=== PATIENT | male | born 1950 | race Caucasian/White ===

== ENCOUNTER 2017-08-11 19:23 | Emergency (ER) | payer BC, OTHER ==
--- NOTE | 2017-08-11 19:56 | EDM.PDOC ---
ED HPI GENERAL MEDICAL PROBLEM - General Chief Complaint: Genitourinary Problem Stated Complaint: LOWER BACK PAIN,URINARY ISSUES Time Seen by Provider: 08/11/17 19:49 Source of Information: Reports: Patient History Limitations: Reports: No Limitations - History of Present Illness INITIAL COMMENTS - FREE TEXT/NARRATIVE: HISTORY AND PHYSICAL: History of present illness: Patient is a 66-year-old male who presents to the emergency room with complaints of right sided low back pain. He states that he has also had increased urination over the past week. Patient points to the right gluteus as the area of discomfort. He has full range of motion of the back, without difficulty. Denies any recent injury or trauma. Denies any dysuria, blood noted in the urine, or difficulty starting his stream. Denies any change in bowel pattern. Denies any increase in thirst, no history of diabetes, no episodes of diaphoresis. Denies any chest pain, shortness of breath, abdominal pain, nausea, vomiting or diarrhea. Review of systems: As per history of present illness and below otherwise all systems reviewed and negative. Past medical history: As per history of present illness and as reviewed below otherwise noncontributory. Surgical history: As per history of present illness and as reviewed below otherwise noncontributory. Social history: No reported history of drug or alcohol abuse. Family history: As per history of present illness and as reviewed below otherwise noncontributory. Physical exam: General: Nontoxic-appearing 66-year-old male. Alert and oriented. Appears in no acute distress. HEENT: Atraumatic, normocephalic, pupils reactive, negative for conjunctival pallor or scleral icterus, mucous membranes moist, throat clear, neck supple, nontender, trachea midline. Lungs: Clear to auscultation, breath sounds equal bilaterally, chest nontender. Heart: S1S2, regular, negative for clicks, rubs, or JVD. Abdomen: Soft, nondistended, nontender. Negative for masses or hepatosplenomegaly. Negative for costovertebral tenderness. Pelvis: Stable nontender. Genitourinary: Deferred. Rectal: Deferred. Back: No pinpoint vertebral tenderness upon palpation. Patient is able to walk on his heels and toes without difficulty. Extremities: Atraumatic, moves all extremities per self with full range of motion without difficulty or deficits. Has mild tenderness on the right gluteus with palpation. The pelvis and hips are nontender. As flexion and extension at the waist. Denies any numbness or tingling to the lower extremities. negative for cords or calf pain. Neurovascular unremarkable. Neuro: Awake, alert, oriented. Cranial nerves II through XII unremarkable. Cerebellum unremarkable. Motor and sensory unremarkable throughout. Exam nonfocal. Patient states he has no history of diabetes. Bedside blood sugar was checked. Urinalysis results pending. The pain sounds musculoskeletal as it is over the right buttock and goes down the leg slightly. She declines anything for pain at this time. Negative urinalysis, lumbar x-ray does not show any acute changes. We'll give the patient prescription for Flexeril and Voltaren. Education on both medications were given to him. His son is at the bedside and we did review with him as well. Denies any further questions at this time. Diagnostics: UA, lumbar spine x-ray Therapeutics: [] Impression: Back pain with sciatica Plan: 1. Flexeril can be taken one tab up to 3 times a day. This medication does cause drowsiness so do not take it while driving or needing to be functioning at work. An anti-inflammatory has also been prescribed, this medication should not be taken with additional NSAIDs such as ibuprofen or Aleve. Take this medication once daily with food. He may take Tylenol if needed. 2. Follow up with your primary caregiver in the next 1-2 days. Return to the ED as needed and as discussed. Definitive disposition and diagnosis as appropriate pending reevaluation and review of above. Duration: Day(s): Location: Reports: Back right lower back Pain Score (Numeric/FACES): 7 - Related Data Allergies Allergy/AdvReac Type Severity Reaction Status Date / Time No Known Allergies Allergy Verified 08/11/17 19:33 Home Meds: Home Meds . [No Known Home Meds] 08/11/17 [History] Past Medical History HEENT History: Reports: Impaired Vision Cardiovascular History: Reports: None Respiratory History: Reports: None Gastrointestinal History: Reports: None Genitourinary History: Reports: None Musculoskeletal History: Reports: None Neurological History: Reports: None Psychiatric History: Reports: None Endocrine/Metabolic History: Reports: None Hematologic History: Reports: None Oncologic (Cancer) History: Reports: None Dermatologic History: Reports: None - Infectious Disease History Infectious Disease History: Reports: Chicken Pox, Measles, Mumps Social & Family History - Family History Family Medical History: Noncontributory - Tobacco Use Smoking Status *Q: Never Smoker - Recreational Drug Use Recreational Drug Use: No ED ROS GENERAL - Review of Systems Review Of Systems: ROS reveals no pertinent complaints other than HPI. ED EXAM, GENERAL - Physical Exam Exam: See Below (See dictation) Course - Vital Signs Last Recorded V/S: Last Vital Signs Temp 98.2 F 08/11/17 19:29 Pulse 89 08/11/17 19:29 Resp 18 08/11/17 19:29 BP 171/61 H 08/11/17 19:29 Pulse Ox 96 08/11/17 19:29 - Orders/Labs/Meds Orders: Active Orders 24 hr Category Date Time Status Glucose [Blood Glucose Check, Bedside] [RC] ONETIME Care 08/11/17 19:56 Active Lumbar Spine 2 or 3V [CR] Stat Exams 08/11/17 19:48 Taken Labs: Laboratory Tests 08/11/17 Range/Units 19:31 Urine Color YELLOW Urine Appearance CLEAR Urine pH 5.5 (5.0-8.0) Ur Specific [place] <= 1.005 (1.001-1.035) Urine Protein NEGATIVE (NEGATIVE) mg/dL Urine Glucose (UA) NEGATIVE (NEGATIVE) mg/dL Urine Ketones NEGATIVE (NEGATIVE) mg/dL Urine Occult Blood TRACE-LYSED (NEGATIVE) Urine Nitrite NEGATIVE (NEGATIVE) Urine Bilirubin NEGATIVE (NEGATIVE) Urine Urobilinogen 0.2 (<2.0) EU/dL Ur Leukocyte Esterase NEGATIVE (NEGATIVE) Urine RBC 0-1 (0-2/HPF) Urine WBC 0-2 (0-5/HPF) Ur Epithelial Cells RARE (NONE-FEW) Urine Bacteria RARE (NEGATIVE) Departure - Departure Time of Disposition: 20:44 Disposition: Home, Self-Care 01 Clinical Impression: Sciatica Qualifiers: Laterality: right Qualified Code(s): M54.31 - Sciatica, right side - Discharge Information Referrals: PCP,Unknown [Primary Care Provider] - Forms: ED Department Discharge Additional Instructions: My general discharge The following information is given to patients seen in the emergency department who are being discharged to home. This information is to outline your options for follow-up care. We provide all patients seen in our emergency department with a follow-up referral. The need for follow-up, as well as the timing and circumstances, are variable depending upon the specifics of your emergency department visit. If you don't have a primary care physician on staff, we will provide you with a referral. We always advise you to contact your personal physician following an emergency department visit to inform them of the circumstance of the visit and for follow-up with them and/or the need for any referrals to a consulting specialist. The emergency department will also refer you to a specialist when appropriate. This referral assures that you have the opportunity for follow-up care with a specialist. All of these measure are taken in an effort to provide you with optimal care, which includes your follow-up. Under all circumstances we always encourage you to contact your private physician who remains a resource for coordinating your care. When calling for follow-up care, please make the office aware that this follow-up is from your recent emergency room visit. If for any reason you are refused follow-up, please contact the [facility] Emergency Department at and asked to speak to the emergency department charge nurse. [facility] [address] [place] [id number] 1. Flexeril can be taken one tab up to 3 times a day. This medication does cause drowsiness so do not take it while driving or needing to be functioning at work. An anti-inflammatory has also been prescribed, this medication should not be taken with additional NSAIDs such as ibuprofen or Aleve. Take this medication once daily with food. You may take Tylenol if needed. 2. Follow up with your primary caregiver in the next 1-2 days. Return to the ED as needed and as discussed. - My Orders Last 24 Hours: My Active Orders 08/11/17 19:48 Lumbar Spine 2 or 3V [CR] Stat 08/11/17 19:56 Glucose [Blood Glucose Check, Bedside] [RC] ONETIME - Assessment/Plan Last 24 Hours: My Active Orders 08/11/17 19:48 Lumbar Spine 2 or 3V [CR] Stat 08/11/17 19:56 Glucose [Blood Glucose Check, Bedside] [RC] ONETIME
--- NOTE | 2017-08-12 11:45 | CR ---
EXAM DATE: 08/11/17 PATIENT'S AGE: 66 Patient: CHRISS LONDONNARY Facility: [place], [place] Site . Site : 1950 Study: XRay Spine Lumbar [id number]/26/2017 8:31:53 PM Ordering Physician: Doctor Cantrell Final Report: HISTORY: Right-sided low back pain. Findings: Three views of the lumbar spine or provided. There is a mild lumbar curve convex to the right. Alignment on the lateral view is unremarkable. There is diffuse degenerative disc disease at all levels with disc space narrowing and prominent osteophytes. No findings for fracture, dislocation or subluxation. The sacroiliac joints are unremarkable. Dictated by Trey Maria MD @ Aug 11 2017 9:49PM (Electronic Signature) Report Signed by Proxy. VINCENT
== END 2017-08-11 21:00 | disposition home or self-care (01) ==
LOC: MW.ED 19:23
DX: M54.41 Lumbago with sciatica, right side (principal)
CPT/HCPCS: 72100; 72100-26; 81001; 82962; 99284

== ENCOUNTER 2017-08-19 17:51 | Inpatient (IN) | payer BC ==
[2017-08-19] MEDS ORDERED: Albuterol/Ipratropium 3.0-0.5 MG/3 ML Neb Soln ONE (18:10)
[2017-08-19] MEDS ORDERED: Albuterol/Ipratropium 3.0-0.5 MG/3 ML Neb Soln NEB ONE ×2 (18:14→19:42)
--- NOTE | 2017-08-19 20:40 | EDM.PDOC ---
ED HPI GENERAL MEDICAL PROBLEM - General Chief Complaint: Respiratory Problem Stated Complaint: SHORTNESS OF BREATH Time Seen by Provider: 08/19/17 19:05 Source of Information: Reports: Patient History Limitations: Reports: No Limitations - History of Present Illness INITIAL COMMENTS - FREE TEXT/NARRATIVE: History of present illness: [66-year-old male comes in with shortness of breath. Patient was seen recently for prostate issues as well as new onset incontinence. Patient's son is with him at the bedside and indicates that his father has been slowly decompensating. Patient is a poor historian and is unable to indicate how long he's been struggling with his breathing and seems to think that everything that is currently wrong with him started with his urinary complaint. This 66-year- old male is pleasant and cooperative but looks much older than stated age and is unable initially to make complete sentences without having to stop and take a few extra breaths.] Review of systems: As per history of present illness and below otherwise all systems reviewed and negative. Past medical history: As per history of present illness and as reviewed below otherwise noncontributory. Surgical history: As per history of present illness and as reviewed below otherwise noncontributory. Social history: No reported history of drug or alcohol abuse. Family history: As per history of present illness and as reviewed below otherwise noncontributory. Physical exam: HEENT: Atraumatic, normocephalic, pupils reactive, negative for conjunctival pallor or scleral icterus, mucous membranes moist, throat clear, neck supple, nontender, trachea midline. Lungs: Diminished throughout with end expiratory wheeze, poor diaphragmatic excursion noted despite breath sounds being equal bilaterally, chest nontender. Heart: S1S2, regular, negative for clicks, rubs, or JVD. Abdomen: Soft, nondistended, nontender. Negative for masses or hepatosplenomegaly. Negative for costovertebral tenderness. Pelvis: Stable nontender. Genitourinary: Deferred. Rectal: Deferred. Extremities: Atraumatic, negative for cords or calf pain. Neurovascular unremarkable. Neuro: Awake, alert, oriented. Cranial nerves II through XII unremarkable. Diagnostics: [Chest x-ray CBC, CMP, lactic acid, EKG, influenza AB] Therapeutics: [Duo neb] Impression: [] Plan: [Admission] Definitive disposition and diagnosis as appropriate pending reevaluation and review of above. - Related Data Allergies Allergy/AdvReac Type Severity Reaction Status Date / Time No Known Allergies Allergy Verified 08/19/17 17:59 Home Meds: Home Meds . [No Known Home Meds] 08/11/17 [History] Past Medical History HEENT History: Reports: Impaired Vision Cardiovascular History: Reports: None Respiratory History: Reports: None Gastrointestinal History: Reports: None Genitourinary History: Reports: None Musculoskeletal History: Reports: None Neurological History: Reports: None Psychiatric History: Reports: None Endocrine/Metabolic History: Reports: None Hematologic History: Reports: None Oncologic (Cancer) History: Reports: None Dermatologic History: Reports: None - Infectious Disease History Infectious Disease History: Reports: Chicken Pox, Measles, Mumps Social & Family History - Family History Family Medical History: Noncontributory - Tobacco Use Smoking Status *Q: Never Smoker - Recreational Drug Use Recreational Drug Use: No ED ROS GENERAL - Review of Systems Review Of Systems: See Below (See history of present illness) ED EXAM, GENERAL - Physical Exam Exam: See Below (See history of present illness) Course - Vital Signs Last Recorded V/S: Last Vital Signs Temp 36.5 C 08/20/17 08:00 Pulse 98 08/20/17 08:00 Resp 20 08/20/17 08:00 BP 131/76 08/20/17 08:00 Pulse Ox 99 08/20/17 08:00 - Orders/Labs/Meds Orders: Active Orders 24 hr Category Date Time Status EKG Documentation Completion [RC] STAT Care 08/19/17 18:24 Active RT Aerosol Therapy [RC] ASDIRECTED Care 08/19/17 18:14 Active RT Aerosol Therapy [RC] ASDIRECTED Care 08/19/17 19:42 Active Medication Orders Acetaminophen (Tylenol) 650 mg PO Q4H PRN PRN Reason: Pain (Mild 1-3)/fever Albuterol/Ipratropium (Duoneb 3.0-0.5 Mg/3 Ml) 3 ml NEB Q4HRRT PRN PRN Reason: Shortness Of Breath/wheezing Enoxaparin Sodium (Lovenox) 40 mg SUBCUT DAILY [place] Last Admin: 08/20/17 08:44 Dose: 40 mg Sodium Chloride (Normal Saline) 1,000 mls @ 125 mls/hr IV ASDIRECTED [place] Last Admin: 08/20/17 09:24 Dose: 125 mls/hr Infusion: 08/20/17 07:57 Dose: 125 mls/hr Admin: 08/19/17 23:57 Dose: 125 mls/hr Ceftriaxone Sodium/Dextrose 1 (gm/ Premix) 50 mls @ 100 mls/hr IV Q24H [facility] Last Admin: 08/19/17 23:46 Dose: 100 mls/hr Azithromycin 500 mg/ Sodium (Chloride) 250 mls @ 250 mls/hr IV Q24H [facility] Last Admin: 08/20/17 01:08 Dose: 250 mls/hr Ondansetron HCl (Zofran) 4 mg IVPUSH Q4H PRN PRN Reason: Nausea Labs: Laboratory Tests 08/19/17 08/19/17 08/19/17 Range/Units 18:00 18:00 20:51 WBC 11.20 H (4.0-11.0) K/uL RBC 3.71 L (4.50-5.90) M/uL Hgb 10.3 L (13.0-17.0) g/dL Hct 32.3 L (38.0-50.0) % MCV 87.1 (80.0-98.0) fL MCH 27.8 (27.0-32.0) pg MCHC 31.9 (31.0-37.0) g/dL RDW Std Deviation 46.9 (28.0-62.0) fl RDW Coeff of [place]ita 15 (11.0-15.0) % Plt Count 339 (150-400) K/uL MPV 12.00 (7.40-12.00) fL Neut % (Auto) 80.3 H (48.0-80.0) % Lymph % (Auto) 13.5 L (16.0-40.0) % [place] % (Auto) 5.4 (0.0-15.0) % Eos % (Auto) 0.5 (0.0-7.0) % Baso % (Auto) 0.3 (0.0-1.5) % Neut # (Auto) 9.0 H (1.4-5.7) K/uL Lymph # (Auto) 1.5 (0.6-2.4) K/uL [place] # (Auto) 0.6 (0.0-0.8) K/uL Eos # (Auto) 0.1 (0.0-0.7) K/uL Baso # (Auto) 0.0 (0.0-0.1) K/uL Nucleated RBC % 0.0 /100WBC Nucleated RBCs # 0 K/uL Lactate 1.6 (0.20-2.00) mmol/L Sodium 147 H (136-146) mmol/L Potassium 4.0 (3.5-5.1) mmol/L Chloride 107 (98-110) mmol/L Carbon Dioxide 23 (21-31) mmol/L BUN 30 H (6.0-23.0) mg/dL Creatinine 2.0 H (0.6-1.5) mg/dL Est Cr Clr Drug Dosing 38.53 mL/min Estimated GFR (MDRD) 33.8 ml/min Glucose 115 H (60-110) mg/dL Calcium 7.6 L (8.8-10.8) mg/dL Total Bilirubin 0.6 (0.1-1.5) mg/dL AST 21 (5-40) IU/L ALT 11 (8-54) IU/L Alkaline Phosphatase 74 (40-150) Total Protein 7.3 (6.0-8.0) g/dL Albumin 3.7 (3.4-4.8) g/dL Globulin 3.6 H (2.0-3.5) g/dL Albumin/Globulin Ratio 1.0 L (1.3-2.8) Meds: Medications Generic Name Dose Route Start Last Admin Trade Name Freq PRN Reason Stop Dose Admin Acetaminophen 650 mg 08/19/17 22:42 Tylenol PO Q4H PRN Pain (Mild 1-3)/fever Albuterol/Ipratropium 3 ml 08/19/17 22:42 Duoneb 3.0-0.5 Mg/3 Ml NEB Q4HRRT PRN Shortness Of Breath/wheezing Enoxaparin Sodium 40 mg 08/20/17 09:00 08/20/17 08:44 Lovenox SUBCUT 40 mg DAILY [place] Administration Sodium Chloride 1,000 mls @ 125 mls/hr 08/19/17 22:45 08/20/17 09:24 Normal Saline IV 125 mls/hr ASDIRECTED [place] Administration Ceftriaxone Sodium/Dextrose 1 50 mls @ 100 mls/hr 08/20/17 00:00 08/19/17 23: 46 gm/ Premix IV 100 mls/hr Q24H [place] Administration Azithromycin 500 mg/ Sodium 250 mls @ 250 mls/hr 08/20/17 00:30 08/20/17 01: 08 Chloride IV 250 mls/hr Q24H [place] Administration Ondansetron HCl 4 mg 08/19/17 22:42 Zofran IVPUSH Q4H PRN Nausea Discontinued Medications Generic Name Dose Route Start Last Admin Trade Name Freq PRN Reason Stop Dose Admin Albuterol/Ipratropium Confirm 08/19/17 18:10 08/19/17 18:16 Duoneb 3.0-0.5 Mg/3 Ml Administered 08/19/17 18:11 Not Given Dose 3 ml .ROUTE .STK-MED ONE Albuterol/Ipratropium 3 ml 08/19/17 18:14 08/19/17 18:16 Duoneb 3.0-0.5 Mg/3 Ml NEB 08/19/17 18:15 3 ml ONETIME ONE Administration Albuterol/Ipratropium 3 ml 08/19/17 19:42 08/19/17 20:14 Duoneb 3.0-0.5 Mg/3 Ml NEB 08/19/17 19:43 Not Given ONETIME ONE Ceftriaxone Sodium 1,000 mg 08/19/17 23:00 08/19/17 23:58 Rocephin IVPUSH Not Given Q24H [place] Levofloxacin/Dextrose 750 mg/ 150 mls @ 100 mls/hr 08/19/17 20:53 08/19/17 21 :37 Premix IV 08/19/17 22:22 100 mls/hr ONETIME ONE Administration Azithromycin 500 mg/ Sodium 250 mls @ 250 mls/hr 08/19/17 23:00 08/20/17 01: 52 Chloride IV Not Given Q24H [place] Departure - Departure Time of Disposition: 10:06 Disposition: Admitted As Inpatient 68 Condition: Good Clinical Impression: Hypoxemia - Discharge Information - My Orders Last 24 Hours: My Active Orders 08/19/17 18:24 EKG Documentation Completion [RC] STAT 08/19/17 19:42 RT Aerosol Therapy [RC] ASDIRECTED - Assessment/Plan Last 24 Hours: My Active Orders 08/19/17 18:24 EKG Documentation Completion [RC] STAT 08/19/17 19:42 RT Aerosol Therapy [RC] ASDIRECTED
[2017-08-19] MEDS ORDERED: Levofloxacin/Dextrose 5%-Water 750 MG in Premix Bag 1 BAG IV ONE (20:53)
[2017-08-19] MEDS ORDERED: Albuterol/Ipratropium 3.0-0.5 MG/3 ML Neb Soln NEB PRN (22:42)
--- NOTE | 2017-08-19 22:58 | PCM.HP ---
H&P History of Present Illness - General Admit Problem/Dx: Admission Diagnosis/Problem Admission Diagnosis/Problem Pneumonia - History of Present Illness Initial Comments - Free Text/Narative: 66 yo male who presents with complaint of shortness of breath, productive cough , and generalized weakness. He also has been having urinary incontinence. He was prescribed ciprofloxacin which he stopped taking a week ago. CXR performed in ED reported right middle lobe pneumonia and small bilateral perihilar pneumonias. - Related Data Allergies/Adverse Reactions: Allergies Allergy/AdvReac Type Severity Reaction Status Date / Time No Known Allergies Allergy Verified 08/19/17 17:59 Home Medications: Home Meds . [No Known Home Meds] 08/11/17 [History] Past Medical History HEENT History: Reports: Impaired Vision Cardiovascular History: Reports: None Respiratory History: Reports: None Gastrointestinal History: Reports: None Genitourinary History: Reports: None Musculoskeletal History: Reports: None Neurological History: Reports: None Psychiatric History: Reports: None Endocrine/Metabolic History: Reports: None Hematologic History: Reports: None Oncologic (Cancer) History: Reports: None Dermatologic History: Reports: None - Infectious Disease History Infectious Disease History: Reports: Chicken Pox, Measles, Mumps Social & Family History - Family History Family Medical History: Noncontributory - Tobacco Use Smoking Status *Q: Never Smoker - Recreational Drug Use Recreational Drug Use: No H&P Review of Systems - Review of Systems: Review Of Systems: ROS reveals no pertinent complaints other than HPI. Exam - Exam Exam: See Below - Vital Signs Vital Signs: Last Vital Signs Temp 37.2 C 08/19/17 18:00 Pulse 109 H 08/19/17 18:00 Resp 20 08/19/17 19:19 BP 143/88 H 08/19/17 19:37 Pulse Ox 97 08/19/17 19:37 Weight: 81.193 kg - Exam General: Alert, Oriented HEENT: Mucosa Moist & [place] Lungs: Clear to Auscultation, Normal Respiratory Effort Cardiovascular: Regular Rate, Regular Rhythm GI/Abdominal Exam: Soft, Non-Tender Extremities: Non-Tender, No Pedal Edema Skin: Warm, Dry, Intact Neurological: No: Focal Deficit - Patient Data Result Diagrams: 08/19/17 18:00 08/19/17 18:00 *Q Meaningful Use (ADM) - VTE *Q VTE Criteria *Q: - Stroke *Q Stroke Criteria *Q: - AMI *Q AMI Criteria *Q: Problem List Initiated/Reviewed/Updated: Yes Assessment/Plan Comment:: 66 yo male admitted with community acquired pneumonia. Will treat with Rocephin and azithromycin. Blood and sputum cultures ordered.
[2017-08-19] MEDS ORDERED: Azithromycin 500 MG in Sodium Chloride 0.9% 250 ML IV SCH (23:00)
[2017-08-19] MEDS ORDERED: cefTRIAXone 1,000 MG VIAL IVPUSH SCH (23:00)
[2017-08-19] MEDS: cefTRIAXone 1 GM in Premix Bag 1 BAG IV SCH (23:46)
[2017-08-19] MEDS: Sodium Chloride 0.9% 1,000 ML IV SCH (23:57)
[2017-08-20] MEDS: Azithromycin 500 MG in Sodium Chloride 0.9% 250 ML IV SCH (01:08)
--- NOTE | 2017-08-20 08:40 | PCM.PN ---
- General Info Date of Service: 08/20/17 Admission Dx/Problem (Free Text): Admission Diagnosis/Problem Admission Diagnosis/Problem Pneumonia Subjective Update: No overnight events. Patient still having sob but states its improved. Patient still coughing. Urinated once since last night - Review of Systems General: Reports: No Symptoms HEENT: Reports: No Symptoms Pulmonary: Reports: Shortness of Breath, Cough Cardiovascular: Reports: No Symptoms Gastrointestinal: Reports: No Symptoms Genitourinary: Reports: No Symptoms Musculoskeletal: Reports: No Symptoms Skin: Reports: No Symptoms Neurological: Reports: No Symptoms Psychiatric: Reports: No Symptoms - Patient Data Vitals - Most Recent: Last Vital Signs Temp 37.1 C 08/20/17 04:00 Pulse 88 08/20/17 04:00 Resp 19 08/20/17 04:00 BP 134/74 08/20/17 04:00 Pulse Ox 96 08/20/17 04:00 Weight - Most Recent: 81.193 kg I&O - Last 24 Hours: Intake & Output 08/19/17 08/20/17 08/20/17 22:59 06:59 14:59 Intake Total 950 Output Total 368 Balance 582 Lab Results Last 24 Hours: Laboratory Results - last 24 hr 08/20/17 08/20/17 08/20/17 Range/Units 01:10 04:56 04:56 WBC 9.38 (4.0-11.0) K/uL RBC 3.24 L (4.50-5.90) M/uL Hgb 9.0 L (13.0-17.0) g/dL Hct 27.8 L (38.0-50.0) % MCV 85.8 (80.0-98.0) fL MCH 27.8 (27.0-32.0) pg MCHC 32.4 (31.0-37.0) g/dL RDW Std Deviation 45.8 (28.0-62.0) fl RDW Coeff of Anita 15 (11.0-15.0) % Plt Count 256 (150-400) K/uL MPV 12.20 H (7.40-12.00) fL Neut % (Auto) 80.3 H (48.0-80.0) % Lymph % (Auto) 12.6 L (16.0-40.0) % [place] % (Auto) 6.7 (0.0-15.0) % Eos % (Auto) 0.2 (0.0-7.0) % Baso % (Auto) 0.2 (0.0-1.5) % Neut # (Auto) 7.5 H (1.4-5.7) K/uL Lymph # (Auto) 1.2 (0.6-2.4) K/uL [place] # (Auto) 0.6 (0.0-0.8) K/uL Eos # (Auto) 0.0 (0.0-0.7) K/uL Baso # (Auto) 0.0 (0.0-0.1) K/uL Nucleated RBC % 0.0 /100WBC Nucleated RBCs # 0 K/uL Sodium 147 H (136-146) mmol/L Potassium 3.9 (3.5-5.1) mmol/L Chloride 109 (98-110) mmol/L Carbon Dioxide 24 (21-31) mmol/L BUN 32 H (6.0-23.0) mg/dL Creatinine 2.1 H (0.6-1.5) mg/dL Est Cr Clr Drug Dosing 36.78 mL/min Estimated GFR (MDRD) 32.0 ml/min Glucose 125 H (60-110) mg/dL Calcium 7.2 L (8.8-10.8) mg/dL Urine Color YELLOW Urine Appearance CLEAR Urine pH 5.5 (5.0-8.0) Ur Specific [place] 1.010 (1.001-1.035) Urine Protein NEGATIVE (NEGATIVE) mg/dL Urine Glucose (UA) NEGATIVE (NEGATIVE) mg/dL Urine Ketones NEGATIVE (NEGATIVE) mg/dL Urine Occult Blood NEGATIVE (NEGATIVE) Urine Nitrite NEGATIVE (NEGATIVE) Urine Bilirubin NEGATIVE (NEGATIVE) Urine Urobilinogen 0.2 (<2.0) EU/dL Ur Leukocyte Esterase NEGATIVE (NEGATIVE) Urine RBC 0-1 (0-2/HPF) Urine WBC 0-3 (0-5/HPF) Ur Epithelial Cells RARE (NONE-FEW) Urine Bacteria RARE (NEGATIVE) Benoit Results Last 24 Hours: Microbiology 08/20/17 00:00 Gram Stain - Preliminary Sputum - Expectorated Med Orders - Current: Current Medications Acetaminophen (Tylenol) 650 mg PO Q4H PRN PRN Reason: Pain (Mild 1-3)/fever Albuterol/Ipratropium (Duoneb 3.0-0.5 Mg/3 Ml) 3 ml NEB Q4HRRT PRN PRN Reason: Shortness Of Breath/wheezing Enoxaparin Sodium (Lovenox) 40 mg SUBCUT DAILY [facility] Sodium Chloride (Normal Saline) 1,000 mls @ 125 mls/hr IV ASDIRECTED [facility] Last Admin: 08/19/17 23:57 Dose: 125 mls/hr Ceftriaxone Sodium/Dextrose 1 (gm/ Premix) 50 mls @ 100 mls/hr IV Q24H [facility] Last Admin: 08/19/17 23:46 Dose: 100 mls/hr Azithromycin 500 mg/ Sodium (Chloride) 250 mls @ 250 mls/hr IV Q24H [facility] Last Admin: 08/20/17 01:08 Dose: 250 mls/hr Ondansetron HCl (Zofran) 4 mg IVPUSH Q4H PRN PRN Reason: Nausea Discontinued Medications Albuterol/Ipratropium (Duoneb 3.0-0.5 Mg/3 Ml) Confirm Administered Dose 3 ml .ROUTE .STK-MED ONE Stop: 08/19/17 18:11 Last Admin: 08/19/17 18:16 Dose: Not Given Albuterol/Ipratropium (Duoneb 3.0-0.5 Mg/3 Ml) 3 ml NEB ONETIME ONE Stop: 08/19/17 18:15 Last Admin: 08/19/17 18:16 Dose: 3 ml Albuterol/Ipratropium (Duoneb 3.0-0.5 Mg/3 Ml) 3 ml NEB ONETIME ONE Stop: 08/19/17 19:43 Last Admin: 08/19/17 20:14 Dose: Not Given Ceftriaxone Sodium (Rocephin) 1,000 mg IVPUSH Q24H [facility] Last Admin: 08/19/17 23:58 Dose: Not Given Levofloxacin/Dextrose 750 mg/ (Premix) 150 mls @ 100 mls/hr IV ONETIME ONE Stop: 08/19/17 22:22 Last Admin: 08/19/17 21:37 Dose: 100 mls/hr Azithromycin 500 mg/ Sodium (Chloride) 250 mls @ 250 mls/hr IV Q24H [facility] Last Admin: 08/20/17 01:52 Dose: Not Given - Exam Quality Assessment: Supplemental Oxygen General: Alert, Oriented HEENT: Pupils Equal, Pupils Reactive Neck: Supple, No JVD Lungs: Decreased Breath Sounds, Crackles Cardiovascular: Regular Rate, Regular Rhythm GI/Abdominal Exam: Normal Bowel Sounds, Soft, Non-Tender, No Distention Back Exam: Normal Inspection Extremities: Normal Inspection, Normal Capillary Refill Peripheral Pulses: 2+: Radial (L), Radial (R) Skin: Warm, Dry, Intact Neurological: No New Focal Deficit - Problem List Review Problem List Initiated/Reviewed/Updated: Yes - Plan Plan:: 66 yo male admitted with community acquired pneumonia. Will treat with Rocephin and azithromycin. Blood and sputum cultures ordered. #CAP -Leukocytosis resolved, Hypoxia resolving plan: -resume Azithromycin and Rocephin -wean O2 as tolerated -f/u sputum and blood cultures #Hypoxia, secondary to above -currently on 2L O2 -plan as per above #JOHN -Cr 2.0 at admission, currently 2.1 -UA negative plan -start IV NS -monitor renal function #Hypernatremia, mild -asymptomatic -continue to monitor DVT: Lovenox Diet: regular
[2017-08-20] MEDS: Enoxaparin 40 MG/0.4 ML Syringe SUBCUT SCH (08:44)
--- NOTE | 2017-08-20 08:55 | CR ---
EXAM DATE: 08/19/17 PATIENT'S AGE: 66 Patient: CHRISS LONDONNARY Facility: [place], [place] Site . Site : [id number] Study: XRay Chest [id number] 8:32:34 PM Ordering Physician: Doctor Cantrell Final Report: INDICATION: Cough and shortness of breath TECHNIQUE: Chest 2 views COMPARISON: None FINDINGS: CARDIOVASCULATURE AND MEDIASTINUM: Heart size and vasculature are normal in caliber and appearance. LUNGS AND PLEURAL SPACES: Ill-defined airspace infiltrate is present in the right lower middle lobe. There are bilateral perihilar infiltrates. Trace pleural effusions are suspected. BONES AND SOFT TISSUES: No significant findings. IMPRESSION: Right middle lobe pneumonia and smaller bilateral perihilar pneumonias with trace bilateral pleural effusions. Dictated by Alphonse Hope MD @ 08/19/2017 8:46:42 PM Dictated by: Alphonse Hope MD @ 08/19/2017 20:46:48 (Electronic Signature) Report Signed by Proxy. [facility]
[2017-08-20] MEDS: Sodium Chloride 0.9% 1,000 ML IV SCH ×2 (09:24→17:32)
[2017-08-20] MEDS: Ondansetron 4 MG/2 ML SDV IVPUSH PRN (10:44)
[2017-08-20] MEDS: Acetaminophen 325 MG Tab PO PRN (14:54)
[2017-08-21] MEDS: cefTRIAXone 1 GM in Premix Bag 1 BAG IV SCH (00:23)
[2017-08-21] MEDS: Azithromycin 500 MG in Sodium Chloride 0.9% 250 ML IV SCH (01:10)
[2017-08-21] MEDS: Acetaminophen 325 MG Tab PO PRN ×2 (02:32→22:16)
[2017-08-21] MEDS: Sodium Chloride 0.9% 1,000 ML IV SCH ×3 (04:02→23:25)
[2017-08-21] MEDS ORDERED: Sodium Chloride 0.9% 1,000 ML IV ONE (07:35)
[2017-08-21] MEDS ORDERED: Furosemide 40 MG/4 ML VIAL IVPUSH ONE (08:07)
[2017-08-21] MEDS: Polyethylene Glycol 3350 Powder 17 GM Packet PO SCH (08:09)
[2017-08-21] MEDS: Enoxaparin 40 MG/0.4 ML Syringe SUBCUT SCH (08:10)
--- NOTE | 2017-08-21 09:23 | PCM.PN ---
- General Info Date of Service: 08/21/17 Admission Dx/Problem (Free Text): Admission Diagnosis/Problem Admission Diagnosis/Problem Pneumonia Subjective Update: Patient still having sob but states its improved. Patient still coughing. Urine output increased after mane was placed. Overnight patient developed gross hematuria Functional Status: Reports: Pain Controlled, Tolerating Diet, Ambulating, Urinating - Review of Systems General: Reports: Weakness HEENT: Reports: No Symptoms Pulmonary: Reports: Shortness of Breath, Cough Cardiovascular: Reports: No Symptoms Gastrointestinal: Reports: No Symptoms Genitourinary: Reports: Hematuria Musculoskeletal: Reports: No Symptoms Skin: Reports: No Symptoms Neurological: Reports: No Symptoms Psychiatric: Reports: No Symptoms - Patient Data Vitals - Most Recent: Last Vital Signs Temp 36.8 C 08/21/17 04:00 Pulse 80 08/21/17 04:00 Resp 20 08/21/17 04:00 BP 136/82 08/21/17 04:00 Pulse Ox 95 08/21/17 04:00 Weight - Most Recent: 81.193 kg I&O - Last 24 Hours: Intake & Output 08/20/17 08/21/17 08/21/17 22:59 06:59 14:59 Intake Total 4294 1380 Output Total 2370 2950 Balance 1924 -1570 Lab Results Last 24 Hours: Laboratory Results - last 24 hr 08/21/17 08/21/17 Range/Units 05:04 05:04 WBC 11.62 H (4.0-11.0) K/uL RBC 3.44 L (4.50-5.90) M/uL Hgb 9.5 L (13.0-17.0) g/dL Hct 29.9 L (38.0-50.0) % MCV 86.9 (80.0-98.0) fL MCH 27.6 (27.0-32.0) pg MCHC 31.8 (31.0-37.0) g/dL RDW Std Deviation 46.3 (28.0-62.0) fl RDW Coeff of Anita 15 (11.0-15.0) % Plt Count 307 (150-400) K/uL MPV 12.30 H (7.40-12.00) fL Neut % (Auto) 84.3 H (48.0-80.0) % Lymph % (Auto) 10.2 L (16.0-40.0) % [place] % (Auto) 4.8 (0.0-15.0) % Eos % (Auto) 0.5 (0.0-7.0) % Baso % (Auto) 0.2 (0.0-1.5) % Neut # (Auto) 9.8 H (1.4-5.7) K/uL Lymph # (Auto) 1.2 (0.6-2.4) K/uL [place] # (Auto) 0.6 (0.0-0.8) K/uL Eos # (Auto) 0.1 (0.0-0.7) K/uL Baso # (Auto) 0.0 (0.0-0.1) K/uL Nucleated RBC % 0.0 /100WBC Nucleated RBCs # 0 K/uL Sodium 145 (136-146) mmol/L Potassium 4.0 (3.5-5.1) mmol/L Chloride 109 (98-110) mmol/L Carbon Dioxide 23 (21-31) mmol/L BUN 29 H (6.0-23.0) mg/dL Creatinine 2.0 H (0.6-1.5) mg/dL Est Cr Clr Drug Dosing 38.62 mL/min Estimated GFR (MDRD) 33.8 ml/min Glucose 139 H (60-110) mg/dL Calcium 6.4 L (8.8-10.8) mg/dL [place] Results Last 24 Hours: Microbiology 08/20/17 01:10 Urine Culture - Final Urine, Voided MIXED [place] 1,000-10,000 CFU/ML 08/19/17 23:00 Aerobic Blood Culture - Preliminary Blood - Venous - Lab Draw NO GROWTH AFTER 1 DAY Anaerobic Blood Culture - Preliminary NO GROWTH AFTER 1 DAY Med Orders - Current: Current Medications Acetaminophen (Tylenol) 650 mg PO Q4H PRN PRN Reason: Pain (Mild 1-3)/fever Last Admin: 08/21/17 02:32 Dose: 650 mg Albuterol/Ipratropium (Duoneb 3.0-0.5 Mg/3 Ml) 3 ml NEB Q4HRRT PRN PRN Reason: Shortness Of Breath/wheezing Enoxaparin Sodium (Lovenox) 40 mg SUBCUT DAILY [facility] Last Admin: 08/21/17 08:10 Dose: 40 mg Sodium Chloride (Normal Saline) 1,000 mls @ 125 mls/hr IV ASDIRECTED [facility] Last Admin: 08/21/17 04:02 Dose: 125 mls/hr Ceftriaxone Sodium/Dextrose 1 (gm/ Premix) 50 mls @ 100 mls/hr IV Q24H [facility] Last Admin: 08/21/17 00:23 Dose: 100 mls/hr Azithromycin 500 mg/ Sodium (Chloride) 250 mls @ 250 mls/hr IV Q24H [facility] Last Admin: 08/21/17 01:10 Dose: 250 mls/hr Ondansetron HCl (Zofran) 4 mg IVPUSH Q4H PRN PRN Reason: Nausea Last Admin: 08/20/17 10:44 Dose: 4 mg Polyethylene Glycol (Miralax) 17 gm PO DAILY [facility] Last Admin: 08/21/17 08:09 Dose: 17 gm Discontinued Medications Albuterol/Ipratropium (Duoneb 3.0-0.5 Mg/3 Ml) Confirm Administered Dose 3 ml .ROUTE .STK-MED ONE Stop: 08/19/17 18:11 Last Admin: 08/19/17 18:16 Dose: Not Given Albuterol/Ipratropium (Duoneb 3.0-0.5 Mg/3 Ml) 3 ml NEB ONETIME ONE Stop: 08/19/17 18:15 Last Admin: 08/19/17 18:16 Dose: 3 ml Albuterol/Ipratropium (Duoneb 3.0-0.5 Mg/3 Ml) 3 ml NEB ONETIME ONE Stop: 08/19/17 19:43 Last Admin: 08/19/17 20:14 Dose: Not Given Ceftriaxone Sodium (Rocephin) 1,000 mg IVPUSH Q24H [facility] Last Admin: 08/19/17 23:58 Dose: Not Given Furosemide (Lasix) 40 mg IVPUSH ONETIME ONE Stop: 08/21/17 08:08 Last Admin: 08/21/17 08:22 Dose: 40 mg Levofloxacin/Dextrose 750 mg/ (Premix) 150 mls @ 100 mls/hr IV ONETIME ONE Stop: 08/19/17 22:22 Last Admin: 08/19/17 21:37 Dose: 100 mls/hr Azithromycin 500 mg/ Sodium (Chloride) 250 mls @ 250 mls/hr IV Q24H [place] Last Admin: 08/20/17 01:52 Dose: Not Given Sodium Chloride (Normal Saline) 1,000 mls @ 999 mls/hr IV .Bolus ONE Stop: 08/21/17 08:35 Last Admin: 08/21/17 08:25 Dose: 999 mls/hr - Exam Quality Assessment: Supplemental Oxygen General: Alert, Oriented HEENT: Pupils Equal, Pupils Reactive Neck: Supple Lungs: Decreased Breath Sounds, Crackles Cardiovascular: Regular Rate, Regular Rhythm GI/Abdominal Exam: Normal Bowel Sounds, Soft, Non-Tender, No Distention (Male) Exam: Normal Inspection. No: Scrotum Tenderness (L), Scrotum Tenderness (R), Testicular Tenderness (L), Testicular Tenderness (R) Back Exam: Normal Inspection Extremities: Normal Inspection, Normal Capillary Refill Skin: Warm, Dry, Intact Neurological: No New Focal Deficit - Problem List Review Problem List Initiated/Reviewed/Updated: Yes - My Orders Last 24 Hours: My Active Orders 08/21/17 09:00 Polyethylene Glycol 3350 [MiraLAX] 17 gm PO DAILY 08/21/17 14:00 BASIC METABOLIC PANEL,BMP [CHEM] Routine - Plan Plan:: 66 yo male admitted with community acquired pneumonia & JOHN. Currently on Rocephin and azithromycin. #CAP -Leukocytosis at admission, resolved yesterday, recurred today -Sputum gram stain questionable for MRSA -BC NGTD -hypoxia improving plan: -continue Azithromycin and Rocephin -add Linezolid 600 mg IV [id number] -repeat blood cultures -f/u sputum and blood cultures -wean O2 as tolerated #Hypoxia, secondary to above -currently on 2L O2 -plan as per above #Leukocytosis -recurred after resolving -repeat blood cultures #JOHN -Cr 2.0 at admission, increased to 2.1 yesterday, currently 2.0 -mane in place -initial UA negative for blood -on IV NS @ 125 ml per hour plan -continue IV NS @ 125 ml hour & co-administer NS 1L bolus wide open -repeat renal function this evening #Gross Hematuria -presumed secondary to JOHN -continue to monitor -consult to urology if no improvement #Hypernatremia, mild, resolved DVT: Lovenox Diet: regular
[2017-08-21] MEDS ORDERED: Linezolid 600 MG in Premix Bag 1 BAG IV SCH (09:30)
[2017-08-21] MEDS ORDERED: Calcium Gluconate 10% 1 GM/10 ML SDV IV ONE (17:49)
[2017-08-21] MEDS ORDERED: SODIUM CHLORIDE 0.9% IV SCH (18:00)
[2017-08-21] MEDS ORDERED: CALCIUM GLUCONATE IV SCH (18:00)
[2017-08-21] MEDS ORDERED: Calcium Gluconate 11 GM in Sodium Chloride 0.9% 1,000 ML IV SCH (18:00)
[2017-08-21] MEDS ORDERED: Magnesium Sulfate/Water 4 GM in Premix Bag 1 BAG IV ONE (22:45)
[2017-08-22] MEDS: cefTRIAXone 1 GM in Premix Bag 1 BAG IV SCH (01:33)
[2017-08-22] MEDS: Azithromycin 500 MG in Sodium Chloride 0.9% 250 ML IV SCH (02:23)
[2017-08-22] MEDS: Ondansetron 4 MG/2 ML SDV IVPUSH PRN (03:15)
[2017-08-22] MEDS: Enoxaparin 40 MG/0.4 ML Syringe SUBCUT SCH (08:12)
[2017-08-22] MEDS: Sodium Chloride 0.9% 1,000 ML IV SCH ×2 (08:12→16:43)
[2017-08-22] MEDS: Polyethylene Glycol 3350 Powder 17 GM Packet PO SCH (08:12)
--- NOTE | 2017-08-22 09:34 | PCM.PN ---
- General Info Date of Service: 08/22/17 Admission Dx/Problem (Free Text): Admission Diagnosis/Problem Admission Diagnosis/Problem Pneumonia Subjective Update: No overnight events. Patient improving. Still coughing and feeling weak. Functional Status: Reports: Pain Controlled, Tolerating Diet, Ambulating, Urinating - Review of Systems General: Reports: Weakness HEENT: Reports: No Symptoms Pulmonary: Reports: Cough Cardiovascular: Reports: No Symptoms Gastrointestinal: Reports: No Symptoms Genitourinary: Reports: No Symptoms Musculoskeletal: Reports: No Symptoms Skin: Reports: No Symptoms Neurological: Reports: No Symptoms Psychiatric: Reports: No Symptoms - Patient Data Vitals - Most Recent: Last Vital Signs Temp 37.1 C 08/22/17 04:00 Pulse 79 08/22/17 04:00 Resp 19 08/22/17 04:00 BP 126/77 08/22/17 04:00 Pulse Ox 95 08/22/17 04:00 Weight - Most Recent: 81.193 kg I&O - Last 24 Hours: Intake & Output 08/21/17 08/22/17 08/22/17 22:59 06:59 14:59 Intake Total 680 1430 Output Total 4500 1950 Balance -3820 -520 Lab Results Last 24 Hours: Laboratory Results - last 24 hr 08/21/17 08/21/17 08/21/17 Range/Units 14:03 14:03 18:30 WBC (4.0-11.0) K/uL RBC (4.50-5.90) M/uL Hgb (13.0-17.0) g/dL Hct (38.0-50.0) % MCV (80.0-98.0) fL MCH (27.0-32.0) pg MCHC (31.0-37.0) g/dL RDW Std Deviation (28.0-62.0) fl RDW Coeff of Anita (11.0-15.0) % Plt Count (150-400) K/uL MPV (7.40-12.00) fL Neut % (Auto) (48.0-80.0) % Lymph % (Auto) (16.0-40.0) % [place] % (Auto) (0.0-15.0) % Eos % (Auto) (0.0-7.0) % Baso % (Auto) (0.0-1.5) % Neut # (Auto) (1.4-5.7) K/uL Lymph # (Auto) (0.6-2.4) K/uL [place] # (Auto) (0.0-0.8) K/uL Eos # (Auto) (0.0-0.7) K/uL Baso # (Auto) (0.0-0.1) K/uL Nucleated RBC % /100WBC Nucleated RBCs # K/uL Sodium 144 (136-146) mmol/L Potassium 4.1 (3.5-5.1) mmol/L Chloride 106 (98-110) mmol/L Carbon Dioxide 24 (21-31) mmol/L BUN 28 H (6.0-23.0) mg/dL Creatinine 1.9 H (0.6-1.5) mg/dL Est Cr Clr Drug Dosing 40.66 mL/min Estimated GFR (MDRD) 35.9 ml/min Glucose 137 H (60-110) mg/dL Calcium 6.6 L (8.8-10.8) mg/dL Phosphorus 5.7 H (2.4-4.7) mg/dL Magnesium 1.4 L (1.5-2.3) mEq/L Total Bilirubin 0.3 (0.1-1.5) mg/dL Direct Bilirubin 0.2 (0.0-0.5) mg/dL Indirect Bilirubin 0.1 (0.0-1.0) mg/dL AST 21 (5-40) IU/L ALT 14 (8-54) IU/L Alkaline Phosphatase 77 (40-150) Total Protein 6.6 (6.0-8.0) g/dL Albumin 3.3 L (3.4-4.8) g/dL Globulin 3.3 (2.0-3.5) g/dL Albumin/Globulin Ratio 1.0 L (1.3-2.8) Amylase 30 (10-90) U/L 08/22/17 08/22/17 08/22/17 Range/Units 00:05 06:28 06:28 WBC 12.30 H (4.0-11.0) K/uL RBC 3.55 L (4.50-5.90) M/uL Hgb 9.6 L (13.0-17.0) g/dL Hct 31.0 L (38.0-50.0) % MCV 87.3 (80.0-98.0) fL MCH 27.0 (27.0-32.0) pg MCHC 31.0 (31.0-37.0) g/dL RDW Std Deviation 46.9 (28.0-62.0) fl RDW Coeff of Anita 15 (11.0-15.0) % Plt Count 298 (150-400) K/uL MPV 12.00 (7.40-12.00) fL Neut % (Auto) 81.7 H (48.0-80.0) % Lymph % (Auto) 10.0 L (16.0-40.0) % [place] % (Auto) 7.5 (0.0-15.0) % Eos % (Auto) 0.6 (0.0-7.0) % Baso % (Auto) 0.2 (0.0-1.5) % Neut # (Auto) 10.1 H (1.4-5.7) K/uL Lymph # (Auto) 1.2 (0.6-2.4) K/uL [place] # (Auto) 0.9 H (0.0-0.8) K/uL Eos # (Auto) 0.1 (0.0-0.7) K/uL Baso # (Auto) 0.0 (0.0-0.1) K/uL Nucleated RBC % 0.0 /100WBC Nucleated RBCs # 0 K/uL Sodium 143 142 (136-146) mmol/L Potassium 3.9 4.2 (3.5-5.1) mmol/L Chloride 108 107 (98-110) mmol/L Carbon Dioxide 23 24 (21-31) mmol/L BUN 24 H 22 (6.0-23.0) mg/dL Creatinine 1.6 H 1.5 (0.6-1.5) mg/dL Est Cr Clr Drug Dosing 48.28 51.50 mL/min Estimated GFR (MDRD) 43.7 47.1 ml/min Glucose 125 H 132 H (60-110) mg/dL Calcium 7.1 L 7.9 L (8.8-10.8) mg/dL Phosphorus (2.4-4.7) mg/dL Magnesium 2.1 (1.5-2.3) mEq/L Total Bilirubin 0.4 (0.1-1.5) mg/dL Direct Bilirubin (0.0-0.5) mg/dL Indirect Bilirubin (0.0-1.0) mg/dL AST 29 (5-40) IU/L ALT 22 (8-54) IU/L Alkaline Phosphatase 89 (40-150) Total Protein 6.5 (6.0-8.0) g/dL Albumin 3.2 L (3.4-4.8) g/dL Globulin 3.3 (2.0-3.5) g/dL Albumin/Globulin Ratio 1.0 L (1.3-2.8) Amylase (10-90) U/L [place] Results Last 24 Hours: Microbiology 08/19/17 23:00 Aerobic Blood Culture - Preliminary Blood - Venous - Lab Draw NO GROWTH AFTER 2 DAYS Anaerobic Blood Culture - Preliminary NO GROWTH AFTER 2 DAYS 08/20/17 00:00 Gram Stain - Final Sputum - Expectorated Sputum Culture - Final Normal Respiratory [place] YE[place] 08/20/17 01:10 Urine Culture - Final Urine, Voided MIXED NAWAF 1,000-10,000 CFU/ML Med Orders - Current: Current Medications Acetaminophen (Tylenol) 650 mg PO Q4H PRN PRN Reason: Pain (Mild 1-3)/fever Last Admin: 08/21/17 22:16 Dose: 650 mg Albuterol/Ipratropium (Duoneb 3.0-0.5 Mg/3 Ml) 3 ml NEB Q4HRRT PRN PRN Reason: Shortness Of Breath/wheezing Enoxaparin Sodium (Lovenox) 40 mg SUBCUT DAILY [facility] Last Admin: 08/22/17 08:12 Dose: 40 mg Sodium Chloride (Normal Saline) 1,000 mls @ 125 mls/hr IV ASDIRECTED [facility] Last Admin: 08/22/17 08:12 Dose: 125 mls/hr Ceftriaxone Sodium/Dextrose 1 (gm/ Premix) 50 mls @ 100 mls/hr IV Q24H [facility] Last Admin: 08/22/17 01:33 Dose: 100 mls/hr Azithromycin 500 mg/ Sodium (Chloride) 250 mls @ 250 mls/hr IV Q24H [facility] Last Admin: 08/22/17 02:23 Dose: 250 mls/hr Calcium Gluconate 5.5 gm/ (Sodium Chloride) 555 mls @ 50 mls/hr IV ASDIRECTED [facility] Last Admin: 08/21/17 20:44 Dose: 50 mls/hr Ondansetron HCl (Zofran) 4 mg IVPUSH Q4H PRN PRN Reason: Nausea Last Admin: 08/22/17 03:15 Dose: 4 mg Polyethylene Glycol (Miralax) 17 gm PO DAILY [facility] Last Admin: 08/22/17 08:12 Dose: 17 gm Discontinued Medications Albuterol/Ipratropium (Duoneb 3.0-0.5 Mg/3 Ml) Confirm Administered Dose 3 ml .ROUTE .STK-MED ONE Stop: 08/19/17 18:11 Last Admin: 08/19/17 18:16 Dose: Not Given Albuterol/Ipratropium (Duoneb 3.0-0.5 Mg/3 Ml) 3 ml NEB ONETIME ONE Stop: 08/19/17 18:15 Last Admin: 08/19/17 18:16 Dose: 3 ml Albuterol/Ipratropium (Duoneb 3.0-0.5 Mg/3 Ml) 3 ml NEB ONETIME ONE Stop: 08/19/17 19:43 Last Admin: 08/19/17 20:14 Dose: Not Given Ceftriaxone Sodium (Rocephin) 1,000 mg IVPUSH Q24H [facility] Last Admin: 08/19/17 23:58 Dose: Not Given Furosemide (Lasix) 40 mg IVPUSH ONETIME ONE Stop: 08/21/17 08:08 Last Admin: 08/21/17 08:22 Dose: 40 mg Levofloxacin/Dextrose 750 mg/ (Premix) 150 mls @ 100 mls/hr IV ONETIME ONE Stop: 08/19/17 22:22 Last Admin: 08/19/17 21:37 Dose: 100 mls/hr Azithromycin 500 mg/ Sodium (Chloride) 250 mls @ 250 mls/hr IV Q24H [facility] Last Admin: 08/20/17 01:52 Dose: Not Given Sodium Chloride (Normal Saline) 1,000 mls @ 999 mls/hr IV .Bolus ONE Stop: 08/21/17 08:35 Last Admin: 08/21/17 08:25 Dose: 999 mls/hr Linezolid 600 mg/ Premix 300 mls @ 300 mls/hr IV Q12H [facility] Last Admin: 08/21/17 09:58 Dose: 300 mls/hr Calcium Gluconate 2 gm/ Sodium (Chloride) 70 mls @ 140 mls/hr IV ONETIME ONE Stop: 08/21/17 18:29 Last Admin: 08/21/17 19:49 Dose: 140 mls/hr Calcium Gluconate 11 gm/ (Sodium Chloride) 1,110 mls @ 50 mls/hr IV ASDIRECTED [facility] Stop: 08/22/17 16:11 Magnesium Sulfate 4 gm/ Premix 100 mls @ 50 mls/hr IV ONETIME ONE Stop: 08/22/17 00:44 Last Admin: 08/21/17 23:16 Dose: 50 mls/hr - Exam Quality Assessment: Supplemental Oxygen General: Alert, Oriented HEENT: Pupils Equal, Pupils Reactive, EOMI, Mucous Membr. Moist/[place] Neck: Supple, No JVD Lungs: Decreased Breath Sounds, Crackles GI/Abdominal Exam: Normal Bowel Sounds, Soft, Non-Tender, No Distention Back Exam: Normal Inspection Extremities: Normal Inspection, Normal Capillary Refill Neurological: No New Focal Deficit - Problem List Review Problem List Initiated/Reviewed/Updated: Yes - My Orders Last 24 Hours: My Active Orders 08/21/17 09:00 Polyethylene Glycol 3350 [MiraLAX] 17 gm PO DAILY 08/21/17 18:00 Calcium Gluconate 5.5 gm Sodium Chloride 0.9% [Normal Saline] 500 ml IV ASDIRECTED 08/21/17 18:30 PTH INTACT INCL CALCIUM [REF] Routine VITAMIN D 25-HYROXY (D2, D3) [REF] Routine 08/21/17 19:50 CALCIUM, URINE Routine MISC TEST Routine 08/23/17 05:11 CBC WITH AUTO DIFF [HEME] AM CMP [COMPREHENSIVE METABOLIC PN,CMP] [CHEM] AM 08/24/17 05:11 CBC WITH AUTO DIFF [HEME] AM CMP [COMPREHENSIVE METABOLIC PN,CMP] [CHEM] AM 08/25/17 05:11 CBC WITH AUTO DIFF [HEME] AM CMP [COMPREHENSIVE METABOLIC PN,CMP] [CHEM] AM 08/26/17 05:11 CBC WITH AUTO DIFF [HEME] AM CMP [COMPREHENSIVE METABOLIC PN,CMP] [CHEM] AM - Plan Plan:: 66 yo male admitted with community acquired pneumonia & JOHN. Currently on Rocephin and azithromycin. #CAP -Leukocytosis worsening -Sputum gram stain negative, Sputum culture shows normal respiratory nawaf and yeast -BC NGTD -hypoxia improving plan: -start cefepime, continue azithromycin, DC rocephin -continue Azithromycin -repeat blood cultures -repeat CXR -wean O2 as tolerated #Leukocytosis -recurred after resolving -repeat blood cultures & CXR -change antibiotics as per above #Hypoxia, secondary to above -currently on 2L O2 -plan as per above #Acute Hypocalcemia, improved -likely multifactoral etiology including hypomagnasemia and/or CKD -administered IV Magnesium and IV calcium -Ca level currently 7.6 -patient on telemetry -ordered Vitamin D, PTH, Urine Calcium, Urine Mg plan: -DC IV Calcium -repeat Calcium level in PM -f/u Phos, Vitamin D, PTH, Urine Calcium, Urine Mg #Hypomagnasemia, resolved -plan as per above #Subacute Kidney Injury, improving -Patient likely has underlying CKD however no baseline GFR available prior to this admission -GFR improving, Cr normalized plan -decrease IVF rate #Gross Hematuria, resolved -presumed secondary to above -continue to monitor #Hypernatremia, mild, resolved DVT: Lovenox Diet: regular
[2017-08-22] MEDS ORDERED: Furosemide 40 MG/4 ML VIAL IVPUSH ONE (11:20)
[2017-08-22] MEDS: Cefepime 2 GM in Premix Bag 1 BAG IV SCH ×2 (12:23→20:00)
[2017-08-22] MEDS: Calcium Carbonate/Vitamin D3 1500 MG-400 Units Tab PO SCH (22:01)
[2017-08-23] MEDS: Sodium Chloride 0.9% 1,000 ML IV SCH (01:07)
[2017-08-23] MEDS: Azithromycin 500 MG in Sodium Chloride 0.9% 250 ML IV SCH (01:08)
[2017-08-23] MEDS: Cefepime 2 GM in Premix Bag 1 BAG IV SCH ×3 (04:14→18:30)
--- NOTE | 2017-08-23 08:13 | PCM.PN ---
- General Info Date of Service: 08/23/17 Admission Dx/Problem (Free Text): Admission Diagnosis/Problem Admission Diagnosis/Problem Pneumonia Functional Status: Reports: Pain Controlled, Tolerating Diet - Review of Systems General: Reports: Weakness, Fatigue. Denies: Fever HEENT: Denies: Headaches, Visual Changes Pulmonary: Reports: Shortness of Breath, Cough. Denies: Hemoptysis Cardiovascular: Reports: Edema. Denies: Chest Pain, Palpitations Gastrointestinal: Denies: Abdominal Pain, Constipation Genitourinary: Denies: Dysuria, Hematuria Musculoskeletal: Denies: Neck Pain, Leg Pain Skin: Denies: Cyanosis Neurological: Reports: Confusion. Denies: Dizziness, Headache Psychiatric: Reports: Confusion - Patient Data Vitals - Most Recent: Last Vital Signs Temp 98 F 08/23/17 04:00 Pulse 63 08/23/17 04:00 Resp 18 08/23/17 04:00 BP 126/68 08/23/17 04:00 Pulse Ox 95 08/23/17 04:00 Weight - Most Recent: 83 kg I&O - Last 24 Hours: Intake & Output 08/22/17 08/23/17 08/23/17 22:59 06:59 14:59 Intake Total 3499 1936 Output Total 4650 2150 Balance -1151 -214 Lab Results Last 24 Hours: Laboratory Results - last 24 hr 08/22/17 08/23/17 08/23/17 Range/Units 06:28 04:21 04:21 WBC 10.99 (4.0-11.0) K/uL RBC 3.26 L (4.50-5.90) M/uL Hgb 9.2 L (13.0-17.0) g/dL Hct 28.0 L (38.0-50.0) % MCV 85.9 (80.0-98.0) fL MCH 28.2 (27.0-32.0) pg MCHC 32.9 (31.0-37.0) g/dL RDW Std Deviation 45.3 (28.0-62.0) fl RDW Coeff of Anita 14 (11.0-15.0) % Plt Count 266 (150-400) K/uL MPV 12.40 H (7.40-12.00) fL Neut % (Auto) 77.4 (48.0-80.0) % Lymph % (Auto) 11.9 L (16.0-40.0) % [place] % (Auto) 8.4 (0.0-15.0) % Eos % (Auto) 1.8 (0.0-7.0) % Baso % (Auto) 0.5 (0.0-1.5) % Neut # (Auto) 8.5 H (1.4-5.7) K/uL Lymph # (Auto) 1.3 (0.6-2.4) K/uL [place] # (Auto) 0.9 H (0.0-0.8) K/uL Eos # (Auto) 0.2 (0.0-0.7) K/uL Baso # (Auto) 0.1 (0.0-0.1) K/uL Nucleated RBC % 0.0 /100WBC Nucleated RBCs # 0 K/uL Sodium 142 (136-146) mmol/L Potassium 4.8 (3.5-5.1) mmol/L Chloride 106 (98-110) mmol/L Carbon Dioxide 26 (21-31) mmol/L BUN 21 (6.0-23.0) mg/dL Creatinine 1.4 (0.6-1.5) mg/dL Est Cr Clr Drug Dosing 55.17 mL/min Estimated GFR (MDRD) 51.0 ml/min Glucose 121 H (60-110) mg/dL Calcium 6.9 L (8.8-10.8) mg/dL Magnesium 1.5 (1.5-2.3) mEq/L Total Bilirubin 0.4 (0.1-1.5) mg/dL AST 42 H (5-40) IU/L ALT 31 (8-54) IU/L Alkaline Phosphatase 106 (40-150) B-Natriuretic Peptide > 3306 H (<100) PG/ML Total Protein 5.4 L (6.0-8.0) g/dL Albumin 3.0 L (3.4-4.8) g/dL Globulin 2.4 (2.0-3.5) g/dL Albumin/Globulin Ratio 1.3 (1.3-2.8) Benoit Results Last 24 Hours: Microbiology 08/19/17 23:00 Aerobic Blood Culture - Preliminary Blood - Venous - Lab Draw NO GROWTH AFTER 3 DAYS Anaerobic Blood Culture - Preliminary NO GROWTH AFTER 3 DAYS Med Orders - Current: Current Medications Acetaminophen (Tylenol) 650 mg PO Q4H PRN PRN Reason: Pain (Mild 1-3)/fever Last Admin: 08/21/17 22:16 Dose: 650 mg Albuterol/Ipratropium (Duoneb 3.0-0.5 Mg/3 Ml) 3 ml NEB Q4HRRT PRN PRN Reason: Shortness Of Breath/wheezing Calcium Carbonate (Caltrate 600+D 1500 Mg-400 Units) 1 tab PO DAILY [facility] Last Admin: 08/22/17 22:01 Dose: 1 tab Enoxaparin Sodium (Lovenox) 40 mg SUBCUT DAILY [facility] Last Admin: 08/22/17 08:12 Dose: 40 mg Sodium Chloride (Normal Saline) 1,000 mls @ 125 mls/hr IV ASDIRECTED [facility] Last Admin: 08/23/17 01:07 Dose: 125 mls/hr Azithromycin 500 mg/ Sodium (Chloride) 250 mls @ 250 mls/hr IV Q24H [facility] Last Admin: 08/23/17 01:08 Dose: 250 mls/hr Cefepime HCl 2 gm/ Premix 50 mls @ 100 mls/hr IV Q8H [facility] Last Admin: 08/23/17 04:14 Dose: 100 mls/hr Ondansetron HCl (Zofran) 4 mg IVPUSH Q4H PRN PRN Reason: Nausea Last Admin: 08/22/17 03:15 Dose: 4 mg Polyethylene Glycol (Miralax) 17 gm PO DAILY [facility] Last Admin: 08/22/17 08:12 Dose: 17 gm Discontinued Medications Albuterol/Ipratropium (Duoneb 3.0-0.5 Mg/3 Ml) Confirm Administered Dose 3 ml .ROUTE .STK-MED ONE Stop: 08/19/17 18:11 Last Admin: 08/19/17 18:16 Dose: Not Given Albuterol/Ipratropium (Duoneb 3.0-0.5 Mg/3 Ml) 3 ml NEB ONETIME ONE Stop: 08/19/17 18:15 Last Admin: 08/19/17 18:16 Dose: 3 ml Albuterol/Ipratropium (Duoneb 3.0-0.5 Mg/3 Ml) 3 ml NEB ONETIME ONE Stop: 08/19/17 19:43 Last Admin: 08/19/17 20:14 Dose: Not Given Ceftriaxone Sodium (Rocephin) 1,000 mg IVPUSH Q24H [facility] Last Admin: 08/19/17 23:58 Dose: Not Given Furosemide (Lasix) 40 mg IVPUSH ONETIME ONE Stop: 08/21/17 08:08 Last Admin: 08/21/17 08:22 Dose: 40 mg Furosemide (Lasix) 40 mg IVPUSH NOW ONE Stop: 08/22/17 11:21 Last Admin: 08/22/17 12:04 Dose: 40 mg Levofloxacin/Dextrose 750 mg/ (Premix) 150 mls @ 100 mls/hr IV ONETIME ONE Stop: 08/19/17 22:22 Last Admin: 08/19/17 21:37 Dose: 100 mls/hr Azithromycin 500 mg/ Sodium (Chloride) 250 mls @ 250 mls/hr IV Q24H [facility] Last Admin: 08/20/17 01:52 Dose: Not Given Ceftriaxone Sodium/Dextrose 1 (gm/ Premix) 50 mls @ 100 mls/hr IV Q24H [facility] Last Admin: 08/22/17 01:33 Dose: 100 mls/hr Sodium Chloride (Normal Saline) 1,000 mls @ 999 mls/hr IV .Bolus ONE Stop: 08/21/17 08:35 Last Admin: 08/21/17 08:25 Dose: 999 mls/hr Linezolid 600 mg/ Premix 300 mls @ 300 mls/hr IV Q12H [facility] Last Admin: 08/21/17 09:58 Dose: 300 mls/hr Calcium Gluconate 2 gm/ Sodium (Chloride) 70 mls @ 140 mls/hr IV ONETIME ONE Stop: 08/21/17 18:29 Last Admin: 08/21/17 19:49 Dose: 140 mls/hr Calcium Gluconate 11 gm/ (Sodium Chloride) 1,110 mls @ 50 mls/hr IV ASDIRECTED [facility] Stop: 08/22/17 16:11 Calcium Gluconate 5.5 gm/ (Sodium Chloride) 555 mls @ 50 mls/hr IV ASDIRECTED [facility] Last Admin: 08/21/17 20:44 Dose: 50 mls/hr Magnesium Sulfate 4 gm/ Premix 100 mls @ 50 mls/hr IV ONETIME ONE Stop: 08/22/17 00:44 Last Admin: 08/21/17 23:16 Dose: 50 mls/hr - Exam Quality Assessment: Supplemental Oxygen, DVT Prophylaxis General: Alert, Oriented, Cooperative HEENT: Pupils Equal, Pupils Reactive, EOMI, Mucous Membr. Moist/[place] Neck: Supple, Trachea Midline Lungs: Decreased Breath Sounds, Crackles, Rales Cardiovascular: Regular Rate, Regular Rhythm GI/Abdominal Exam: Normal Bowel Sounds, Soft, Non-Tender, No Organomegaly, No Distention Back Exam: Normal Inspection Extremities: Normal Inspection, Normal Range of Motion, Non-Tender, Normal Capillary Refill, Pedal Edema Peripheral Pulses: 2+: Radial (L), Radial (R), Posterior Tibial (L), Posterior Tibial (R), Dorsalis Pedis (L), Dorsalis Pedis (R) Skin: Warm, Dry, Intact Neurological: No New Focal Deficit Psy/Mental Status: Alert, Normal Affect, Normal Mood - Problem List & Annotations (1) Pneumonia SNOMED Code(s): 738479985 Code(s): J18.9 - PNEUMONIA, UNSPECIFIED ORGANISM Status: Acute Priority: High Current Visit: Yes Qualifiers: Pneumonia type: due to unspecified organism Lung location: unspecified part of lung (2) Hypoxemia SNOMED Code(s): 438625233 Code(s): R09.02 - HYPOXEMIA Status: Acute Priority: High Current Visit : Yes - Problem List Review Problem List Initiated/Reviewed/Updated: Yes - Plan Plan:: 66 yo male admitted 08/19/17 for community acquired pneumonia & JOHN. . #CAP -Leukocytosis improved with addition of Cefepime and d/c or rocephin -Sputum gram stain negative, Sputum culture shows normal respiratory nawaf and yeast -BC NGTD -hypoxia improving plan: -Cont. cefepime day 2, continue azithromycin day 4 -repeat blood cultures pending -repeat CXR yesterday showed no change -wean O2 as tolerated #Leukocytosis -resolved with addition of Cefepime cont. to monitor #Hypoxia, secondary to above -currently on 2L O2 -plan as per above #Acute Hypocalcemia, improved -likely multifactoral etiology including hypomagnasemia and/or CKD -administered IV Magnesium and IV calcium -Ca level currently 6.9 down from 7.6 yesterday -patient on telemetry -ordered Vitamin D, PTH, Urine Calcium, Urine Mg plan: -oral calcium this am monitor closely -f/u Phos, Vitamin D, PTH, Urine Calcium, Urine Mg #Hypomagnasemia, resolved -plan as per above #Subacute Kidney Injury, improving -Patient likely has underlying CKD however no baseline GFR available prior to this admission -GFR improving, Cr normalized plan -hep lock IVF as patient starting to have increased pedal edma may need lasix if worsens #Gross Hematuria, resolved -presumed secondary to above -continue to monitor #Hypernatremia, mild, resolved DVT: Lovenox Diet: regular
[2017-08-23] MEDS ORDERED: Calcium Carbonate 500 MG Tab.Chew PO ONE (08:52)
[2017-08-23] MEDS: Polyethylene Glycol 3350 Powder 17 GM Packet PO SCH (09:11)
[2017-08-23] MEDS: Calcium Carbonate/Vitamin D3 1500 MG-400 Units Tab PO SCH (09:12)
[2017-08-23] MEDS: Enoxaparin 40 MG/0.4 ML Syringe SUBCUT SCH (09:12)
[2017-08-23] MEDS ORDERED: Polyethylene Glycol 3350 Powder 17 GM Packet PO PRN (10:56)
[2017-08-23] MEDS ORDERED: Magnesium Sulfate/Water 2 GM in Premix Bag 1 BAG IV ONE (19:28)
[2017-08-24] MEDS: Azithromycin 500 MG in Sodium Chloride 0.9% 250 ML IV SCH (00:44)
[2017-08-24] MEDS: Cefepime 2 GM in Premix Bag 1 BAG IV SCH ×3 (04:23→18:44)
[2017-08-24 05:48] LABS: CHLORIDE,CL 102 mmol/L (98-110); SODIUM,NA 139 mmol/L (136-146)
[2017-08-24] MEDS: Enoxaparin 40 MG/0.4 ML Syringe SUBCUT SCH (08:09)
[2017-08-24] MEDS: Calcium Carbonate/Vitamin D3 1500 MG-400 Units Tab PO SCH (08:09)
[2017-08-24] MEDS ORDERED: Calcium Carbonate 500 MG Tab.Chew PO ONE (08:44)
--- NOTE | 2017-08-24 10:21 | CR ---
EXAM DATE: 08/19/17 PATIENT'S AGE: 66 Patient: CHRISS LONDONNARY Facility: [place], [place] Site . Site : 1950 Study: XRay Chest [id number]/6/2018 3:27:28 PM Ordering Physician: Ken Vee Final Report: Pneumonia leukocytosis. Two-view chest x-ray. Comparison: Chest x-ray 08/19/2017. Findings : Stable cardiac mediastinal silhouette. Perihilar interstitial opacities. Bilateral small to moderate effusions which are stable. No pneumothorax. Impression: 1. Perihilar interstitial opacities may reflect infection or edema. Small effusions. Dictated by Tricia Alvarado MD @ Aug 22 2017 3:50PM (Electronic Signature) Report Signed by Proxy. [facility]
--- NOTE | 2017-08-24 11:43 | PCM.PN ---
- General Info Date of Service: 08/24/17 Admission Dx/Problem (Free Text): Admission Diagnosis/Problem Admission Diagnosis/Problem Pneumonia Subjective Update: Still some shortness of breath but feels that it is finally improving. No fevers, nausea, vomiting. Pain controlled. They did cancel his urology appointment that they had for today in [place] but willing to see Dr. Wood and keep mane in place on discharge. - Review of Systems General: Reports: Weakness, Fatigue. Denies: Fever HEENT: Denies: Headaches, Visual Changes Pulmonary: Reports: Shortness of Breath, Cough. Denies: Sputum, Hemoptysis Cardiovascular: Reports: Edema. Denies: Chest Pain, Palpitations Gastrointestinal: Denies: Abdominal Pain, Diarrhea, Nausea, Vomiting Genitourinary: Reports: Hematuria. Denies: Dysuria Musculoskeletal: Denies: Neck Pain, Leg Pain Skin: Denies: Cyanosis, Pruritis Neurological: Denies: Confusion, Dizziness, Headache Psychiatric: Denies: Confusion - Patient Data Vitals - Most Recent: Last Vital Signs Temp 96.6 F 08/24/17 08:00 Pulse 100 08/24/17 08:00 Resp 22 H 08/24/17 08:00 BP 109/78 08/24/17 08:00 Pulse Ox 90 L 08/24/17 08:00 Weight - Most Recent: 83 kg I&O - Last 24 Hours: Intake & Output 08/23/17 08/24/17 08/24/17 22:59 06:59 14:59 Intake Total 1850 750 Output Total 2700 2800 Balance -850 -2050 Lab Results Last 24 Hours: Laboratory Results - last 24 hr 08/24/17 08/24/17 Range/Units 04:48 04:48 WBC 10.58 (4.0-11.0) K/uL RBC 3.25 L (4.50-5.90) M/uL Hgb 8.9 L (13.0-17.0) g/dL Hct 28.0 L (38.0-50.0) % MCV 86.2 (80.0-98.0) fL MCH 27.4 (27.0-32.0) pg MCHC 31.8 (31.0-37.0) g/dL RDW Std Deviation 46.3 (28.0-62.0) fl RDW Coeff of Anita 15 (11.0-15.0) % Plt Count 252 (150-400) K/uL MPV 11.80 (7.40-12.00) fL Neut % (Auto) 79.3 (48.0-80.0) % Lymph % (Auto) 11.2 L (16.0-40.0) % [place] % (Auto) 7.4 (0.0-15.0) % Eos % (Auto) 1.7 (0.0-7.0) % Baso % (Auto) 0.4 (0.0-1.5) % Neut # (Auto) 8.4 H (1.4-5.7) K/uL Lymph # (Auto) 1.2 (0.6-2.4) K/uL [place] # (Auto) 0.8 (0.0-0.8) K/uL Eos # (Auto) 0.2 (0.0-0.7) K/uL Baso # (Auto) 0.0 (0.0-0.1) K/uL Nucleated RBC % 0.0 /100WBC Nucleated RBCs # 0 K/uL Sodium 139 (136-146) mmol/L Potassium 4.7 (3.5-5.1) mmol/L Chloride 102 (98-110) mmol/L Carbon Dioxide 28 (21-31) mmol/L BUN 19 (6.0-23.0) mg/dL Creatinine 1.2 (0.6-1.5) mg/dL Est Cr Clr Drug Dosing 64.37 mL/min Estimated GFR (MDRD) > 60.0 ml/min Glucose 128 H (60-110) mg/dL Calcium 6.7 L (8.8-10.8) mg/dL Magnesium 1.7 (1.5-2.3) mEq/L Total Bilirubin 0.5 (0.1-1.5) mg/dL AST 24 (5-40) IU/L ALT 27 (8-54) IU/L Alkaline Phosphatase 103 (40-150) Total Protein 5.3 L (6.0-8.0) g/dL Albumin 2.9 L (3.4-4.8) g/dL Globulin 2.4 (2.0-3.5) g/dL Albumin/Globulin Ratio 1.2 L (1.3-2.8) Benoit Results Last 24 Hours: Microbiology 08/22/17 10:32 Aerobic Blood Culture - Preliminary Blood - Venous - Lab Draw NO GROWTH AFTER 2 DAYS Anaerobic Blood Culture - Preliminary NO GROWTH AFTER 2 DAYS 08/22/17 10:00 Aerobic Blood Culture - Preliminary Blood - Venous NO GROWTH AFTER 2 DAYS Anaerobic Blood Culture - Preliminary NO GROWTH AFTER 2 DAYS 08/19/17 23:00 Aerobic Blood Culture - Preliminary Blood - Venous - Lab Draw NO GROWTH AFTER 4 DAYS Anaerobic Blood Culture - Preliminary NO GROWTH AFTER 4 DAYS Med Orders - Current: Current Medications Acetaminophen (Tylenol) 650 mg PO Q4H PRN PRN Reason: Pain (Mild 1-3)/fever Last Admin: 08/21/17 22:16 Dose: 650 mg Albuterol/Ipratropium (Duoneb 3.0-0.5 Mg/3 Ml) 3 ml NEB Q4HRRT PRN PRN Reason: Shortness Of Breath/wheezing Azithromycin (Zithromax) 500 mg PO DAILY@2200 [place] Calcium Carbonate (Caltrate 600+D 1500 Mg-400 Units) 1 tab PO DAILY [facility]PL[facility] Last Admin: 08/24/17 08:09 Dose: 1 tab Enoxaparin Sodium (Lovenox) 40 mg SUBCUT DAILY [facility] Last Admin: 08/24/17 08:09 Dose: 40 mg Cefepime HCl 2 gm/ Premix 50 mls @ 100 mls/hr IV Q8H [facility]PL[facility]ED [facility] Last Admin: 08/24/17 10:30 Dose: 100 mls/hr Ondansetron HCl (Zofran) 4 mg IVPUSH Q4H PRN PRN Reason: Nausea Last Admin: 08/22/17 03:15 Dose: 4 mg Polyethylene Glycol (Miralax) 17 gm PO DAILY PRN PRN Reason: Constipation Discontinued Medications Albuterol/Ipratropium (Duoneb 3.0-0.5 Mg/3 Ml) Confirm Administered Dose 3 ml .ROUTE .STK-MED ONE Stop: 08/19/17 18:11 Last Admin: 08/19/17 18:16 Dose: Not Given Albuterol/Ipratropium (Duoneb 3.0-0.5 Mg/3 Ml) 3 ml NEB ONETIME ONE Stop: 08/19/17 18:15 Last Admin: 08/19/17 18:16 Dose: 3 ml Albuterol/Ipratropium (Duoneb 3.0-0.5 Mg/3 Ml) 3 ml NEB ONETIME ONE Stop: 08/19/17 19:43 Last Admin: 08/19/17 20:14 Dose: Not Given Calcium Carbonate/Glycine (Tums) 1,000 mg PO ONETIME ONE Stop: 08/23/17 08:53 Last Admin: 08/23/17 09:27 Dose: 1,000 mg Calcium Carbonate/Glycine (Tums) 1,000 mg PO ONETIME ONE Stop: 08/24/17 08:45 Last Admin: 08/24/17 10:18 Dose: 1,000 mg Ceftriaxone Sodium (Rocephin) 1,000 mg IVPUSH Q24H [facility]PL[facility]ED [facility] Last Admin: 08/19/17 23:58 Dose: Not Given Furosemide (Lasix) 40 mg IVPUSH ONETIME ONE Stop: 08/21/17 08:08 Last Admin: 08/21/17 08:22 Dose: 40 mg Furosemide (Lasix) 40 mg IVPUSH NOW ONE Stop: 08/22/17 11:21 Last Admin: 08/22/17 12:04 Dose: 40 mg Levofloxacin/Dextrose 750 mg/ (Premix) 150 mls @ 100 mls/hr IV ONETIME ONE Stop: 08/19/17 22:22 Last Admin: 08/19/17 21:37 Dose: 100 mls/hr Sodium Chloride (Normal Saline) 1,000 mls @ 125 mls/hr IV ASDIRECTED REPLACED BY [facility] Last Admin: 08/23/17 01:07 Dose: 125 mls/hr Azithromycin 500 mg/ Sodium (Chloride) 250 mls @ 250 mls/hr IV Q24H [facility]PL[facility]ED [facility] Last Admin: 08/20/17 01:52 Dose: Not Given Ceftriaxone Sodium/Dextrose 1 (gm/ Premix) 50 mls @ 100 mls/hr IV Q24H [facility]PLACED [facility] Last Admin: 08/22/17 01:33 Dose: 100 mls/hr Azithromycin 500 mg/ Sodium (Chloride) 250 mls @ 250 mls/hr IV Q24H [facility]PL[facility]ED [facility] Last Admin: 08/24/17 00:44 Dose: 250 mls/hr Sodium Chloride (Normal Saline) 1,000 mls @ 999 mls/hr IV .Bolus ONE Stop: 08/21/17 08:35 Last Admin: 08/21/17 08:25 Dose: 999 mls/hr Linezolid 600 mg/ Premix 300 mls @ 300 mls/hr IV Q12H [facility]PLACED [facility] Last Admin: 08/21/17 09:58 Dose: 300 mls/hr Calcium Gluconate 2 gm/ Sodium (Chloride) 70 mls @ 140 mls/hr IV ONETIME ONE Stop: 08/21/17 18:29 Last Admin: 08/21/17 19:49 Dose: 140 mls/hr Calcium Gluconate 11 gm/ (Sodium Chloride) 1,110 mls @ 50 mls/hr IV ASDIRECTED REPLACED BY [facility] Stop: 08/22/17 16:11 Calcium Gluconate 5.5 gm/ (Sodium Chloride) 555 mls @ 50 mls/hr IV ASDIRECTED REPLACED BY [facility] Last Admin: 08/21/17 20:44 Dose: 50 mls/hr Magnesium Sulfate 4 gm/ Premix 100 mls @ 50 mls/hr IV ONETIME ONE Stop: 08/22/17 00:44 Last Admin: 08/21/17 23:16 Dose: 50 mls/hr Magnesium Sulfate 2 gm/ Premix 50 mls @ 50 mls/hr IV ONETIME ONE Stop: 08/23/17 20:27 Last Admin: 08/23/17 21:16 Dose: 50 mls/hr Polyethylene Glycol (Miralax) 17 gm PO DAILY REPLACED [facility] Last Admin: 08/23/17 09:11 Dose: Not Given - Exam Quality Assessment: DVT Prophylaxis General: Alert, Oriented, Cooperative, No Acute Distress HEENT: Pupils Equal, Pupils Reactive, EOMI, Mucous Membr. Moist/[place] Neck: Supple, Trachea Midline Lungs: Normal Respiratory Effort, Crackles, Rales Cardiovascular: Regular Rate, Irregular Rhythm GI/Abdominal Exam: Normal Bowel Sounds, Soft, Non-Tender, No Organomegaly, No Distention Back Exam: Normal Inspection Extremities: Normal Inspection, Non-Tender, Normal Capillary Refill, Pedal Edema (+2 to ankles) Peripheral Pulses: 1+: Radial (L), Radial (R), Posterior Tibial (L), Posterior Tibial (R), Dorsalis Pedis (L), Dorsalis Pedis (R) Skin: Warm, Dry, Intact Neurological: No New Focal Deficit Psy/Mental Status: Alert, Normal Affect, Normal Mood - Problem List & Annotations (1) Pneumonia SNOMED Code(s): 613713671 Code(s): J18.9 - PNEUMONIA, UNSPECIFIED ORGANISM Status: Acute Priority: High Current Visit: Yes Qualifiers: Pneumonia type: due to unspecified organism Lung location: unspecified part of lung (2) Hypoxemia SNOMED Code(s): 678041590 Code(s): R09.02 - HYPOXEMIA Status: Acute Priority: High Current Visit : Yes - Problem List Review Problem List Initiated/Reviewed/Updated: Yes - My Orders Last 24 Hours: My Active Orders 08/23/17 10:56 Polyethylene Glycol 3350 [MiraLAX] 17 gm PO DAILY PRN 08/24/17 22:00 Azithromycin [Zithromax] 500 mg PO DAILY@2200 - Plan Plan:: 66 yo male admitted 08/19/17 for community acquired pneumonia & JOHN. . #CAP -Leukocytosis improved with addition of Cefepime and d/c or rocephin -Sputum gram stain negative, Sputum culture shows normal respiratory nawaf and yeast -BC NGTD -hypoxia improving plan: -Cont. cefepime day 3, continue azithromycin day 5 -repeat blood cultures neg day 1 -wean O2 as tolerated #Leukocytosis -resolved with addition of Cefepime cont. to monitor #Hypoxia, secondary to above -currently on 2L O2 -plan as per above #Acute Hypocalcemia, improved -likely multifactoral etiology including hypomagnasemia and/or CKD -patient on telemetry -ordered Vitamin D, PTH, Urine Calcium, Urine Mg plan: -oral calcium this am monitor closely #Subacute Kidney Injury, improved -Patient likely has underlying CKD but most likely obstructive as has improved since [place]. -Patient did have appointment with urologist in [place] today for this but canceled due to hospitalization. -Patient will be discharged with mane and has appointment with Dr. Wood on . -Will give 40 IV lasix x 1 today as increasing pedal edema IVF at hep lock. Closely watch kidney function DVT: Lovenox, SCD Dispo: 1-2 days
[2017-08-24] MEDS: Azithromycin 250 MG Tab PO SCH (21:25)
[2017-08-25] MEDS: Cefepime 2 GM in Premix Bag 1 BAG IV SCH ×3 (02:50→18:52)
[2017-08-25 05:58] LABS: CHLORIDE,CL 103 mmol/L (98-110); SODIUM,NA 138 mmol/L (136-146)
[2017-08-25] MEDS: Enoxaparin 40 MG/0.4 ML Syringe SUBCUT SCH (08:52)
[2017-08-25] MEDS: Calcium Carbonate/Vitamin D3 1500 MG-400 Units Tab PO SCH (08:52)
[2017-08-25] MEDS ORDERED: Furosemide 40 MG/4 ML VIAL IVPUSH ONE (12:27)
--- NOTE | 2017-08-25 13:05 | PCM.PN ---
- General Info Date of Service: 08/25/17 Admission Dx/Problem (Free Text): Admission Diagnosis/Problem Admission Diagnosis/Problem Pneumonia Subjective Update: Patient improving. no new complaints. Still complains of BL pedal edema. Currently on 2L O2 Functional Status: Reports: Pain Controlled, Tolerating Diet, Ambulating, Urinating - Review of Systems General: Reports: No Symptoms HEENT: Reports: No Symptoms Pulmonary: Reports: Cough Cardiovascular: Reports: Edema Gastrointestinal: Reports: No Symptoms Genitourinary: Reports: No Symptoms Musculoskeletal: Reports: No Symptoms Skin: Reports: No Symptoms Neurological: Reports: No Symptoms Psychiatric: Reports: No Symptoms - Patient Data Vitals - Most Recent: Last Vital Signs Temp 36.8 C 08/25/17 12:00 Pulse 103 H 08/25/17 12:00 Resp 16 08/25/17 12:00 BP 114/72 08/25/17 12:00 Pulse Ox 90 L 08/25/17 12:00 Weight - Most Recent: 83 kg I&O - Last 24 Hours: Intake & Output 08/24/17 08/25/17 08/25/17 22:59 06:59 14:59 Intake Total 850 750 Output Total 1850 1750 Balance -1000 -1000 Lab Results Last 24 Hours: Laboratory Results - last 24 hr 08/21/17 08/25/17 08/25/17 Range/Units 18:30 05:08 05:08 WBC 11.85 H (4.0-11.0) K/uL RBC 3.38 L (4.50-5.90) M/uL Hgb 9.2 L (13.0-17.0) g/dL Hct 28.6 L (38.0-50.0) % MCV 84.6 (80.0-98.0) fL MCH 27.2 (27.0-32.0) pg MCHC 32.2 (31.0-37.0) g/dL RDW Std Deviation 44.7 (28.0-62.0) fl RDW Coeff of Anita 15 (11.0-15.0) % Plt Count 327 (150-400) K/uL MPV 11.90 (7.40-12.00) fL Neut % (Auto) 79.1 (48.0-80.0) % Lymph % (Auto) 11.8 L (16.0-40.0) % Pacific % (Auto) 7.3 (0.0-15.0) % Eos % (Auto) 1.5 (0.0-7.0) % Baso % (Auto) 0.3 (0.0-1.5) % Neut # (Auto) 9.4 H (1.4-5.7) K/uL Lymph # (Auto) 1.4 (0.6-2.4) K/uL Pacific # (Auto) 0.9 H (0.0-0.8) K/uL Eos # (Auto) 0.2 (0.0-0.7) K/uL Baso # (Auto) 0.0 (0.0-0.1) K/uL Nucleated RBC % 0.0 /100WBC Nucleated RBCs # 0 K/uL Sodium 138 (136-146) mmol/L Potassium 4.6 (3.5-5.1) mmol/L Chloride 103 (98-110) mmol/L Carbon Dioxide 24 (21-31) mmol/L BUN 19 (6.0-23.0) mg/dL Creatinine 1.1 (0.6-1.5) mg/dL Est Cr Clr Drug Dosing 70.22 mL/min Estimated GFR (MDRD) > 60.0 ml/min Glucose 123 H (60-110) mg/dL Calcium 7.0 L (8.8-10.8) mg/dL Total Bilirubin 0.5 (0.1-1.5) mg/dL AST 27 (5-40) IU/L ALT 26 (8-54) IU/L Alkaline Phosphatase 108 (40-150) Total Protein 6.2 (6.0-8.0) g/dL Albumin 2.9 L (3.4-4.8) g/dL Globulin 3.3 (2.0-3.5) g/dL Albumin/Globulin Ratio 0.9 L (1.3-2.8) Vitamin D 25-Hydroxy 19 L (30-100) ng/mL Benoit Results Last 24 Hours: Microbiology 08/22/17 10:32 Aerobic Blood Culture - Preliminary Blood - Venous - Lab Draw NO GROWTH AFTER 3 DAYS Anaerobic Blood Culture - Preliminary NO GROWTH AFTER 3 DAYS 08/22/17 10:00 Aerobic Blood Culture - Preliminary Blood - Venous NO GROWTH AFTER 3 DAYS Anaerobic Blood Culture - Preliminary NO GROWTH AFTER 3 DAYS 08/19/17 23:00 Aerobic Blood Culture - Final Blood - Venous - Lab Draw NO GROWTH AFTER 5 DAYS Anaerobic Blood Culture - Final NO GROWTH AFTER 5 DAYS Med Orders - Current: Current Medications Acetaminophen (Tylenol) 650 mg PO Q4H PRN PRN Reason: Pain (Mild 1-3)/fever Last Admin: 08/21/17 22:16 Dose: 650 mg Albuterol/Ipratropium (Duoneb 3.0-0.5 Mg/3 Ml) 3 ml NEB Q4HRRT PRN PRN Reason: Shortness Of Breath/wheezing Azithromycin (Zithromax) 500 mg PO DAILY@2200 [facility] Last Admin: 08/24/17 21:25 Dose: 500 mg Calcium Carbonate (Caltrate 600+D 1500 Mg-400 Units) 1 tab PO DAILY [facility] Last Admin: 08/25/17 08:52 Dose: 1 tab Diltiazem HCl (Diltiazem) 10 mg IVPUSH Q3H PRN PRN Reason: Tachycardia Enoxaparin Sodium (Lovenox) 40 mg SUBCUT DAILY [facility] Last Admin: 08/25/17 08:52 Dose: 40 mg Cefepime HCl 2 gm/ Premix 50 mls @ 100 mls/hr IV Q8H [facility] Last Admin: 08/25/17 10:29 Dose: 100 mls/hr Ondansetron HCl (Zofran) 4 mg IVPUSH Q4H PRN PRN Reason: Nausea Last Admin: 08/22/17 03:15 Dose: 4 mg Polyethylene Glycol (Miralax) 17 gm PO DAILY PRN PRN Reason: Constipation Discontinued Medications Albuterol/Ipratropium (Duoneb 3.0-0.5 Mg/3 Ml) Confirm Administered Dose 3 ml .ROUTE .STK-MED ONE Stop: 08/19/17 18:11 Last Admin: 08/19/17 18:16 Dose: Not Given Albuterol/Ipratropium (Duoneb 3.0-0.5 Mg/3 Ml) 3 ml NEB ONETIME ONE Stop: 08/19/17 18:15 Last Admin: 08/19/17 18:16 Dose: 3 ml Albuterol/Ipratropium (Duoneb 3.0-0.5 Mg/3 Ml) 3 ml NEB ONETIME ONE Stop: 08/19/17 19:43 Last Admin: 08/19/17 20:14 Dose: Not Given Calcium Carbonate/Glycine (Tums) 1,000 mg PO ONETIME ONE Stop: 08/23/17 08:53 Last Admin: 08/23/17 09:27 Dose: 1,000 mg Calcium Carbonate/Glycine (Tums) 1,000 mg PO ONETIME ONE Stop: 08/24/17 08:45 Last Admin: 08/24/17 10:18 Dose: 1,000 mg Ceftriaxone Sodium (Rocephin) 1,000 mg IVPUSH Q24H [facility] Last Admin: 08/19/17 23:58 Dose: Not Given Furosemide (Lasix) 40 mg IVPUSH ONETIME ONE Stop: 08/21/17 08:08 Last Admin: 08/21/17 08:22 Dose: 40 mg Furosemide (Lasix) 40 mg IVPUSH NOW ONE Stop: 08/22/17 11:21 Last Admin: 08/22/17 12:04 Dose: 40 mg Furosemide (Lasix) 40 mg IVPUSH NOW ONE Stop: 08/25/17 12:28 Levofloxacin/Dextrose 750 mg/ (Premix) 150 mls @ 100 mls/hr IV ONETIME ONE Stop: 08/19/17 22:22 Last Admin: 08/19/17 21:37 Dose: 100 mls/hr Sodium Chloride (Normal Saline) 1,000 mls @ 125 mls/hr IV ASDIRECTED [facility] Last Admin: 08/23/17 01:07 Dose: 125 mls/hr Azithromycin 500 mg/ Sodium (Chloride) 250 mls @ 250 mls/hr IV Q24H [facility] Last Admin: 08/20/17 01:52 Dose: Not Given Ceftriaxone Sodium/Dextrose 1 (gm/ Premix) 50 mls @ 100 mls/hr IV Q24H [facility] Last Admin: 08/22/17 01:33 Dose: 100 mls/hr Azithromycin 500 mg/ Sodium (Chloride) 250 mls @ 250 mls/hr IV Q24H [facility] Last Admin: 08/24/17 00:44 Dose: 250 mls/hr Sodium Chloride (Normal Saline) 1,000 mls @ 999 mls/hr IV .Bolus ONE Stop: 08/21/17 08:35 Last Admin: 08/21/17 08:25 Dose: 999 mls/hr Linezolid 600 mg/ Premix 300 mls @ 300 mls/hr IV Q12H [facility] Last Admin: 08/21/17 09:58 Dose: 300 mls/hr Calcium Gluconate 2 gm/ Sodium (Chloride) 70 mls @ 140 mls/hr IV ONETIME ONE Stop: 08/21/17 18:29 Last Admin: 08/21/17 19:49 Dose: 140 mls/hr Calcium Gluconate 11 gm/ (Sodium Chloride) 1,110 mls @ 50 mls/hr IV ASDIRECTED [facility] Stop: 08/22/17 16:11 Calcium Gluconate 5.5 gm/ (Sodium Chloride) 555 mls @ 50 mls/hr IV ASDIRECTED [facility] Last Admin: 08/21/17 20:44 Dose: 50 mls/hr Magnesium Sulfate 4 gm/ Premix 100 mls @ 50 mls/hr IV ONETIME ONE Stop: 08/22/17 00:44 Last Admin: 08/21/17 23:16 Dose: 50 mls/hr Magnesium Sulfate 2 gm/ Premix 50 mls @ 50 mls/hr IV ONETIME ONE Stop: 08/23/17 20:27 Last Admin: 08/23/17 21:16 Dose: 50 mls/hr Polyethylene Glycol (Miralax) 17 gm PO DAILY [facility] Last Admin: 08/23/17 09:11 Dose: Not Given - Exam Quality Assessment: Supplemental Oxygen General: Cooperative, No Acute Distress Neck: Supple Lungs: Normal Respiratory Effort, Crackles Cardiovascular: Regular Rate, Regular Rhythm Extremities: Pedal Edema Skin: Warm, Dry, Intact Neurological: No New Focal Deficit Psy/Mental Status: Normal Mood - Problem List Review Problem List Initiated/Reviewed/Updated: Yes - My Orders Last 24 Hours: My Active Orders 08/25/17 15:00 COMPREHENSIVE METABOLIC PN,CMP [CHEM] Routine 08/25/17 18:09 Echo Comp wo Cont [US] Routine 08/26/17 05:11 CBC WITH AUTO DIFF [HEME] AM CMP [COMPREHENSIVE METABOLIC PN,CMP] [CHEM] AM - Plan Plan:: 66 yo male admitted 08/19/17 for community acquired pneumonia & JOHN. . #CAP -Leukocytosis improved with addition of Cefepime and d/c or rocephin -Sputum gram stain negative, Sputum culture shows normal respiratory nawaf and yeast -BC NGTD -hypoxia improving plan: -Cont. 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 -Patient did have appointment with urologist in [place] today for this but canceled due to hospitalization. -Patient will be discharged with mane and has appointment with Dr. Wood on . -Will give 40 IV lasix x 1 today as increasing pedal edema IVF at hep lock. Closely watch kidney function DVT: Lovenox, SCD Dispo: 1-2 days
[2017-08-25 15:23] LABS: CHLORIDE,CL 99 mmol/L (98-110); SODIUM,NA 138 mmol/L (136-146)
[2017-08-25] MEDS: Diltiazem 25 MG/5 ML SDV IVPUSH PRN ×2 (17:31→22:23)
[2017-08-25] MEDS: Azithromycin 250 MG Tab PO SCH (21:24)
[2017-08-26] MEDS: Cefepime 2 GM in Premix Bag 1 BAG IV SCH ×3 (03:38→19:47)
[2017-08-26 06:11] LABS: CHLORIDE,CL 100 mmol/L (98-110); SODIUM,NA 138 mmol/L (136-146)
[2017-08-26] MEDS ORDERED: Magnesium Sulfate/Water 2 GM in Premix Bag 1 BAG IV ONE (07:46)
[2017-08-26] MEDS: Calcium Carbonate/Vitamin D3 1500 MG-400 Units Tab PO SCH (08:12)
[2017-08-26] MEDS: Enoxaparin 40 MG/0.4 ML Syringe SUBCUT SCH (08:13)
[2017-08-26] MEDS ORDERED: Magnesium Sulfate/Water 4 GM in Premix Bag 1 BAG IV ONE (08:23)
--- NOTE | 2017-08-26 08:27 | PCM.DCSUM1 ---
<Baluch,Arya - Last Filed: 08/27/17 15:13> Discharge Summary - Hospital Course Free Text/Narrative:: 66 yo male admitted 08/19/17 for community acquired pneumonia & JOHN. CAP initially treated with rocephin and azithro however rocephin was swtiched to Cefepime due to lack of improvement. Patient developed hypocalcemia requiring IV calcium Work-up for low calcium including PTH, Vitamin D and [place] and Urine MG were ordered and we are awaiting results. Echo results revealed HFrEF with LVEF 20%. Dr. Carranza was consulted. Patient was discharged home on . #CAP -treated with 2 days of Rocephin, 5 days of cefepime and 7 days of azithromycin in hospital -blood culture & sputum culture negative -follow-up with PCP in 2 weeks #Leukocytosis, resolved -secondary to CAP -as per above #Hypoxia, resolved -likely due to CAP however may be multifactoral -as per above #Elevated BNP #BL LE Edema -BNP above 3000 -echo obtained awaiting final reading -follow-up with pcp in 2 weeks #Recurrent Acute Hypocalcemia, corrected -undetermined etiology -PTH, Vitamin D, Uca, Umg ordered, awaiting results -administered IV Ca prior to discharge -discharged on daily Vitamin D and Ca tab -f/u with pcp in 2 weeks #Subacute Kidney Injury, improved -Patient likely has underlying CKD -suspicion of obstruction -Patient did have appointment with urologist in [place] today for this but canceled due to hospitalization. -discharged with antonietta and has appointment with Dr. Wood next week #Elevated PSA, 29.9 -referral to urology -discharged with mane and has appointment with Dr. Wood next week #HFrEF -Echo revealed LVEF 20% -consulted Dr. Carranza, cardio -patient started on Cozaar 12.5 QD, Coreg 3.125 mg PO BID & Lasix 40 mg QD -patient started on Coumadin 2.5 mg PO daily -f/u with cardiology - Discharge Data Discharge Date: 08/27/17 Discharge Disposition: Home, Self-Care 01 Condition: Good - Patient Instructions Diet: Usual Diet as Tolerated Activity: As Tolerated Showering/Bathing: May Shower Notify Provider of: Fever, Increased Pain, Swelling and Redness, Drainage, Nausea and/or Vomiting - Discharge Plan Prescriptions/Med Rec: Carvedilol [Coreg] 3.125 mg PO BID #60 tablet Furosemide [Lasix] 40 mg PO DAILY #30 tablet Losartan [Cozaar] 12.5 mg PO DAILY #30 tablet Warfarin [Coumadin] 2.5 mg PO DAILY #30 tablet Home Medications: Home Meds Carvedilol [Coreg] 3.125 mg PO BID #60 tablet 08/27/17 [Rx] Furosemide [Lasix] 40 mg PO DAILY #30 tablet 08/27/17 [Rx] Losartan [Cozaar] 12.5 mg PO DAILY #30 tablet 08/27/17 [Rx] Warfarin [Coumadin] 2.5 mg PO DAILY #30 tablet 08/27/17 [Rx] Patient Handouts: Furosemide tablets, Losartan tablets, Carvedilol tablets, Warfarin tablets, Mane Catheter Care, Adult, [id number], Heart Failure, Easy- to-Read, Community-Acquired Pneumonia, Adult, [id number] Referrals: Luz Carranza MD [Physician] - 09/02/17 3:00 pm Neptali Ramirez MD [Physician] - 09/03/17 10:30 am Emely Wood MD [Physician] - 09/02/17 1:45 pm - General Info Functional Status: Reports: Pain Controlled, Tolerating Diet, Ambulating, Urinating - Review of Systems General: Reports: No Symptoms HEENT: Reports: No Symptoms Pulmonary: Reports: No Symptoms Cardiovascular: Reports: No Symptoms Gastrointestinal: Reports: No Symptoms Genitourinary: Reports: No Symptoms Musculoskeletal: Reports: No Symptoms Skin: Reports: No Symptoms Neurological: Reports: No Symptoms Psychiatric: Reports: No Symptoms - Patient Data Vitals - Most Recent: Last Vital Signs Temp 36.9 C 08/26/17 04:00 Pulse 94 08/26/17 04:00 Resp 20 08/26/17 04:00 BP 97/70 08/26/17 04:00 Pulse Ox 95 08/26/17 04:00 Weight - Most Recent: 78.608 kg I&O - Last 24 hours: Intake & Output 08/25/17 08/26/17 08/26/17 22:59 06:59 14:59 Intake Total 1530 300 Output Total 9374 1350 Balance -1795 -2220 Lab Results - Last 24 hrs: Laboratory Results - last 24 hr 08/21/17 08/21/17 08/25/17 Range/Units 19:50 19:50 14:34 WBC (4.0-11.0) K/uL RBC (4.50-5.90) M/uL Hgb (13.0-17.0) g/dL Hct (38.0-50.0) % MCV (80.0-98.0) fL MCH (27.0-32.0) pg MCHC (31.0-37.0) g/dL RDW Std Deviation (28.0-62.0) fl RDW Coeff of Anita (11.0-15.0) % Plt Count (150-400) K/uL MPV (7.40-12.00) fL Neut % (Auto) (48.0-80.0) % Lymph % (Auto) (16.0-40.0) % [place] % (Auto) (0.0-15.0) % Eos % (Auto) (0.0-7.0) % Baso % (Auto) (0.0-1.5) % Neut # (Auto) (1.4-5.7) K/uL Lymph # (Auto) (0.6-2.4) K/uL [place] # (Auto) (0.0-0.8) K/uL Eos # (Auto) (0.0-0.7) K/uL Baso # (Auto) (0.0-0.1) K/uL Nucleated RBC % /100WBC Nucleated RBCs # K/uL Sodium 138 (136-146) mmol/L Potassium 4.5 (3.5-5.1) mmol/L Chloride 99 (98-110) mmol/L Carbon Dioxide 27 (21-31) mmol/L BUN 21 (6.0-23.0) mg/dL Creatinine 1.2 (0.6-1.5) mg/dL Est Cr Clr Drug Dosing 64.37 mL/min Estimated GFR (MDRD) > 60.0 ml/min Glucose 132 H (60-110) mg/dL Calcium 7.5 L (8.8-10.8) mg/dL Magnesium (1.5-2.3) mEq/L Total Bilirubin 0.6 (0.1-1.5) mg/dL AST 26 (5-40) IU/L ALT 26 (8-54) IU/L Alkaline Phosphatase 117 (40-150) Total Protein 6.8 (6.0-8.0) g/dL Albumin 3.1 L (3.4-4.8) g/dL Globulin 3.7 H (2.0-3.5) g/dL Albumin/Globulin Ratio 0.8 L (1.3-2.8) PSA Screen (0.0-3.9) ng/mL Ur Calcium Conc 0.6 mg/dL Ur Magnesium Conc 2.8 mg/dL 08/25/17 08/26/17 08/26/17 Range/Units 14:34 04:36 04:36 WBC 10.39 (4.0-11.0) K/uL RBC 3.44 L (4.50-5.90) M/uL Hgb 9.4 L (13.0-17.0) g/dL Hct 29.1 L (38.0-50.0) % MCV 84.6 (80.0-98.0) fL MCH 27.3 (27.0-32.0) pg MCHC 32.3 (31.0-37.0) g/dL RDW Std Deviation 45.4 (28.0-62.0) fl RDW Coeff of Anita 15 (11.0-15.0) % Plt Count 295 (150-400) K/uL MPV 12.00 (7.40-12.00) fL Neut % (Auto) 76.8 (48.0-80.0) % Lymph % (Auto) 11.7 L (16.0-40.0) % [place] % (Auto) 9.5 (0.0-15.0) % Eos % (Auto) 1.6 (0.0-7.0) % Baso % (Auto) 0.4 (0.0-1.5) % Neut # (Auto) 8.0 H (1.4-5.7) K/uL Lymph # (Auto) 1.2 (0.6-2.4) K/uL [place] # (Auto) 1.0 H (0.0-0.8) K/uL Eos # (Auto) 0.2 (0.0-0.7) K/uL Baso # (Auto) 0.0 (0.0-0.1) K/uL Nucleated RBC % 0.0 /100WBC Nucleated RBCs # 0 K/uL Sodium 138 (136-146) mmol/L Potassium 4.6 (3.5-5.1) mmol/L Chloride 100 (98-110) mmol/L Carbon Dioxide 26 (21-31) mmol/L BUN 22 (6.0-23.0) mg/dL Creatinine 1.1 (0.6-1.5) mg/dL Est Cr Clr Drug Dosing 70.22 mL/min Estimated GFR (MDRD) > 60.0 ml/min Glucose 110 (60-110) mg/dL Calcium 6.7 L (8.8-10.8) mg/dL Magnesium (1.5-2.3) mEq/L Total Bilirubin 0.6 (0.1-1.5) mg/dL AST 26 (5-40) IU/L ALT 26 (8-54) IU/L Alkaline Phosphatase 104 (40-150) Total Protein 5.5 L (6.0-8.0) g/dL Albumin 2.9 L (3.4-4.8) g/dL Globulin 2.6 (2.0-3.5) g/dL Albumin/Globulin Ratio 1.1 L (1.3-2.8) PSA Screen 29.09 H (0.0-3.9) ng/mL Ur Calcium Conc mg/dL Ur Magnesium Conc mg/dL 08/26/17 Range/Units 04:36 WBC (4.0-11.0) K/uL RBC (4.50-5.90) M/uL Hgb (13.0-17.0) g/dL Hct (38.0-50.0) % MCV (80.0-98.0) fL MCH (27.0-32.0) pg MCHC (31.0-37.0) g/dL RDW Std Deviation (28.0-62.0) fl RDW Coeff of Anita (11.0-15.0) % Plt Count (150-400) K/uL MPV (7.40-12.00) fL Neut % (Auto) (48.0-80.0) % Lymph % (Auto) (16.0-40.0) % [place] % (Auto) (0.0-15.0) % Eos % (Auto) (0.0-7.0) % Baso % (Auto) (0.0-1.5) % Neut # (Auto) (1.4-5.7) K/uL Lymph # (Auto) (0.6-2.4) K/uL [place] # (Auto) (0.0-0.8) K/uL Eos # (Auto) (0.0-0.7) K/uL Baso # (Auto) (0.0-0.1) K/uL Nucleated RBC % /100WBC Nucleated RBCs # K/uL Sodium (136-146) mmol/L Potassium (3.5-5.1) mmol/L Chloride (98-110) mmol/L Carbon Dioxide (21-31) mmol/L BUN (6.0-23.0) mg/dL Creatinine (0.6-1.5) mg/dL Est Cr Clr Drug Dosing mL/min Estimated GFR (MDRD) ml/min Glucose (60-110) mg/dL Calcium (8.8-10.8) mg/dL Magnesium 1.4 L (1.5-2.3) mEq/L Total Bilirubin (0.1-1.5) mg/dL AST (5-40) IU/L ALT (8-54) IU/L Alkaline Phosphatase (40-150) Total Protein (6.0-8.0) g/dL Albumin (3.4-4.8) g/dL Globulin (2.0-3.5) g/dL Albumin/Globulin Ratio (1.3-2.8) PSA Screen (0.0-3.9) ng/mL Ur Calcium Conc mg/dL Ur Magnesium Conc mg/dL JAYE Results - Last 24 hrs: Microbiology 08/22/17 10:32 Aerobic Blood Culture - Preliminary Blood - Venous - Lab Draw NO GROWTH AFTER 3 DAYS Anaerobic Blood Culture - Preliminary NO GROWTH AFTER 3 DAYS 08/22/17 10:00 Aerobic Blood Culture - Preliminary Blood - Venous NO GROWTH AFTER 3 DAYS Anaerobic Blood Culture - Preliminary NO GROWTH AFTER 3 DAYS Med Orders - Current: Current Medications Acetaminophen (Tylenol) 650 mg PO Q4H PRN PRN Reason: Pain (Mild 1-3)/fever Last Admin: 08/21/17 22:16 Dose: 650 mg Albuterol/Ipratropium (Duoneb 3.0-0.5 Mg/3 Ml) 3 ml NEB Q4HRRT PRN PRN Reason: Shortness Of Breath/wheezing Azithromycin (Zithromax) 500 mg PO DAILY@2200 [facility] Last Admin: 08/25/17 21:24 Dose: 500 mg Calcium Carbonate (Caltrate 600+D 1500 Mg-400 Units) 1 tab PO DAILY [facility] Last Admin: 08/26/17 08:12 Dose: 1 tab Diltiazem HCl (Diltiazem) 10 mg IVPUSH Q3H PRN PRN Reason: Tachycardia Last Admin: 08/25/17 22:23 Dose: 10 mg Enoxaparin Sodium (Lovenox) 40 mg SUBCUT DAILY [facility] Last Admin: 08/26/17 08:13 Dose: 40 mg Cefepime HCl 2 gm/ Premix 50 mls @ 100 mls/hr IV Q8H [facility] Last Admin: 08/26/17 03:38 Dose: 100 mls/hr Magnesium Sulfate 2 gm/ Premix 50 mls @ 50 mls/hr IV ONETIME ONE Stop: 08/26/17 08:45 Last Admin: 08/26/17 08:12 Dose: 50 mls/hr Calcium Gluconate 2 gm/ Sodium (Chloride) 70 mls @ 70 mls/hr IV ONETIME ONE Stop: 08/26/17 09:29 Ondansetron HCl (Zofran) 4 mg IVPUSH Q4H PRN PRN Reason: Nausea Last Admin: 08/22/17 03:15 Dose: 4 mg Polyethylene Glycol (Miralax) 17 gm PO DAILY PRN PRN Reason: Constipation Discontinued Medications Albuterol/Ipratropium (Duoneb 3.0-0.5 Mg/3 Ml) Confirm Administered Dose 3 ml .ROUTE .STK-MED ONE Stop: 08/19/17 18:11 Last Admin: 08/19/17 18:16 Dose: Not Given Albuterol/Ipratropium (Duoneb 3.0-0.5 Mg/3 Ml) 3 ml NEB ONETIME ONE Stop: 08/19/17 18:15 Last Admin: 08/19/17 18:16 Dose: 3 ml Albuterol/Ipratropium (Duoneb 3.0-0.5 Mg/3 Ml) 3 ml NEB ONETIME ONE Stop: 08/19/17 19:43 Last Admin: 08/19/17 20:14 Dose: Not Given Calcium Carbonate/Glycine (Tums) 1,000 mg PO ONETIME ONE Stop: 08/23/17 08:53 Last Admin: 08/23/17 09:27 Dose: 1,000 mg Calcium Carbonate/Glycine (Tums) 1,000 mg PO ONETIME ONE Stop: 08/24/17 08:45 Last Admin: 08/24/17 10:18 Dose: 1,000 mg Ceftriaxone Sodium (Rocephin) 1,000 mg IVPUSH Q24H [facility] Last Admin: 08/19/17 23:58 Dose: Not Given Furosemide (Lasix) 40 mg IVPUSH ONETIME ONE Stop: 08/21/17 08:08 Last Admin: 08/21/17 08:22 Dose: 40 mg Furosemide (Lasix) 40 mg IVPUSH NOW ONE Stop: 08/22/17 11:21 Last Admin: 08/22/17 12:04 Dose: 40 mg Furosemide (Lasix) 40 mg IVPUSH NOW ONE Stop: 08/25/17 12:28 Last Admin: 08/25/17 13:11 Dose: 40 mg Levofloxacin/Dextrose 750 mg/ (Premix) 150 mls @ 100 mls/hr IV ONETIME ONE Stop: 08/19/17 22:22 Last Admin: 08/19/17 21:37 Dose: 100 mls/hr Sodium Chloride (Normal Saline) 1,000 mls @ 125 mls/hr IV ASDIRECTED [facility] Last Admin: 08/23/17 01:07 Dose: 125 mls/hr Azithromycin 500 mg/ Sodium (Chloride) 250 mls @ 250 mls/hr IV Q24H [facility] Last Admin: 08/20/17 01:52 Dose: Not Given Ceftriaxone Sodium/Dextrose 1 (gm/ Premix) 50 mls @ 100 mls/hr IV Q24H [facility] Last Admin: 08/22/17 01:33 Dose: 100 mls/hr Azithromycin 500 mg/ Sodium (Chloride) 250 mls @ 250 mls/hr IV Q24H [facility] Last Admin: 08/24/17 00:44 Dose: 250 mls/hr Sodium Chloride (Normal Saline) 1,000 mls @ 999 mls/hr IV .Bolus ONE Stop: 08/21/17 08:35 Last Admin: 08/21/17 08:25 Dose: 999 mls/hr Linezolid 600 mg/ Premix 300 mls @ 300 mls/hr IV Q12H [facility] Last Admin: 08/21/17 09:58 Dose: 300 mls/hr Calcium Gluconate 2 gm/ Sodium (Chloride) 70 mls @ 140 mls/hr IV ONETIME ONE Stop: 08/21/17 18:29 Last Admin: 08/21/17 19:49 Dose: 140 mls/hr Calcium Gluconate 11 gm/ (Sodium Chloride) 1,110 mls @ 50 mls/hr IV ASDIRECTED [facility] Stop: 08/22/17 16:11 Calcium Gluconate 5.5 gm/ (Sodium Chloride) 555 mls @ 50 mls/hr IV ASDIRECTED [facility] Last Admin: 08/21/17 20:44 Dose: 50 mls/hr Magnesium Sulfate 4 gm/ Premix 100 mls @ 50 mls/hr IV ONETIME ONE Stop: 08/22/17 00:44 Last Admin: 08/21/17 23:16 Dose: 50 mls/hr Magnesium Sulfate 2 gm/ Premix 50 mls @ 50 mls/hr IV ONETIME ONE Stop: 08/23/17 20:27 Last Admin: 08/23/17 21:16 Dose: 50 mls/hr Polyethylene Glycol (Miralax) 17 gm PO DAILY [facility] Last Admin: 08/23/17 09:11 Dose: Not Given - Exam General: Reports: Alert, Oriented Lungs: Reports: Clear to Auscultation, Normal Respiratory Effort Cardiovascular: Reports: Regular Rate, Regular Rhythm Extremities: Normal Inspection, Normal Capillary Refill Neurological: Reports: No New Focal Deficit *Q Meaningful Use (DIS) - VTE *Q VTE Criteria *Q: - Stroke *Q Stroke Criteria *Q: - AMI *Q AMI Criteria *Q: <Mariusz Rogers - Last Filed: 08/28/17 18:21> Discharge Summary - Patient Summary/Data Consults: Consultations 08/26/17 11:30 Consult to Physician [CONS] Routine - Patient Data Vitals - Most Recent: Last Vital Signs Temp 37.1 C 01/11/18 12:00 Pulse 79 08/27/17 12:00 Resp 18 08/27/17 12:00 BP 90/45 L 08/27/17 12:00 Pulse Ox 90 L 08/27/17 12:00 Med Orders - Current: Current Medications Discontinued Medications Acetaminophen (Tylenol) 650 mg PO Q4H PRN PRN Reason: Pain (Mild 1-3)/fever Last Admin: 08/21/17 22:16 Dose: 650 mg Albuterol/Ipratropium (Duoneb 3.0-0.5 Mg/3 Ml) Confirm Administered Dose 3 ml .ROUTE .STK-MED ONE Stop: 08/19/17 18:11 Last Admin: 08/19/17 18:16 Dose: Not Given Albuterol/Ipratropium (Duoneb 3.0-0.5 Mg/3 Ml) 3 ml NEB ONETIME ONE Stop: 08/19/17 18:15 Last Admin: 08/19/17 18:16 Dose: 3 ml Albuterol/Ipratropium (Duoneb 3.0-0.5 Mg/3 Ml) 3 ml NEB ONETIME ONE Stop: 08/19/17 19:43 Last Admin: 08/19/17 20:14 Dose: Not Given Albuterol/Ipratropium (Duoneb 3.0-0.5 Mg/3 Ml) 3 ml NEB Q4HRRT PRN PRN Reason: Shortness Of Breath/wheezing Azithromycin (Zithromax) 500 mg PO DAILY@2200 [facility] Last Admin: 08/26/17 21:40 Dose: 500 mg Calcium Carbonate (Caltrate 600+D 1500 Mg-400 Units) 1 tab PO DAILY [facility] Last Admin: 08/27/17 09:31 Dose: 1 tab Calcium Carbonate/Glycine (Tums) 1,000 mg PO ONETIME ONE Stop: 08/23/17 08:53 Last Admin: 08/23/17 09:27 Dose: 1,000 mg Calcium Carbonate/Glycine (Tums) 1,000 mg PO ONETIME ONE Stop: 08/24/17 08:45 Last Admin: 08/24/17 10:18 Dose: 1,000 mg Carvedilol (Coreg) 3.125 mg PO BID [facility] Last Admin: 08/27/17 09:31 Dose: 3.125 mg Ceftriaxone Sodium (Rocephin) 1,000 mg IVPUSH Q24H [facility] Last Admin: 08/19/17 23:58 Dose: Not Given Diltiazem HCl (Diltiazem) 10 mg IVPUSH Q3H PRN PRN Reason: Tachycardia Last Admin: 08/25/17 22:23 Dose: 10 mg Enoxaparin Sodium (Lovenox) 40 mg SUBCUT DAILY [facility] Last Admin: 08/27/17 09:33 Dose: 40 mg Furosemide (Lasix) 40 mg IVPUSH ONETIME ONE Stop: 08/21/17 08:08 Last Admin: 08/21/17 08:22 Dose: 40 mg Furosemide (Lasix) 40 mg IVPUSH NOW ONE Stop: 08/22/17 11:21 Last Admin: 08/22/17 12:04 Dose: 40 mg Furosemide (Lasix) 40 mg IVPUSH NOW ONE Stop: 08/25/17 12:28 Last Admin: 08/25/17 13:11 Dose: 40 mg Furosemide (Lasix) 40 mg IVPUSH ONETIME ONE Stop: 08/26/17 09:01 Last Admin: 08/26/17 09:48 Dose: 40 mg Furosemide (Lasix) 40 mg IVPUSH NOW ONE Stop: 08/26/17 15:08 Last Admin: 08/26/17 15:20 Dose: 40 mg Levofloxacin/Dextrose 750 mg/ (Premix) 150 mls @ 100 mls/hr IV ONETIME ONE Stop: 08/19/17 22:22 Last Admin: 08/19/17 21:37 Dose: 100 mls/hr Sodium Chloride (Normal Saline) 1,000 mls @ 125 mls/hr IV ASDIRECTED [facility] Last Admin: 08/23/17 01:07 Dose: 125 mls/hr Azithromycin 500 mg/ Sodium (Chloride) 250 mls @ 250 mls/hr IV Q24H [facility] Last Admin: 08/20/17 01:52 Dose: Not Given Ceftriaxone Sodium/Dextrose 1 (gm/ Premix) 50 mls @ 100 mls/hr IV Q24H [facility] Last Admin: 08/22/17 01:33 Dose: 100 mls/hr Azithromycin 500 mg/ Sodium (Chloride) 250 mls @ 250 mls/hr IV Q24H [facility] Last Admin: 08/24/17 00:44 Dose: 250 mls/hr Sodium Chloride (Normal Saline) 1,000 mls @ 999 mls/hr IV .Bolus ONE Stop: 08/21/17 08:35 Last Admin: 08/21/17 08:25 Dose: 999 mls/hr Linezolid 600 mg/ Premix 300 mls @ 300 mls/hr IV Q12H [facility] Last Admin: 08/21/17 09:58 Dose: 300 mls/hr Calcium Gluconate 2 gm/ Sodium (Chloride) 70 mls @ 140 mls/hr IV ONETIME ONE Stop: 08/21/17 18:29 Last Admin: 08/21/17 19:49 Dose: 140 mls/hr Calcium Gluconate 11 gm/ (Sodium Chloride) 1,110 mls @ 50 mls/hr IV ASDIRECTED [facility] Stop: 08/22/17 16:11 Calcium Gluconate 5.5 gm/ (Sodium Chloride) 555 mls @ [facility] Admin: 08/21/17 20:44 Dose: 50 mls/hr Magnesium Sulfate 4 gm/ Premix 100 mls @ 50 mls/hr IV ONETIME ONE Stop: 08/22/17 00:44 Last Admin: 08/21/17 23:16 Dose: 50 mls/hr Cefepime HCl 2 gm/ Premix 50 mls @ 100 mls/hr IV Q8H [facility] Last Admin: 08/27/17 04:07 Dose: 100 mls/hr Magnesium Sulfate 2 gm/ Premix 50 mls @ 50 mls/hr IV ONETIME ONE Stop: 08/23/17 20:27 Last Admin: 08/23/17 21:16 Dose: 50 mls/hr Magnesium Sulfate 2 gm/ Premix 50 mls @ 50 mls/hr IV ONETIME ONE Stop: 08/26/17 08:45 Last Admin: 08/26/17 08:12 Dose: 50 mls/hr Calcium Gluconate 2 gm/ Sodium (Chloride) 70 mls @ 70 mls/hr IV ONETIME ONE Stop: 08/26/17 09:29 Last Admin: 08/26/17 12:24 Dose: 70 mls/hr Calcium Gluconate 2.75 gm/ (Sodium Chloride) 277.5 mls @ 50 [facility]ls[facility] Last Admin: 08/26/17 13:35 Dose: 50 mls/hr Magnesium Sulfate 2 gm/ Premix 50 mls @ 50 mls/hr IV ONETIME [facility] Stop: 08/26/17 09:59 Last Admin: 08/26/17 09:48 Dose: 50 mls/hr Losartan Potassium (Cozaar) 12.5 mg PO DAILY [facility] Last Admin: 08/27/17 09:32 Dose: 12.5 mg Ondansetron HCl (Zofran) 4 mg IVPUSH Q4H PRN PRN Reason: Nausea Last Admin: 08/22/17 03:15 Dose: 4 mg Polyethylene Glycol (Miralax) 17 gm PO DAILY [facility] Last Admin: 08/23/17 09:11 Dose: Not Given Polyethylene Glycol (Miralax) 17 gm PO DAILY PRN PRN Reason: Constipation *Q Meaningful Use (DIS) - VTE *Q VTE Criteria *Q: - Stroke *Q Stroke Criteria *Q: - AMI *Q AMI Criteria *Q: - Free Text/Narrative Note: I have examined the patient. I have discussed findings and treatment plan with the resident. I agree with the assessment and plan outline in the following resident's note.
[2017-08-26] MEDS ORDERED: Furosemide 40 MG/4 ML VIAL IVPUSH ONE ×2 (09:00→15:07)
[2017-08-26] MEDS: Magnesium Sulfate/Water 2 GM in Premix Bag 1 BAG IV SCH ×2 (09:08→09:48)
[2017-08-26] MEDS ORDERED: SODIUM CHLORIDE 0.9% IV SCH (10:00)
[2017-08-26] MEDS ORDERED: CALCIUM GLUCONATE IV SCH (10:00)
[2017-08-26] MEDS: Losartan 50 MG Tab PO SCH (15:21)
[2017-08-26] MEDS: Carvedilol 3.125 MG Tab PO SCH ×2 (15:21→21:40)
--- NOTE | 2017-08-26 17:30 | PCM.PN ---
- General Info Admission Dx/Problem (Free Text): Admission Diagnosis/Problem Admission Diagnosis/Problem Pneumonia Subjective Update: Patient improving. no new complaints. Still complains of BL pedal edema. Currently on 2L O2 Functional Status: Reports: Pain Controlled, Tolerating Diet, Ambulating, Urinating - Review of Systems General: Reports: No Symptoms HEENT: Reports: No Symptoms Pulmonary: Reports: No Symptoms Cardiovascular: Reports: Edema Gastrointestinal: Reports: No Symptoms Genitourinary: Reports: No Symptoms Musculoskeletal: Reports: No Symptoms Skin: Reports: No Symptoms Neurological: Reports: No Symptoms Psychiatric: Reports: No Symptoms - Patient Data Vitals - Most Recent: Last Vital Signs Temp 36.8 C 08/26/17 12:00 Pulse 99 08/26/17 15:21 Resp 20 08/26/17 12:00 BP 116/69 08/26/17 15:21 Pulse Ox 94 L 08/26/17 12:00 Weight - Most Recent: 78.608 kg I&O - Last 24 Hours: Intake & Output 08/26/17 08/26/17 08/26/17 06:59 14:59 22:59 Intake Total 300 220 Output Total 2520 Balance -2220 220 Lab Results Last 24 Hours: Laboratory Results - last 24 hr 08/25/17 08/26/17 08/26/17 Range/Units 14:34 04:36 04:36 WBC 10.39 (4.0-11.0) K/uL RBC 3.44 L (4.50-5.90) M/uL Hgb 9.4 L (13.0-17.0) g/dL Hct 29.1 L (38.0-50.0) % MCV 84.6 (80.0-98.0) fL MCH 27.3 (27.0-32.0) pg MCHC 32.3 (31.0-37.0) g/dL RDW Std Deviation 45.4 (28.0-62.0) fl RDW Coeff of Anita 15 (11.0-15.0) % Plt Count 295 (150-400) K/uL MPV 12.00 (7.40-12.00) fL Neut % (Auto) 76.8 (48.0-80.0) % Lymph % (Auto) 11.7 L (16.0-40.0) % Emanuel % (Auto) 9.5 (0.0-15.0) % Eos % (Auto) 1.6 (0.0-7.0) % Baso % (Auto) 0.4 (0.0-1.5) % Neut # (Auto) 8.0 H (1.4-5.7) K/uL Lymph # (Auto) 1.2 (0.6-2.4) K/uL Emanuel # (Auto) 1.0 H (0.0-0.8) K/uL Eos # (Auto) 0.2 (0.0-0.7) K/uL Baso # (Auto) 0.0 (0.0-0.1) K/uL Nucleated RBC % 0.0 /100WBC Nucleated RBCs # 0 K/uL Sodium 138 (136-146) mmol/L Potassium 4.6 (3.5-5.1) mmol/L Chloride 100 (98-110) mmol/L Carbon Dioxide 26 (21-31) mmol/L BUN 22 (6.0-23.0) mg/dL Creatinine 1.1 (0.6-1.5) mg/dL Est Cr Clr Drug Dosing 70.22 mL/min Estimated GFR (MDRD) > 60.0 ml/min Glucose 110 (60-110) mg/dL Calcium 6.7 L (8.8-10.8) mg/dL Magnesium (1.5-2.3) mEq/L Total Bilirubin 0.6 (0.1-1.5) mg/dL AST 26 (5-40) IU/L ALT 26 (8-54) IU/L Alkaline Phosphatase 104 (40-150) Total Protein 5.5 L (6.0-8.0) g/dL Albumin 2.9 L (3.4-4.8) g/dL Globulin 2.6 (2.0-3.5) g/dL Albumin/Globulin Ratio 1.1 L (1.3-2.8) PSA Screen 29.09 H (0.0-3.9) ng/mL 08/26/17 Range/Units 04:36 WBC (4.0-11.0) K/uL RBC (4.50-5.90) M/uL Hgb (13.0-17.0) g/dL Hct (38.0-50.0) % MCV (80.0-98.0) fL MCH (27.0-32.0) pg MCHC (31.0-37.0) g/dL RDW Std Deviation (28.0-62.0) fl RDW Coeff of Anita (11.0-15.0) % Plt Count (150-400) K/uL MPV (7.40-12.00) fL Neut % (Auto) (48.0-80.0) % Lymph % (Auto) (16.0-40.0) % Emanuel % (Auto) (0.0-15.0) % Eos % (Auto) (0.0-7.0) % Baso % (Auto) (0.0-1.5) % Neut # (Auto) (1.4-5.7) K/uL Lymph # (Auto) (0.6-2.4) K/uL Emanuel # (Auto) (0.0-0.8) K/uL Eos # (Auto) (0.0-0.7) K/uL Baso # (Auto) (0.0-0.1) K/uL Nucleated RBC % /100WBC Nucleated RBCs # K/uL Sodium (136-146) mmol/L Potassium (3.5-5.1) mmol/L Chloride (98-110) mmol/L Carbon Dioxide (21-31) mmol/L BUN (6.0-23.0) mg/dL Creatinine (0.6-1.5) mg/dL Est Cr Clr Drug Dosing mL/min Estimated GFR (MDRD) ml/min Glucose (60-110) mg/dL Calcium (8.8-10.8) mg/dL Magnesium 1.4 L (1.5-2.3) mEq/L Total Bilirubin (0.1-1.5) mg/dL AST (5-40) IU/L ALT (8-54) IU/L Alkaline Phosphatase (40-150) Total Protein (6.0-8.0) g/dL Albumin (3.4-4.8) g/dL Globulin (2.0-3.5) g/dL Albumin/Globulin Ratio (1.3-2.8) PSA Screen (0.0-3.9) ng/mL [place] Results Last 24 Hours: Microbiology 08/22/17 10:32 Aerobic Blood Culture - Preliminary Blood - Venous - Lab Draw NO GROWTH AFTER 4 DAYS Anaerobic Blood Culture - Preliminary NO GROWTH AFTER 4 DAYS 08/22/17 10:00 Aerobic Blood Culture - Preliminary Blood - Venous NO GROWTH AFTER 4 DAYS Anaerobic Blood Culture - Preliminary NO GROWTH AFTER 4 DAYS Med Orders - Current: Current Medications Acetaminophen (Tylenol) 650 mg PO Q4H PRN PRN Reason: Pain (Mild 1-3)/fever Last Admin: 08/21/17 22:16 Dose: 650 mg Albuterol/Ipratropium (Duoneb 3.0-0.5 Mg/3 Ml) 3 ml NEB Q4HRRT PRN PRN Reason: Shortness Of Breath/wheezing Azithromycin (Zithromax) 500 mg PO DAILY@2200 [facility] Last Admin: 08/25/17 21:24 Dose: 500 mg Calcium Carbonate (Caltrate 600+D 1500 Mg-400 Units) 1 tab PO DAILY [facility] Last Admin: 08/26/17 08:12 Dose: 1 tab Carvedilol (Coreg) 3.125 mg PO BID [facility] Last Admin: 08/26/17 15:21 Dose: 3.125 mg Diltiazem HCl (Diltiazem) 10 mg IVPUSH Q3H PRN PRN Reason: Tachycardia Last Admin: 08/25/17 22:23 Dose: 10 mg Enoxaparin Sodium (Lovenox) 40 mg SUBCUT DAILY [facility] Last Admin: 08/26/17 08:13 Dose: 40 mg Cefepime HCl 2 gm/ Premix 50 mls @ 100 mls/hr IV Q8H [facility] Last Admin: 08/26/17 11:15 Dose: 100 mls/hr Calcium Gluconate 2.75 gm/ (Sodium Chloride) 277.5 mls @ 50 mls/hr IV ASDIRECTED [facility] Last Admin: 08/26/17 13:35 Dose: 50 mls/hr Losartan Potassium (Cozaar) 12.5 mg PO DAILY [facility] Last Admin: 08/26/17 15:21 Dose: 12.5 mg Ondansetron HCl (Zofran) 4 mg IVPUSH Q4H PRN PRN Reason: Nausea Last Admin: 08/22/17 03:15 Dose: 4 mg Polyethylene Glycol (Miralax) 17 gm PO DAILY PRN PRN Reason: Constipation Discontinued Medications Albuterol/Ipratropium (Duoneb 3.0-0.5 Mg/3 Ml) Confirm Administered Dose 3 ml .ROUTE .STK-MED ONE Stop: 08/19/17 18:11 Last Admin: 08/19/17 18:16 Dose: Not Given Albuterol/Ipratropium (Duoneb 3.0-0.5 Mg/3 Ml) 3 ml NEB ONETIME ONE Stop: 08/19/17 18:15 Last Admin: 08/19/17 18:16 Dose: 3 ml Albuterol/Ipratropium (Duoneb 3.0-0.5 Mg/3 Ml) 3 ml NEB ONETIME ONE Stop: 08/19/17 19:43 Last Admin: 08/19/17 20:14 Dose: Not Given Calcium Carbonate/Glycine (Tums) 1,000 mg PO ONETIME ONE Stop: 08/23/17 08:53 Last Admin: 08/23/17 09:27 Dose: 1,000 mg Calcium Carbonate/Glycine (Tums) 1,000 mg PO ONETIME ONE Stop: 08/24/17 08:45 Last Admin: 08/24/17 10:18 Dose: 1,000 mg Ceftriaxone Sodium (Rocephin) 1,000 mg IVPUSH Q24H [place] Last Admin: 08/19/17 23:58 Dose: Not Given Furosemide (Lasix) 40 mg IVPUSH ONETIME ONE Stop: 08/21/17 08:08 Last Admin: 08/21/17 08:22 Dose: 40 mg Furosemide (Lasix) 40 mg IVPUSH NOW ONE Stop: 08/22/17 11:21 Last Admin: 08/22/17 12:04 Dose: 40 mg Furosemide (Lasix) 40 mg IVPUSH NOW ONE Stop: 08/25/17 12:28 Last Admin: 08/25/17 13:11 Dose: 40 mg Furosemide (Lasix) 40 mg IVPUSH ONETIME ONE Stop: 08/26/17 09:01 Last Admin: 08/26/17 09:48 Dose: 40 mg Furosemide (Lasix) 40 mg IVPUSH NOW ONE Stop: 08/26/17 15:08 Last Admin: 08/26/17 15:20 Dose: 40 mg Levofloxacin/Dextrose 750 mg/ (Premix) 150 mls @ 100 mls/hr IV ONETIME ONE Stop: 08/19/17 22:22 Last Admin: 08/19/17 21:37 Dose: 100 mls/hr Sodium Chloride (Normal Saline) 1,000 mls @ 125 mls/hr IV ASDIRECTED [facility] Last Admin: 08/23/17 01:07 Dose: 125 mls/hr Azithromycin 500 mg/ Sodium (Chloride) 250 mls @ 250 mls/hr IV Q24H [facility] Last Admin: 08/20/17 01:52 Dose: Not Given Ceftriaxone Sodium/Dextrose 1 (gm/ Premix) 50 mls @ 100 mls/hr IV Q24H [facility] Last Admin: 08/22/17 01:33 Dose: 100 mls/hr Azithromycin 500 mg/ Sodium (Chloride) 250 mls @ 250 mls/hr IV Q24H [facility] Last Admin: 08/24/17 00:44 Dose: 250 mls/hr Sodium Chloride (Normal Saline) 1,000 mls @ 999 mls/hr IV .Bolus ONE Stop: 08/21/17 08:35 Last Admin: 08/21/17 08:25 Dose: 999 mls/hr Linezolid 600 mg/ Premix 300 mls @ 300 mls/hr IV Q12H [facility] Last Admin: 08/21/17 09:58 Dose: 300 mls/hr Calcium Gluconate 2 gm/ Sodium (Chloride) 70 mls @ 140 mls/hr IV ONETIME ONE Stop: 08/21/17 18:29 Last Admin: 08/21/17 19:49 Dose: 140 mls/hr Calcium Gluconate 11 gm/ (Sodium Chloride) 1,110 mls @ 50 mls/hr IV ASDIRECTED [facility] Stop: 08/22/17 16:11 Calcium Gluconate 5.5 gm/ (Sodium Chloride) 555 mls @ 50 mls/hr IV ASDIRECTED [facility] Last Admin: 08/21/17 20:44 Dose: 50 mls/hr Magnesium Sulfate 4 gm/ Premix 100 mls @ 50 mls/hr IV ONETIME ONE Stop: 08/22/17 00:44 Last Admin: 08/21/17 23:16 Dose: 50 mls/hr Magnesium Sulfate 2 gm/ Premix 50 mls @ 50 mls/hr IV ONETIME ONE Stop: 08/23/17 20:27 Last Admin: 08/23/17 21:16 Dose: 50 mls/hr Magnesium Sulfate 2 gm/ Premix 50 mls @ 50 mls/hr IV ONETIME ONE Stop: 08/26/17 08:45 Last Admin: 08/26/17 08:12 Dose: 50 mls/hr Calcium Gluconate 2 gm/ Sodium (Chloride) 70 mls @ 70 mls/hr IV ONETIME ONE Stop: 08/26/17 09:29 Last Admin: 08/26/17 12:24 Dose: 70 mls/hr Magnesium Sulfate 2 gm/ Premix 50 mls @ 50 mls/hr IV ONETIME [place] Stop: 08/26/17 09:59 Last Admin: 08/26/17 09:48 Dose: 50 mls/hr Polyethylene Glycol (Miralax) 17 gm PO DAILY [facility] Last Admin: 08/23/17 09:11 Dose: Not Given - Exam Cardiovascular: Regular Rate, Regular Rhythm GI/Abdominal Exam: Normal Bowel Sounds, Soft, Non-Tender, No Distention Extremities: Normal Inspection, Normal Capillary Refill, Pedal Edema Skin: Intact Neurological: No New Focal Deficit Psy/Mental Status: Normal Mood - Problem List Review Problem List Initiated/Reviewed/Updated: Yes - My Orders Last 24 Hours: My Active Orders 08/25/17 18:09 Echo Comp wo Cont [US] Routine 08/26/17 10:00 Calcium Gluconate 2.75 gm Sodium Chloride 0.9% [Normal Saline] 250 ml IV ASDIRECTED 08/26/17 11:30 Notify Provider Consults [RC] ASDIRECTED Consult to Physician [CONS] Routine - Plan Plan:: 66 yo male admitted 08/19/17 for community acquired pneumonia & JOHN. Planned for discharge today however echo results returned which revealed HFrEF with 20% EF. Cardiology was consulted. Discuused care with Dr. Carranza who rec's 24 hour observation after starting medications for CHF #CAP -hypoxia improved, Leukocytosis resolved, BC NGTD, sputum culture negative plan: -Continue cefepime day 5, continue azithromycin day 7 - will DC antibiotics after today as course complete -wean O2 as tolerated #Leukocytosis, resolved -secondary to above #HFrEF, EF 20% -echo obtained -patient has not had medical care for years and has no diagnosed past history -administering Lasix IV as tolerated for diuresis -consult cardiology #Hypoxia -likely multifactoral etiology secondary to CAP and possible CHF exacerbation -currently on 2L O2 -plan as per above #Acute Hypocalcemia, improved -likely multifactoral etiology including hypomagnasemia and/or CKD -patient on telemetry -ordered Vitamin D, PTH, Urine Calcium, Urine Mg plan: -start IV calcium #Subacute Kidney Injury, improved -Patient likely has underlying CKD but most likely obstructive as has improved since mane. -Patient did have appointment with urologist in [place] today for this but canceled due to hospitalization. -Patient will be discharged with mane and has appointment with Dr. Wood on . -Will give 40 IV lasix x 1 today as increasing pedal edema IVF at hep lock. Closely watch kidney function dispo: tomorrow pending
[2017-08-26] MEDS: Azithromycin 250 MG Tab PO SCH (21:40)
[2017-08-27] MEDS: Cefepime 2 GM in Premix Bag 1 BAG IV SCH (04:07)
[2017-08-27 06:11] LABS: CHLORIDE,CL 98 mmol/L (98-110); SODIUM,NA 136 mmol/L (136-146)
--- NOTE | 2017-08-27 08:49 | CONS ---
DATE OF CONSULTATION: 08/26/2017 DATE OF : 1950 PRIMARY CARE PHYSICIAN: None PCP REASON FOR CONSULTATION: Heart failure. HISTORY OF PRESENT ILLNESS: This is a 66-year-old, male patient, who has not seen a primary care doctor for a long time, presented to the hospital with worsening shortness of breath over the past three or four days. He also noted that he coughed and also has leg swelling as well. Initially when they did the chest x-ray, they saw infiltration with a bilateral pleural effusion, and he was treated for pneumonia with IV antibiotics. He also had a leukocytosis. However, when his leukocytosis was improved, he remained hypoxic, and that is why they checked a BNP, and echo was also ordered afterwards. BNP was elevated at more than 3,000. An echocardiogram showed ejection fraction of less than 20%. According to the patient, he has not seen a doctor for a while and denied history of diabetes, hypertension, hyperlipidemia. He stated that he can lie flat okay and no fever now. After IV diuretics, his breathing seemed to be improved, but he still gets short of breath when he walks to the bathroom. No chest pain. No heart racing. On the telemetry, he also has a run of atrial fibrillation which is converted to sinus rhythm after IV Cardizem and also has a run of nonsustained VT as well. PAST MEDICAL HISTORY: Unknown. ALLERGIES: No known drug allergies. SOCIAL HISTORY: He denies smoking, drug use, or alcohol use. FAMILY HISTORY: Denies any family history of CAD. MEDICATIONS: Include Lasix 40 mg IV once a day. I's and O's currently have been negative almost every day, and he is making good urine output. PHYSICAL EXAMINATION: VITAL SIGNS: Blood pressure 116/64, heart rate of 99, temperature 36.8, O2 saturation 94% on 1.5 L, respirations 20. HEENT: He is not pale. No jaundice. Mouth dry. JVD positive. LUNGS: Bilateral crackles. HEART: Normal S1, S2. No murmur. Regular rate and rhythm. ABDOMEN: Soft, nontender. Bowel sounds are present. No hepatosplenomegaly. EXTREMITIES: Legs, decreasing edema but still ankle swollen. INVESTIGATION: Echocardiogram on August 25, 2017 showed ejection fraction less than 20% with wall motion abnormalities, mild mitral regurgitation, mild tricuspid regurgitation, and severe biatrial dilatation. EKG on August 22, 2017 showed sinus tachycardia, heart rate of 102, [place] interval 163, QRS duration 87. On the telemetry on August 25, 2017 showed a run of ventricular tachycardia with a rate of 130 to 140, which is about 12 beats. On August 25, 2017 also showed runs of atrial fibrillation as well. LABORATORY DATA: CBC showed WBC 10,000, hematocrit of 29, seemed to be at baseline and seemed to be unchanged, hemoglobin of 9.4, platelet is 295,000. Sodium is 138, potassium 4.6, chloride 100, bicarb 26, BUN 22, creatinine 1.1. Magnesium 1.4. BNP 3,000. ASSESSMENT AND PLAN: This is a 66-year-old male, who presented to the hospital, treated for pneumonia with new onset of decompensated systolic heart failure. Been diuresed with IV diuretics. I explained to him and his mother regarding his condition for cardiomyopathy and the need for medication optimization and also explained to them about the need for ischemic workup. I will recommend angiogram, but this can be set up as an outpatient. He should be placed for a low-sodium diet and heart-healthy diet, and I will give him another dose of Lasix 40 mg IV one dose and start him on Toprol-XL 12.5 once a day tonight, as well as Cozaar 12.5 mg once a day. I will hold off on Aldactone for now because he was admitted to the hospital with acute kidney injury and currently just normalized. If his vital signs become stable overnight after starting him on ARB, as well as a beta- sarthak, he should be able to go home, and he can be discharged with Lasix 40 mg once a day, and also I explained to him and to his mother about regarding the risks of a sudden cardiac , and I recommended to them for LifeVest, as well as explained to them the risks of stroke from atrial fibrillation. He is currently a moderate risk for a stroke, but I still recommended for him to have the Coumadin started. AMANDA / BONNIE /[id number]
[2017-08-27] MEDS: Carvedilol 3.125 MG Tab PO SCH (09:31)
[2017-08-27] MEDS: Calcium Carbonate/Vitamin D3 1500 MG-400 Units Tab PO SCH (09:31)
[2017-08-27] MEDS: Losartan 50 MG Tab PO SCH (09:32)
[2017-08-27] MEDS: Enoxaparin 40 MG/0.4 ML Syringe SUBCUT SCH (09:33)
--- NOTE | 2017-08-27 15:41 | ECHO ---
EXAM DATE: 08/19/17 PATIENT'S AGE: 66 The echocardiogram report can be seen in this patient's EMR (Electronic Medical Record) in the Reports section. The report has also been scanned into PACs. VINCENT
--- NOTE | 2017-08-27 17:28 | PCM.PN ---
- General Info Date of Service: 08/27/17 Admission Dx/Problem (Free Text): 66M new onset cardiomyopathy PNA Subjective Update: some SOB whean walking but not at rest, BP was low after cozaar and coreg Functional Status: Reports: Pain Controlled - Review of Systems General: Reports: Weakness HEENT: Reports: No Symptoms Pulmonary: Reports: Shortness of Breath Cardiovascular: Reports: No Symptoms Gastrointestinal: Reports: No Symptoms Genitourinary: Reports: No Symptoms Musculoskeletal: Reports: No Symptoms Skin: Reports: No Symptoms Neurological: Reports: No Symptoms Psychiatric: Reports: No Symptoms - Patient Data Vitals - Most Recent: Last Vital Signs Temp 37.1 C 08/27/17 12:00 Pulse 79 08/27/17 12:00 Resp 18 08/27/17 12:00 BP 90/45 L 08/27/17 12:00 Pulse Ox 90 L 08/27/17 12:00 Weight - Most Recent: 78.608 kg I&O - Last 24 Hours: Intake & Output 08/27/17 08/27/17 08/27/17 06:59 14:59 22:59 Intake Total 200 500 Output Total 2050 850 Balance -1850 -350 Lab Results Last 24 Hours: Laboratory Results - last 24 hr 08/21/17 08/21/17 08/21/17 Range/Units 18:30 19:50 19:50 WBC (4.0-11.0) K/uL RBC (4.50-5.90) M/uL Hgb (13.0-17.0) g/dL Hct (38.0-50.0) % MCV (80.0-98.0) fL MCH (27.0-32.0) pg MCHC (31.0-37.0) g/dL RDW Std Deviation (28.0-62.0) fl RDW Coeff of Anita (11.0-15.0) % Plt Count (150-400) K/uL MPV (7.40-12.00) fL Neut % (Auto) (48.0-80.0) % Lymph % (Auto) (16.0-40.0) % [place] % (Auto) (0.0-15.0) % Eos % (Auto) (0.0-7.0) % Baso % (Auto) (0.0-1.5) % Neut # (Auto) (1.4-5.7) K/uL Lymph # (Auto) (0.6-2.4) K/uL [place] # (Auto) (0.0-0.8) K/uL Eos # (Auto) (0.0-0.7) K/uL Baso # (Auto) (0.0-0.1) K/uL Nucleated RBC % /100WBC Nucleated RBCs # K/uL Sodium (136-146) mmol/L Potassium (3.5-5.1) mmol/L Chloride (98-110) mmol/L Carbon Dioxide (21-31) mmol/L BUN (6.0-23.0) mg/dL Creatinine (0.6-1.5) mg/dL Est Cr Clr Drug Dosing mL/min Estimated GFR (MDRD) ml/min Glucose (60-110) mg/dL Hemoglobin A1c (0.0-6.0) % Calcium (8.8-10.8) mg/dL Total Bilirubin (0.1-1.5) mg/dL AST (5-40) IU/L ALT (8-54) IU/L Alkaline Phosphatase (40-150) B-Natriuretic Peptide (<100) PG/ML Total Protein (6.0-8.0) g/dL Albumin (3.4-4.8) g/dL Globulin (2.0-3.5) g/dL Albumin/Globulin Ratio (1.3-2.8) Triglycerides (10-190) mg/dL Cholesterol (131-240) mg/dL LDL Cholesterol, Calc (60-180) mg/dL VLDL Cholesterol (5-55) mg/dL HDL Cholesterol (40-80) mg/dL Cholesterol/HDL Ratio (3.3-6.0) PTH Intact 61 (12-88) pg/mL Calcium (PTH Intact) 8.8 (8.5-10.2) mg/dL Urine Total Volume Not Reportable Not Reportable Ur Calcium 24 Hr RANDOM Ur Magnesium 24 Hr RANDOM 08/27/17 08/27/17 08/27/17 Range/Units 04:58 04:58 04:58 WBC 10.43 (4.0-11.0) K/uL RBC 3.55 L (4.50-5.90) M/uL Hgb 9.7 L (13.0-17.0) g/dL Hct 29.8 L (38.0-50.0) % MCV 83.9 (80.0-98.0) fL MCH 27.3 (27.0-32.0) pg MCHC 32.6 (31.0-37.0) g/dL RDW Std Deviation 44.0 (28.0-62.0) fl RDW Coeff of Anita 14 (11.0-15.0) % Plt Count 291 (150-400) K/uL MPV 11.50 (7.40-12.00) fL Neut % (Auto) 77.9 (48.0-80.0) % Lymph % (Auto) 11.8 L (16.0-40.0) % [place] % (Auto) 8.1 (0.0-15.0) % Eos % (Auto) 1.9 (0.0-7.0) % Baso % (Auto) 0.3 (0.0-1.5) % Neut # (Auto) 8.1 H (1.4-5.7) K/uL Lymph # (Auto) 1.2 (0.6-2.4) K/uL [place] # (Auto) 0.8 (0.0-0.8) K/uL Eos # (Auto) 0.2 (0.0-0.7) K/uL Baso # (Auto) 0.0 (0.0-0.1) K/uL Nucleated RBC % 0.0 /100WBC Nucleated RBCs # 0 K/uL Sodium 136 (136-146) mmol/L Potassium 4.5 (3.5-5.1) mmol/L Chloride 98 (98-110) mmol/L Carbon Dioxide 26 (21-31) mmol/L BUN 25 H (6.0-23.0) mg/dL Creatinine 1.2 (0.6-1.5) mg/dL Est Cr Clr Drug Dosing 64.37 mL/min Estimated GFR (MDRD) > 60.0 ml/min Glucose 112 H (60-110) mg/dL Hemoglobin A1c (0.0-6.0) % Calcium 8.2 L (8.8-10.8) mg/dL Total Bilirubin 0.7 (0.1-1.5) mg/dL AST 30 (5-40) IU/L ALT 28 (8-54) IU/L Alkaline Phosphatase 102 (40-150) B-Natriuretic Peptide (<100) PG/ML Total Protein 6.4 (6.0-8.0) g/dL Albumin 3.0 L (3.4-4.8) g/dL Globulin 3.4 (2.0-3.5) g/dL Albumin/Globulin Ratio 0.9 L (1.3-2.8) Triglycerides 140 (10-190) mg/dL Cholesterol 143 (131-240) mg/dL LDL Cholesterol, Calc 92 (60-180) mg/dL VLDL Cholesterol 28 (5-55) mg/dL HDL Cholesterol 23 L (40-80) mg/dL Cholesterol/HDL Ratio 6.2 H (3.3-6.0) PTH Intact (12-88) pg/mL Calcium (PTH Intact) (8.5-10.2) mg/dL Urine Total Volume Ur Calcium 24 Hr Ur Magnesium 24 Hr 08/27/17 08/27/17 Range/Units 04:58 04:58 WBC (4.0-11.0) K/uL RBC (4.50-5.90) M/uL Hgb (13.0-17.0) g/dL Hct (38.0-50.0) % MCV (80.0-98.0) fL MCH (27.0-32.0) pg MCHC (31.0-37.0) g/dL RDW Std Deviation (28.0-62.0) fl RDW Coeff of Anita (11.0-15.0) % Plt Count (150-400) K/uL MPV (7.40-12.00) fL Neut % (Auto) (48.0-80.0) % Lymph % (Auto) (16.0-40.0) % [place] % (Auto) (0.0-15.0) % Eos % (Auto) (0.0-7.0) % Baso % (Auto) (0.0-1.5) % Neut # (Auto) (1.4-5.7) K/uL Lymph # (Auto) (0.6-2.4) K/uL [place] # (Auto) (0.0-0.8) K/uL Eos # (Auto) (0.0-0.7) K/uL Baso # (Auto) (0.0-0.1) K/uL Nucleated RBC % /100WBC Nucleated RBCs # K/uL Sodium (136-146) mmol/L Potassium (3.5-5.1) mmol/L Chloride (98-110) mmol/L Carbon Dioxide (21-31) mmol/L BUN (6.0-23.0) mg/dL Creatinine (0.6-1.5) mg/dL Est Cr Clr Drug Dosing mL/min Estimated GFR (MDRD) ml/min Glucose (60-110) mg/dL Hemoglobin A1c 6.6 H (0.0-6.0) % Calcium (8.8-10.8) mg/dL Total Bilirubin (0.1-1.5) mg/dL AST (5-40) IU/L ALT (8-54) IU/L Alkaline Phosphatase (40-150) B-Natriuretic Peptide 866 H (<100) PG/ML Total Protein (6.0-8.0) g/dL Albumin (3.4-4.8) g/dL Globulin (2.0-3.5) g/dL Albumin/Globulin Ratio (1.3-2.8) Triglycerides (10-190) mg/dL Cholesterol (131-240) mg/dL LDL Cholesterol, Calc (60-180) mg/dL VLDL Cholesterol (5-55) mg/dL HDL Cholesterol (40-80) mg/dL Cholesterol/HDL Ratio (3.3-6.0) PTH Intact (12-88) pg/mL Calcium (PTH Intact) (8.5-10.2) mg/dL Urine Total Volume Ur Calcium 24 Hr Ur Magnesium 24 Hr Benoit Results Last 24 Hours: Microbiology 08/22/17 10:32 Aerobic Blood Culture - Final Blood - Venous - Lab Draw NO GROWTH AFTER 5 DAYS Anaerobic Blood Culture - Final NO GROWTH AFTER 5 DAYS 08/22/17 10:00 Aerobic Blood Culture - Final Blood - Venous NO GROWTH AFTER 5 DAYS Anaerobic Blood Culture - Final NO GROWTH AFTER 5 DAYS Med Orders - Current: Current Medications Discontinued Medications Acetaminophen (Tylenol) 650 mg PO Q4H PRN PRN Reason: Pain (Mild 1-3)/fever Last Admin: 08/21/17 22:16 Dose: 650 mg Albuterol/Ipratropium (Duoneb 3.0-0.5 Mg/3 Ml) Confirm Administered Dose 3 ml .ROUTE .STK-MED ONE Stop: 08/19/17 18:11 Last Admin: 08/19/17 18:16 Dose: Not Given Albuterol/Ipratropium (Duoneb 3.0-0.5 Mg/3 Ml) 3 ml NEB ONETIME ONE Stop: 08/19/17 18:15 Last Admin: 08/19/17 18:16 Dose: 3 ml Albuterol/Ipratropium (Duoneb 3.0-0.5 Mg/3 Ml) 3 ml NEB ONETIME ONE Stop: 08/19/17 19:43 Last Admin: 08/19/17 20:14 Dose: Not Given Albuterol/Ipratropium (Duoneb 3.0-0.5 Mg/3 Ml) 3 ml NEB Q4HRRT PRN PRN Reason: Shortness Of Breath/wheezing Azithromycin (Zithromax) 500 mg PO DAILY@2200 [facility] Last Admin: 08/26/17 21:40 Dose: 500 mg Calcium Carbonate (Caltrate 600+D 1500 Mg-400 Units) 1 tab PO DAILY [facility] Last Admin: 08/27/17 09:31 Dose: 1 tab Calcium Carbonate/Glycine (Tums) 1,000 mg PO ONETIME ONE Stop: 08/23/17 08:53 Last Admin: 08/23/17 09:27 Dose: 1,000 mg Calcium Carbonate/Glycine (Tums) 1,000 mg PO ONETIME ONE Stop: 08/24/17 08:45 Last Admin: 08/24/17 10:18 Dose: 1,000 mg Carvedilol (Coreg) 3.125 mg PO BID [facility] Last Admin: 08/27/17 09:31 Dose: 3.125 mg Ceftriaxone Sodium (Rocephin) 1,000 mg IVPUSH Q24H [facility] Last Admin: 08/19/17 23:58 Dose: Not Given Diltiazem HCl (Diltiazem) 10 mg IVPUSH Q3H PRN PRN Reason: Tachycardia Last Admin: 08/25/17 22:23 Dose: 10 mg Enoxaparin Sodium (Lovenox) 40 mg SUBCUT DAILY [facility] Last Admin: 08/27/17 09:33 Dose: 40 mg Furosemide (Lasix) 40 mg IVPUSH ONETIME ONE Stop: 08/21/17 08:08 Last Admin: 08/21/17 08:22 Dose: 40 mg Furosemide (Lasix) 40 mg IVPUSH NOW ONE Stop: 08/22/17 11:21 Last Admin: 08/22/17 12:04 Dose: 40 mg Furosemide (Lasix) 40 mg IVPUSH NOW ONE Stop: 08/25/17 12:28 Last Admin: 08/25/17 13:11 Dose: 40 mg Furosemide (Lasix) 40 mg IVPUSH ONETIME ONE Stop: 08/26/17 09:01 Last Admin: 08/26/17 09:48 Dose: 40 mg Furosemide (Lasix) 40 mg IVPUSH NOW ONE Stop: 08/26/17 15:08 Last Admin: 08/26/17 15:20 Dose: 40 mg Levofloxacin/Dextrose 750 mg/ (Premix) 150 mls @ 100 mls/hr IV ONETIME ONE Stop: 08/19/17 22:22 Last Admin: 08/19/17 21:37 Dose: 100 mls/hr Sodium Chloride (Normal Saline) 1,000 mls @ 125 mls/hr IV ASDIRECTED [facility] Last Admin: 08/23/17 01:07 Dose: 125 mls/hr Azithromycin 500 mg/ Sodium (Chloride) 250 mls @ 250 mls/hr IV Q24H [facility] Last Admin: 08/20/17 01:52 Dose: Not Given Ceftriaxone Sodium/Dextrose 1 (gm/ Premix) 50 mls @ 100 mls/hr IV Q24H [facility] Last Admin: 08/22/17 01:33 Dose: 100 mls/hr Azithromycin 500 mg/ Sodium (Chloride) 250 mls @ 250 mls/hr IV Q24H [facility] Last Admin: 08/24/17 00:44 Dose: 250 mls/hr Sodium Chloride (Normal Saline) 1,000 mls @ 999 mls/hr IV .Bolus ONE Stop: 08/21/17 08:35 Last Admin: 08/21/17 08:25 Dose: 999 mls/hr Linezolid 600 mg/ Premix 300 mls @ 300 mls/hr IV Q12H [facility] Last Admin: 08/21/17 09:58 Dose: 300 mls/hr Calcium Gluconate 2 gm/ Sodium (Chloride) 70 mls @ 140 mls/hr IV ONETIME ONE Stop: 08/21/17 18:29 Last Admin: 08/21/17 19:49 Dose: 140 mls/hr Calcium Gluconate 11 gm/ (Sodium Chloride) 1,110 mls @ 50 mls/hr IV ASDIRECTED [facility] Stop: 08/22/17 16:11 Calcium Gluconate 5.5 gm/ (Sodium Chloride) 555 mls @ 50 mls/hr IV ASDIRECTED [facility] Last Admin: 08/21/17 20:44 Dose: 50 mls/hr Magnesium Sulfate 4 gm/ Premix 100 mls @ 50 mls/hr IV ONETIME ONE Stop: 08/22/17 00:44 Last Admin: 08/21/17 23:16 Dose: 50 mls/hr Cefepime HCl 2 gm/ Premix 50 mls @ 100 mls/hr IV Q8H [facility] Last Admin: 08/27/17 04:07 Dose: 100 mls/hr Magnesium Sulfate 2 gm/ Premix 50 mls @ 50 mls/hr IV ONETIME ONE Stop: 08/23/17 20:27 Last Admin: 08/23/17 21:16 Dose: 50 mls/hr Magnesium Sulfate 2 gm/ Premix 50 mls @ 50 mls/hr IV ONETIME ONE Stop: 08/26/17 08:45 Last Admin: 08/26/17 08:12 Dose: 50 mls/hr Calcium Gluconate 2 gm/ Sodium (Chloride) 70 mls @ 70 mls/hr IV ONETIME ONE Stop: 08/26/17 09:29 Last Admin: 08/26/17 12:24 Dose: 70 mls/hr Calcium Gluconate 2.75 gm/ (Sodium Chloride) 277.5 mls @ 50 mls/hr IV ASDIRECTED [facility] Last Admin: 08/26/17 13:35 Dose: 50 mls/hr Magnesium Sulfate 2 gm/ Premix 50 mls @ 50 mls/hr IV ONETIME [facility] Stop: 08/26/17 09:59 Last Admin: 08/26/17 09:48 Dose: 50 mls/hr Losartan Potassium (Cozaar) 12.5 mg PO DAILY [facility] Last Admin: 08/27/17 09:32 Dose: 12.5 mg Ondansetron HCl (Zofran) 4 mg IVPUSH Q4H PRN PRN Reason: Nausea Last Admin: 08/22/17 03:15 Dose: 4 mg Polyethylene Glycol (Miralax) 17 gm PO DAILY [place] Last Admin: 08/23/17 09:11 Dose: Not Given Polyethylene Glycol (Miralax) 17 gm PO DAILY PRN PRN Reason: Constipation - Exam Quality Assessment: Supplemental Oxygen General: Alert, Oriented HEENT: Pupils Equal Neck: JVD Lungs: Rales Cardiovascular: Regular Rate, Regular Rhythm GI/Abdominal Exam: Normal Bowel Sounds (Male) Exam: No Hernia, Normal Inspection Back Exam: Normal Inspection Extremities: Pedal Edema EKG INTERPRETATION Rhythm: NSR - Problem List Review Problem List Initiated/Reviewed/Updated: Yes - Plan Plan:: 66M with SOB with JOHN PNA bila pleural effeusion decompensated systolic HF EF < 20% 1. decompensated systolic HF EF < 20% he needs ischemic work up, recommended coronary angiogram we can set up as outpt, recommended [facility], they will talk among family, continue cozaar with coreg, his BP was low normal like in 90. Recommend to discharge with lasix 40 daily. - cozaar 12.5 daily, coreg 3.125 BID, lasix 40 daily 2. NSVT/PAfib : [id number] = 1, recommended coumadin, I think he is high risk for stroke from afib. will connect him with coumadin clinic. 3. PNA Abx per hospitalist 4. JOHN resolved
== END 2017-08-27 17:02 | disposition home or self-care (01) | DRG 139 ==
LOC: MW.ED 17:51 → MW.MS 20:54
PROVIDERS: ADMIT Internal Medicine; ATTEND Internal Medicine
DX: J18.9 Pneumonia, unspecified organism (principal); E87.0 Hyperosmolality and hypernatremia; R09.02 Hypoxemia; N17.9 Acute kidney failure, unspecified; R32 Unspecified urinary incontinence; H54.7 Unspecified visual loss; I50.23 Acute on chronic systolic (congestive) heart failure; E83.51 Hypocalcemia; R31.0 Gross hematuria; R97.20 Elevated prostate specific antigen [PSA]
CPT/HCPCS: 36415; 71046; 71046-26; 80048; 80053; 80061; 80076; 81001; 82150; 82306; 82310; 82340; 83036; 83605; 83735; 83880; 83970; 84100; 85025; 87040; 87070; 87086; 87205; 87804; 93005; 93306; 94640; 96374; 99283; 99285-25; A9270-GY; G0103; J0456; J0610; J0692; J0696; J1650; J1940; J1956; J2020; J2405; J3475; J3490; J7040; J7050

== ENCOUNTER 2017-12-09 19:12 | Inpatient (IN) | payer MEDICARE, BC, OTHER ==
[~2017-12-09 19:12] MED LIST: Lactated Ringers 1,000 ML IV SCH; SODIUM CHLORIDE 0.9% IV ONE; Sodium Chloride 0.9% 2.5 ML Syringe FLUSH PRN; TOBRAMYCIN IV ONE
[2017-12-09] MEDS: Ampicillin 2 GM in Sodium Chloride 0.9% 100 ML IV SCH ×3 (19:49→20:24)
[2017-12-10] MEDS: Ampicillin 2 GM in Sodium Chloride 0.9% 100 ML IV SCH ×5 (02:19→21:51)
--- NOTE | 2017-12-10 08:51 | PCM.PREANE ---
Preanesthetic Assessment - Anesthesia/Transfusion/Family Hx Anesthesia History: No Prior Anesthesia Family History of Anesthesia Reaction: No Transfusion History: Prior Transfusion Without Reaction - Review of Systems General: No Symptoms Pulmonary: No Symptoms Neurological: No Symptoms - Physical Assessment NPO Status Date: 12/09/17 Pulse: 92 O2 Sat by Pulse Oximetry: 97 Respiratory Rate: 20 Blood Pressure: 180/88 Vital Signs: Last Vital Signs Temp 36.4 C 12/10/17 07:21 Pulse 92 12/10/17 07:21 Resp 20 12/10/17 07:21 BP 180/88 H 12/10/17 07:21 Pulse Ox 97 12/10/17 07:21 Height: 1.75 m Weight: 85.36 kg ASA Class: 3 Mental Status: Alert & Oriented x3 Airway Class: Mallampati = 2 ROM/Head Extension: Full Lungs: Clear to Auscultation, Other (tachypnic) Cardiovascular: Irregular Rhythm - Allergies Allergies/Adverse Reactions: Allergies Allergy/AdvReac Type Severity Reaction Status Date / Time No Known Allergies Allergy Verified 12/08/17 11:12 - Blood Blood Available: Yes - Acknowledgements Pt an Appropriate Candidate for the Planned Anesthesia: Yes Alternatives and Risks of Anesthesia Discussed w Pt/Guardian: Yes Pt/Guardian Understands and Agrees with Anesthesia Plan: Yes Additional Comments: PMH: hx of cardiomyopathy non ischemic with EF of 20 % in Aug 2017, now rate controlled afib/NRS with reported near normalization of EF. Have asked for the formal TTE report from [place] (pending fax arrival), Is on Coumadin, stopped several days ago. No INR on chart, have ordered one stat this am. Cr= 1.2 but GFR is > 60. Plan: spinal if INR is normal, rate controll with cardizem as needed. Anticipate relative hypovolemia from chronic lasix, anticipate bp volatility. PreAnesthesia Questionnaire HEENT History: Reports: Hard of Hearing, Other (See Below) Other HEENT History: wears glasses, has upper and lower dentures Cardiovascular History: Reports: Afib, Arrhythmia, Cardiomyopathy Respiratory History: Reports: None Gastrointestinal History: Reports: GERD Genitourinary History: Reports: BPH Other Genitourinary History: overactive bladder Musculoskeletal History: Reports: None Neurological History: Reports: None Psychiatric History: Reports: None Endocrine/Metabolic History: Reports: None Hematologic History: Reports: Anemia, Anticoagulation Therapy, Blood Transfusion (s) Other Hematologic History: he had 2 blood transfusions as a baby (premature) Immunologic History: Reports: None Oncologic (Cancer) History: Reports: None Dermatologic History: Reports: None - Infectious Disease History Infectious Disease History: Reports: Chicken Pox, Measles, Mumps - Past Surgical History Head Surgeries/Procedures: Reports: None HEENT Surgical History: Reports: Tonsillectomy Male Surgical History: Reports: None - SUBSTANCE USE Smoking Status *Q: Never Smoker Recreational Drug Use History: No - HOME MEDS Home Medications: Home Meds Carvedilol [Coreg] 3.125 mg PO BID #60 tablet 08/27/17 [Rx] Furosemide [Lasix] 40 mg PO DAILY #30 tablet 08/27/17 [Rx] Ascorbic Acid [Vitamin C] 250 mg PO DAILY 12/08/17 [History] Calcium Carb & Citrate/Vit D3 [Citracal + D ER] 1 tab PO DAILY 12/08/17 [History ] Calcium Carbonate [Tums] 1 tab PO ASDIRECTED PRN 12/08/17 [History] Ferrous Sulfate [Slow Release Iron] 45 mg PO DAILY 12/08/17 [History] Fish Oil/[place]-3 Fatty Acids [Fish Oil] 500 mg PO DAILY 12/08/17 [History] Losartan [Cozaar] 25 mg PO DAILY 12/08/17 [History] Warfarin Sodium [Coumadin] 4 mg PO DAILY 12/08/17 [History] - CURRENT (IN HOUSE) MEDS Current Meds: Current Medications Lactated Ringer's (Ringers, Lactated) 1,000 mls @ 50 mls/hr IV ASDIRECTED [facility] Last Admin: 12/09/17 19:00 Dose: 50 mls/hr Ampicillin Sodium 2 gm/ Sodium (Chloride) 100 mls @ 200 mls/hr IV Q6H [facility] Last Admin: 12/10/17 02:19 Dose: 200 mls/hr Tobramycin 120 mg/ Sodium (Chloride) 103 mls @ 103 mls/hr IV Q12H [facility] Last Admin: 12/09/17 21:39 Dose: 103 mls/hr Sodium Chloride (Saline Flush) 2.5 ml FLUSH ASDIRECTED PRN PRN Reason: Keep Vein Open Discontinued Medications Ampicillin Sodium 2 gm/ Sodium (Chloride) 100 mls @ 200 mls/hr IV Q6H [id number] Last Admin: 12/09/17 19:50 Dose: Not Given Tobramycin 125 mg/ Sodium (Chloride) 103.125 mls @ 103.125 mls/hr IV ONETIME ONE Stop: 12/09/17 00:02 Last Admin: 12/09/17 19:49 Dose: Not Given
[2017-12-10] MEDS ORDERED: Propofol 200 MG/20 ML SDV ONE (09:41)
[2017-12-10] MEDS ORDERED: Midazolam 1 MG/ML 2 ML SDV ONE (09:41)
[2017-12-10] MEDS ORDERED: Phenylephrine 1% 10 MG/ML SDV ONE (11:07)
[2017-12-10] MEDS ORDERED: Belladonna Alkaloids/Opium 16.2-30 MG Supp RECTAL PRN (12:28)
[2017-12-10] MEDS ORDERED: Ampicillin 500 MG Cap PO SCH (12:30)
[2017-12-10] MEDS ORDERED: D5 1/2 NS w/ 20 mEq/L KCl 1,000 ML IV SCH (12:30)
--- NOTE | 2017-12-10 13:20 | OR ---
SURGEON: Emely Wood M.D. DATE OF PROCEDURE: 12/10/2017 PREOPERATIVE DIAGNOSIS: Benign prostatic hypertrophy with urinary retention and urinary tract infection. POSTOPERATIVE DIAGNOSIS: Benign prostatic hypertrophy with urinary retention and urinary tract infection. OPERATION: TURP. DESCRIPTION OF PROCEDURE: The patient otherwise remained in the hospital on IV antibiotics. He was taken to the operating room. He had spinal anesthesia. The 28 resectoscope was introduced in the bladder without difficulty. The prostate was resected in the usual manner starting with the floor of the prostatic urethra going on laterally and anteriorly. At the end of the resection, all prostatic chips were removed. Both ureteral orifices were intact. The area of the external sphincter was intact. A 22 three-way Miranda catheter with 80 mL in the balloon was left in the bladder connected to the transurethral resection drip. The patient tolerated the procedure well and was moved to recovery room in good condition. AUSTIN / BONNIE /[id number]
--- NOTE | 2017-12-10 13:36 | PCM.POSTAN ---
POST ANESTHESIA ASSESSMENT - MENTAL STATUS Mental Status: Alert, Oriented - RESPIRATORY Respiratory Status: Respiratory Rate WNL, Airway Patent, O2 Saturation Stable - CARDIOVASCULAR CV Status: Pulse Rate WNL, Blood Pressure Stable - GASTROINTESTINAL GI Status: No Symptoms - POST OP HYDRATION Hydration Status: Adequate & Stable
[2017-12-10] MEDS: Bacitracin Oint 28.35 GM Tube TOP SCH ×2 (17:02→21:54)
[2017-12-10] MEDS: Carvedilol 3.125 MG Tab PO SCH (17:12)
[2017-12-10] MEDS ORDERED: Sodium Chloride 0.9% 10 ML Syringe FLUSH PRN (18:34)
[2017-12-10] MEDS ORDERED: Sodium Chloride 0.9% 2.5 ML Syringe FLUSH PRN (18:34)
[2017-12-10] MEDS: Docusate Sodium 100 MG Cap PO SCH (20:27)
--- NOTE | 2017-12-10 22:08 | PCM48HPAN ---
Post Anesthesia Note - EVALUATION WITHIN 48HRS OF ANESTHETIC Vital Signs in Normal Range: Yes Patient Participated in Evaluation: Yes Respiratory Function Stable: Yes Airway Patent: Yes Cardiovascular Function Stable: Yes Hydration Status Stable: Yes Pain Control Satisfactory: Yes Nausea and Vomiting Control Satisfactory: Yes Mental Status Recovered: Yes Pulse Rate: 82 Resp Rate: 18 Blood Pressure: 117/57
[2017-12-11] MEDS: Ampicillin 2 GM in Sodium Chloride 0.9% 100 ML IV SCH ×4 (03:12→20:26)
[2017-12-11] MEDS: Bacitracin Oint 28.35 GM Tube TOP SCH ×3 (06:24→22:42)
[2017-12-11] MEDS: Losartan 50 MG Tab PO SCH (08:58)
[2017-12-11] MEDS: Calcium Carbonate/Vitamin D3 1500 MG-400 Units Tab PO SCH (08:58)
[2017-12-11] MEDS: Carvedilol 3.125 MG Tab PO SCH ×2 (08:59→17:59)
[2017-12-11] MEDS: Furosemide 40 MG Tab PO SCH (08:59)
[2017-12-11] MEDS: Docusate Sodium 100 MG Cap PO SCH ×2 (08:59→21:17)
[2017-12-11] MEDS ORDERED: Ferrous Sulfate 140 MG Tab PO SCH (09:00)
[2017-12-11] MEDS: Ferrous Sulfate 325 MG Tab PO SCH (10:41)
[2017-12-12] MEDS: Ampicillin 2 GM in Sodium Chloride 0.9% 100 ML IV SCH ×3 (02:35→13:42)
[2017-12-12] MEDS: Bacitracin Oint 28.35 GM Tube TOP SCH ×2 (06:21→14:11)
[2017-12-12] MEDS: Ferrous Sulfate 325 MG Tab PO SCH (08:13)
[2017-12-12] MEDS: Furosemide 40 MG Tab PO SCH (08:14)
[2017-12-12] MEDS: Calcium Carbonate/Vitamin D3 1500 MG-400 Units Tab PO SCH (08:14)
[2017-12-12] MEDS: Losartan 50 MG Tab PO SCH (08:15)
[2017-12-12] MEDS: Docusate Sodium 100 MG Cap PO SCH (08:16)
[2017-12-12] MEDS: Carvedilol 3.125 MG Tab PO SCH ×2 (08:16→17:03)
--- NOTE | 2017-12-12 14:25 | DISCH ---
DATE OF DISCHARGE: PRIMARY CARE PHYSICIAN: None PCP John is 67-year-old. He was in urinary retention. His evaluation was done at the office included a prostate ultrasound that showed an adenoma that measured approximately 34 mL. Previous attempts at removing the catheter were unsuccessful. He was admitted to the hospital. The catheter was taken out and he was given IV antibiotics overnight, was taken to the operating room and had a TURP on 12/10. Postoperatively he did well, remained stable. The catheter was taken out on the 2nd postop day. He is able to void, the urine is reasonably clear. His postvoid residual was about 160 mL so far. He is discharged. He is to resume all his home medications. Pathology is still pending. He is to come back and see me as needed. AUSTIN NICOLE /[id number]
== END 2017-12-12 18:00 | disposition home or self-care (01) | DRG 713 ==
LOC: MW.MS 19:12 → OBSVTOIN 19:12 → INTOOBSV 19:12 → UNDOADMOB 19:12
PROVIDERS: ADMIT Urology; ATTEND Urology
PROC: 0TPB70Z Removal of Drainage Device from Bladder, Via Natural or Artificial Opening (ICD-10-PCS; 2017-12-09)
PROC: 0VT08ZZ Resection of Prostate, Via Natural or Artificial Opening Endoscopic (ICD-10-PCS; principal; 2017-12-10)
DX: R33.9 Retention of urine, unspecified (principal); N40.1 Benign prostatic hyperplasia with lower urinary tract symptoms; I50.20 Unspecified systolic (congestive) heart failure; N39.0 Urinary tract infection, site not specified; R33.8 Other retention of urine; D29.1 Benign neoplasm of prostate; I48.91 Unspecified atrial fibrillation; K21.9 Gastro-esophageal reflux disease without esophagitis; Z79.01 Long term (current) use of anticoagulants; Z79.899 Other long term (current) drug therapy
CPT/HCPCS: J3260; J7030; J7120; 36415; 51701; 51798; 80051; 84132; 84295; 85018; 85025; 85027; 85610; A9270-GY; J0290; J2250; J2370; J2704; J3480

== ENCOUNTER 2018-11-08 11:25 | Inpatient (IN) | payer MEDICARE, BC ==
[~2018-11-08 11:25] MED LIST changes: +Acetaminophen 1,000 MG in Premix Bag 1 BAG IV SCH; +Famotidine 20 MG/2 ML SDV IVPUSH SCH; -Lactated Ringers 1,000 ML IV SCH; +Ropivacaine 49.25 ML, Ketorolac 30 MG, EPINEPHrine 0.5 MG, cloNIDine 80 MCG in Sodium C... INJECT SCH; -SODIUM CHLORIDE 0.9% IV ONE; +Scopolamine 1.5 MG Transdermal Patch TRDERM SCH; -Sodium Chloride 0.9% 2.5 ML Syringe FLUSH PRN; -TOBRAMYCIN IV ONE; +Tranexamic Acid 2,000 MG in Sodium Chloride 0.9% 100 ML IV SCH; +ceFAZolin 2 GM in Premix Bag 1 BAG IV SCH; +oxyCODONE 5 MG Tab PO PRN
[2018-11-08] MEDS: Lactated Ringers 1,000 ML IV SCH ×2 (11:48→16:55)
--- NOTE | 2018-11-08 12:01 | PCM.PREANE ---
Preanesthetic Assessment - Anesthesia/Transfusion/Family Hx Anesthesia History: No Prior Anesthesia Family History of Anesthesia Reaction: No Transfusion History: Prior Transfusion Without Reaction Intubation History: Unknown - Review of Systems General: No Symptoms Pulmonary: No Symptoms Cardiovascular: No Symptoms Gastrointestinal: No Symptoms Neurological: No Symptoms Other: Reports: None - Physical Assessment O2 Sat by Pulse Oximetry: 97 Respiratory Rate: 16 Vital Signs: Last Vital Signs Temp 36.1 C 11/08/18 11:41 Pulse 71 11/08/18 11:41 Resp 16 11/08/18 11:41 BP 127/78 11/08/18 11:41 Pulse Ox 97 11/08/18 11:41 Height: 1.83 m Weight: 88.451 kg ASA Class: 3 Mental Status: Alert & Oriented x3 Airway Class: Mallampati = 2 Dentition: Reports: Dentures (upper and lower) Thyro-Mental Finger Breadths: 3 Mouth Opening Finger Breadths: 2 ROM/Head Extension: Limited/Partial Lungs: Clear to Auscultation, Normal Respiratory Effort Cardiovascular: Regular Rate, Regular Rhythm - Allergies Allergies/Adverse Reactions: Allergies Allergy/AdvReac Type Severity Reaction Status Date / Time No Known Allergies Allergy Verified 11/08/18 11:51 - Blood Blood Available: No - Anesthesia Plan Pre-Op Medication Ordered: None - Acknowledgements Anesthesia Type Planned: Spinal (general anesthesia back-up) Pt an Appropriate Candidate for the Planned Anesthesia: Yes Alternatives and Risks of Anesthesia Discussed w Pt/Guardian: Yes Pt/Guardian Understands and Agrees with Anesthesia Plan: Yes PreAnesthesia Questionnaire HEENT History: Reports: Hard of Hearing, Other (See Below) Other HEENT History: wears glasses, has upper and lower dentures Cardiovascular History: Reports: Afib (h/o a.fib. back to normal sinus rythm, they kept himon warfarin (stopped 5 days ago)), Arrhythmia, Cardiomyopathy (h/o CHF - EF returned to normal) Respiratory History: Reports: None Gastrointestinal History: Reports: GERD Genitourinary History: Reports: BPH Other Genitourinary History: overactive bladder Musculoskeletal History: Reports: None Neurological History: Reports: None Psychiatric History: Reports: None Endocrine/Metabolic History: Reports: None Hematologic History: Reports: Anemia, Anticoagulation Therapy, Blood Transfusion (s) Other Hematologic History: he had 2 blood transfusions as a baby (premature) Immunologic History: Reports: None Oncologic (Cancer) History: Reports: None Dermatologic History: Reports: None - Infectious Disease History Infectious Disease History: Reports: Chicken Pox, Measles, Mumps - Past Surgical History Head Surgeries/Procedures: Reports: None HEENT Surgical History: Reports: Cataract Surgery, Tonsillectomy Cardiovascular Surgical History: Reports: None Respiratory Surgical History: Reports: None GI Surgical History: Reports: None Female Surgical History: Reports: Other (See Below) (TURP) Male Surgical History: Reports: None Endocrine Surgical History: Reports: None Neurological Surgical History: Reports: C-Spine Musculoskeletal Surgical History: Reports: None Dermatological Surgical History: Reports: None - SUBSTANCE USE Smoking Status *Q: Never Smoker Recreational Drug Use History: No - HOME MEDS Home Medications: Home Meds Carvedilol [Coreg] 3.125 mg PO BID #60 tablet 08/27/17 [Rx] Furosemide [Lasix] 40 mg PO DAILY #30 tablet 08/27/17 [Rx] Ascorbic Acid [Vitamin C] 250 mg PO DAILY PRN 12/08/17 [History] Losartan [Cozaar] 25 mg PO DAILY 12/08/17 [History] Warfarin Sodium [Coumadin] 4 mg PO DAILY 12/08/17 [History] - CURRENT (IN HOUSE) MEDS Current Meds: Current Medications Famotidine (Pepcid) 40 mg IVPUSH ONARRIVE [facility] Last Admin: 11/08/18 11:49 Dose: 40 mg Acetaminophen 1,000 mg/ Premix 100 mls @ 400 mls/hr IV ONARRIVE [facility] Last Admin: 11/08/18 11:51 Dose: 400 mls/hr Cefazolin Sodium/Dextrose 2 gm (/ Premix) 50 mls @ 100 mls/hr IV ONCALL [facility] Ropivacaine 49.25 ml/Ketorolac Tromethamine 30 mg/Epinephrine HCl 0.5 mg/ Clonidine HCl 80 mcg/ Sodium Chloride 75 mls @ 50 mls/sec INJECT ASDIRECTED [facility] Lactated Ringer's (Ringers, Lactated) 1,000 mls @ 100 mls/hr IV ASDIRECTED [place] Last Admin: 11/08/18 11:48 Dose: 100 mls/hr Tranexamic Acid 2,000 mg/ (Sodium Chloride) 120 mls @ 600 mls/hr IV ASDIRECTED [facility] Scopolamine (Transderm-Scop) 1.5 mg TRHERACLIO ONARRIVE [facility] Last Admin: 11/08/18 11:49 Dose: 1.5 mg Discontinued Medications Tranexamic Acid (Cyklokapron) Confirm Administered Dose 2,000 mg .ROUTE .STK- MED ONE Stop: 11/08/18 07:55
[2018-11-08] MEDS ORDERED: fentaNYL 100 MCG/2 ML SDV ONE (13:10)
[2018-11-08] MEDS ORDERED: Ketorolac 30 MG/ML SDV ONE (13:10)
[2018-11-08] MEDS ORDERED: Dexamethasone 4 MG/ML 5 ML MDV ONE (13:10)
[2018-11-08] MEDS ORDERED: Ondansetron 4 MG/2 ML SDV ONE (13:10)
[2018-11-08] MEDS ORDERED: Lidocaine 2% 5 ML SDV ONE (13:10)
[2018-11-08] MEDS ORDERED: Midazolam 1 MG/ML 2 ML SDV ONE (13:10)
[2018-11-08] MEDS ORDERED: Propofol 200 MG/20 ML SDV ONE ×2 (13:20→13:54)
[2018-11-08] MEDS ORDERED: Meperidine PF 25 MG/ML Syringe IVPUSH PRN (14:03)
[2018-11-08] MEDS ORDERED: Scopolamine 1.5 MG Transdermal Patch TRDERM PRN (14:03)
[2018-11-08] MEDS ORDERED: hydrALAZINE 20 MG/ML SDV IVPUSH PRN ×2 (14:03)
[2018-11-08] MEDS ORDERED: Meperidine PF 25 MG/ML Syringe IV PRN (14:03)
[2018-11-08] MEDS ORDERED: Labetalol 20 MG/4 ML Syringe IVPUSH PRN (14:03)
[2018-11-08] MEDS ORDERED: Promethazine 25 MG/ML SDV IM PRN (14:03)
[2018-11-08] MEDS ORDERED: Atropine 0.1 MG/ML 10 ML Syringe IVPUSH PRN (14:03)
[2018-11-08] MEDS ORDERED: Naloxone 0.4 MG/ML Syringe IVPUSH PRN (14:03)
[2018-11-08] MEDS ORDERED: Ondansetron 4 MG/2 ML SDV IVPUSH PRN ×2 (14:03→14:47)
[2018-11-08] MEDS ORDERED: Morphine 4 MG/ML Syringe IVPUSH PRN (14:03)
[2018-11-08] MEDS ORDERED: fentaNYL 100 MCG/2 ML SDV IVPUSH PRN (14:03)
[2018-11-08] MEDS ORDERED: Albuterol 0.083% 2.5 MG/3 ML Neb Soln NEB PRN (14:03)
[2018-11-08] MEDS ORDERED: Acetaminophen/HYDROcodone 325-5 MG Tab PO PRN (14:03)
[2018-11-08] MEDS ORDERED: Metoclopramide 10 MG/2 ML SDV IVPUSH PRN (14:03)
[2018-11-08] MEDS ORDERED: HYDROmorphone 2 MG/ML SDV IVPUSH PRN (14:03)
[2018-11-08] MEDS ORDERED: Sodium Chloride 0.9% 2.5 ML Syringe FLUSH PRN (14:47)
[2018-11-08] MEDS ORDERED: Morphine PF 30 MG/30 ML PCA Vial IV PRN (14:47)
[2018-11-08] MEDS ORDERED: Aluminum Hydroxide/Magnesium Hydroxide/Simethicone Susp 30 ML Cup PO PRN (14:47)
[2018-11-08] MEDS ORDERED: Docusate Sodium 100 MG Cap PO PRN (14:47)
[2018-11-08] MEDS ORDERED: Bisacodyl 10 MG Supp RECTAL PRN (14:47)
[2018-11-08] MEDS ORDERED: diphenhydrAMINE 25 MG Cap PO PRN (14:47)
[2018-11-08] MEDS ORDERED: Sodium Chloride 0.9% 10 ML Syringe FLUSH PRN (14:47)
--- NOTE | 2018-11-08 15:16 | PCM.OPNOTE ---
- General Post-Op/Procedure Note Date of Surgery/Procedure: 11/08/18 Operative Procedure(s): R TKA Post-Op Diagnosis: DJD R knee Anesthesia Technique: Moderate Sedation, Spinal Primary Surgeon: Luma Tate Stone Sawyer: Pamela Johnson Stone Sawyer: Gardenia Watkins Role of Stone Sawyer: Intraoperative retraction, positioning EBL in mLs: 50 Condition: Good Free Text/Narrative:: #[id number] tt=51 min
[2018-11-08] MEDS ORDERED: Glycopyrrolate 0.2 MG/ML SDV ONE (15:45)
[2018-11-08] MEDS ORDERED: Glycopyrrolate 0.2 MG/ML SDV IVPUSH ONE (15:45)
--- NOTE | 2018-11-08 17:05 | PCM.CONS ---
<Anna,Sintia - Last Filed: 11/08/18 17:08> H&P History of Present Illness - General Date of Service: 11/08/18 Admit Problem/Dx: Admission Diagnosis/Problem Admission Diagnosis/Problem Replacement of total knee joint - History of Present Illness Initial Comments - Free Text/Narative: The patient is a 68 year old male admitted s/p right TKA per ortho primary team. Medical team has been asked to consult on his chronic diseases. The patient has a history of Afib but has recently been in normal sinus rhythm, despite this he has been on warfarin. That was stopped prior to surgery. Per nursing, he had bradycardia in the OR with a heart rate of 30 and received atropine. He also has a history of CHF but recent echo showed EF of 50%. Patient denies any chest pain, shortness of breath, or abdominal pain. Right Knee Pain Score (Numeric/FACES): 0 - Related Data Allergies/Adverse Reactions: Allergies Allergy/AdvReac Type Severity Reaction Status Date / Time No Known Allergies Allergy Verified 11/08/18 11:51 Home Medications: Home Meds Carvedilol [Coreg] 3.125 mg PO BID #60 tablet 08/27/17 [Rx] Furosemide [Lasix] 40 mg PO DAILY #30 tablet 08/27/17 [Rx] Ascorbic Acid [Vitamin C] 250 mg PO DAILY PRN 12/08/17 [History] Losartan [Cozaar] 25 mg PO DAILY 12/08/17 [History] Warfarin Sodium [Coumadin] 4 mg PO DAILY 12/08/17 [History] Past Medical History HEENT History: Reports: Hard of Hearing, Other (See Below) Other HEENT History: wears glasses, has upper and lower dentures Cardiovascular History: Reports: Afib (h/o a.fib. back to normal sinus rythm, they kept himon warfarin (stopped 5 days ago)), Arrhythmia, Cardiomyopathy (h/o CHF - EF returned to normal) Respiratory History: Reports: None Gastrointestinal History: Reports: GERD Genitourinary History: Reports: BPH Other Genitourinary History: overactive bladder Musculoskeletal History: Reports: None Neurological History: Reports: None Psychiatric History: Reports: None Endocrine/Metabolic History: Reports: None Hematologic History: Reports: Anemia, Anticoagulation Therapy, Blood Transfusion (s) Other Hematologic History: he had 2 blood transfusions as a baby (premature) Immunologic History: Reports: None Oncologic (Cancer) History: Reports: None Dermatologic History: Reports: None - Infectious Disease History Infectious Disease History: Reports: Chicken Pox, Measles, Mumps - Past Surgical History Head Surgeries/Procedures: Reports: None HEENT Surgical History: Reports: Cataract Surgery, Tonsillectomy Cardiovascular Surgical History: Reports: None Respiratory Surgical History: Reports: None GI Surgical History: Reports: None Female Surgical History: Reports: Other (See Below) (TURP) Male Surgical History: Reports: None Endocrine Surgical History: Reports: None Neurological Surgical History: Reports: C-Spine Musculoskeletal Surgical History: Reports: None Dermatological Surgical History: Reports: None Social & Family History - Family History Family Medical History: Noncontributory - Tobacco Use Smoking Status *Q: Never Smoker - Caffeine Use Caffeine Use: Reports: Coffee, Soda - Recreational Drug Use Recreational Drug Use: No H&P Review of Systems - Review of Systems: Review Of Systems: See Below General: Reports: No Symptoms HEENT: Reports: No Symptoms Pulmonary: Reports: No Symptoms Cardiovascular: Reports: No Symptoms Gastrointestinal: Reports: No Symptoms Genitourinary: Reports: No Symptoms Musculoskeletal: Reports: No Symptoms Skin: Reports: No Symptoms Psychiatric: Reports: No Symptoms Neurological: Reports: No Symptoms Hematologic/Lymphatic: Reports: No Symptoms Immunologic: Reports: No Symptoms Exam - Exam Exam: See Below - Vital Signs Vital Signs: Last Vital Signs Temp 98.1 F 11/08/18 15:07 Pulse 68 11/08/18 15:55 Resp 11 L 11/08/18 15:55 BP 102/45 L 11/08/18 15:55 Pulse Ox 98 11/08/18 15:55 Weight: 88.451 kg - Exam Quality Assessment: No: Supplemental Oxygen General: Alert, Oriented, Cooperative HEENT: Conjunctiva Clear, EOMI, Mucosa Moist & [place], Posterior Pharynx Clear, Pupils Equal, Pupils Reactive Neck: Supple, Trachea Midline Lungs: Clear to Auscultation, Normal Respiratory Effort Cardiovascular: Regular Rate, Regular Rhythm GI/Abdominal Exam: Normal Bowel Sounds, Soft, Non-Tender, No Distention Skin: Warm, Dry Neurological: Cranial Nerves Intact Neuro Extensive - Mental Status: Alert, Oriented x3 Psychiatric: Alert, Normal Affect, Normal Mood - Patient Data Lab Results Last 24 hrs: Laboratory Results - last 24 hr 11/08/18 Range/Units 11:55 Blood Type A POSITIVE Antibody Screen NEGATIVE Consult PN Assessment/Plan Procedures: Procedures ASSAY OF SERUM POTASSIUM (12/09/17) ASSAY OF SERUM SODIUM (12/09/17) CARDIOVASCULAR STRESS TEST (08/26/18) COMPLETE CBC AUTOMATED (12/09/17) COMPLETE CBC W/AUTO DIFF WBC (12/09/17) DRAIN/INJ JOINT/BURSA W/O US (01/07/18) ELECTROLYTE PANEL (12/09/17) EMERGENCY DEPT VISIT (08/11/17) EXTREMITY STUDY (12/05/14) GLUCOSE BLOOD TEST (08/11/17) HEMOGLOBIN (12/09/17) HT MUSCLE IMAGE SPECT MULT (08/26/18) INSERT BLADDER CATHETER (12/09/17) MRI JNT OF LWR EXTRE W/O DYE (09/28/18) OFFICE/OUTPATIENT VISIT EST (08/26/18) OFFICE/OUTPATIENT VISIT NEW (01/07/18) PROTHROMBIN TIME (12/09/17) ROUTINE VENIPUNCTURE (12/09/17) TTE W/DOPPLER COMPLETE (08/23/18) URINALYSIS AUTO W/SCOPE (08/11/17) US URINE CAPACITY MEASURE (12/09/17) X-RAY EXAM KNEE 4 OR MORE (01/07/18) X-RAY EXAM L-S SPINE 2/3 VWS (08/11/17) (1) History of atrial fibrillation SNOMED Code(s): 558584016 Code(s): Z86.79 - PERSONAL HISTORY OF OTHER DISEASES OF THE CIRCULATORY SYSTEM Current Visit: No (2) S/P total knee arthroplasty SNOMED Code(s): 3828167133742, 620658560, 9876474907425 Code(s): Z96.659 - PRESENCE OF UNSPECIFIED ARTIFICIAL KNEE JOINT Current Visit: Yes (3) History of CHF (congestive heart failure) SNOMED Code(s): 893341517 Code(s): Z86.79 - PERSONAL HISTORY OF OTHER DISEASES OF THE CIRCULATORY SYSTEM Current Visit: Yes (4) Bradycardia SNOMED Code(s): 67692046 Code(s): R00.1 - BRADYCARDIA, UNSPECIFIED Current Visit: Yes Problem List Initiated/Reviewed/Updated: Yes Plan: This is a 68 year old male admitted by ortho primary team for right TKA. Medical team on consult. 1. S/P Right TKA- ortho is primary team 2. Hx of Afib, currently in NSR- We will place the patient on telemetry due to his history of Afib and because he was bradycardic in the OR. His anticoagulation will need to be restarted post op day 1 with bridging of normal warfarin dose (4 mg) and therapeutic Lovenox dose (1mg/kg). 3. Hx CHF- will monitor strict I/Os, continue home lasix <Gil Winters - Last Filed: 11/08/18 17:37> H&P History of Present Illness - General Admit Problem/Dx: Admission Diagnosis/Problem Admission Diagnosis/Problem Replacement of total knee joint - History of Present Illness Initial Comments - Free Text/Narative: I have seen and examined the patient independently of medical doctor, Sintia Castillo MD. I have discussed the case with her. I have reviewed and agree with the assessment and plan of care for the patient as outlined by her. Please see orders. Exam - Vital Signs Vital Signs: Last Vital Signs Temp 36.3 C 11/08/18 16:20 Pulse 62 11/08/18 17:05 Resp 16 11/08/18 17:05 BP 122/63 11/08/18 17:05 Pulse Ox 97 11/08/18 17:05 - Patient Data Lab Results Last 24 hrs: Laboratory Results - last 24 hr 11/08/18 Range/Units 11:55 Blood Type A POSITIVE Antibody Screen NEGATIVE Consult PN Assessment/Plan Procedures: Procedures ASSAY OF SERUM POTASSIUM (12/09/17) ASSAY OF SERUM SODIUM (12/09/17) CARDIOVASCULAR STRESS TEST (08/26/18) COMPLETE CBC AUTOMATED (12/09/17) COMPLETE CBC W/AUTO DIFF WBC (12/09/17) DRAIN/INJ JOINT/BURSA W/O US (01/07/18) ELECTROLYTE PANEL (12/09/17) EMERGENCY DEPT VISIT (08/11/17) EXTREMITY STUDY (12/05/14) GLUCOSE BLOOD TEST (08/11/17) HEMOGLOBIN (12/09/17) HT MUSCLE IMAGE SPECT MULT (08/26/18) INSERT BLADDER CATHETER (12/09/17) MRI JNT OF LWR EXTRE W/O DYE (09/28/18) OFFICE/OUTPATIENT VISIT EST (08/26/18) OFFICE/OUTPATIENT VISIT NEW (01/07/18) PROTHROMBIN TIME (12/09/17) ROUTINE VENIPUNCTURE (12/09/17) TTE W/DOPPLER COMPLETE (08/23/18) URINALYSIS AUTO W/SCOPE (08/11/17) US URINE CAPACITY MEASURE (12/09/17) X-RAY EXAM KNEE 4 OR MORE (01/07/18) X-RAY EXAM L-S SPINE 2/3 VWS (08/11/17)
[2018-11-08] MEDS: Acetaminophen 1,000 MG in Premix Bag 1 BAG IV SCH (18:10)
[2018-11-08] MEDS: Carvedilol 3.125 MG Tab PO SCH (20:48)
[2018-11-08] MEDS: ceFAZolin 2 GM in Premix Bag 1 BAG IV SCH (21:12)
--- NOTE | 2018-11-08 23:13 | OR ---
SURGEON: Luma Tate MD DATE OF PROCEDURE: 11/08/2018 PREOPERATIVE DIAGNOSIS: Degenerative joint disease, right knee, tricompartmental. POSTOPERATIVE DIAGNOSIS: Degenerative joint disease, right knee, tricompartmental. PROCEDURE PERFORMED: Right total knee arthroplasty using patient-specific instrumentation. PRIMARY SURGEON: Luam Tate MD HTML WEB DEVELOPER: Pamela Johnson PA-C, and BOB Saldana. ANESTHESIA: Spinal with sedation. ESTIMATED BLOOD LOSS: 50 mL. TOURNIQUET TIME: 51 minutes. COMPLICATIONS: None. DEEP VENOUS THROMBOSIS PROPHYLAXIS: PAS boot and JE hose to the nonoperative leg. IMPLANTS USED: Amanda NextGen femoral component size F (LPS), tibial component size 6, 10 mm all-polyethylene articular surface, and 35 mm all-polyethylene patella. INTRAOPERATIVE FINDINGS: Showed severe tricompartmental degenerative changes with varus deformity. 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 After completion of the tibial cut, there was an area of sclerotic bone along the medial aspect of the tibia. I did use a 3.5 mm drill to drill this to allow for cement interdigitation. BRIEF HISTORY: John is a 68-year-old male who has had complaint of progressive right knee pain. He had failed conservative treatment. Due to his lack of response to conservative treatment, I did recommend surgical intervention. The risks and goals of the procedure were discussed with the patient and were documented preoperatively. He agreed to proceed. DESCRIPTION OF PROCEDURE: The patient was properly identified and brought to the operating room. The patient was transferred from the operating room cart and placed on the operating room table. Spinal anesthesia was administered by the anesthesia team. After adequate sedation was achieved, a well-padded tourniquet was applied to the lower extremity. A Miranda catheter was then placed. The lower extremity was then prepped in standard fashion using ChloraPrep solution. It was then sterilely draped. A time-out was performed to ensure correct site and procedure. Preoperative antibiotics were given along with one gram of tranexamic acid IV. The surgical site had been marked preoperatively. An Esmarch was used to exsanguinate the lower extremity and the tourniquet was inflated. An incision was made centered over the anterior aspect of the knee. The subcutaneous tissues were dissected down to the level of the fascia. A medial parapatellar approach was made. A partial medial release was also performed. The knee was then brought into extension and a portion of the infrapatellar fat pad was excised. The knee was then brought into flexion. The femoral patient specific cutting block was placed. This fit anatomically. The pins were then placed. The 0 degree distal femoral cutting guide was placed over the distal femur pins. The femur was then resected using an oscillating saw. The pins were then removed and were placed into the previously placed distal drill holes in the femoral condyles. Both Troy's and the epicondylar axis were marked with electric cautery. The cutting block was then placed. This was pinned into position in a slightly lateral and externally rotated position. This was then secured. The resection guide was used to check to make sure that the anterior femoral cortex would not be notched. The anterior condylar cut was then made. No notching of the femur was noted. This was followed by the posterior condylar, posterior chamfer, and anterior chamfer cuts. The narrow reciprocating saw was then used to cut the base of the trochlear recess and score the edges. The finishing guide was then removed and the trochlear recess cuts and remaining bone cuts were finished. The notch cutting block was then placed into position and the notch cut was made without difficulty using the reciprocating saw. This was then removed. The notch block that had been cut along with a portion of the cruciate ligaments were also resected. We then turned our attention to the tibia. The posterior cruciate ligament retractor was used to bring the tibial surface anteriorly. The patient specific tibial block was then placed. This fit anatomically. It was pinned into position. The block was then removed. The 0 degree proximal tibia cutting guide was then placed over the guide pin. This was secured with a Shelly clamp. The resection depth was checked using the resection guide. A proximal tibia cut was then made using an oscillating saw. Care was taken to protect the patellar tendon. The proximal tibia bone was then removed. The remainder of the medial and lateral meniscus were also excised. Care was taken to protect the popliteus tendon. The proximal tibia was then sized. The remainder of the osteophytes along the proximal tibia were also resected. The distal femur was elevated to expose the posterior knee. The posterior capsule was stripped off the distal femur using a curved osteotome. The posterior osteophytes were also excised. The posterior capsule, along with the medial and lateral gutters, were then injected with the standard, preoperatively prepared, mixture consisting of clonidine, epinephrine, ropivacaine, Toradol, and saline, unless any allergies were noted preoperatively. The femoral trial was then placed. This was followed by the tibial component with a size 10 trial polyethylene. The knee was brought into full extension. Stability to varus and valgus stress was checked in extension and in flexion. There appeared to be good range of motion and stability. The knee was then brought into full extension. The patella was everted. The patella was resected to a thickness of 15 millimeters. It was then sized. Once the appropriate size was determined, the patella was prepared by placing the patella button in a slightly superior and medial position. The patella button trial was then placed and the knee was again taken through a range of motion. There was excellent patellar tracking using the no-touch technique. Alignment was checked with a drop shaina. The trial components were then removed. The knee was brought into full flexion and the tibia was prepared in a standard fashion placing the tibial plate in slight external rotation with the center of the prosthesis lined up with the medial aspect of the tibial tubercle. The wound was then copiously irrigated with Pulsavac solution to remove any bony debris. The bone ends were then suctioned dry. Cement was prepared in the usual fashion on the back table. The cement was then placed onto the proximal tibia and the tibial component was placed without difficulty. This was malleted into position. Excess cement was cleared. The femoral component was cemented in a similar manner. A trial polyethylene was then placed and the knee was brought into full extension. An axial load was applied. The patella button was then cemented into place and a patella clamp was placed to hold pressure. The cement was allowed to cure. The wound was again copiously irrigated with saline solution using a Pulsavac patient service rep. Following this 1 g of tranexamic acid was applied to the wound topically. After the cement had adequately hardened, the patella clamp was released. The knee was again taken through a range of motion. It was determined at this time the correct thickness of polyethylene. The trial polyethylene insert was then removed. The knee was brought into flexion and the tibial tray was suctioned dry. Any excess cement was cleared from the tibial and femoral components. The knee was then brought into approximately 45 degrees of flexion. The tourniquet was deflated. No excess bleeding was noted from the posterior aspect of the knee. An additional gram of tranexamic acid was given IV. The previously determined sized polyethylene insert was then placed and locked into position without difficulty. The knee was again taken through a range of motion with no change in stability, either in flexion or extension. The fascia layer was closed with No. 1 Vicryl. The subcutaneous tissue was closed with 2-0 Vicryl and the skin was closed with a jessi. Xeroform gauze was placed over the wound and a bulky dressing was applied. The patient was then awakened from the anesthetic and transferred back to the operating cart. The patient was brought to recovery room in stable condition. All needle and sponge counts were correct. MICHAEL / BONNIE /[id number]
[2018-11-09] MEDS: Acetaminophen 1,000 MG in Premix Bag 1 BAG IV SCH ×2 (00:44→05:05)
[2018-11-09] MEDS: ceFAZolin 2 GM in Premix Bag 1 BAG IV SCH (05:07)
[2018-11-09] MEDS: Lactated Ringers 1,000 ML IV SCH (05:15)
[2018-11-09] MEDS ORDERED: Morphine 2 MG/ML Syringe IVPUSH PRN (06:00)
--- NOTE | 2018-11-09 07:04 | PCM48HPAN ---
Post Anesthesia Note - EVALUATION WITHIN 48HRS OF ANESTHETIC Vital Signs in Normal Range: Yes Patient Participated in Evaluation: Yes Respiratory Function Stable: Yes Airway Patent: Yes Cardiovascular Function Stable: Yes Hydration Status Stable: Yes Pain Control Satisfactory: Yes Nausea and Vomiting Control Satisfactory: Yes Mental Status Recovered: Yes Resp Rate: 16 - COMMENTS/OBSERVATIONS Free Text/Narrative:: Pt is on tele with SR 1st degree AV block, bradycardia resolving.
--- NOTE | 2018-11-09 07:22 | PCM.PN ---
- General Info Date of Service: 11/09/18 Admission Dx/Problem (Free Text): Right total knee arthroplasty, postop day 1, history of atrial fibrillation, CHF Subjective Update: The patient is a 68-year-old gentleman who was seen in consultation with orthopedics with regards to right total knee arthroplasty. The patient does have a history of CHF and became bradycardic during surgery. The patient today says that he feels better. He has been eating. The patient feels "a little dry" at this time. Functional Status: Reports: Pain Controlled - Review of Systems General: Reports: No Symptoms HEENT: Reports: No Symptoms Pulmonary: Reports: No Symptoms Cardiovascular: Reports: No Symptoms Gastrointestinal: Reports: No Symptoms Genitourinary: Reports: No Symptoms Musculoskeletal: Reports: Leg Pain Skin: Reports: No Symptoms Neurological: Reports: No Symptoms Psychiatric: Reports: No Symptoms - Patient Data Vitals - Most Recent: Last Vital Signs Temp 36.8 C 11/09/18 04:00 Pulse 83 11/09/18 04:00 Resp 16 11/09/18 07:04 BP 115/87 11/09/18 04:00 Pulse Ox 94 L 11/09/18 04:00 Weight - Most Recent: 88.451 kg I&O - Last 24 Hours: Intake & Output 11/08/18 11/09/18 11/09/18 22:59 06:59 14:59 Intake Total 1850 300 Output Total 500 Balance 1850 -200 Lab Results Last 24 Hours: Laboratory Results - last 24 hr 11/08/18 11/09/18 11/09/18 Range/Units 11:55 04:40 04:40 Hgb 8.8 L (13.0-17.0) g/dL Hct 27.7 L (38.0-50.0) % Sodium 141 (136-148) mmol/L Potassium 3.8 (3.5-5.1) mmol/L Chloride 106 (98-107) mmol/L Carbon Dioxide 26.8 (21.0-32.0) mmol/L BUN 17 (7.0-18.0) mg/dL Creatinine 1.3 (0.8-1.3) mg/dL Est Cr Clr Drug Dosing 61.35 mL/min Estimated GFR (MDRD) 55.2 ml/min Glucose 115 H (74-106) mg/dL Calcium 6.7 L (8.5-10.1) mg/dL Magnesium 2.0 (1.8-2.4) mg/dL Blood Type A POSITIVE Antibody Screen NEGATIVE Med Orders - Current: Current Medications Al Hydroxide/Mg Hydroxide (Mag-Al Plus) 30 ml PO Q4H PRN PRN Reason: Indigestion Albuterol (Proventil Neb Soln) 2.5 mg NEB Q6HRRT PRN PRN Reason: Wheezing Atropine Sulfate (Atropine 0.1 Mg/Ml) 0.4 mg IVPUSH Q5M PRN PRN Reason: Bradycardia Bisacodyl (Dulcolax) 10 mg RECTAL DAILY PRN PRN Reason: Constipation Carvedilol (Coreg) 3.125 mg PO BID [facility] Last Admin: 11/08/18 20:48 Dose: Not Given Celecoxib (Celebrex) 200 mg PO BID [facility] Diphenhydramine HCl (Benadryl) 25 - 50 mg PO Q6H PRN PRN Reason: Itching Docusate Sodium (Colace) 100 mg PO BID PRN PRN Reason: Constipation Famotidine (Pepcid) 40 mg IVPUSH ONARRIVE [facility] Last Admin: 11/08/18 11:49 Dose: 40 mg Famotidine (Pepcid) 40 mg PO DAILY [facility] Fentanyl (Sublimaze) 50 mcg IVPUSH Q5M PRN PRN Reason: Pain (severe 7-10) Stop: 11/09/18 14:03 Furosemide (Lasix) 40 mg PO DAILY [facility] Hydralazine HCl (Apresoline) 5 mg IVPUSH ONETIME PRN PRN Reason: Hypertension Hydralazine HCl (Apresoline) 10 mg IVPUSH ONETIME PRN PRN Reason: Hypertension Hydromorphone HCl (Dilaudid) 0.25 mg IVPUSH Q10M PRN PRN Reason: Pain (severe 7-10) Stop: 11/09/18 14:03 Acetaminophen 1,000 mg/ Premix 100 mls @ 400 mls/hr IV ONARRIVE [facility] Last Admin: 11/08/18 11:51 Dose: 400 mls/hr Cefazolin Sodium/Dextrose 2 gm (/ Premix) 50 mls @ 100 mls/hr IV ONCALL [facility] Last Admin: 11/08/18 20:50 Dose: 100 mls/hr Ropivacaine 49.25 ml/Ketorolac Tromethamine 30 mg/Epinephrine HCl 0.5 mg/ Clonidine HCl 80 mcg/ Sodium Chloride 75 mls @ 50 mls/sec INJECT ASDIRECTED [facility] Lactated Ringer's (Ringers, Lactated) 1,000 mls @ 100 mls/hr IV ASDIRECTED [facility] Last Admin: 11/09/18 05:15 Dose: 100 mls/hr Tranexamic Acid 2,000 mg/ (Sodium Chloride) 120 mls @ 600 mls/hr IV ASDIRECTED [facility] Labetalol HCl (Normodyne) 10 mg IVPUSH Q6H PRN PRN Reason: Hypertension Stop: 11/09/18 14:03 Losartan Potassium (Cozaar) 25 mg PO DAILY [facility] Meperidine HCl (Demerol) 12.5 mg IVPUSH ONETIME PRN PRN Reason: Shivering Meperidine HCl (Demerol) 25 mg IV ONETIME PRN PRN Reason: Shivering Metoclopramide HCl (Reglan) 10 mg IVPUSH ONETIME PRN PRN Reason: Nausea Morphine Sulfate (Morphine) 4 mg IVPUSH Q10M PRN PRN Reason: Pain (severe 7-10) Stop: 11/09/18 14:03 Morphine Sulfate (Morphine) 1 - 3 mg IVPUSH Q3H PRN PRN Reason: Pain Naloxone HCl (Narcan) 0.1 mg IVPUSH ONETIME PRN PRN Reason: Respiratory Depression Ondansetron HCl (Zofran) 8 mg IVPUSH ONETIME PRN PRN Reason: Nausea Ondansetron HCl (Zofran) 4 mg IVPUSH Q6H PRN PRN Reason: Nausea/Vomiting Oxycodone/Acetaminophen (Percocet 325-5 Mg) 1 - 2 tab PO Q4H PRN PRN Reason: Pain Polyethylene Glycol (Miralax) 17 gm PO DAILY [facility] Promethazine HCl (Phenergan) 12.5 mg IM ONETIME PRN PRN Reason: Nausea Scopolamine (Transderm-Scop) 1.5 mg TRDERM ONARRIVE [facility] Last Admin: 11/08/18 11:49 Dose: 1.5 mg Scopolamine (Transderm-Scop) 1.5 mg TRDERM Q72H PRN PRN Reason: Nausea Sodium Chloride (Saline Flush) 10 ml FLUSH ASDIRECTED PRN PRN Reason: Keep Vein Open Sodium Chloride (Saline Flush) 2.5 ml FLUSH ASDIRECTED PRN PRN Reason: Keep Vein Open Warfarin Sodium (Coumadin) 4 mg PO DAILY [place] Discontinued Medications Hydrocodone Bitart/Acetaminophen ([place] 325-5 Mg) 2 tab PO Q6H PRN PRN Reason: Pain (moderate 4-6) Dexamethasone (Dexamethasone) Confirm Administered Dose 20 mg .ROUTE .STK-MED ONE Stop: 11/08/18 13:11 Fentanyl (Sublimaze) Confirm Administered Dose 100 mcg .ROUTE .STK-MED ONE Stop: 11/08/18 13:11 Glycopyrrolate (Robinul) 0.2 mg IVPUSH ONETIME ONE Stop: 11/08/18 15:46 Last Admin: 11/08/18 15:47 Dose: 0.2 mg Glycopyrrolate (Robinul) Confirm Administered Dose 0.2 mg .ROUTE .STK-MED ONE Stop: 11/08/18 15:46 Last Admin: 11/08/18 18:03 Dose: Not Given Acetaminophen 1,000 mg/ Premix 100 mls @ 400 mls/hr IV Q6H [place] Stop: 11/09/18 06:14 Last Admin: 11/09/18 05:05 Dose: 400 mls/hr Cefazolin Sodium/Dextrose 2 gm (/ Premix) 50 mls @ 100 mls/hr IV Q8H [place] Stop: 11/09/18 05:59 Last Admin: 11/09/18 05:07 Dose: 100 mls/hr Ketorolac Tromethamine (Toradol) Confirm Administered Dose 30 mg .ROUTE .STK- MED ONE Stop: 11/08/18 13:11 Lidocaine (Xylocaine-Mpf 2%) Confirm Administered Dose 5 ml .ROUTE .STK-MED ONE Stop: 11/08/18 13:11 Midazolam HCl (Versed 1 Mg/Ml) Confirm Administered Dose 2 mg .ROUTE .STK-MED ONE Stop: 11/08/18 13:11 Morphine Sulfate (Morphine Oral Health Therapist 30 Mg In 30 Ml) 30 mg IV ASDIRECTED PRN; Protocol PRN Reason: Pain Stop: 11/09/18 06:00 Ondansetron HCl (Zofran) Confirm Administered Dose 8 mg .ROUTE .STK-MED ONE Stop: 11/08/18 13:11 Oxycodone HCl (Oxycodone) 5 - 10 mg PO Q4H PRN PRN Reason: Pain Stop: 11/09/18 06:00 Last Admin: 11/08/18 18:07 Dose: 5 mg Propofol (Diprivan 20 Ml) Confirm Administered Dose 600 mg .ROUTE .STK-MED ONE Stop: 11/08/18 13:21 Propofol (Diprivan 20 Ml) Confirm Administered Dose 200 mg .ROUTE .STK-MED ONE Stop: 11/08/18 13:55 Tranexamic Acid (Cyklokapron) Confirm Administered Dose 2,000 mg .ROUTE .STK- MED ONE Stop: 11/08/18 07:55 - Exam Quality Assessment: Supplemental Oxygen General: Alert, Oriented, Cooperative, No Acute Distress HEENT: Pupils Equal, Pupils Reactive, EOMI. No: Mucous Membr. Moist/[place] (Dry) Neck: Supple, Trachea Midline. No: No JVD Lungs: Clear to Auscultation, Normal Respiratory Effort Cardiovascular: Regular Rate, Regular Rhythm GI/Abdominal Exam: Normal Bowel Sounds, Soft, No Distention (Male) Exam: Deferred Back Exam: Normal Inspection, Full Range of Motion Extremities: No Pedal Edema. No: Normal Inspection (Postoperative day #1), Normal Range of Motion Skin: Warm, Dry, Intact Wound/Incisions: Healing Well, Dressing Dry and Intact Neurological: No New Focal Deficit Psy/Mental Status: Alert, Normal Affect, Normal Mood - Problem List & Annotations (1) S/P total knee arthroplasty SNOMED Code(s): 2842268250269, 148932225, 2369723730365 Code(s): Z96.659 - PRESENCE OF UNSPECIFIED ARTIFICIAL KNEE JOINT Status: Acute Priority: High Current Visit: Yes Qualifiers: Laterality: right Qualified Code(s): Z96.651 - Presence of right artificial knee joint Annotation/Comment:: POD #1 (2) History of CHF (congestive heart failure) SNOMED Code(s): 325250469 Code(s): Z86.79 - PERSONAL HISTORY OF OTHER DISEASES OF THE CIRCULATORY SYSTEM Status: Chronic Priority: High Current Visit: Yes (3) History of atrial fibrillation SNOMED Code(s): 897201380 Code(s): Z86.79 - PERSONAL HISTORY OF OTHER DISEASES OF THE CIRCULATORY SYSTEM Status: Acute Priority: Medium Current Visit: Yes (4) Chronic anticoagulation SNOMED Code(s): 463102267 Code(s): Z79.01 - [employer]ARDWARE [employer]ESS [employer] (CURRENT) USE OF ANTICOAGULANTS Status: Chronic Priority: High Current Visit: Yes - Problem List Review Problem List Initiated/Reviewed/Updated: Yes - Plan Plan:: The patient is a 68-year-old gentleman who is currently postop day #1 right total knee arthroplasty. Internal medicine has been following with regards to the patient's comorbidities in particular CHF and history of atrial fibrillation. 2-D echocardiogram obtained prior to surgery showed patient had an ejection fraction of 53% disease currently well compensated. The patient's input and output should be monitored to avoid any fluid overload. Also the patient has been on chronic warfarin therapy secondary to his history of atrial fibrillation. The patient's Coumadin should be started today. Patient should also be bridged with Lovenox with starting Coumadin and discontinued when the INR is therapeutic. The patient should continue with the telemetry, vital sign monitoring and his medications will be adjusted for his blood pressure as conditions indicated. Internal medicine will follow.
[2018-11-09] MEDS: Polyethylene Glycol 3350 Powder 17 GM Packet PO SCH (09:21)
[2018-11-09] MEDS: Carvedilol 3.125 MG Tab PO SCH ×2 (09:23→20:59)
[2018-11-09] MEDS: Celecoxib 100 MG Cap PO SCH ×2 (09:23→20:58)
[2018-11-09] MEDS: Warfarin 2 MG Tab PO SCH (09:27)
[2018-11-09] MEDS: Furosemide 40 MG Tab PO SCH (09:29)
[2018-11-09] MEDS: Famotidine 20 MG Tab PO SCH (09:30)
[2018-11-09] MEDS: Losartan 50 MG Tab PO SCH (09:31)
--- NOTE | 2018-11-09 09:56 | PCM.SURGPN ---
<Pamela Johnson R - Last Filed: 11/09/18 09:53> - General Info Date of Service: 11/09/18 Date of Surgery/Procedure: 11/08/18 POD#: 1 Functional Status: Reports: Pain Controlled, Tolerating Diet, Ambulating, Urinating - Review of Systems General: Reports: No Symptoms Pulmonary: Reports: No Symptoms Cardiovascular: Reports: No Symptoms Gastrointestinal: Reports: No Symptoms Systems Review Comment:: pt resting comfortably in bed tolerating PO intake pain controlled has been ambulating no specific concerns today - Patient Data Vitals - Most Recent: Last Vital Signs Temp 99.0 F 11/09/18 07:39 Pulse 83 11/09/18 09:23 Resp 17 11/09/18 07:39 BP 128/63 11/09/18 09:31 Pulse Ox 94 L 11/09/18 07:39 Weight - Most Recent: 88.451 kg I&O - Last 24 Hours: Intake & Output 11/08/18 11/09/18 11/09/18 22:59 06:59 14:59 Intake Total 1850 300 Output Total 500 Balance 1850 -200 Lab Results Last 24 Hrs: Laboratory Results - last 24 hr 11/08/18 11/09/18 11/09/18 Range/Units 11:55 04:40 04:40 Hgb 8.8 L (13.0-17.0) g/dL Hct 27.7 L (38.0-50.0) % Sodium 141 (136-148) mmol/L Potassium 3.8 (3.5-5.1) mmol/L Chloride 106 (98-107) mmol/L Carbon Dioxide 26.8 (21.0-32.0) mmol/L BUN 17 (7.0-18.0) mg/dL Creatinine 1.3 (0.8-1.3) mg/dL Est Cr Clr Drug Dosing 61.35 mL/min Estimated GFR (MDRD) 55.2 ml/min Glucose 115 H (74-106) mg/dL Calcium 6.7 L (8.5-10.1) mg/dL Magnesium 2.0 (1.8-2.4) mg/dL Blood Type A POSITIVE Antibody Screen NEGATIVE Med Orders - Current: Current Medications Al Hydroxide/Mg Hydroxide (Mag-Al Plus) 30 ml PO Q4H PRN PRN Reason: Indigestion Albuterol (Proventil Neb Soln) 2.5 mg NEB Q6HRRT PRN PRN Reason: Wheezing Atropine Sulfate (Atropine 0.1 Mg/Ml) 0.4 mg IVPUSH Q5M PRN PRN Reason: Bradycardia Bisacodyl (Dulcolax) 10 mg RECTAL DAILY PRN PRN Reason: Constipation Carvedilol (Coreg) 3.125 mg PO BID [facility] Last Admin: 11/09/18 09:23 Dose: 3.125 mg Celecoxib (Celebrex) 200 mg PO BID [facility] Last Admin: 11/09/18 09:23 Dose: 200 mg Diphenhydramine HCl (Benadryl) 25 - 50 mg PO Q6H PRN PRN Reason: Itching Docusate Sodium (Colace) 100 mg PO BID PRN PRN Reason: Constipation Enoxaparin Sodium (Lovenox) 40 mg SUBCUT Q24H [facility] Famotidine (Pepcid) 40 mg IVPUSH ONARRIVE [facility] Last Admin: 11/08/18 11:49 Dose: 40 mg Famotidine (Pepcid) 40 mg PO DAILY [facility] Last Admin: 11/09/18 09:30 Dose: 40 mg Fentanyl (Sublimaze) 50 mcg IVPUSH Q5M PRN PRN Reason: Pain (severe 7-10) Stop: 11/09/18 14:03 Furosemide (Lasix) 40 mg PO DAILY [facility] Last Admin: 11/09/18 09:29 Dose: 40 mg Hydralazine HCl (Apresoline) 5 mg IVPUSH ONETIME PRN PRN Reason: Hypertension Hydralazine HCl (Apresoline) 10 mg IVPUSH ONETIME PRN PRN Reason: Hypertension Hydromorphone HCl (Dilaudid) 0.25 mg IVPUSH Q10M PRN PRN Reason: Pain (severe 7-10) Stop: 11/09/18 14:03 Acetaminophen 1,000 mg/ Premix 100 mls @ 400 mls/hr IV ONARRIVE [facility] Last Admin: 11/08/18 11:51 Dose: 400 mls/hr Cefazolin Sodium/Dextrose 2 gm (/ Premix) 50 mls @ 100 mls/hr IV ONCALL [facility] Last Admin: 11/08/18 20:50 Dose: 100 mls/hr Ropivacaine 49.25 ml/Ketorolac Tromethamine 30 mg/Epinephrine HCl 0.5 mg/ Clonidine HCl 80 mcg/ Sodium Chloride 75 mls @ 50 mls/sec INJECT ASDIRECTED [facility] Lactated Ringer's (Ringers, Lactated) 1,000 mls @ 100 mls/hr IV ASDIRECTED [facility] Last Admin: 11/09/18 05:15 Dose: 100 mls/hr Tranexamic Acid 2,000 mg/ (Sodium Chloride) 120 mls @ 600 mls/hr IV ASDIRECTED [facility] Labetalol HCl (Normodyne) 10 mg IVPUSH Q6H PRN PRN Reason: Hypertension Stop: 11/09/18 14:03 Losartan Potassium (Cozaar) 25 mg PO DAILY [facility] Last Admin: 11/09/18 09:31 Dose: 25 mg Meperidine HCl (Demerol) 12.5 mg IVPUSH ONETIME PRN PRN Reason: Shivering Meperidine HCl (Demerol) 25 mg IV ONETIME PRN PRN Reason: Shivering Metoclopramide HCl (Reglan) 10 mg IVPUSH ONETIME PRN PRN Reason: Nausea Morphine Sulfate (Morphine) 1 - 3 mg IVPUSH Q3H PRN PRN Reason: Pain Morphine Sulfate (Morphine Sulfate) 4 mg IV Q10M PRN PRN Reason: Pain (severe 7-10) Naloxone HCl (Narcan) 0.1 mg IVPUSH ONETIME PRN PRN Reason: Respiratory Depression Ondansetron HCl (Zofran) 8 mg IVPUSH ONETIME PRN PRN Reason: Nausea Ondansetron HCl (Zofran) 4 mg IVPUSH Q6H PRN PRN Reason: Nausea/Vomiting Oxycodone/Acetaminophen (Percocet 325-5 Mg) 1 - 2 tab PO Q4H PRN PRN Reason: Pain Polyethylene Glycol (Miralax) 17 gm PO DAILY [facility] Last Admin: 11/09/18 09:21 Dose: 17 gm Promethazine HCl (Phenergan) 12.5 mg IM ONETIME PRN PRN Reason: Nausea Scopolamine (Transderm-Scop) 1.5 mg TRDERM ONARRIVE [facility] Last Admin: 11/08/18 11:49 Dose: 1.5 mg Scopolamine (Transderm-Scop) 1.5 mg TRDERM Q72H PRN PRN Reason: Nausea Sodium Chloride (Saline Flush) 10 ml FLUSH ASDIRECTED PRN PRN Reason: Keep Vein Open Sodium Chloride (Saline Flush) 2.5 ml FLUSH ASDIRECTED PRN PRN Reason: Keep Vein Open Warfarin Sodium (Coumadin) 4 mg PO DAILY [facility] Last Admin: 11/09/18 09:27 Dose: 4 mg Discontinued Medications Hydrocodone Bitart/Acetaminophen ([place] 325-5 Mg) 2 tab PO Q6H PRN PRN Reason: Pain (moderate 4-6) Dexamethasone (Dexamethasone) Confirm Administered Dose 20 mg .ROUTE .STK-MED ONE Stop: 11/08/18 13:11 Fentanyl (Sublimaze) Confirm Administered Dose 100 mcg .ROUTE .STK-MED ONE Stop: 11/08/18 13:11 Glycopyrrolate (Robinul) 0.2 mg IVPUSH ONETIME ONE Stop: 11/08/18 15:46 Last Admin: 11/08/18 15:47 Dose: 0.2 mg Glycopyrrolate (Robinul) Confirm Administered Dose 0.2 mg .ROUTE .STK-MED ONE Stop: 11/08/18 15:46 Last Admin: 11/08/18 18:03 Dose: Not Given Acetaminophen 1,000 mg/ Premix 100 mls @ 400 mls/hr IV Q6H [facility] Stop: 11/09/18 06:14 Last Admin: 11/09/18 05:05 Dose: 400 mls/hr Cefazolin Sodium/Dextrose 2 gm (/ Premix) 50 mls @ 100 mls/hr IV Q8H [facility] Stop: 11/09/18 05:59 Last Admin: 11/09/18 05:07 Dose: 100 mls/hr Ketorolac Tromethamine (Toradol) Confirm Administered Dose 30 mg .ROUTE .STK- MED ONE Stop: 11/08/18 13:11 Lidocaine (Xylocaine-Mpf 2%) Confirm Administered Dose 5 ml .ROUTE .STK-MED ONE Stop: 11/08/18 13:11 Midazolam HCl (Versed 1 Mg/Ml) Confirm Administered Dose 2 mg .ROUTE .STK-MED ONE Stop: 11/08/18 13:11 Morphine Sulfate (Morphine) 4 mg IVPUSH Q10M PRN PRN Reason: Pain (severe 7-10) Stop: 11/09/18 14:03 Morphine Sulfate (Morphine Mincing Machine Operator 30 Mg In 30 Ml) 30 mg IV ASDIRECTED PRN; Protocol PRN Reason: Pain Stop: 11/09/18 06:00 Ondansetron HCl (Zofran) Confirm Administered Dose 8 mg .ROUTE .STK-MED ONE Stop: 11/08/18 13:11 Oxycodone HCl (Oxycodone) 5 - 10 mg PO Q4H PRN PRN Reason: Pain Stop: 11/09/18 06:00 Last Admin: 11/08/18 18:07 Dose: 5 mg Propofol (Diprivan 20 Ml) Confirm Administered Dose 600 mg .ROUTE .STK-MED ONE Stop: 11/08/18 13:21 Propofol (Diprivan 20 Ml) Confirm Administered Dose 200 mg .ROUTE .STK-MED ONE Stop: 11/08/18 13:55 Tranexamic Acid (Cyklokapron) Confirm Administered Dose 2,000 mg .ROUTE .STK- MED ONE Stop: 11/08/18 07:55 - Exam Wound/Incisions: Dressing Dry and Intact General: Alert, Oriented Cardiovascular: Regular Rate, Regular Rhythm Extremities: Other (exam RLE - at/ehl/gastroc 5/5, dp 2+, sensation intact distally) Physical Findings Comment:: vss, afeb uo 750mL hgb 8.8 - Problem List Review Problem List Initiated/Reviewed/Updated: Yes - My Orders Last 24 Hours: Active Orders 24 hr Category Date Time Status Cardiac Monitoring [RC] . DIRECTED Care 11/08/18 17:11 Active Communication Order [RC] PRN Care 11/08/18 14:47 Active Communication Order [RC] PRN Care 11/08/18 14:47 Active Intake and Output Strict [RC] Q12H Care 11/08/18 17:11 Active Neurovascular Check [RC] Q2HR Care 11/08/18 14:47 Active Notify Provider Consults [RC] ASDIRECTED Care 11/08/18 14:48 Active Notify Provider Vital Signs [RC] ASDIRECTED Care 11/08/18 14:47 Active Oxygen Therapy [RC] .PRN Care 11/08/18 14:03 Active RT Incentive Spirometry [RC] Q1HWA Care 11/08/18 14:47 Active Telemetry Monitoring [Cardiac Monitoring] [RC] Q8H Care 11/08/18 18:10 Active Urinary Catheter Removal [RC] ASDIRECTED Care 11/09/18 06:00 Active Vital Signs [RC] Q4H Care 11/08/18 14:03 Active Wound Care [RC] DAILY Care 11/08/18 14:47 Active Consult to Physician [CONS] Routine Cons 11/08/18 14:47 Active PT Evaluation and Treatment [CONS] Routine Cons 11/08/18 14:47 Active Knee 1V or 2V Rt [CR] Routine Exams 11/08/18 14:31 Taken HEMOGLOBIN/HEMATOCRIT,HH [HEME] DAILY Lab 11/10/18 06:00 Ordered Acetaminophen/oxyCODONE [Percocet 325-5 MG] Med 11/09/18 06:00 Active 1 - 2 tab PO Q4H PRN Albuterol [Proventil Neb Soln] Med 11/08/18 14:03 Active 2.5 mg NEB Q6HRRT PRN Alum Hydrox/Mag Hydrox/Simeth [Mag-Al Plus] Med 11/08/18 14:47 Active 30 ml PO Q4H PRN Atropine [Atropine 0.1 MG/ML] Med 11/08/18 14:03 Active 0.4 mg IVPUSH Q5M PRN Bisacodyl [Dulcolax] Med 11/08/18 14:47 Active 10 mg RECTAL DAILY PRN Carvedilol [Coreg] Med 11/08/18 21:00 Active 3.125 mg PO BID Celecoxib [CeleBREX] Med 11/09/18 09:00 Active 200 mg PO BID Docusate Sodium [Colace] Med 11/08/18 14:47 Active 100 mg PO BID PRN Enoxaparin [Lovenox] Med 11/09/18 10:00 Ordered 40 mg SUBCUT Q24H Famotidine [Pepcid] Med 11/09/18 09:00 Active 40 mg PO DAILY Furosemide [Lasix] Med 11/09/18 09:00 Active 40 mg PO DAILY HYDROmorphone [Dilaudid] Med 11/08/18 14:03 Active 0.25 mg IVPUSH Q10M PRN Labetalol [Normodyne] Med 11/08/18 14:03 Active 10 mg IVPUSH Q6H PRN Losartan [Cozaar] Med 11/09/18 09:00 Active 25 mg PO DAILY Meperidine [Demerol] Med 11/08/18 14:03 Active 12.5 mg IVPUSH ONETIME PRN Meperidine [Demerol] Med 11/08/18 14:03 Active 25 mg IV ONETIME PRN Metoclopramide [Reglan] Med 11/08/18 14:03 Active 10 mg IVPUSH ONETIME PRN Morphine Med 11/09/18 06:00 Active 1 - 3 mg IVPUSH Q3H PRN Morphine Sulfate Med 11/09/18 07:35 Active 4 mg IV Q10M PRN Naloxone [Narcan] Med 11/08/18 14:03 Active 0.1 mg IVPUSH ONETIME PRN Ondansetron [Zofran] Med 11/08/18 14:47 Active 4 mg IVPUSH Q6H PRN Ondansetron [Zofran] Med 11/08/18 14:03 Active 8 mg IVPUSH ONETIME PRN Polyethylene Glycol 3350 [MiraLAX] Med 11/09/18 09:00 Active 17 gm PO DAILY Promethazine [Phenergan] Med 11/08/18 14:03 Active 12.5 mg IM ONETIME PRN Scopolamine [Transderm-Scop] Med 11/08/18 14:03 Active 1.5 mg TRDERM Q72H PRN Sodium Chloride 0.9% [Saline Flush] Med 11/08/18 14:47 Active 10 ml FLUSH ASDIRECTED PRN Sodium Chloride 0.9% [Saline Flush] Med 11/08/18 14:47 Active 2.5 ml FLUSH ASDIRECTED PRN Warfarin [Coumadin] Med 11/09/18 09:00 Active 4 mg PO DAILY diphenhydrAMINE [Benadryl] Med 11/08/18 14:47 Active 25 - 50 mg PO Q6H PRN fentaNYL [Sublimaze] Med 11/08/18 14:03 Active 50 mcg IVPUSH Q5M PRN hydrALAZINE [Apresoline] Med 11/08/18 14:03 Active 10 mg IVPUSH ONETIME PRN hydrALAZINE [Apresoline] Med 11/08/18 14:03 Active 5 mg IVPUSH ONETIME PRN Convert IV to Saline Lock [OM.PC] PER UNIT ROUTINE Oth 11/09/18 06:00 Ordered Ice Therapy [OM.PC] Routine Oth 11/08/18 14:47 Ordered Medication Orders Al Hydroxide/Mg Hydroxide (Mag-Al Plus) 30 ml PO Q4H PRN PRN Reason: Indigestion Albuterol (Proventil Neb Soln) 2.5 mg NEB Q6HRRT PRN PRN Reason: Wheezing Atropine Sulfate (Atropine 0.1 Mg/Ml) 0.4 mg IVPUSH Q5M PRN PRN Reason: Bradycardia Bisacodyl (Dulcolax) 10 mg RECTAL DAILY PRN PRN Reason: Constipation Carvedilol (Coreg) 3.125 mg PO BID [facility] Last Admin: 11/09/18 09:23 Dose: 3.125 mg Admin: 11/08/18 20:48 Dose: Not Given Celecoxib (Celebrex) 200 mg PO BID [facility] Last Admin: 11/09/18 09:23 Dose: 200 mg Diphenhydramine HCl (Benadryl) 25 - 50 mg PO Q6H PRN PRN Reason: Itching Docusate Sodium (Colace) 100 mg PO BID PRN PRN Reason: Constipation Enoxaparin Sodium (Lovenox) 40 mg SUBCUT Q24H [facility] Famotidine (Pepcid) 40 mg IVPUSH ONARRIVE [facility] Last Admin: 11/08/18 11:49 Dose: 40 mg Famotidine (Pepcid) 40 mg PO DAILY [facility] Last Admin: 11/09/18 09:30 Dose: 40 mg Fentanyl (Sublimaze) 50 mcg IVPUSH Q5M PRN PRN Reason: Pain (severe 7-10) Stop: 11/09/18 14:03 Furosemide (Lasix) 40 mg PO DAILY [facility] Last Admin: 11/09/18 09:29 Dose: 40 mg Hydralazine HCl (Apresoline) 5 mg IVPUSH ONETIME PRN PRN Reason: Hypertension Hydralazine HCl (Apresoline) 10 mg IVPUSH ONETIME PRN PRN Reason: Hypertension Hydromorphone HCl (Dilaudid) 0.25 mg IVPUSH Q10M PRN PRN Reason: Pain (severe 7-10) Stop: 11/09/18 14:03 Acetaminophen 1,000 mg/ Premix 100 mls @ 400 mls/hr IV ONARRIVE [facility] Last Admin: 11/08/18 11:51 Dose: 400 mls/hr Cefazolin Sodium/Dextrose 2 gm (/ Premix) 50 mls @ 100 mls/hr IV ONCALL [facility] Last Admin: 11/08/18 20:50 Dose: 100 mls/hr Ropivacaine 49.25 ml/Ketorolac Tromethamine 30 mg/Epinephrine HCl 0.5 mg/ Clonidine HCl 80 mcg/ Sodium Chloride 75 mls @ 50 mls/sec INJECT ASDIRECTED [facility] Lactated Ringer's (Ringers, Lactated) 1,000 mls @ 100 mls/hr IV ASDIRECTED [facility] Last Admin: 11/09/18 05:15 Dose: 100 mls/hr Infusion: 11/09/18 02:55 Dose: 100 mls/hr Admin: 11/08/18 16:55 Dose: 100 mls/hr Infusion: 11/08/18 16:55 Dose: 100 mls/hr Admin: 11/08/18 11:48 Dose: 100 mls/hr Tranexamic Acid 2,000 mg/ (Sodium Chloride) 120 mls @ 600 mls/hr IV ASDIRECTED [facility] Labetalol HCl (Normodyne) 10 mg IVPUSH Q6H PRN PRN Reason: Hypertension Stop: 11/09/18 14:03 Losartan Potassium (Cozaar) 25 mg PO DAILY [facility] Last Admin: 11/09/18 09:31 Dose: 25 mg Meperidine HCl (Demerol) 12.5 mg IVPUSH ONETIME PRN PRN Reason: Shivering Meperidine HCl (Demerol) 25 mg IV ONETIME PRN PRN Reason: Shivering Metoclopramide HCl (Reglan) 10 mg IVPUSH ONETIME PRN PRN Reason: Nausea Morphine Sulfate (Morphine) 1 - 3 mg IVPUSH Q3H PRN PRN Reason: Pain Morphine Sulfate (Morphine Sulfate) 4 mg IV Q10M PRN PRN Reason: Pain (severe 7-10) Naloxone HCl (Narcan) 0.1 mg IVPUSH ONETIME PRN PRN Reason: Respiratory Depression Ondansetron HCl (Zofran) 8 mg IVPUSH ONETIME PRN PRN Reason: Nausea Ondansetron HCl (Zofran) 4 mg IVPUSH Q6H PRN PRN Reason: Nausea/Vomiting Oxycodone/Acetaminophen (Percocet 325-5 Mg) 1 - 2 tab PO Q4H PRN PRN Reason: Pain Polyethylene Glycol (Miralax) 17 gm PO DAILY [facility] Last Admin: 11/09/18 09:21 Dose: 17 gm Promethazine HCl (Phenergan) 12.5 mg IM ONETIME PRN PRN Reason: Nausea Scopolamine (Transderm-Scop) 1.5 mg TRDERM ONARRIVE [facility] Last Admin: 11/08/18 11:49 Dose: 1.5 mg Scopolamine (Transderm-Scop) 1.5 mg TRDERM Q72H PRN PRN Reason: Nausea Sodium Chloride (Saline Flush) 10 ml FLUSH ASDIRECTED PRN PRN Reason: Keep Vein Open Sodium Chloride (Saline Flush) 2.5 ml FLUSH ASDIRECTED PRN PRN Reason: Keep Vein Open Warfarin Sodium (Coumadin) 4 mg PO DAILY [facility] Last Admin: 11/09/18 09:27 Dose: 4 mg - Assessment Assessment (Free Text/Narrative):: POD#1 R TKA acute posthemorrhagic anemia - Plan Plan (Free Text/Narrative):: DC IV fluids - saline lock IV DC mane DC [employer] - morphine IV prn breakthrough pain DC oxycodone - percocet 5/325 prn available resume home coumadin PLUS lovenox bridge DVT prophylaxis PT today pt has wheeled walker or script has been written anticipate up to 72 hour stay for IV pain medication and continued physical therapy pt will require FWW for safe mobility/stability until increased strength/gait independence s/p TKA - has been safely mobilizing in room with FWW. d/ch medications written dressing will be changed POD#2 or prior to discharge <Luma Tate R - Last Filed: 11/09/18 18:23> - Patient Data Vitals - Most Recent: Last Vital Signs Temp 100.0 F 11/09/18 15:00 Pulse 86 11/09/18 15:00 Resp 16 11/09/18 15:00 BP 158/63 H 11/09/18 15:00 Pulse Ox 92 L 11/09/18 15:00 I&O - Last 24 Hours: Intake & Output 11/09/18 11/09/18 11/09/18 06:59 14:59 22:59 Intake Total 300 1260 Output Total 500 Balance -200 1260 Lab Results Last 24 Hrs: Laboratory Results - last 24 hr 11/09/18 11/09/18 Range/Units 04:40 04:40 Hgb 8.8 L (13.0-17.0) g/dL Hct 27.7 L (38.0-50.0) % Sodium 141 (136-148) mmol/L Potassium 3.8 (3.5-5.1) mmol/L Chloride 106 (98-107) mmol/L Carbon Dioxide 26.8 (21.0-32.0) mmol/L BUN 17 (7.0-18.0) mg/dL Creatinine 1.3 (0.8-1.3) mg/dL Est Cr Clr Drug Dosing 61.35 mL/min Estimated GFR (MDRD) 55.2 ml/min Glucose 115 H (74-106) mg/dL Calcium 6.7 L (8.5-10.1) mg/dL Magnesium 2.0 (1.8-2.4) mg/dL Med Orders - Current: Current Medications Al Hydroxide/Mg Hydroxide (Mag-Al Plus) 30 ml PO Q4H PRN PRN Reason: Indigestion Albuterol (Proventil Neb Soln) 2.5 mg NEB Q6HRRT PRN PRN Reason: Wheezing Atropine Sulfate (Atropine 0.1 Mg/Ml) 0.4 mg IVPUSH Q5M PRN PRN Reason: Bradycardia Bisacodyl (Dulcolax) 10 mg RECTAL DAILY PRN PRN Reason: Constipation Carvedilol (Coreg) 3.125 mg PO BID [facility] Last Admin: 11/09/18 09:23 Dose: 3.125 mg Celecoxib (Celebrex) 200 mg PO BID [facility] Last Admin: 11/09/18 09:23 Dose: 200 mg Diphenhydramine HCl (Benadryl) 25 - 50 mg PO Q6H PRN PRN Reason: Itching Docusate Sodium (Colace) 100 mg PO BID PRN PRN Reason: Constipation Enoxaparin Sodium (Lovenox) 30 mg SUBCUT Q12H [facility] Famotidine (Pepcid) 40 mg IVPUSH ONARRIVE [facility] Last Admin: 11/08/18 11:49 Dose: 40 mg Famotidine (Pepcid) 40 mg PO DAILY [facility] Last Admin: 11/09/18 09:30 Dose: 40 mg Furosemide (Lasix) 40 mg PO DAILY [facility] Last Admin: 11/09/18 09:29 Dose: 40 mg Hydralazine HCl (Apresoline) 5 mg IVPUSH ONETIME PRN PRN Reason: Hypertension Hydralazine HCl (Apresoline) 10 mg IVPUSH ONETIME PRN PRN Reason: Hypertension Acetaminophen 1,000 mg/ Premix 100 mls @ 400 mls/hr IV ONARRIVE [facility] Last Admin: 11/08/18 11:51 Dose: 400 mls/hr Cefazolin Sodium/Dextrose 2 gm (/ Premix) 50 mls @ 100 mls/hr IV ONCALL [facility] Last Admin: 11/08/18 20:50 Dose: 100 mls/hr Ropivacaine 49.25 ml/Ketorolac Tromethamine 30 mg/Epinephrine HCl 0.5 mg/ Clonidine HCl 80 mcg/ Sodium Chloride 75 mls @ 50 mls/sec INJECT ASDIRECTED [facility] Lactated Ringer's (Ringers, Lactated) 1,000 mls @ 100 mls/hr IV ASDIRECTED [facility] Last Admin: 11/09/18 05:15 Dose: 100 mls/hr Tranexamic Acid 2,000 mg/ (Sodium Chloride) 120 mls @ 600 mls/hr IV ASDIRECTED [facility] Losartan Potassium (Cozaar) 25 mg PO DAILY [facility] Last Admin: 11/09/18 09:31 Dose: 25 mg Meperidine HCl (Demerol) 12.5 mg IVPUSH ONETIME PRN PRN Reason: Shivering Meperidine HCl (Demerol) 25 mg IV ONETIME PRN PRN Reason: Shivering Metoclopramide HCl (Reglan) 10 mg IVPUSH ONETIME PRN PRN Reason: Nausea Morphine Sulfate (Morphine) 1 - 3 mg IVPUSH Q3H PRN PRN Reason: Pain Morphine Sulfate (Morphine Sulfate) 4 mg IV Q10M PRN PRN Reason: Pain (severe 7-10) Naloxone HCl (Narcan) 0.1 mg IVPUSH ONETIME PRN PRN Reason: Respiratory Depression Ondansetron HCl (Zofran) 8 mg IVPUSH ONETIME PRN PRN Reason: Nausea Ondansetron HCl (Zofran) 4 mg IVPUSH Q6H PRN PRN Reason: Nausea/Vomiting Last Admin: 11/09/18 10:44 Dose: 4 mg Oxycodone/Acetaminophen (Percocet 325-5 Mg) 1 - 2 tab PO Q4H PRN PRN Reason: Pain Last Admin: 11/09/18 16:03 Dose: 1 tab Polyethylene Glycol (Miralax) 17 gm PO DAILY [facility] Last Admin: 11/09/18 09:21 Dose: 17 gm Promethazine HCl (Phenergan) 12.5 mg IM ONETIME PRN PRN Reason: Nausea Scopolamine (Transderm-Scop) 1.5 mg TRDERM ONARRIVE [facility] Last Admin: 11/08/18 11:49 Dose: 1.5 mg Scopolamine (Transderm-Scop) 1.5 mg TRDERM Q72H PRN PRN Reason: Nausea Sodium Chloride (Saline Flush) 10 ml FLUSH ASDIRECTED PRN PRN Reason: Keep Vein Open Sodium Chloride (Saline Flush) 2.5 ml FLUSH ASDIRECTED PRN PRN Reason: Keep Vein Open Warfarin Sodium (Coumadin) 4 mg PO DAILY [facility] Last Admin: 11/09/18 09:27 Dose: 4 mg Discontinued Medications Hydrocodone Bitart/Acetaminophen ([place] 325-5 Mg) 2 tab PO Q6H PRN PRN Reason: Pain (moderate 4-6) Dexamethasone (Dexamethasone) Confirm Administered Dose 20 mg .ROUTE .STK-MED ONE Stop: 11/08/18 13:11 Enoxaparin Sodium (Lovenox) 40 mg SUBCUT Q24H [facility] Last Admin: 11/09/18 10:46 Dose: 40 mg Fentanyl (Sublimaze) Confirm Administered Dose 100 mcg .ROUTE .STK-MED ONE Stop: 11/08/18 13:11 Fentanyl (Sublimaze) 50 mcg IVPUSH Q5M PRN PRN Reason: Pain (severe 7-10) Stop: 11/09/18 14:03 Glycopyrrolate (Robinul) 0.2 mg IVPUSH ONETIME ONE Stop: 11/08/18 15:46 Last Admin: 11/08/18 15:47 Dose: 0.2 mg Glycopyrrolate (Robinul) Confirm Administered Dose 0.2 mg .ROUTE .STK-MED ONE Stop: 11/08/18 15:46 Last Admin: 11/08/18 18:03 Dose: Not Given Hydromorphone HCl (Dilaudid) 0.25 mg IVPUSH Q10M PRN PRN Reason: Pain (severe 7-10) Stop: 11/09/18 14:03 Acetaminophen 1,000 mg/ Premix 100 mls @ 400 mls/hr IV Q6H [place] Stop: 11/09/18 06:14 Last Admin: 11/09/18 05:05 Dose: 400 mls/hr Cefazolin Sodium/Dextrose 2 gm (/ Premix) 50 mls @ 100 mls/hr IV Q8H [place] Stop: 11/09/18 05:59 Last Admin: 11/09/18 05:07 Dose: 100 mls/hr Ketorolac Tromethamine (Toradol) Confirm Administered Dose 30 mg .ROUTE .STK- MED ONE Stop: 11/08/18 13:11 Labetalol HCl (Normodyne) 10 mg IVPUSH Q6H PRN PRN Reason: Hypertension Stop: 11/09/18 14:03 Lidocaine (Xylocaine-Mpf 2%) Confirm Administered Dose 5 ml .ROUTE .STK-MED ONE Stop: 11/08/18 13:11 Midazolam HCl (Versed 1 Mg/Ml) Confirm Administered Dose 2 mg .ROUTE .STK-MED ONE Stop: 11/08/18 13:11 Morphine Sulfate (Morphine) 4 mg IVPUSH Q10M PRN PRN Reason: Pain (severe 7-10) Stop: 11/09/18 14:03 Morphine Sulfate (Morphine [employer] 30 Mg In 30 Ml) 30 mg IV ASDIRECTED PRN; Protocol PRN Reason: Pain Stop: 11/09/18 06:00 Ondansetron HCl (Zofran) Confirm Administered Dose 8 mg .ROUTE .STK-MED ONE Stop: 11/08/18 13:11 Oxycodone HCl (Oxycodone) 5 - 10 mg PO Q4H PRN PRN Reason: Pain Stop: 11/09/18 06:00 Last Admin: 11/08/18 18:07 Dose: 5 mg Propofol (Diprivan 20 Ml) Confirm Administered Dose 600 mg .ROUTE .STK-MED ONE Stop: 11/08/18 13:21 Propofol (Diprivan 20 Ml) Confirm Administered Dose 200 mg .ROUTE .STK-MED ONE Stop: 11/08/18 13:55 Tranexamic Acid (Cyklokapron) Confirm Administered Dose 2,000 mg .ROUTE .STK- MED ONE Stop: 11/08/18 07:55 - My Orders Last 24 Hours: Active Orders 24 hr Category Date Time Status Telemetry Monitoring [Cardiac Monitoring] [RC] Q8H Care 11/08/18 18:10 Active Urinary Catheter Removal [RC] ASDIRECTED Care 11/09/18 06:00 Active HEMOGLOBIN/HEMATOCRIT,HH [HEME] DAILY Lab 11/10/18 06:00 Ordered Acetaminophen/oxyCODONE [Percocet 325-5 MG] Med 11/09/18 06:00 Active 1 - 2 tab PO Q4H PRN Carvedilol [Coreg] Med 11/08/18 21:00 Active 3.125 mg PO BID Celecoxib [CeleBREX] Med 11/09/18 09:00 Active 200 mg PO BID Enoxaparin [Lovenox] Med 11/10/18 09:00 Active 30 mg SUBCUT Q12H Famotidine [Pepcid] Med 11/09/18 09:00 Active 40 mg PO DAILY Furosemide [Lasix] Med 11/09/18 09:00 Active 40 mg PO DAILY Losartan [Cozaar] Med 11/09/18 09:00 Active 25 mg PO DAILY Morphine Med 11/09/18 06:00 Active 1 - 3 mg IVPUSH Q3H PRN Morphine Sulfate Med 11/09/18 07:35 Active 4 mg IV Q10M PRN Polyethylene Glycol 3350 [MiraLAX] Med 11/09/18 09:00 Active 17 gm PO DAILY Warfarin [Coumadin] Med 11/09/18 09:00 Active 4 mg PO DAILY Convert IV to Saline Lock [OM.PC] PER UNIT ROUTINE Oth 11/09/18 06:00 Ordered Medication Orders Al Hydroxide/Mg Hydroxide (Mag-Al Plus) 30 ml PO Q4H PRN PRN Reason: Indigestion Albuterol (Proventil Neb Soln) 2.5 mg NEB Q6HRRT PRN PRN Reason: Wheezing Atropine Sulfate (Atropine 0.1 Mg/Ml) 0.4 mg IVPUSH Q5M PRN PRN Reason: Bradycardia Bisacodyl (Dulcolax) 10 mg RECTAL DAILY PRN PRN Reason: Constipation Carvedilol (Coreg) 3.125 mg PO BID [facility] Last Admin: 11/09/18 09:23 Dose: 3.125 mg Admin: 11/08/18 20:48 Dose: Not Given Celecoxib (Celebrex) 200 mg PO BID [facility] Last Admin: 11/09/18 09:23 Dose: 200 mg Diphenhydramine HCl (Benadryl) 25 - 50 mg PO Q6H PRN PRN Reason: Itching Docusate Sodium (Colace) 100 mg PO BID PRN PRN Reason: Constipation Enoxaparin Sodium (Lovenox) 30 mg SUBCUT Q12H [facility] Famotidine (Pepcid) 40 mg IVPUSH ONARRIVE [facility] Last Admin: 11/08/18 11:49 Dose: 40 mg Famotidine (Pepcid) 40 mg PO DAILY [facility] Last Admin: 11/09/18 09:30 Dose: 40 mg Furosemide (Lasix) 40 mg PO DAILY [facility] Last Admin: 11/09/18 09:29 Dose: 40 mg Hydralazine HCl (Apresoline) 5 mg IVPUSH ONETIME PRN PRN Reason: Hypertension Hydralazine HCl (Apresoline) 10 mg IVPUSH ONETIME PRN PRN Reason: Hypertension Acetaminophen 1,000 mg/ Premix 100 mls @ 400 mls/hr IV ONARRIVE [facility] Last Admin: 11/08/18 11:51 Dose: 400 mls/hr Cefazolin Sodium/Dextrose 2 gm (/ Premix) 50 mls @ 100 mls/hr IV ONCALL [facility] Last Admin: 11/08/18 20:50 Dose: 100 mls/hr Ropivacaine 49.25 ml/Ketorolac Tromethamine 30 mg/Epinephrine HCl 0.5 mg/ Clonidine HCl 80 mcg/ Sodium Chloride 75 mls @ 50 mls/sec INJECT ASDIRECTED [facility] Lactated Ringer's (Ringers, Lactated) 1,000 mls @ 100 mls/hr IV ASDIRECTED [facility] Last Admin: 11/09/18 05:15 Dose: 100 mls/hr Infusion: 11/09/18 02:55 Dose: 100 mls/hr Admin: 11/08/18 16:55 Dose: 100 mls/hr Infusion: 11/08/18 16:55 Dose: 100 mls/hr Admin: 11/08/18 11:48 Dose: 100 mls/hr Tranexamic Acid 2,000 mg/ (Sodium Chloride) 120 mls @ 600 mls/hr IV ASDIRECTED [place] Losartan Potassium (Cozaar) 25 mg PO DAILY [facility] Last Admin: 11/09/18 09:31 Dose: 25 mg Meperidine HCl (Demerol) 12.5 mg IVPUSH ONETIME PRN PRN Reason: Shivering Meperidine HCl (Demerol) 25 mg IV ONETIME PRN PRN Reason: Shivering Metoclopramide HCl (Reglan) 10 mg IVPUSH ONETIME PRN PRN Reason: Nausea Morphine Sulfate (Morphine) 1 - 3 mg IVPUSH Q3H PRN PRN Reason: Pain Morphine Sulfate (Morphine Sulfate) 4 mg IV Q10M PRN PRN Reason: Pain (severe 7-10) Naloxone HCl (Narcan) 0.1 mg IVPUSH ONETIME PRN PRN Reason: Respiratory Depression Ondansetron HCl (Zofran) 8 mg IVPUSH ONETIME PRN PRN Reason: Nausea Ondansetron HCl (Zofran) 4 mg IVPUSH Q6H PRN PRN Reason: Nausea/Vomiting Last Admin: 11/09/18 10:44 Dose: 4 mg Oxycodone/Acetaminophen (Percocet 325-5 Mg) 1 - 2 tab PO Q4H PRN PRN Reason: Pain Last Admin: 11/09/18 16:03 Dose: 1 tab Admin: 11/09/18 10:44 Dose: 1 tab Polyethylene Glycol (Miralax) 17 gm PO DAILY [facility] Last Admin: 11/09/18 09:21 Dose: 17 gm Promethazine HCl (Phenergan) 12.5 mg IM ONETIME PRN PRN Reason: Nausea Scopolamine (Transderm-Scop) 1.5 mg TRDERM ONARRIVE [facility] Last Admin: 11/08/18 11:49 Dose: 1.5 mg Scopolamine (Transderm-Scop) 1.5 mg TRDERM Q72H PRN PRN Reason: Nausea Sodium Chloride (Saline Flush) 10 ml FLUSH ASDIRECTED PRN PRN Reason: Keep Vein Open Sodium Chloride (Saline Flush) 2.5 ml FLUSH ASDIRECTED PRN PRN Reason: Keep Vein Open Warfarin Sodium (Coumadin) 4 mg PO DAILY [place] Last Admin: 11/09/18 09:27 Dose: 4 mg - Plan Plan (Free Text/Narrative):: 1819 Patient seen and examined. Agree with above note. No other complaints. Progressing with PT. Will continue PT and current pain management. Plan discharge home tomorrow. belén
[2018-11-09] MEDS ORDERED: Enoxaparin 40 MG/0.4 ML Syringe SUBCUT SCH (10:00)
[2018-11-09] MEDS: Acetaminophen/oxyCODONE 325-5 MG Tab PO PRN ×4 (10:44→22:57)
--- NOTE | 2018-11-09 11:01 | CR ---
EXAMINATION: Right knee HISTORY: Arthroplasty COMPARISON: 01/07/2018 TECHNIQUE: 2 views FINDINGS/IMPRESSION: Right total knee hardware is demonstrated in good position and alignment. Postoperative soft tissue changes are noted.
--- NOTE | 2018-11-10 08:33 | PCM.PN ---
- General Info Date of Service: 11/10/18 Admission Dx/Problem (Free Text): Right total knee arthroplasty, postop day 1, history of atrial fibrillation, CHF Subjective Update: The patient is seen in progress with orthopedics by internal medicine. The patient says today that he feels better. He is having some mild abdominal pain. He is been eating. The patient has denied any dizziness or lightheadedness. Postoperative day 2 right knee total arthroplasty Functional Status: Reports: Pain Controlled - Review of Systems General: Reports: No Symptoms HEENT: Reports: No Symptoms Pulmonary: Reports: No Symptoms Cardiovascular: Reports: No Symptoms Gastrointestinal: Reports: Abdominal Pain Genitourinary: Reports: No Symptoms Musculoskeletal: Reports: Leg Pain Skin: Reports: No Symptoms Neurological: Reports: No Symptoms Psychiatric: Reports: No Symptoms - Patient Data Vitals - Most Recent: Last Vital Signs Temp 36.9 C 11/10/18 04:00 Pulse 75 11/10/18 04:00 Resp 18 11/10/18 04:00 BP 112/58 L 11/10/18 04:00 Pulse Ox 94 L 11/10/18 04:00 Weight - Most Recent: 88.451 kg I&O - Last 24 Hours: Intake & Output 11/09/18 11/10/18 11/10/18 22:59 06:59 14:59 Intake Total 1220 Output Total 1 Balance 1219 Lab Results Last 24 Hours: Laboratory Results - last 24 hr 11/10/18 Range/Units 05:35 Hgb 8.3 L (13.0-17.0) g/dL Hct 26.0 L (38.0-50.0) % Med Orders - Current: Current Medications Al Hydroxide/Mg Hydroxide (Mag-Al Plus) 30 ml PO Q4H PRN PRN Reason: Indigestion Albuterol (Proventil Neb Soln) 2.5 mg NEB Q6HRRT PRN PRN Reason: Wheezing Atropine Sulfate (Atropine 0.1 Mg/Ml) 0.4 mg IVPUSH Q5M PRN PRN Reason: Bradycardia Bisacodyl (Dulcolax) 10 mg RECTAL DAILY PRN PRN Reason: Constipation Carvedilol (Coreg) 3.125 mg PO BID [facility] Last Admin: 11/09/18 20:59 Dose: 3.125 mg Celecoxib (Celebrex) 200 mg PO BID [facility] Last Admin: 11/09/18 20:58 Dose: 200 mg Diphenhydramine HCl (Benadryl) 25 - 50 mg PO Q6H PRN PRN Reason: Itching Docusate Sodium (Colace) 100 mg PO BID PRN PRN Reason: Constipation Enoxaparin Sodium (Lovenox) 30 mg SUBCUT Q12H [facility] Famotidine (Pepcid) 40 mg IVPUSH ONARRIVE [facility] Last Admin: 11/08/18 11:49 Dose: 40 mg Famotidine (Pepcid) 40 mg PO DAILY [facility] Last Admin: 11/09/18 09:30 Dose: 40 mg Furosemide (Lasix) 40 mg PO DAILY [facility] Last Admin: 11/09/18 09:29 Dose: 40 mg Hydralazine HCl (Apresoline) 5 mg IVPUSH ONETIME PRN PRN Reason: Hypertension Hydralazine HCl (Apresoline) 10 mg IVPUSH ONETIME PRN PRN Reason: Hypertension Acetaminophen 1,000 mg/ Premix 100 mls @ 400 mls/hr IV ONARRIVE [facility] Last Admin: 11/08/18 11:51 Dose: 400 mls/hr Cefazolin Sodium/Dextrose 2 gm (/ Premix) 50 mls @ 100 mls/hr IV ONCALL [facility] Last Admin: 11/08/18 20:50 Dose: 100 mls/hr Ropivacaine 49.25 ml/Ketorolac Tromethamine 30 mg/Epinephrine HCl 0.5 mg/ Clonidine HCl 80 mcg/ Sodium Chloride 75 mls @ 50 mls/sec INJECT ASDIRECTED [facility] Lactated Ringer's (Ringers, Lactated) 1,000 mls @ 100 mls/hr IV ASDIRECTED [facility] Last Admin: 11/09/18 05:15 Dose: 100 mls/hr Tranexamic Acid 2,000 mg/ (Sodium Chloride) 120 mls @ 600 mls/hr IV ASDIRECTED [facility] Losartan Potassium (Cozaar) 25 mg PO DAILY [facility] Last Admin: 11/09/18 09:31 Dose: 25 mg Meperidine HCl (Demerol) 12.5 mg IVPUSH ONETIME PRN PRN Reason: Shivering Meperidine HCl (Demerol) 25 mg IV ONETIME PRN PRN Reason: Shivering Metoclopramide HCl (Reglan) 10 mg IVPUSH ONETIME PRN PRN Reason: Nausea Morphine Sulfate (Morphine) 1 - 3 mg IVPUSH Q3H PRN PRN Reason: Pain Morphine Sulfate (Morphine Sulfate) 4 mg IV Q10M PRN PRN Reason: Pain (severe 7-10) Naloxone HCl (Narcan) 0.1 mg IVPUSH ONETIME PRN PRN Reason: Respiratory Depression Ondansetron HCl (Zofran) 8 mg IVPUSH ONETIME PRN PRN Reason: Nausea Ondansetron HCl (Zofran) 4 mg IVPUSH Q6H PRN PRN Reason: Nausea/Vomiting Last Admin: 11/09/18 10:44 Dose: 4 mg Oxycodone/Acetaminophen (Percocet 325-5 Mg) 1 - 2 tab PO Q4H PRN PRN Reason: Pain Last Admin: 11/09/18 22:57 Dose: 2 tab Polyethylene Glycol (Miralax) 17 gm PO DAILY [facility] Last Admin: 11/09/18 09:21 Dose: 17 gm Promethazine HCl (Phenergan) 12.5 mg IM ONETIME PRN PRN Reason: Nausea Scopolamine (Transderm-Scop) 1.5 mg TRDERM ONARRIVE [facility] Last Admin: 11/08/18 11:49 Dose: 1.5 mg Scopolamine (Transderm-Scop) 1.5 mg TRDERM Q72H PRN PRN Reason: Nausea Sodium Chloride (Saline Flush) 10 ml FLUSH ASDIRECTED PRN PRN Reason: Keep Vein Open Sodium Chloride (Saline Flush) 2.5 ml FLUSH ASDIRECTED PRN PRN Reason: Keep Vein Open Warfarin Sodium (Coumadin) 4 mg PO DAILY [facility] Last Admin: 11/09/18 09:27 Dose: 4 mg Discontinued Medications Hydrocodone Bitart/Acetaminophen (Two Dot 325-5 Mg) 2 tab PO Q6H PRN PRN Reason: Pain (moderate 4-6) Dexamethasone (Dexamethasone) Confirm Administered Dose 20 mg .ROUTE .STK-MED ONE Stop: 11/08/18 13:11 Enoxaparin Sodium (Lovenox) 40 mg SUBCUT Q24H [facility] Last Admin: 11/09/18 10:46 Dose: 40 mg Fentanyl (Sublimaze) Confirm Administered Dose 100 mcg .ROUTE .STK-MED ONE Stop: 11/08/18 13:11 Fentanyl (Sublimaze) 50 mcg IVPUSH Q5M PRN PRN Reason: Pain (severe 7-10) Stop: 11/09/18 14:03 Glycopyrrolate (Robinul) 0.2 mg IVPUSH ONETIME ONE Stop: 11/08/18 15:46 Last Admin: 11/08/18 15:47 Dose: 0.2 mg Glycopyrrolate (Robinul) Confirm Administered Dose 0.2 mg .ROUTE .STK-MED ONE Stop: 11/08/18 15:46 Last Admin: 11/08/18 18:03 Dose: Not Given Hydromorphone HCl (Dilaudid) 0.25 mg IVPUSH Q10M PRN PRN Reason: Pain (severe 7-10) Stop: 11/09/18 14:03 Acetaminophen 1,000 mg/ Premix 100 mls @ 400 mls/hr IV Q6H [place] Stop: 11/09/18 06:14 Last Admin: 11/09/18 05:05 Dose: 400 mls/hr Cefazolin Sodium/Dextrose 2 gm (/ Premix) 50 mls @ 100 mls/hr IV Q8H [place] Stop: 11/09/18 05:59 Last Admin: 11/09/18 05:07 Dose: 100 mls/hr Ketorolac Tromethamine (Toradol) Confirm Administered Dose 30 mg .ROUTE .STK- MED ONE Stop: 11/08/18 13:11 Labetalol HCl (Normodyne) 10 mg IVPUSH Q6H PRN PRN Reason: Hypertension Stop: 11/09/18 14:03 Lidocaine (Xylocaine-Mpf 2%) Confirm Administered Dose 5 ml .ROUTE .STK-MED ONE Stop: 11/08/18 13:11 Midazolam HCl (Versed 1 Mg/Ml) Confirm Administered Dose 2 mg .ROUTE .STK-MED ONE Stop: 11/08/18 13:11 Morphine Sulfate (Morphine) 4 mg IVPUSH Q10M PRN PRN Reason: Pain (severe 7-10) Stop: 11/09/18 14:03 Morphine Sulfate (Morphine Nurse Transition 30 Mg In 30 Ml) 30 mg IV ASDIRECTED PRN; Protocol PRN Reason: Pain Stop: 11/09/18 06:00 Ondansetron HCl (Zofran) Confirm Administered Dose 8 mg .ROUTE .STK-MED ONE Stop: 11/08/18 13:11 Oxycodone HCl (Oxycodone) 5 - 10 mg PO Q4H PRN PRN Reason: Pain Stop: 11/09/18 06:00 Last Admin: 11/08/18 18:07 Dose: 5 mg Propofol (Diprivan 20 Ml) Confirm Administered Dose 600 mg .ROUTE .STK-MED ONE Stop: 11/08/18 13:21 Propofol (Diprivan 20 Ml) Confirm Administered Dose 200 mg .ROUTE .STK-MED ONE Stop: 11/08/18 13:55 Tranexamic Acid (Cyklokapron) Confirm Administered Dose 2,000 mg .ROUTE .STK- MED ONE Stop: 11/08/18 07:55 - Exam General: Alert, Oriented, Cooperative, No Acute Distress HEENT: Pupils Equal, Pupils Reactive, EOMI, Mucous Membr. Moist/[place] Neck: Supple, Trachea Midline Lungs: Clear to Auscultation, Normal Respiratory Effort Cardiovascular: Regular Rate, Irregular Rhythm GI/Abdominal Exam: Normal Bowel Sounds, Soft, Non-Tender, No Distention (Male) Exam: Deferred Back Exam: Normal Inspection, Full Range of Motion Extremities: No: Normal Inspection Skin: Warm, Dry, Intact Wound/Incisions: Healing Well Neurological: No New Focal Deficit Psy/Mental Status: Alert, Normal Affect, Normal Mood - Problem List & Annotations (1) S/P total knee arthroplasty SNOMED Code(s): 4545802366151, 563494469, 1556625255275 Code(s): Z96.659 - PRESENCE OF UNSPECIFIED ARTIFICIAL KNEE JOINT Status: Acute Priority: High Current Visit: Yes Qualifiers: Laterality: right Qualified Code(s): Z96.651 - Presence of right artificial knee joint Annotation/Comment:: POD #1 (2) History of CHF (congestive heart failure) SNOMED Code(s): 637814256 Code(s): Z86.79 - PERSONAL HISTORY OF OTHER DISEASES OF THE CIRCULATORY SYSTEM Status: Chronic Priority: High Current Visit: Yes (3) History of atrial fibrillation SNOMED Code(s): 993084926 Code(s): Z86.79 - PERSONAL HISTORY OF OTHER DISEASES OF THE CIRCULATORY SYSTEM Status: Acute Priority: Medium Current Visit: Yes (4) Chronic anticoagulation SNOMED Code(s): 190109116 Code(s): Z79.01 - FDC (CURRENT) USE OF ANTICOAGULANTS Status: Chronic Priority: High Current Visit: Yes (5) Anemia SNOMED Code(s): 809529970 Code(s): D64.9 - ANEMIA, UNSPECIFIED Status: Chronic Priority: High Current Visit: Yes Qualifiers: Anemia type: unspecified type Qualified Code(s): D64.9 - Anemia, unspecified - Problem List Review Problem List Initiated/Reviewed/Updated: Yes - Plan Plan:: The patient is a 68-year-old gentleman who is currently postop day #2 total right knee arthroplasty. The patient says that he is doing well today. He also says that the orthopedic surgeon, Dr. Tate, is planning on discharge today. It should also be noted that the patient is currently anemic with a hemoglobin of 8.3 g/dL. This is likely chronic for the patient. Regardless, he should follow- up with his primary care physician for this. I do not recommend blood transfusion until the patient has dropped below 7.0 g/dL orders otherwise symptomatic. The patient should also be on calcium supplements as his current calcium is low at 6.7 mg/dL. This should also be follow-up with his primary care physician. If the patient is going to be discharged today internal medicine will sign off otherwise we'll continue to follow with remaining in the hospital.
[2018-11-10] MEDS: Celecoxib 100 MG Cap PO SCH (08:45)
[2018-11-10] MEDS: Warfarin 2 MG Tab PO SCH (08:45)
[2018-11-10] MEDS: Famotidine 20 MG Tab PO SCH (08:45)
[2018-11-10] MEDS: Furosemide 40 MG Tab PO SCH (08:46)
[2018-11-10] MEDS: Carvedilol 3.125 MG Tab PO SCH (08:46)
[2018-11-10] MEDS: Losartan 50 MG Tab PO SCH (08:47)
[2018-11-10] MEDS ORDERED: Enoxaparin 30 MG/0.3 ML Syringe SUBCUT SCH (09:00)
[2018-11-10] MEDS: Polyethylene Glycol 3350 Powder 17 GM Packet PO SCH (09:02)
[2018-11-10] MEDS ORDERED: Carvedilol 3.125 MG Tab ONE (09:17)
--- NOTE | 2018-11-10 10:21 | PCM.SURGPN ---
<Pamela Johnson R - Last Filed: 11/10/18 10:18> - General Info Date of Service: 11/10/18 Date of Surgery/Procedure: 11/08/18 POD#: 2 Functional Status: Reports: Pain Controlled, Tolerating Diet, Ambulating, Urinating - Review of Systems Cardiovascular: Reports: No Symptoms Gastrointestinal: Reports: Abdominal Pain, Constipation Genitourinary: Reports: No Symptoms Systems Review Comment:: pt resting comfortably in bed c/o abdominal pain and no BM since surgery, no nausea/vomiting pain otherwise well controlled - Patient Data Vitals - Most Recent: Last Vital Signs Temp 98.4 F 11/10/18 04:00 Pulse 84 11/10/18 08:46 Resp 18 11/10/18 04:00 BP 115/58 L 11/10/18 08:47 Pulse Ox 94 L 11/10/18 04:00 Weight - Most Recent: 88.451 kg I&O - Last 24 Hours: Intake & Output 11/09/18 11/10/18 11/10/18 22:59 06:59 14:59 Intake Total 1220 Output Total 1 Balance 1219 Lab Results Last 24 Hrs: Laboratory Results - last 24 hr 11/10/18 Range/Units 05:35 Hgb 8.3 L (13.0-17.0) g/dL Hct 26.0 L (38.0-50.0) % Med Orders - Current: Current Medications Al Hydroxide/Mg Hydroxide (Mag-Al Plus) 30 ml PO Q4H PRN PRN Reason: Indigestion Albuterol (Proventil Neb Soln) 2.5 mg NEB Q6HRRT PRN PRN Reason: Wheezing Atropine Sulfate (Atropine 0.1 Mg/Ml) 0.4 mg IVPUSH Q5M PRN PRN Reason: Bradycardia Bisacodyl (Dulcolax) 10 mg RECTAL DAILY PRN PRN Reason: Constipation Last Admin: 11/10/18 10:13 Dose: 10 mg Carvedilol (Coreg) 3.125 mg PO BID [facility] Last Admin: 11/10/18 08:46 Dose: 3.125 mg Celecoxib (Celebrex) 200 mg PO BID [facility] Last Admin: 11/10/18 08:45 Dose: 200 mg Diphenhydramine HCl (Benadryl) 25 - 50 mg PO Q6H PRN PRN Reason: Itching Docusate Sodium (Colace) 100 mg PO BID PRN PRN Reason: Constipation Enoxaparin Sodium (Lovenox) 30 mg SUBCUT Q12H [facility] Last Admin: 11/10/18 09:02 Dose: 30 mg Famotidine (Pepcid) 40 mg IVPUSH ONARRIVE [facility] Last Admin: 11/08/18 11:49 Dose: 40 mg Famotidine (Pepcid) 40 mg PO DAILY [facility] Last Admin: 11/10/18 08:45 Dose: 40 mg Furosemide (Lasix) 40 mg PO DAILY [facility] Last Admin: 11/10/18 08:46 Dose: 40 mg Hydralazine HCl (Apresoline) 5 mg IVPUSH ONETIME PRN PRN Reason: Hypertension Hydralazine HCl (Apresoline) 10 mg IVPUSH ONETIME PRN PRN Reason: Hypertension Acetaminophen 1,000 mg/ Premix 100 mls @ 400 mls/hr IV ONARRIVE [facility] Last Admin: 11/08/18 11:51 Dose: 400 mls/hr Cefazolin Sodium/Dextrose 2 gm (/ Premix) 50 mls @ 100 mls/hr IV ONCALL [facility] Last Admin: 11/08/18 20:50 Dose: 100 mls/hr Ropivacaine 49.25 ml/Ketorolac Tromethamine 30 mg/Epinephrine HCl 0.5 mg/ Clonidine HCl 80 mcg/ Sodium Chloride 75 mls @ 50 mls/sec INJECT ASDIRECTED [facility] Lactated Ringer's (Ringers, Lactated) 1,000 mls @ 100 mls/hr IV ASDIRECTED [facility] Last Admin: 11/09/18 05:15 Dose: 100 mls/hr Tranexamic Acid 2,000 mg/ (Sodium Chloride) 120 mls @ 600 mls/hr IV ASDIRECTED [facility] Losartan Potassium (Cozaar) 25 mg PO DAILY [facility] Last Admin: 11/10/18 08:47 Dose: 25 mg Meperidine HCl (Demerol) 12.5 mg IVPUSH ONETIME PRN PRN Reason: Shivering Meperidine HCl (Demerol) 25 mg IV ONETIME PRN PRN Reason: Shivering Metoclopramide HCl (Reglan) 10 mg IVPUSH ONETIME PRN PRN Reason: Nausea Morphine Sulfate (Morphine) 1 - 3 mg IVPUSH Q3H PRN PRN Reason: Pain Morphine Sulfate (Morphine Sulfate) 4 mg IV Q10M PRN PRN Reason: Pain (severe 7-10) Naloxone HCl (Narcan) 0.1 mg IVPUSH ONETIME PRN PRN Reason: Respiratory Depression Ondansetron HCl (Zofran) 8 mg IVPUSH ONETIME PRN PRN Reason: Nausea Ondansetron HCl (Zofran) 4 mg IVPUSH Q6H PRN PRN Reason: Nausea/Vomiting Last Admin: 11/09/18 10:44 Dose: 4 mg Oxycodone/Acetaminophen (Percocet 325-5 Mg) 1 - 2 tab PO Q4H PRN PRN Reason: Pain Last Admin: 11/09/18 22:57 Dose: 2 tab Polyethylene Glycol (Miralax) 17 gm PO DAILY [facility] Last Admin: 11/10/18 09:02 Dose: 17 gm Promethazine HCl (Phenergan) 12.5 mg IM ONETIME PRN PRN Reason: Nausea Scopolamine (Transderm-Scop) 1.5 mg TRDERM ONARRIVE [facility] Last Admin: 11/08/18 11:49 Dose: 1.5 mg Scopolamine (Transderm-Scop) 1.5 mg TRDERM Q72H PRN PRN Reason: Nausea Sodium Chloride (Saline Flush) 10 ml FLUSH ASDIRECTED PRN PRN Reason: Keep Vein Open Sodium Chloride (Saline Flush) 2.5 ml FLUSH ASDIRECTED PRN PRN Reason: Keep Vein Open Warfarin Sodium (Coumadin) 4 mg PO DAILY [facility] Last Admin: 11/10/18 08:45 Dose: 4 mg Discontinued Medications Hydrocodone Bitart/Acetaminophen ([place] 325-5 Mg) 2 tab PO Q6H PRN PRN Reason: Pain (moderate 4-6) Carvedilol (Coreg) Confirm Administered Dose 3.125 mg .ROUTE .STK-MED ONE Stop: 11/10/18 09:18 Last Admin: 11/10/18 09:44 Dose: Not Given Dexamethasone (Dexamethasone) Confirm Administered Dose 20 mg .ROUTE .STK-MED ONE Stop: 11/08/18 13:11 Enoxaparin Sodium (Lovenox) 40 mg SUBCUT Q24H [facility] Last Admin: 11/09/18 10:46 Dose: 40 mg Fentanyl (Sublimaze) Confirm Administered Dose 100 mcg .ROUTE .STK-MED ONE Stop: 11/08/18 13:11 Fentanyl (Sublimaze) 50 mcg IVPUSH Q5M PRN PRN Reason: Pain (severe 7-10) Stop: 11/09/18 14:03 Glycopyrrolate (Robinul) 0.2 mg IVPUSH ONETIME ONE Stop: 11/08/18 15:46 Last Admin: 11/08/18 15:47 Dose: 0.2 mg Glycopyrrolate (Robinul) Confirm Administered Dose 0.2 mg .ROUTE .STK-MED ONE Stop: 11/08/18 15:46 Last Admin: 11/08/18 18:03 Dose: Not Given Hydromorphone HCl (Dilaudid) 0.25 mg IVPUSH Q10M PRN PRN Reason: Pain (severe 7-10) Stop: 11/09/18 14:03 Acetaminophen 1,000 mg/ Premix 100 mls @ 400 mls/hr IV Q6H [place] Stop: 11/09/18 06:14 Last Admin: 11/09/18 05:05 Dose: 400 mls/hr Cefazolin Sodium/Dextrose 2 gm (/ Premix) 50 mls @ 100 mls/hr IV Q8H [place] Stop: 11/09/18 05:59 Last Admin: 11/09/18 05:07 Dose: 100 mls/hr Ketorolac Tromethamine (Toradol) Confirm Administered Dose 30 mg .ROUTE .STK- MED ONE Stop: 11/08/18 13:11 Labetalol HCl (Normodyne) 10 mg IVPUSH Q6H PRN PRN Reason: Hypertension Stop: 11/09/18 14:03 Lidocaine (Xylocaine-Mpf 2%) Confirm Administered Dose 5 ml .ROUTE .STK-MED ONE Stop: 11/08/18 13:11 Midazolam HCl (Versed 1 Mg/Ml) Confirm Administered Dose 2 mg .ROUTE .STK-MED ONE Stop: 11/08/18 13:11 Morphine Sulfate (Morphine) 4 mg IVPUSH Q10M PRN PRN Reason: Pain (severe 7-10) Stop: 11/09/18 14:03 Morphine Sulfate (Morphine Principal Research Economist 30 Mg In 30 Ml) 30 mg IV ASDIRECTED PRN; Protocol PRN Reason: Pain Stop: 11/09/18 06:00 Ondansetron HCl (Zofran) Confirm Administered Dose 8 mg .ROUTE .STK-MED ONE Stop: 11/08/18 13:11 Oxycodone HCl (Oxycodone) 5 - 10 mg PO Q4H PRN PRN Reason: Pain Stop: 11/09/18 06:00 Last Admin: 11/08/18 18:07 Dose: 5 mg Propofol (Diprivan 20 Ml) Confirm Administered Dose 600 mg .ROUTE .STK-MED ONE Stop: 11/08/18 13:21 Propofol (Diprivan 20 Ml) Confirm Administered Dose 200 mg .ROUTE .STK-MED ONE Stop: 11/08/18 13:55 Tranexamic Acid (Cyklokapron) Confirm Administered Dose 2,000 mg .ROUTE .STK- MED ONE Stop: 11/08/18 07:55 - Exam Wound/Incisions: No: Drainage, Erythema General: Alert, Oriented Cardiovascular: Regular Rate, Regular Rhythm Extremities: Other (exam RLE - incision clean/dry/jessi intact. at/ehl/ gastroc 5/5, dp2+, sensation intact distally) Physical Findings Comment:: vss, afeb hgb 8.3 - Problem List Review Problem List Initiated/Reviewed/Updated: Yes - My Orders Last 24 Hours: Active Orders 24 hr Category Date Time Status Enoxaparin [Lovenox] Med 11/10/18 09:00 Active 30 mg SUBCUT Q12H Medication Orders Al Hydroxide/Mg Hydroxide (Mag-Al Plus) 30 ml PO Q4H PRN PRN Reason: Indigestion Albuterol (Proventil Neb Soln) 2.5 mg NEB Q6HRRT PRN PRN Reason: Wheezing Atropine Sulfate (Atropine 0.1 Mg/Ml) 0.4 mg IVPUSH Q5M PRN PRN Reason: Bradycardia Bisacodyl (Dulcolax) 10 mg RECTAL DAILY PRN PRN Reason: Constipation Last Admin: 11/10/18 10:13 Dose: 10 mg Carvedilol (Coreg) 3.125 mg PO BID [place] Last Admin: 11/10/18 08:46 Dose: 3.125 mg Admin: 11/09/18 20:59 Dose: 3.125 mg Admin: 11/09/18 09:23 Dose: 3.125 mg Admin: 11/08/18 20:48 Dose: Not Given Celecoxib (Celebrex) 200 mg PO BID [facility] Last Admin: 11/10/18 08:45 Dose: 200 mg Admin: 11/09/18 20:58 Dose: 200 mg Admin: 11/09/18 09:23 Dose: 200 mg Diphenhydramine HCl (Benadryl) 25 - 50 mg PO Q6H PRN PRN Reason: Itching Docusate Sodium (Colace) 100 mg PO BID PRN PRN Reason: Constipation Enoxaparin Sodium (Lovenox) 30 mg SUBCUT Q12H [facility] Last Admin: 11/10/18 09:02 Dose: 30 mg Famotidine (Pepcid) 40 mg IVPUSH ONARRIVE [facility] Last Admin: 11/08/18 11:49 Dose: 40 mg Famotidine (Pepcid) 40 mg PO DAILY [facility] Last Admin: 11/10/18 08:45 Dose: 40 mg Admin: 11/09/18 09:30 Dose: 40 mg Furosemide (Lasix) 40 mg PO DAILY [facility] Last Admin: 11/10/18 08:46 Dose: 40 mg Admin: 11/09/18 09:29 Dose: 40 mg Hydralazine HCl (Apresoline) 5 mg IVPUSH ONETIME PRN PRN Reason: Hypertension Hydralazine HCl (Apresoline) 10 mg IVPUSH ONETIME PRN PRN Reason: Hypertension Acetaminophen 1,000 mg/ Premix 100 mls @ 400 mls/hr IV ONARRIVE [facility] Last Admin: 11/08/18 11:51 Dose: 400 mls/hr Cefazolin Sodium/Dextrose 2 gm (/ Premix) 50 mls @ 100 mls/hr IV ONCALL [facility] Last Admin: 11/08/18 20:50 Dose: 100 mls/hr Ropivacaine 49.25 ml/Ketorolac Tromethamine 30 mg/Epinephrine HCl 0.5 mg/ Clonidine HCl 80 mcg/ Sodium Chloride 75 mls @ 50 mls/sec INJECT ASDIRECTED [facility] Lactated Ringer's (Ringers, Lactated) 1,000 mls @ 100 mls/hr IV ASDIRECTED [facility] Last Admin: 11/09/18 05:15 Dose: 100 mls/hr Infusion: 11/09/18 02:55 Dose: 100 mls/hr Admin: 11/08/18 16:55 Dose: 100 mls/hr Infusion: 11/08/18 16:55 Dose: 100 mls/hr Admin: 11/08/18 11:48 Dose: 100 mls/hr Tranexamic Acid 2,000 mg/ (Sodium Chloride) 120 mls @ 600 mls/hr IV ASDIRECTED [facility] Losartan Potassium (Cozaar) 25 mg PO DAILY [facility] Last Admin: 11/10/18 08:47 Dose: 25 mg Admin: 11/09/18 09:31 Dose: 25 mg Meperidine HCl (Demerol) 12.5 mg IVPUSH ONETIME PRN PRN Reason: Shivering Meperidine HCl (Demerol) 25 mg IV ONETIME PRN PRN Reason: Shivering Metoclopramide HCl (Reglan) 10 mg IVPUSH ONETIME PRN PRN Reason: Nausea Morphine Sulfate (Morphine) 1 - 3 mg IVPUSH Q3H PRN PRN Reason: Pain Morphine Sulfate (Morphine Sulfate) 4 mg IV Q10M PRN PRN Reason: Pain (severe 7-10) Naloxone HCl (Narcan) 0.1 mg IVPUSH ONETIME PRN PRN Reason: Respiratory Depression Ondansetron HCl (Zofran) 8 mg IVPUSH ONETIME PRN PRN Reason: Nausea Ondansetron HCl (Zofran) 4 mg IVPUSH Q6H PRN PRN Reason: Nausea/Vomiting Last Admin: 11/09/18 10:44 Dose: 4 mg Oxycodone/Acetaminophen (Percocet 325-5 Mg) 1 - 2 tab PO Q4H PRN PRN Reason: Pain Last Admin: 11/09/18 22:57 Dose: 2 tab Admin: 11/09/18 19:05 Dose: 2 tab Admin: 11/09/18 16:03 Dose: 1 tab Admin: 11/09/18 10:44 Dose: 1 tab Polyethylene Glycol (Miralax) 17 gm PO DAILY [facility] Last Admin: 11/10/18 09:02 Dose: 17 gm Admin: 11/09/18 09:21 Dose: 17 gm Promethazine HCl (Phenergan) 12.5 mg IM ONETIME PRN PRN Reason: Nausea Scopolamine (Transderm-Scop) 1.5 mg TRDERM ONARRIVE [facility] Last Admin: 11/08/18 11:49 Dose: 1.5 mg Scopolamine (Transderm-Scop) 1.5 mg TRDERM Q72H PRN PRN Reason: Nausea Sodium Chloride (Saline Flush) 10 ml FLUSH ASDIRECTED PRN PRN Reason: Keep Vein Open Sodium Chloride (Saline Flush) 2.5 ml FLUSH ASDIRECTED PRN PRN Reason: Keep Vein Open Warfarin Sodium (Coumadin) 4 mg PO DAILY [facility] Last Admin: 11/10/18 08:45 Dose: 4 mg Admin: 11/09/18 09:27 Dose: 4 mg - Assessment Assessment (Free Text/Narrative):: POD#1 R TKA acute posthemorrhagic anemia - Plan Plan (Free Text/Narrative):: suppository and zofran now for abd pain continue pain management and PT encourage ambulation for GI motility if able to pass gas/BM today and abd pain improves, will d/ch to home this afternoon pt verbalizes understanding and agrees with plan <Luma Tate R - Last Filed: 11/10/18 13:21> - Patient Data Vitals - Most Recent: Last Vital Signs Temp 98.2 F 11/10/18 11:25 Pulse 94 11/10/18 11:25 Resp 16 11/10/18 11:25 BP 102/54 L 11/10/18 11:25 Pulse Ox 95 11/10/18 11:25 I&O - Last 24 Hours: Intake & Output 11/09/18 11/10/18 11/10/18 22:59 06:59 14:59 Intake Total 1220 Output Total 1 Balance 1219 Lab Results Last 24 Hrs: Laboratory Results - last 24 hr 11/10/18 Range/Units 05:35 Hgb 8.3 L (13.0-17.0) g/dL Hct 26.0 L (38.0-50.0) % Med Orders - Current: Current Medications Al Hydroxide/Mg Hydroxide (Mag-Al Plus) 30 ml PO Q4H PRN PRN Reason: Indigestion Albuterol (Proventil Neb Soln) 2.5 mg NEB Q6HRRT PRN PRN Reason: Wheezing Atropine Sulfate (Atropine 0.1 Mg/Ml) 0.4 mg IVPUSH Q5M PRN PRN Reason: Bradycardia Bisacodyl (Dulcolax) 10 mg RECTAL DAILY PRN PRN Reason: Constipation Last Admin: 11/10/18 10:13 Dose: 10 mg Carvedilol (Coreg) 3.125 mg PO BID [facility] Last Admin: 11/10/18 08:46 Dose: 3.125 mg Celecoxib (Celebrex) 200 mg PO BID [facility] Last Admin: 11/10/18 08:45 Dose: 200 mg Diphenhydramine HCl (Benadryl) 25 - 50 mg PO Q6H PRN PRN Reason: Itching Docusate Sodium (Colace) 100 mg PO BID PRN PRN Reason: Constipation Enoxaparin Sodium (Lovenox) 30 mg SUBCUT Q12H [facility] Last Admin: 11/10/18 09:02 Dose: 30 mg Famotidine (Pepcid) 40 mg IVPUSH ONARRIVE [facility] Last Admin: 11/08/18 11:49 Dose: 40 mg Famotidine (Pepcid) 40 mg PO DAILY [facility] Last Admin: 11/10/18 08:45 Dose: 40 mg Furosemide (Lasix) 40 mg PO DAILY [facility] Last Admin: 11/10/18 08:46 Dose: 40 mg Hydralazine HCl (Apresoline) 5 mg IVPUSH ONETIME PRN PRN Reason: Hypertension Hydralazine HCl (Apresoline) 10 mg IVPUSH ONETIME PRN PRN Reason: Hypertension Acetaminophen 1,000 mg/ Premix 100 mls @ 400 mls/hr IV ONARRIVE [facility] Last Admin: 11/08/18 11:51 Dose: 400 mls/hr Cefazolin Sodium/Dextrose 2 gm (/ Premix) 50 mls @ 100 mls/hr IV ONCALL [facility] Last Admin: 11/08/18 20:50 Dose: 100 mls/hr Ropivacaine 49.25 ml/Ketorolac Tromethamine 30 mg/Epinephrine HCl 0.5 mg/ Clonidine HCl 80 mcg/ Sodium Chloride 75 mls @ 50 mls/sec INJECT ASDIRECTED [facility] Lactated Ringer's (Ringers, Lactated) 1,000 mls @ 100 mls/hr IV ASDIRECTED [facility] Last Admin: 11/09/18 05:15 Dose: 100 mls/hr Tranexamic Acid 2,000 mg/ (Sodium Chloride) 120 mls @ 600 mls/hr IV ASDIRECTED [facility] Losartan Potassium (Cozaar) 25 mg PO DAILY [facility] Last Admin: 11/10/18 08:47 Dose: 25 mg Meperidine HCl (Demerol) 12.5 mg IVPUSH ONETIME PRN PRN Reason: Shivering Meperidine HCl (Demerol) 25 mg IV ONETIME PRN PRN Reason: Shivering Metoclopramide HCl (Reglan) 10 mg IVPUSH ONETIME PRN PRN Reason: Nausea Morphine Sulfate (Morphine) 1 - 3 mg IVPUSH Q3H PRN PRN Reason: Pain Morphine Sulfate (Morphine Sulfate) 4 mg IV Q10M PRN PRN Reason: Pain (severe 7-10) Naloxone HCl (Narcan) 0.1 mg IVPUSH ONETIME PRN PRN Reason: Respiratory Depression Ondansetron HCl (Zofran) 8 mg IVPUSH ONETIME PRN PRN Reason: Nausea Ondansetron HCl (Zofran) 4 mg IVPUSH Q6H PRN PRN Reason: Nausea/Vomiting Last Admin: 11/09/18 10:44 Dose: 4 mg Oxycodone/Acetaminophen (Percocet 325-5 Mg) 1 - 2 tab PO Q4H PRN PRN Reason: Pain Last Admin: 11/09/18 22:57 Dose: 2 tab Polyethylene Glycol (Miralax) 17 gm PO DAILY [facility] Last Admin: 11/10/18 09:02 Dose: 17 gm Promethazine HCl (Phenergan) 12.5 mg IM ONETIME PRN PRN Reason: Nausea Scopolamine (Transderm-Scop) 1.5 mg TRDERM ONARRIVE [facility] Last Admin: 11/08/18 11:49 Dose: 1.5 mg Scopolamine (Transderm-Scop) 1.5 mg TRDERM Q72H PRN PRN Reason: Nausea Sodium Chloride (Saline Flush) 10 ml FLUSH ASDIRECTED PRN PRN Reason: Keep Vein Open Sodium Chloride (Saline Flush) 2.5 ml FLUSH ASDIRECTED PRN PRN Reason: Keep Vein Open Warfarin Sodium (Coumadin) 4 mg PO DAILY [facility] Last Admin: 11/10/18 08:45 Dose: 4 mg Discontinued Medications Hydrocodone Bitart/Acetaminophen ([place] 325-5 Mg) 2 tab PO Q6H PRN PRN Reason: Pain (moderate 4-6) Carvedilol (Coreg) Confirm Administered Dose 3.125 mg .ROUTE .STK-MED ONE Stop: 11/10/18 09:18 Last Admin: 11/10/18 09:44 Dose: Not Given Dexamethasone (Dexamethasone) Confirm Administered Dose 20 mg .ROUTE .STK-MED ONE Stop: 11/08/18 13:11 Enoxaparin Sodium (Lovenox) 40 mg SUBCUT Q24H [facility] Last Admin: 11/09/18 10:46 Dose: 40 mg Fentanyl (Sublimaze) Confirm Administered Dose 100 mcg .ROUTE .STK-MED ONE Stop: 11/08/18 13:11 Fentanyl (Sublimaze) 50 mcg IVPUSH Q5M PRN PRN Reason: Pain (severe 7-10) Stop: 11/09/18 14:03 Glycopyrrolate (Robinul) 0.2 mg IVPUSH ONETIME ONE Stop: 11/08/18 15:46 Last Admin: 11/08/18 15:47 Dose: 0.2 mg Glycopyrrolate (Robinul) Confirm Administered Dose 0.2 mg .ROUTE .STK-MED ONE Stop: 11/08/18 15:46 Last Admin: 11/08/18 18:03 Dose: Not Given Hydromorphone HCl (Dilaudid) 0.25 mg IVPUSH Q10M PRN PRN Reason: Pain (severe 7-10) Stop: 11/09/18 14:03 Acetaminophen 1,000 mg/ Premix 100 mls @ 400 mls/hr IV Q6H [facility] Stop: 11/09/18 06:14 Last Admin: 11/09/18 05:05 Dose: 400 mls/hr Cefazolin Sodium/Dextrose 2 gm (/ Premix) 50 mls @ 100 mls/hr IV Q8H [facility] Stop: 11/09/18 05:59 Last Admin: 11/09/18 05:07 Dose: 100 mls/hr Ketorolac Tromethamine (Toradol) Confirm Administered Dose 30 mg .ROUTE .STK- MED ONE Stop: 11/08/18 13:11 Labetalol HCl (Normodyne) 10 mg IVPUSH Q6H PRN PRN Reason: Hypertension Stop: 11/09/18 14:03 Lidocaine (Xylocaine-Mpf 2%) Confirm Administered Dose 5 ml .ROUTE .STK-MED ONE Stop: 11/08/18 13:11 Midazolam HCl (Versed 1 Mg/Ml) Confirm Administered Dose 2 mg .ROUTE .STK-MED ONE Stop: 11/08/18 13:11 Morphine Sulfate (Morphine) 4 mg IVPUSH Q10M PRN PRN Reason: Pain (severe 7-10) Stop: 11/09/18 14:03 Morphine Sulfate (Morphine Principal Research Economist 30 Mg In 30 Ml) 30 mg IV ASDIRECTED PRN; Protocol PRN Reason: Pain Stop: 11/09/18 06:00 Ondansetron HCl (Zofran) Confirm Administered Dose 8 mg .ROUTE .STK-MED ONE Stop: 11/08/18 13:11 Oxycodone HCl (Oxycodone) 5 - 10 mg PO Q4H PRN PRN Reason: Pain Stop: 11/09/18 06:00 Last Admin: 11/08/18 18:07 Dose: 5 mg Propofol (Diprivan 20 Ml) Confirm Administered Dose 600 mg .ROUTE .STK-MED ONE Stop: 11/08/18 13:21 Propofol (Diprivan 20 Ml) Confirm Administered Dose 200 mg .ROUTE .STK-MED ONE Stop: 11/08/18 13:55 Tranexamic Acid (Cyklokapron) Confirm Administered Dose 2,000 mg .ROUTE .STK- MED ONE Stop: 11/08/18 07:55 - My Orders Last 24 Hours: Active Orders 24 hr Category Date Time Status Enoxaparin [Lovenox] Med 11/10/18 09:00 Active 30 mg SUBCUT Q12H Medication Orders Al Hydroxide/Mg Hydroxide (Mag-Al Plus) 30 ml PO Q4H PRN PRN Reason: Indigestion Albuterol (Proventil Neb Soln) 2.5 mg NEB Q6HRRT PRN PRN Reason: Wheezing Atropine Sulfate (Atropine 0.1 Mg/Ml) 0.4 mg IVPUSH Q5M PRN PRN Reason: Bradycardia Bisacodyl (Dulcolax) 10 mg RECTAL DAILY PRN PRN Reason: Constipation Last Admin: 11/10/18 10:13 Dose: 10 mg Carvedilol (Coreg) 3.125 mg PO BID [place] Last Admin: 11/10/18 08:46 Dose: 3.125 mg Admin: 11/09/18 20:59 Dose: 3.125 mg Admin: 11/09/18 09:23 Dose: 3.125 mg Admin: 11/08/18 20:48 Dose: Not Given Celecoxib (Celebrex) 200 mg PO BID [facility] Last Admin: 11/10/18 08:45 Dose: 200 mg Admin: 11/09/18 20:58 Dose: 200 mg Admin: 11/09/18 09:23 Dose: 200 mg Diphenhydramine HCl (Benadryl) 25 - 50 mg PO Q6H PRN PRN Reason: Itching Docusate Sodium (Colace) 100 mg PO BID PRN PRN Reason: Constipation Enoxaparin Sodium (Lovenox) 30 mg SUBCUT Q12H [facility] Last Admin: 11/10/18 09:02 Dose: 30 mg Famotidine (Pepcid) 40 mg IVPUSH ONARRIVE [facility] Last Admin: 11/08/18 11:49 Dose: 40 mg Famotidine (Pepcid) 40 mg PO DAILY [facility] Last Admin: 11/10/18 08:45 Dose: 40 mg Admin: 11/09/18 09:30 Dose: 40 mg Furosemide (Lasix) 40 mg PO DAILY [facility] Last Admin: 11/10/18 08:46 Dose: 40 mg Admin: 11/09/18 09:29 Dose: 40 mg Hydralazine HCl (Apresoline) 5 mg IVPUSH ONETIME PRN PRN Reason: Hypertension Hydralazine HCl (Apresoline) 10 mg IVPUSH ONETIME PRN PRN Reason: Hypertension Acetaminophen 1,000 mg/ Premix 100 mls @ 400 mls/hr IV ONARRIVE [facility] Last Admin: 11/08/18 11:51 Dose: 400 mls/hr Cefazolin Sodium/Dextrose 2 gm (/ Premix) 50 mls @ 100 mls/hr IV ONCALL [facility] Last Admin: 11/08/18 20:50 Dose: 100 mls/hr Ropivacaine 49.25 ml/Ketorolac Tromethamine 30 mg/Epinephrine HCl 0.5 mg/ Clonidine HCl 80 mcg/ Sodium Chloride 75 mls @ 50 mls/sec INJECT ASDIRECTED [facility] Lactated Ringer's (Ringers, Lactated) 1,000 mls @ 100 mls/hr IV ASDIRECTED [facility] Last Admin: 11/09/18 05:15 Dose: 100 mls/hr Infusion: 11/09/18 02:55 Dose: 100 mls/hr Admin: 11/08/18 16:55 Dose: 100 mls/hr Infusion: 11/08/18 16:55 Dose: 100 mls/hr Admin: 11/08/18 11:48 Dose: 100 mls/hr Tranexamic Acid 2,000 mg/ (Sodium Chloride) 120 mls @ 600 mls/hr IV ASDIRECTED [facility] Losartan Potassium (Cozaar) 25 mg PO DAILY [facility] Last Admin: 11/10/18 08:47 Dose: 25 mg Admin: 11/09/18 09:31 Dose: 25 mg Meperidine HCl (Demerol) 12.5 mg IVPUSH ONETIME PRN PRN Reason: Shivering Meperidine HCl (Demerol) 25 mg IV ONETIME PRN PRN Reason: Shivering Metoclopramide HCl (Reglan) 10 mg IVPUSH ONETIME PRN PRN Reason: Nausea Morphine Sulfate (Morphine) 1 - 3 mg IVPUSH Q3H PRN PRN Reason: Pain Morphine Sulfate (Morphine Sulfate) 4 mg IV Q10M PRN PRN Reason: Pain (severe 7-10) Naloxone HCl (Narcan) 0.1 mg IVPUSH ONETIME PRN PRN Reason: Respiratory Depression Ondansetron HCl (Zofran) 8 mg IVPUSH ONETIME PRN PRN Reason: Nausea Ondansetron HCl (Zofran) 4 mg IVPUSH Q6H PRN PRN Reason: Nausea/Vomiting Last Admin: 11/09/18 10:44 Dose: 4 mg Oxycodone/Acetaminophen (Percocet 325-5 Mg) 1 - 2 tab PO Q4H PRN PRN Reason: Pain Last Admin: 11/09/18 22:57 Dose: 2 tab Admin: 11/09/18 19:05 Dose: 2 tab Admin: 11/09/18 16:03 Dose: 1 tab Admin: 11/09/18 10:44 Dose: 1 tab Polyethylene Glycol (Miralax) 17 gm PO DAILY [facility] Last Admin: 11/10/18 09:02 Dose: 17 gm Admin: 11/09/18 09:21 Dose: 17 gm Promethazine HCl (Phenergan) 12.5 mg IM ONETIME PRN PRN Reason: Nausea Scopolamine (Transderm-Scop) 1.5 mg TRDERM ONARRIVE [facility] Last Admin: 11/08/18 11:49 Dose: 1.5 mg Scopolamine (Transderm-Scop) 1.5 mg TRDERM Q72H PRN PRN Reason: Nausea Sodium Chloride (Saline Flush) 10 ml FLUSH ASDIRECTED PRN PRN Reason: Keep Vein Open Sodium Chloride (Saline Flush) 2.5 ml FLUSH ASDIRECTED PRN PRN Reason: Keep Vein Open Warfarin Sodium (Coumadin) 4 mg PO DAILY [facility] Last Admin: 11/10/18 08:45 Dose: 4 mg Admin: 11/09/18 09:27 Dose: 4 mg - Plan Plan (Free Text/Narrative):: 1030 Patient seen and examined. Agree with the above note. He states that his abdominal pain has improved. He is passing gas, however has not had a bowel movement. He has been given a suppository. He continues to progress with physical therapy. His pain has been well-controlled. His hemoglobin is low, however he remains asymptomatic. Dressing on the right knee was removed. Incision site is clean and well-healed. He has a moderate joint effusion. He has no calf tenderness. AT/EHL/gastroc 5/ 5. Sensation grossly intact. DP/PT pulses 2+. At this time the patient continues to improve. Will continue to observe his abdomen. If he is doing well later today, we will plan on discharging home. He is to continue with outpatient physical therapy. He is advised to return to clinic or call if he has questions or concerns. [email or web address]
== END 2018-11-10 16:40 | disposition home or self-care (01) | DRG 470 ==
LOC: MW.SDS 11:25 → MW.MS 14:44
PROVIDERS: ADMIT Orthopaedic Surgery; ATTEND Orthopaedic Surgery
PROC: 0SRC0J9 Replacement of Right Knee Joint with Synthetic Substitute, Cemented, Open Approach (ICD-10-PCS; principal; 2018-11-08)
DX: M17.11 Unilateral primary osteoarthritis, right knee (principal); D62 Acute posthemorrhagic anemia; I42.9 Cardiomyopathy, unspecified; M21.161 Varus deformity, not elsewhere classified, right knee; M94.261 Chondromalacia, right knee; I10 Essential (primary) hypertension; M25.761 Osteophyte, right knee; I48.91 Unspecified atrial fibrillation; K21.9 Gastro-esophageal reflux disease without esophagitis; N32.81 Overactive bladder; R00.1 Bradycardia, unspecified; H91.90 Unspecified hearing loss, unspecified ear; I44.0 Atrioventricular block, first degree; K59.00 Constipation, unspecified; Z79.01 Long term (current) use of anticoagulants; Z79.899 Other long term (current) drug therapy
CPT/HCPCS: 27447; 36415; 86850; 86900; 86901; A9270; C1713; C1776 ×5; J0131; J0171; J0735; J1100; J1885 ×2; J2001; J2250; J2405; J2704 ×2; J2795; J3010; J3490; J7050; J7120; 73560-26-RT; 73560-RT; 80048; 83735; 85014; 85018; 97110-GP; 97161-GP; 97530-GP; J0690; J1650

== ENCOUNTER 2020-06-15 19:40 | Emergency (ER) | payer MEDICARE, BC, OTHER ==
--- NOTE | 2020-06-15 19:56 | EDM.PDOC ---
<Robert Johnson - Last Filed: 06/15/20 20:15> ED HPI GENERAL MEDICAL PROBLEM - General Stated Complaint: SICK Time Seen by Provider: 06/15/20 19:45 - Related Data Allergies Allergy/AdvReac Type Severity Reaction Status Date / Time No Known Allergies Allergy Verified 06/15/20 19:48 Home Meds: Home Meds Carvedilol [Coreg] 3.125 mg PO BID #60 tablet 08/27/17 [Rx] Furosemide [Lasix] 40 mg PO DAILY #30 tablet 08/27/17 [Rx] Ascorbic Acid [Vitamin C] 250 mg PO DAILY PRN 12/08/17 [History] Losartan [Cozaar] 25 mg PO DAILY 12/08/17 [History] Warfarin Sodium [Coumadin] 4 mg PO DAILY 12/08/17 [History] Acetaminophen/oxyCODONE [Percocet 325-5 MG] 1 - 2 tab PO Q4H PRN #60 tablet 11/10/18 [Rx] Celecoxib [CeleBREX] 200 mg PO DAILY #30 cap 11/10/18 [Rx] Calcium Carbonate [Calcium] 1 tab PO DAILY 06/15/20 [History] Ferrous Sulfate [Iron] 1 tab PO DAILY 06/15/20 [History] #1 Interpretation EKG Interpretation Comments: EKG: Normal sinus rhythm heart rate of [address]-T wave abnormalities Normal axis No evidence of ST elevation MN As interpreted by ER physician: Elizabeth Departure - Departure Disposition: Home, Self-Care 01 Clinical Impression: Dehydration, COVID-19, Hypocalcemia - Discharge Information Instructions: COVID-19 Referrals: Neptali Ramirez MD [Primary Care Provider] - Additional Instructions: The following information is given to patients seen in the emergency department who are being discharged to home. This information is to outline your options for follow-up care. We provide all patients seen in our emergency department with a follow-up referral. The need for follow-up, as well as the timing and circumstances, are variable depending upon the specifics of your emergency department visit. If you don't have a primary care physician on staff, we will provide you with a referral. We always advise you to contact your personal physician following an emergency department visit to inform them of the circumstance of the visit and for follow-up with them and/or the need for any referrals to a consulting specialist. The emergency department will also refer you to a specialist when appropriate. This referral assures that you have the opportunity for follow-up care with a specialist. All of these measure are taken in an effort to provide you with optimal care, which includes your follow-up. Under all circumstances we always encourage you to contact your private physician who remains a resource for coordinating your care. When calling for follow-up care, please make the office aware that this follow-up is from your recent emergency room visit. If for any reason you are refused follow-up, please contact the [facility] Emergency Department at and asked to speak to the emergency department charge nurse. [facility] Primary [facility] [address] [place] [id number] [facility] [address] [place] [id number] Thank you for choosing the [facility] emergency department in [place] for your medical needs today. It was a pleasure caring for you. Today you were seen in the emergency department for abdominal pain, dehydration, nausea. 1. Your COVID-19 screening is positive. That means you do have the coronavirus and you are considered contagious. Your vital signs and oxygen saturation are well enough that you were able to monitor your symptoms at home. Continue to monitor for trouble breathing, new confusion or inability to arouse, bluish lips or face or any of the other symptoms we discussed -if this occurs please return to the emergency room. 2. Please self quarantine over the next 10 days. Inform any persons that you have been in contact with since you started becoming symptomatic that you have tested positive; they should be made aware and take the appropriate steps as needed. 3. MAKE SURE YOU ARE TAKING YOUR CALCIUM (It was low today). May alternate Tylenol and ibuprofen as needed for pain and fever management. 4. [facility] and following up with you. The [place] COVID 19 Hotline phone number , They are open Thursday - Thursday 7am - 7pm. Follow up with your primary care provider for re-evaluation and re-testing after the 10 day quarantine and discuss when you should be seen. <Marium Rangel E - Last Filed: 06/15/20 21:17> ED HPI GENERAL MEDICAL PROBLEM - General Source of Information: Reports: Patient History Limitations: Reports: No Limitations - History of Present Illness INITIAL COMMENTS - FREE TEXT/NARRATIVE: HISTORY AND PHYSICAL: History of present illness: Patient is a 69-year-old male who presents to the emergency room with complaints of decreased appetite, generalized abdominal pain, nausea and fatigue x5 days. He is concerned that he may be dehydrated as he has low desire to eat or drink. He does have a infrequent cough, generalized abdominal pain and persistent nausea. He also voices concern that he feels he is sleeping too much, stating he feels tired and fatigued. Patient denies any fever, chills, headache, change in vision, syncope or near syncope. Denies any chest pain, back pain, shortness of breath, vomiting, diarrhea, constipation or dysuria. Has not noted any blood in urine or stool. No known exposures to COVID-19. Past medical history of A.Fib, CHG, chronic anemia. Currently on Coumadin daily. See's Dr Neptali Ramirez at [facility]. Review of systems: As per history of present illness and below otherwise all systems reviewed and negative. Past medical history: As per history of present illness and as reviewed below otherwise noncontributory. Surgical history: As per history of present illness and as reviewed below otherwise noncontributory. Social history: See social history for further information Family history: As per history of present illness and as reviewed below otherwise noncontributory. Physical exam: General: Well developed and well nourished. Alert and orientated x 3. Nontoxic in appearance and in no acute distress. Vital signs are stable and have been reviewed by me. Nursing notes were reviewed. HEENT: Atraumatic, normocephalic, pupils equal and reactive bilaterally, negative for conjunctival pallor or scleral icterus, mucous membranes dry/tacky, TMs normal bilaterally, throat clear, neck supple, nontender, trachea midline. No drooling or trismus noted. No meningeal signs. No hot potato voice noted. No tetany. Lungs: Clear to auscultation, breath sounds equal bilaterally, chest nontender. Normal work of breathing, no accessory muscles used. Heart: S1S2, regular rate and rhythm without overt murmur Abdomen: Soft, nondistended, nontender. Negative for masses or hepatosplenomegal y. Negative for costovertebral tenderness. Skin: Intact, warm, dry. No lesions or rashes noted. Hematologic: No petechiae or purpra. Mucosa appropriate color and normal nail bed color and refill. Extremities: Atraumatic, moves all extremities per self without difficulty or deficits, negative for cords or calf pain. No lower extremity edema. Neurovascular unremarkable. Neuro: Awake, alert, oriented. Cranial nerves II through XII unremarkable. Cerebellum unremarkable. Motor and sensory unremarkable throughout. Exam nonfocal. Psychiatric: Mood and affect are appropriate. Normal thought process. Answering questions appropriately. Notes: Patient appears dehydrated, his lips are cracked and oral mucosa is dry. Will do basic lab work and give IV fluids. I do not feel he needs any imaging of the abdomen as he has no specific abdominal pain or tenderness. He has not have any change in bowel pattern, nor blood in his stools. Patient had an echocardiogram done 04/03/[address] Lopez (cardiology) which was reviewed. EKG today shows no acute or concerning findings. Today John's H&H is low; but it is noted that he is chronically low. Calcium is low. He reports he does have a history of low calcium and typically takes calcium tablet daily, has not taken it this week due to his low appetite. Chest x-ray is unremarkable. Patient states he feels improved and is hungry and would like to try eating while here. I have spoken with the patient about today's findings, in addition to providing specific details for plan of care. Patient's vital signs remained stable. He states he feels improved. He is aware of his lab values and in need for follow- up with his primary care. Reassessment at the time of disposition demonstrates that the patient is in no acute distress. The patient is stable for discharge, counseling was provided and we discussed in great detail signs and symptoms that would prompt them to return to the Emergency Department. Medication, follow up and supportive care measures were reviewed and discussed. Voices understanding and is agreeable to plan of care. Denies any further questions or concerns at this time. Diagnostics: CBC, CMP, Troponin, EKG, CXR, COVID Therapeutics: NS Prescription: None Impression: COVID-19 Hypocalcemia Dehydration Plan: 1. Your COVID-19 screening is positive. That means you do have the coronavirus and you are considered contagious. Your vital signs and oxygen saturation are well enough that you were able to monitor your symptoms at home. Continue to monitor for trouble breathing, new confusion or inability to arouse, bluish lips or face or any of the other symptoms we discussed -if this occurs please return to the emergency room. 2. Please self quarantine over the next 10 days. Inform any persons that you have been in contact with since you started becoming symptomatic that you have tested positive; they should be made aware and take the appropriate steps as needed. 3. MAKE SURE YOU ARE TAKING YOUR CALCIUM (It was low today). May alternate Tylenol and ibuprofen as needed for pain and fever management. 4. The [facility] department will be calling you and following up with you. The [place] COVID 19 Hotline phone number , They are open Thursday - Thursday 7am - 7pm. Follow up with your primary care provider for re-evaluation and re-testing after the 10 day quarantine and discuss when you should be seen. Definitive disposition and diagnosis as appropriate pending reevaluation and review of above. epigastric pain Pain Score (Numeric/FACES): 5 Past Medical History HEENT History: Reports: Hard of Hearing, Other (See Below) Other HEENT History: wears glasses, has upper and lower dentures Cardiovascular History: Reports: Afib, Arrhythmia, Cardiomyopathy Respiratory History: Reports: None Gastrointestinal History: Reports: GERD Genitourinary History: Reports: BPH Other Genitourinary History: overactive bladder Musculoskeletal History: Reports: None Neurological History: Reports: None Psychiatric History: Reports: None Endocrine/Metabolic History: Reports: None Hematologic History: Reports: Anemia, Anticoagulation Therapy, Blood Transfusion(s) Other Hematologic History: he had 2 blood transfusions as a baby (premature) Immunologic History: Reports: None Oncologic (Cancer) History: Reports: None Dermatologic History: Reports: None - Infectious Disease History Infectious Disease History: Reports: Chicken Pox, Measles, Mumps - Past Surgical History Musculoskeletal Surgical History: Reports: Knee Replacement Social & Family History - Family History Family Medical History: Noncontributory - Caffeine Use Caffeine Use: Reports: Coffee, Soda ED ROS GENERAL - Review of Systems Review Of Systems: Comprehensive ROS is negative, except as noted in HPI. ED EXAM, GENERAL - Physical Exam Exam: See Below (See dictation) Course - Vital Signs Last Recorded V/S: Last Vital Signs Temp 98.7 F 06/15/20 19:53 Pulse 74 06/15/20 21:07 Resp 14 06/15/20 21:07 BP 115/56 L 06/15/20 21:07 Pulse Ox 95 06/15/20 21:07 - Orders/Labs/Meds Orders: Active Orders 24 hr Category Date Time Status EKG Documentation Completion [RC] STAT Care 06/15/20 20:02 Active CORONAVIRUS COVID-19 PCR PHL Stat Lab 06/15/20 20:20 Received Labs: Laboratory Tests 06/15/20 06/15/20 06/15/20 Range/Units 20:20 20:20 20:26 WBC 4.24 (4.0-11.0) K/uL RBC 4.05 L (4.50-5.90) M/uL Hgb 10.5 L (13.0-17.0) g/dL Hct 34.0 L (38.0-50.0) % MCV 84.0 (80.0-98.0) fL MCH 25.9 L (27.0-32.0) pg MCHC 30.9 L (31.0-37.0) g/dL RDW Std Deviation 51.4 (28.0-62.0) fl RDW Coeff of Anita 17 H (11.0-15.0) % Plt Count 135 L (150-400) K/uL MPV 11.70 (7.40-12.00) fL Neut % (Auto) 74.8 (48.0-80.0) % Lymph % (Auto) 16.7 (16.0-40.0) % [place] % (Auto) 8.3 (0.0-15.0) % Eos % (Auto) 0.0 (0.0-7.0) % Baso % (Auto) 0.2 (0.0-1.5) % Neut # (Auto) 3.2 (1.4-5.7) K/uL Lymph # (Auto) 0.7 (0.6-2.4) K/uL [place] # (Auto) 0.4 (0.0-0.8) K/uL Eos # (Auto) 0.0 (0.0-0.7) K/uL Baso # (Auto) 0.0 (0.0-0.1) K/uL Nucleated RBC % 0.0 /100WBC Nucleated RBCs # 0 K/uL INR 1.69 Sodium (136-148) mmol/L Potassium (3.5-5.1) mmol/L Chloride (98-107) mmol/L Carbon Dioxide (21.0-32.0) mmol/L BUN (7.0-18.0) mg/dL Creatinine (0.8-1.3) mg/dL Est Cr Clr Drug Dosing mL/min Estimated GFR (MDRD) ml/min Glucose (74-106) mg/dL Calcium (8.5-10.1) mg/dL Total Bilirubin (0.2-1.0) mg/dL AST (15-37) IU/L ALT (14-63) IU/L Alkaline Phosphatase (46-116) U/L Troponin I (0.000-0.056) ng/mL Total Protein (6.4-8.2) g/dL Albumin (3.4-5.0) g/dL Globulin (2.6-4.0) g/dL Albumin/Globulin Ratio (0.9-1.6) Lipase (73-393) U/L SARS CoV-2 RNA Rapid VALERIY POSITIVE H (NEGATIVE) 06/15/20 Range/Units 20:26 WBC (4.0-11.0) K/uL RBC (4.50-5.90) M/uL Hgb (13.0-17.0) g/dL Hct (38.0-50.0) % MCV (80.0-98.0) fL MCH (27.0-32.0) pg MCHC (31.0-37.0) g/dL RDW Std Deviation (28.0-62.0) fl RDW Coeff of Anita (11.0-15.0) % Plt Count (150-400) K/uL MPV (7.40-12.00) fL Neut % (Auto) (48.0-80.0) % Lymph % (Auto) (16.0-40.0) % [place] % (Auto) (0.0-15.0) % Eos % (Auto) (0.0-7.0) % Baso % (Auto) (0.0-1.5) % Neut # (Auto) (1.4-5.7) K/uL Lymph # (Auto) (0.6-2.4) K/uL [place] # (Auto) (0.0-0.8) K/uL Eos # (Auto) (0.0-0.7) K/uL Baso # (Auto) (0.0-0.1) K/uL Nucleated RBC % /100WBC Nucleated RBCs # K/uL INR Sodium 139 (136-148) mmol/L Potassium 3.8 (3.5-5.1) mmol/L Chloride 101 (98-107) mmol/L Carbon Dioxide 25.9 (21.0-32.0) mmol/L BUN 25 H (7.0-18.0) mg/dL Creatinine 1.4 H (0.8-1.3) mg/dL Est Cr Clr Drug Dosing 52.87 mL/min Estimated GFR (MDRD) 50.5 ml/min Glucose 129 H (74-106) mg/dL Calcium 7.1 L (8.5-10.1) mg/dL Total Bilirubin 0.4 (0.2-1.0) mg/dL AST 22 (15-37) IU/L ALT 22 (14-63) IU/L Alkaline Phosphatase 65 (46-116) U/L Troponin I < 0.050 (0.000-0.056) ng/mL Total Protein 7.3 (6.4-8.2) g/dL Albumin 3.4 (3.4-5.0) g/dL Globulin 3.9 (2.6-4.0) g/dL Albumin/Globulin Ratio 0.9 (0.9-1.6) Lipase 109 (73-393) U/L SARS CoV-2 RNA Rapid VALERIY (NEGATIVE) Meds: Medications Discontinued Medications Generic Name Dose Route Start Last Admin Trade Name Freq PRN Reason Stop Dose Admin Calcium Gluconate 1 gm 06/15/20 21:00 06/15/20 21:06 Calcium Gluconate IV 06/15/20 21:01 Not Given ONETIME ONE Sodium Chloride 1,000 mls @ 999 mls/hr 06/15/20 20:00 06/15/20 20:10 Normal Saline IV 06/15/20 21:00 999 mls/hr STAT ONE Administration Departure - Departure Time of Disposition: 21:14 Sepsis Event Note (ED) - Evaluation Sepsis Screening Result: No Definite Risk - Focused Exam Vital Signs: Vital Signs Temp Pulse Resp BP Pulse Ox 06/15/20 21:07 74 14 115/56 L 95 06/15/20 19:53 98.7 F 78 18 132/71 95 - My Orders Last 24 Hours: My Active Orders 06/15/20 20:02 EKG Documentation Completion [RC] STAT 06/15/20 20:20 CORONAVIRUS COVID-19 PCR PHL Stat - Assessment/Plan Last 24 Hours: My Active Orders 06/15/20 20:02 EKG Documentation Completion [RC] STAT 06/15/20 20:20 CORONAVIRUS COVID-19 PCR PHL Stat
[2020-06-15] MEDS ORDERED: Sodium Chloride 0.9% 1,000 ML IV ONE (20:00)
--- NOTE | 2020-06-15 20:25 | CR ---
INDICATION: cough TECHNIQUE: Chest 1 view. COMPARISON: None. FINDINGS: Cardiovascular and mediastinum: Heart size and vasculature are normal in caliber and appearance. Mediastinum is within normal limits. Lungs and pleural space: Lungs are clear. No sign of infiltrate or mass. No sign of pleural effusion. No pneumothorax. Bones and soft tissues: No significant findings. IMPRESSION: Unremarkable chest. Dictated by: Hua Wild MD @ 06/15/2020 20:25:10 (Electronically Signed)
[2020-06-15 20:54] LABS: BLOOD UREA NITROGEN,BUN 25 mg/dL (7.0-18.0); CARBON DIOXIDE,CO2 25.9 mmol/L (21.0-32.0); CHLORIDE,CL 101 mmol/L (98-107); GLUCOSE RANDOM 129 mg/dL (74-106); LIPASE 109 U/L (73-393); POTASSIUM,K 3.8 mmol/L (3.5-5.1); SODIUM,NA 139 mmol/L (136-148)
[2020-06-15] MEDS ORDERED: Calcium Gluconate 10% 1 GM/10 ML SDV IV ONE (21:00)
== END 2020-06-15 23:00 | disposition home or self-care (01) ==
LOC: MW.ED 19:40
DX: U07.1 COVID-19 (principal); E83.51 Hypocalcemia; E86.0 Dehydration; R63.0 Anorexia; I48.91 Unspecified atrial fibrillation; Z79.01 Long term (current) use of anticoagulants; Z79.899 Other long term (current) drug therapy
CPT/HCPCS: 36415; 71045; 80053; 83690; 84484; 85025; 85610; 93005; 99284; J7030; U0002; 93010; 99283

== ENCOUNTER 2020-06-20 16:07 | Inpatient (IN) | payer MEDICARE, BC, OTHER ==
[2020-06-20] MEDS ORDERED: Sodium Chloride 0.9% 1,000 ML IV ONE (16:22)
--- NOTE | 2020-06-20 16:24 | EDM.PDOC ---
ED HPI GENERAL MEDICAL PROBLEM - General Chief Complaint: Gastrointestinal Problem Stated Complaint: EMS ARRIVAL Time Seen by Provider: 06/20/20 16:16 Source of Information: Reports: Patient History Limitations: Reports: No Limitations - History of Present Illness INITIAL COMMENTS - FREE TEXT/NARRATIVE: HISTORY AND PHYSICAL: History of present illness: Patient is a 69-year-old male who presents to the emergency room with complaints of decreased appetite, nausea, fatigue and dehydration over the past 1 week. He was seen in our emergency room on 06/15/2020 and had a positive COVID-19 screening. During his ER visit he states he felt improved and preferred to be discharged to home rather than admission. He states when he returned home he tried to eat and drink although he "cannot make myself". He has Patient denies any fever, chills, headache, change in vision, syncope or near syncope. Denies any chest pain, back pain, shortness of breath or cough. Denies any abdominal pain, nausea, vomiting, diarrhea, constipation or dysuria. Has not noted any blood in urine or stool. Patient has been eating and drinking appropriately. Past medical history of atrial fibrillation, BPH, cardiomyopathy, GERD, chronic anemia. Currently on Coumadin daily. Review of systems: As per history of present illness and below otherwise all systems reviewed and negative. Past medical history: As per history of present illness and as reviewed below otherwise noncontributory. Surgical history: As per history of present illness and as reviewed below otherwise noncontributory. Social history: See social history for further information Family history: As per history of present illness and as reviewed below otherwise noncontributory. Physical exam: General: Well developed and well nourished. Alert and orientated x 3. Nontoxic in appearance and in no acute distress. Vital signs are stable and have been reviewed by me. Nursing notes were reviewed. HEENT: Atraumatic, normocephalic, pupils equal and reactive bilaterally, negative for conjunctival pallor or scleral icterus, mucous membranes dry/tacky, TMs normal bilaterally, throat clear, neck supple, nontender, trachea midline. No drooling or trismus noted. No meningeal signs. No hot potato voice noted. Lungs: Diminished to auscultation, breath sounds equal bilaterally, chest nontender. Normal work of breathing, no accessory muscles used. Heart: S1S2, regular rate and rhythm without overt murmur Abdomen: Soft, nondistended, nontender. Negative for masses or hepatosplenomegaly. Negative for costovertebral tenderness. Skin: Intact, warm, dry. No lesions or rashes noted. Hematologic: No petechiae or purpra. Mucosa appropriate color and normal nail bed color and refill. Extremities: Atraumatic, moves all extremities per self without difficulty or deficits, negative for cords or calf pain. Neurovascular unremarkable. Neuro: Awake, alert, oriented. Cranial nerves II through XII unremarkable. Cerebellum unremarkable. Motor and sensory unremarkable throughout. Exam nonfocal. Psychiatric: Mood and affect are appropriate. Normal thought process. Answering questions appropriately. Notes: Upon patient arrival by EMS his oxygen saturation is 86% Today's H&H is improved at 11.5 and 37.4 (was 10.5 and 34 on 06/15/2020). Calcium today 6.9 (was 7.1 on 06/15/2020). Chest x-ray shows left lung base that is an opacity suggesting atelectasis or infiltrate. Patient is requiring oxygen, do suggest admission. Patient states he hoped he would be admitted as he feels he is not getting enough fluids and nutrition at home. Dr. Rogers was consulted on this case and he is agreeable to keeping this patient for further care and management Diagnostics: CBC, CMP, Troponin, EKG, CXR, D.Dimer, [employer]: IV fluids, Decadron, Zofran Impression: COVID-19 Hypocalcemia Dehydration Hypoxia Plan: Inpatient admission with telemetry Definitive disposition and diagnosis as appropriate pending reevaluation and review of above. - Related Data Allergies Allergy/AdvReac Type Severity Reaction Status Date / Time No Known Allergies Allergy Verified 06/20/20 16:14 Home Meds: Home Meds Carvedilol [Coreg] 3.125 mg PO BID #60 tablet 08/27/17 [Rx] Furosemide [Lasix] 40 mg PO DAILY #30 tablet 08/27/17 [Rx] Ascorbic Acid [Vitamin C] 250 mg PO DAILY PRN 12/08/17 [History] Losartan [Cozaar] 25 mg PO DAILY 12/08/17 [History] Warfarin Sodium [Coumadin] 4 mg PO DAILY 12/08/17 [History] Acetaminophen/oxyCODONE [Percocet 325-5 MG] 1 - 2 tab PO Q4H PRN #60 tablet 11/10/18 [Rx] Celecoxib [CeleBREX] 200 mg PO DAILY #30 cap 11/10/18 [Rx] Calcium Carbonate [Calcium] 1 tab PO DAILY 06/15/20 [History] Ferrous Sulfate [Iron] 1 tab PO DAILY 06/15/20 [History] Past Medical History HEENT History: Reports: Hard of Hearing, Other (See Below) Other HEENT History: wears glasses, has upper and lower dentures Cardiovascular History: Reports: Afib, Arrhythmia, Cardiomyopathy Respiratory History: Reports: None Gastrointestinal History: Reports: GERD Genitourinary History: Reports: BPH Other Genitourinary History: overactive bladder Musculoskeletal History: Reports: None Neurological History: Reports: None Psychiatric History: Reports: None Endocrine/Metabolic History: Reports: None Hematologic History: Reports: Anemia, Anticoagulation Therapy, Blood Transfusion(s) Other Hematologic History: he had 2 blood transfusions as a baby (premature) Immunologic History: Reports: None Oncologic (Cancer) History: Reports: None Dermatologic History: Reports: None - Infectious Disease History Infectious Disease History: Reports: Chicken Pox - Past Surgical History Head Surgeries/Procedures: Reports: None Musculoskeletal Surgical History: Reports: Knee Replacement Social & Family History - Family History Family Medical History: Noncontributory - Caffeine Use Caffeine Use: Reports: None - Recreational Drug Use Recreational Drug Use: No ED ROS GENERAL - Review of Systems Review Of Systems: Comprehensive ROS is negative, except as noted in HPI. ED EXAM, GI/ABD - Physical Exam Exam: See Below (See dictation) Course - Vital Signs Last Recorded V/S: Last Vital Signs Temp 100.1 F 06/20/20 16:15 Pulse 97 06/20/20 16:15 Resp 18 06/20/20 16:15 BP 146/76 H 06/20/20 16:15 Pulse Ox 96 06/20/20 16:20 - Orders/Labs/Meds Orders: Active Orders 24 hr Category Date Time Status EKG Documentation Completion [RC] STAT Care 06/20/20 16:19 Active Medication Orders Acetaminophen (Tylenol) 650 mg PO Q4H PRN PRN Reason: Pain (Mild 1-3)/fever Albuterol/Ipratropium (Combivent Respimat) 0 gm INH Q6H [place] Carvedilol (Coreg) 3.125 mg PO BID [place] Dexamethasone (Dexamethasone) 6 mg PO DAILY [facility] Ferrous Sulfate (Ferrous Sulfate) 325 mg PO DAILY [facility] Furosemide (Lasix) 40 mg PO DAILY [facility] Heparin Sodium (Porcine) (Heparin Sodium) 5,000 units SUBCUT Q8H [place] Pantoprazole Sodium 40 mg/ (Sodium Chloride) 10 mls @ 300 mls/hr IV DAILY [facility] Remdesivir 100 mg/ Sodium (Chloride) 100 mls @ 100 mls/hr IV Q24H [place] Stop: 06/24/20 18:59 Losartan Potassium (Cozaar) 25 mg PO DAILY [place] Ondansetron HCl (Zofran) 4 mg IVPUSH Q4H PRN PRN Reason: Nausea Labs: Laboratory Tests 06/20/20 06/20/20 06/20/20 Range/Units 16:15 16:15 16:15 WBC 6.92 (4.0-11.0) K/uL RBC 4.50 (4.50-5.90) M/uL Hgb 11.5 L (13.0-17.0) g/dL Hct 37.4 L (38.0-50.0) % MCV 83.1 (80.0-98.0) fL MCH 25.6 L (27.0-32.0) pg MCHC 30.7 L (31.0-37.0) g/dL RDW Std Deviation 51.5 (28.0-62.0) fl RDW Coeff of Anita 17 H (11.0-15.0) % Plt Count 158 (150-400) K/uL MPV 11.20 (7.40-12.00) fL Neut % (Auto) 86.3 H (48.0-80.0) % Lymph % (Auto) 8.5 L (16.0-40.0) % Fisher % (Auto) 5.1 (0.0-15.0) % Eos % (Auto) 0.0 (0.0-7.0) % Baso % (Auto) 0.1 (0.0-1.5) % Neut # (Auto) 6.0 H (1.4-5.7) K/uL Lymph # (Auto) 0.6 (0.6-2.4) K/uL Fisher # (Auto) 0.4 (0.0-0.8) K/uL Eos # (Auto) 0.0 (0.0-0.7) K/uL Baso # (Auto) 0.0 (0.0-0.1) K/uL Nucleated RBC % 0.0 /100WBC Nucleated RBCs # 0 K/uL INR D-Dimer, Quantitative 0.49 (0.0-0.50) mg/L FEU Sodium 142 (136-148) mmol/L Potassium 4.0 (3.5-5.1) mmol/L Chloride 102 (98-107) mmol/L Carbon Dioxide 23.9 (21.0-32.0) mmol/L BUN 26 H (7.0-18.0) mg/dL Creatinine 1.3 (0.8-1.3) mg/dL Est Cr Clr Drug Dosing 58.73 mL/min Estimated GFR (MDRD) 55.1 ml/min Glucose 126 H (74-106) mg/dL Calcium 6.9 L (8.5-10.1) mg/dL Total Bilirubin 0.8 (0.2-1.0) mg/dL AST 60 H (15-37) IU/L ALT 43 (14-63) IU/L Alkaline Phosphatase 80 (46-116) U/L Troponin I < 0.050 (0.000-0.056) ng/mL Total Protein 7.9 (6.4-8.2) g/dL Albumin 3.0 L (3.4-5.0) g/dL Globulin 4.9 H (2.6-4.0) g/dL Albumin/Globulin Ratio 0.6 L (0.9-1.6) 06/20/20 Range/Units 16:15 WBC (4.0-11.0) K/uL RBC (4.50-5.90) M/uL Hgb (13.0-17.0) g/dL Hct (38.0-50.0) % MCV (80.0-98.0) fL MCH (27.0-32.0) pg MCHC (31.0-37.0) g/dL RDW Std Deviation (28.0-62.0) fl RDW Coeff of Anita (11.0-15.0) % Plt Count (150-400) K/uL MPV (7.40-12.00) fL Neut % (Auto) (48.0-80.0) % Lymph % (Auto) (16.0-40.0) % Fisher % (Auto) (0.0-15.0) % Eos % (Auto) (0.0-7.0) % Baso % (Auto) (0.0-1.5) % Neut # (Auto) (1.4-5.7) K/uL Lymph # (Auto) (0.6-2.4) K/uL Fisher # (Auto) (0.0-0.8) K/uL Eos # (Auto) (0.0-0.7) K/uL Baso # (Auto) (0.0-0.1) K/uL Nucleated RBC % /100WBC Nucleated RBCs # K/uL INR 1.28 D-Dimer, Quantitative (0.0-0.50) mg/L FEU Sodium (136-148) mmol/L Potassium (3.5-5.1) mmol/L Chloride (98-107) mmol/L Carbon Dioxide (21.0-32.0) mmol/L BUN (7.0-18.0) mg/dL Creatinine (0.8-1.3) mg/dL Est Cr Clr Drug Dosing mL/min Estimated GFR (MDRD) ml/min Glucose (74-106) mg/dL Calcium (8.5-10.1) mg/dL Total Bilirubin (0.2-1.0) mg/dL AST (15-37) IU/L ALT (14-63) IU/L Alkaline Phosphatase (46-116) U/L Troponin I (0.000-0.056) ng/mL Total Protein (6.4-8.2) g/dL Albumin (3.4-5.0) g/dL Globulin (2.6-4.0) g/dL Albumin/Globulin Ratio (0.9-1.6) Meds: Medications Generic Name Dose Route Start Last Admin Trade Name Freq PRN Reason Stop Dose Admin Acetaminophen 650 mg 06/20/20 17:41 Tylenol PO Q4H PRN Pain (Mild 1-3)/fever Albuterol/Ipratropium 0 gm 06/20/20 18:00 Combivent Respimat INH Q6H [place] Carvedilol 3.125 mg 06/20/20 21:00 Coreg PO BID [facility] Dexamethasone 6 mg 06/21/20 09:00 Dexamethasone PO DAILY [facility] Ferrous Sulfate 325 mg 06/21/20 09:00 Ferrous Sulfate PO DAILY [facility] Furosemide 40 mg 06/21/20 09:00 Lasix PO DAILY [facility] Heparin Sodium (Porcine) 5,000 units 06/20/20 18:30 Heparin Sodium SUBCUT Q8H [facility] Pantoprazole Sodium 40 mg/ 10 mls @ 300 mls/hr 06/20/20 17:45 Sodium Chloride IV DAILY [facility] Remdesivir 100 mg/ Sodium 100 mls @ 100 mls/hr 06/21/20 18:00 Chloride IV 06/24/20 18:59 Q24H [facility] Losartan Potassium 25 mg 06/21/20 09:00 Cozaar PO DAILY [facility] Ondansetron HCl 4 mg 06/20/20 17:41 Zofran IVPUSH Q4H PRN Nausea Discontinued Medications Generic Name Dose Route Start Last Admin Trade Name Freq PRN Reason Stop Dose Admin Dexamethasone 6 mg 06/20/20 16:29 06/20/20 16:42 Dexamethasone PO 06/20/20 16:30 6 mg ONETIME ONE Administration Sodium Chloride 1,000 mls @ 999 mls/hr 06/20/20 16:22 06/20/20 16:42 Normal Saline IV 06/20/20 17:22 999 mls/hr STAT ONE Administration Remdesivir 200 mg/ Sodium 250 mls @ 250 mls/hr 06/20/20 18:08 Chloride IV 06/20/20 18:09 ONETIME ONE Ondansetron HCl 4 mg 06/20/20 16:29 06/20/20 16:43 Zofran IVPUSH 06/20/20 16:30 4 mg ONETIME ONE Administration Warfarin Sodium 1 each 06/20/20 17:50 Coumadin Ask PO 06/20/20 17:51 ONETIME ONE Departure - Departure Time of Disposition: 18:23 Disposition: Admitted As Inpatient 68 Clinical Impression: COVID-19, Dehydration, Hypocalcemia, Hypoxia - Discharge Information Sepsis Event Note (ED) - Evaluation Sepsis Screening Result: No Definite Risk - Focused Exam Vital Signs: Vital Signs Temp Pulse Resp BP Pulse Ox 06/20/20 16:20 96 06/20/20 16:15 100.1 F 97 18 146/76 H 82 L - My Orders Last 24 Hours: My Active Orders 06/20/20 16:19 EKG Documentation Completion [RC] STAT - Assessment/Plan Last 24 Hours: My Active Orders 06/20/20 16:19 EKG Documentation Completion [RC] STAT
[2020-06-20] MEDS ORDERED: Ondansetron 4 MG/2 ML SDV IVPUSH ONE (16:29)
[2020-06-20] MEDS ORDERED: Dexamethasone 4 MG Tab PO ONE (16:29)
[2020-06-20 17:12] LABS: BLOOD UREA NITROGEN,BUN 26 mg/dL (7.0-18.0); CARBON DIOXIDE,CO2 23.9 mmol/L (21.0-32.0); CHLORIDE,CL 102 mmol/L (98-107); GLUCOSE RANDOM 126 mg/dL (74-106); SODIUM,NA 142 mmol/L (136-148)
--- NOTE | 2020-06-20 17:36 | PCM.HP.2 ---
H&P History of Present Illness - General Date of Service: 06/20/20 Admit Problem/Dx: Admission Diagnosis/Problem Admission Diagnosis/Problem Respiratory infection Source of Information: Patient History Limitations: Reports: No Limitations - History of Present Illness Initial Comments - Free Text/Narative: 69-year-old male presents complaining of SOB, fatigue, nausea and feeling dehydrated. He has a PMH of atrial fibrillation on warfarin, CHF, BPH, cardiomyopathy and GERD. Patient tested positive for COVID-19 on 06/15/20. He reports his symptoms gradually worsened since then. He reports not being able to eat very much because of his nausea and decreased appetite. He reports a mild cough but non-productive. He denies having any fevers, chills, sore throat, chest pain, abdominal pain, blood in stool, blood in urine, numbness or tingling in extremities. He reports not taking some of his medications because of his nausea for the past few days. Denies any alcohol, tobacco or illicit drug use. In the ER, CBC and CMP unremarkable. Troponin was negative. D-dimer was normal. COVID-19 test positive. Patient given 1 L IV NS bolus, dexamethasone 6 mg and zofran. Patient admitted for further evaluation and treatment. - Related Data Allergies/Adverse Reactions: Allergies Allergy/AdvReac Type Severity Reaction Status Date / Time No Known Allergies Allergy Verified 06/20/20 16:14 Home Medications: Home Meds Carvedilol [Coreg] 3.125 mg PO BID #60 tablet 08/27/17 [Rx] Furosemide [Lasix] 40 mg PO DAILY #30 tablet 08/27/17 [Rx] Ascorbic Acid [Vitamin C] 250 mg PO DAILY PRN 12/08/17 [History] Losartan [Cozaar] 25 mg PO DAILY 12/08/17 [History] Warfarin Sodium [Coumadin] 4 mg PO DAILY 12/08/17 [History] Acetaminophen/oxyCODONE [Percocet 325-5 MG] 1 - 2 tab PO Q4H PRN #60 tablet 11/10/18 [Rx] Celecoxib [CeleBREX] 200 mg PO DAILY #30 cap 11/10/18 [Rx] Calcium Carbonate [Calcium] 1 tab PO DAILY 06/15/20 [History] Ferrous Sulfate [Iron] 1 tab PO DAILY 06/15/20 [History] Past Medical History HEENT History: Reports: Hard of Hearing, Other (See Below) Other HEENT History: wears glasses, has upper and lower dentures Cardiovascular History: Reports: Afib, Arrhythmia, Cardiomyopathy Respiratory History: Reports: None Gastrointestinal History: Reports: GERD Genitourinary History: Reports: BPH Other Genitourinary History: overactive bladder Musculoskeletal History: Reports: None Neurological History: Reports: None Psychiatric History: Reports: None Endocrine/Metabolic History: Reports: None Hematologic History: Reports: Anemia, Anticoagulation Therapy, Blood Transfus ion(s) Other Hematologic History: he had 2 blood transfusions as a baby (premature) Immunologic History: Reports: None Oncologic (Cancer) History: Reports: None Dermatologic History: Reports: None - Infectious Disease History Infectious Disease History: Reports: Chicken Pox - Past Surgical History Head Surgeries/Procedures: Reports: None Musculoskeletal Surgical History: Reports: Knee Replacement Social & Family History - Family History Family Medical History: Noncontributory - Caffeine Use Caffeine Use: Reports: None - Recreational Drug Use Recreational Drug Use: No H&P Review of Systems - Review of Systems: Review Of Systems: Comprehensive ROS is negative, except as noted in HPI. Exam - Exam Exam: See Below - Vital Signs Vital Signs: Last Vital Signs Temp 37.8 C 06/20/20 16:15 Pulse 97 06/20/20 16:15 Resp 18 06/20/20 16:15 BP 146/76 H 06/20/20 16:15 Pulse Ox 96 06/20/20 16:20 Weight: 90.718 kg - Exam General: Alert, Oriented, Cooperative, Mild Distress, Other (tired appearing) HEENT: Conjunctiva Clear, EOMI, Hearing Intact, Pupils Equal, Pupils Reactive Neck: Supple, Trachea Midline Lungs: Clear to Auscultation, Normal Respiratory Effort Cardiovascular: Regular Rate, Irregular Rhythm GI/Abdominal Exam: Normal Bowel Sounds, Soft, Non-Tender, No Distention Extremities: Normal Inspection, No Pedal Edema Peripheral Pulses: 2+: Radial (L), Radial (R) Skin: Warm, Dry, Intact Neurological: Cranial Nerves Intact, Strength Equal Bilateral, Normal Speech, Normal Tone Neuro Extensive - Mental Status: Alert, Oriented x3, Normal Mood/Affect Psychiatric: Alert, Normal Affect, Normal Mood - Patient Data Lab Results Last 24 hrs: Laboratory Results - last 24 hr 06/20/20 06/20/20 06/20/20 Range/Units 16:15 16:15 16:15 WBC 6.92 (4.0-11.0) K/uL RBC 4.50 (4.50-5.90) M/uL Hgb 11.5 L (13.0-17.0) g/dL Hct 37.4 L (38.0-50.0) % MCV 83.1 (80.0-98.0) fL MCH 25.6 L (27.0-32.0) pg MCHC 30.7 L (31.0-37.0) g/dL RDW Std Deviation 51.5 (28.0-62.0) fl RDW Coeff of Anita 17 H (11.0-15.0) % Plt Count 158 (150-400) K/uL MPV 11.20 (7.40-12.00) fL Neut % (Auto) 86.3 H (48.0-80.0) % Lymph % (Auto) 8.5 L (16.0-40.0) % [place] % (Auto) 5.1 (0.0-15.0) % Eos % (Auto) 0.0 (0.0-7.0) % Baso % (Auto) 0.1 (0.0-1.5) % Neut # (Auto) 6.0 H (1.4-5.7) K/uL Lymph # (Auto) 0.6 (0.6-2.4) K/uL [place] # (Auto) 0.4 (0.0-0.8) K/uL Eos # (Auto) 0.0 (0.0-0.7) K/uL Baso # (Auto) 0.0 (0.0-0.1) K/uL Nucleated RBC % 0.0 /100WBC Nucleated RBCs # 0 K/uL INR D-Dimer, Quantitative 0.49 (0.0-0.50) mg/L FEU Sodium 142 (136-148) mmol/L Potassium 4.0 (3.5-5.1) mmol/L Chloride 102 (98-107) mmol/L Carbon Dioxide 23.9 (21.0-32.0) mmol/L BUN 26 H (7.0-18.0) mg/dL Creatinine 1.3 (0.8-1.3) mg/dL Est Cr Clr Drug Dosing 58.73 mL/min Estimated GFR (MDRD) 55.1 ml/min Glucose 126 H (74-106) mg/dL Calcium 6.9 L (8.5-10.1) mg/dL Total Bilirubin 0.8 (0.2-1.0) mg/dL AST 60 H (15-37) IU/L ALT 43 (14-63) IU/L Alkaline Phosphatase 80 (46-116) U/L Troponin I < 0.050 (0.000-0.056) ng/mL Total Protein 7.9 (6.4-8.2) g/dL Albumin 3.0 L (3.4-5.0) g/dL Globulin 4.9 H (2.6-4.0) g/dL Albumin/Globulin Ratio 0.6 L (0.9-1.6) 06/20/20 Range/Units 16:15 WBC (4.0-11.0) K/uL RBC (4.50-5.90) M/uL Hgb (13.0-17.0) g/dL Hct (38.0-50.0) % MCV (80.0-98.0) fL MCH (27.0-32.0) pg MCHC (31.0-37.0) g/dL RDW Std Deviation (28.0-62.0) fl RDW Coeff of Anita (11.0-15.0) % Plt Count (150-400) K/uL MPV (7.40-12.00) fL Neut % (Auto) (48.0-80.0) % Lymph % (Auto) (16.0-40.0) % [place] % (Auto) (0.0-15.0) % Eos % (Auto) (0.0-7.0) % Baso % (Auto) (0.0-1.5) % Neut # (Auto) (1.4-5.7) K/uL Lymph # (Auto) (0.6-2.4) K/uL [place] # (Auto) (0.0-0.8) K/uL Eos # (Auto) (0.0-0.7) K/uL Baso # (Auto) (0.0-0.1) K/uL Nucleated RBC % /100WBC Nucleated RBCs # K/uL INR 1.28 D-Dimer, Quantitative (0.0-0.50) mg/L FEU Sodium (136-148) mmol/L Potassium (3.5-5.1) mmol/L Chloride (98-107) mmol/L Carbon Dioxide (21.0-32.0) mmol/L BUN (7.0-18.0) mg/dL Creatinine (0.8-1.3) mg/dL Est Cr Clr Drug Dosing mL/min Estimated GFR (MDRD) ml/min Glucose (74-106) mg/dL Calcium (8.5-10.1) mg/dL Total Bilirubin (0.2-1.0) mg/dL AST (15-37) IU/L ALT (14-63) IU/L Alkaline Phosphatase (46-116) U/L Troponin I (0.000-0.056) ng/mL Total Protein (6.4-8.2) g/dL Albumin (3.4-5.0) g/dL Globulin (2.6-4.0) g/dL Albumin/Globulin Ratio (0.9-1.6) Result Diagrams: 06/20/20 16:15 06/20/20 16:15 Sepsis Event Note - Evaluation Sepsis Screening Result: No Definite Risk - Focused Exam Vital Signs: Vital Signs Temp Pulse Resp BP Pulse Ox 06/20/20 16:20 96 06/20/20 16:15 37.8 C 97 18 146/76 H 82 L - Problem List (1) COVID-19 SNOMED Code(s): 552727214 ICD Code: U07.1 - COVID-19 Status: Acute Current Visit: No (2) Hypoxemia SNOMED Code(s): 612811148 ICD Code: R09.02 - HYPOXEMIA Status: Acute Priority: High Current Visit: No (3) History of atrial fibrillation SNOMED Code(s): 602468587 ICD Code: Z86.79 - PERSONAL HISTORY OF OTHER DISEASES OF THE CIRCULATORY SYSTEM Status: Acute Priority: Medium Current Visit: No (4) Chronic anticoagulation SNOMED Code(s): 336486314 ICD Code: Z79.01 - FIRER LOW PRESSURE (CURRENT) USE OF ANTICOAGULANTS Status: Chr onic Priority: High Current Visit: No (5) History of CHF (congestive heart failure) SNOMED Code(s): 248837561 ICD Code: Z86.79 - PERSONAL HISTORY OF OTHER DISEASES OF THE CIRCULATORY SYSTEM Status: Chronic Priority: High Current Visit: No Problem List Initiated/Reviewed/Updated: Yes Orders Last 24hrs: Active Orders 24 hr Category Date Time Status Admission Status [Patient Status] [ADT] Stat ADT 06/20/20 17:10 Active EKG Documentation Completion [RC] STAT Care 06/20/20 16:19 Active Chest 1V Frontal [CR] Stat Exams 06/20/20 16:19 Taken UA RFX JAYE AND CULT IF INDIC [URIN] Stat Lab 06/20/20 16:19 Ordered Assessment/Plan Comment:: Assessment and Plan: 1. Acute hypoxic respiratory failure secondary to COVID-19: - Admit to med/surg. Patient on telemetry. Continue supplemental oxygen to maintain O2 sat > 92%, Combivent q6 [place], dexamethasone 6 mg qd and Remdesivir. - Patient given fact sheet for Remdesivir, risks were explained and patient consented for use. - Patient given fact sheet for convalescent plasma EAU, risks were explained and patient consented for use if need be. 2. Atrial fibrillation with subtherapeutic INR: - Patient on chronic warfarin therapy. Will consult pharmacy for warfarin dosing. Patient on telemetry. 3. Nausea and vomiting: - Zofran prn nausea. Clear liquid diet for now. 4. DVT prophylaxis: - Heparin 5000 units subcut q8h for now until INR closer to therapeutic range. 5. Past medical history of CHF, BPH, cardiomyopathy and GERD: - Continue home medications.
[2020-06-20] MEDS ORDERED: Ondansetron 4 MG/2 ML SDV IVPUSH PRN (17:41)
[2020-06-20] MEDS ORDERED: REMDESIVIR 200 MG in Sodium Chloride 0.9% 250 ML IV ONE (18:08)
--- NOTE | 2020-06-20 18:15 | CR ---
INDICATION: Shortness of breath TECHNIQUE: Portable upright AP view of the chest COMPARISON: AP chest radiograph 06/15/2020 FINDINGS: There is left basilar airspace opacity suggesting atelectasis or infiltrate. The right lung is clear. There is no sizable pleural effusion or pneumothorax. The cardiomediastinal silhouette is stable. The visualized osseous structures are unremarkable. IMPRESSION: Left lung base there is opacity suggesting atelectasis or infiltrate. Correlate clinically. Dictated by Jesse Dorantes MD @ Jun 20 2020 6:15PM Signed by Dr. Jesse Dorantes @ Jun 20 2020 6:15PM
[2020-06-20] MEDS: Pantoprazole 40 MG in Sodium Chloride 0.9% 10 ML IV SCH (19:49)
[2020-06-20] MEDS: Heparin Sodium 5,000 Units/ML Vial SUBCUT SCH (19:50)
[2020-06-20] MEDS: Carvedilol 3.125 MG Tab PO SCH ×2 (19:50→21:29)
[2020-06-20] MEDS: cefTRIAXone 1 GM in Premix Bag 1 BAG IV SCH (21:16)
[2020-06-20] MEDS: Doxycycline 100 MG in Sodium Chloride 0.9% 100 ML IV SCH (22:00)
[2020-06-21] MEDS: Albuterol/Ipratropium 4 GM Inhalation Spray INH SCH ×5 (00:20→17:11)
[2020-06-21] MEDS: Heparin Sodium 5,000 Units/ML Vial SUBCUT SCH (02:04)
--- NOTE | 2020-06-21 04:32 | CR ---
Indication: Shortness of breath, COVID positive Technique: Chest 1 view Comparison: Chest x-ray 06/20/2020 Findings/Impression: Cardiovascular and mediastinum: Normal heart size with atherosclerotic calcification. Lungs and pleural space: Trace left pleural effusion with patchy opacities in the left mid to lower lung, similar to the prior exam. Bones and soft tissues: No acute findings. Dictated by Eliceo Mendoza MD @ Jun 21 2020 4:28AM Signed by Dr. Eliceo Mendoza @ Jun 21 2020 4:31AM
[2020-06-21 05:47] LABS: BLOOD UREA NITROGEN,BUN 26 mg/dL (7.0-18.0); CARBON DIOXIDE,CO2 25.1 mmol/L (21.0-32.0); CHLORIDE,CL 104 mmol/L (98-107); GLUCOSE RANDOM 159 mg/dL (74-106); POTASSIUM,K 4.2 mmol/L (3.5-5.1); SODIUM,NA 139 mmol/L (136-148)
[2020-06-21] MEDS ORDERED: Calcium Carbonate 500 MG Tab.Chew PO ONE (07:18)
--- NOTE | 2020-06-21 08:23 | PCM.PN ---
- General Info Date of Service: 06/21/20 Subjective Update: Patient on 10L high-flow [place] overnight. Reports having SOB and cough this AM. Tolerating oral diet and having bowel movements. - Patient Data Vitals - Most Recent: Last Vital Signs Temp 36.7 C 06/21/20 03:26 Pulse 66 06/21/20 03:26 Resp 18 06/21/20 06:45 BP 110/45 L 06/21/20 03:26 Pulse Ox 93 L 06/21/20 06:45 Weight - Most Recent: 87.226 kg I&O - Last 24 Hours: Intake & Output 06/20/20 06/21/20 06/21/20 22:59 06:59 14:59 Intake Total 1108 Output Total 350 Balance 758 Lab Results Last 24 Hours: Laboratory Results - last 24 hr 06/20/20 06/20/20 06/20/20 Range/Units 16:15 16:15 16:15 WBC 6.92 (4.0-11.0) K/uL RBC 4.50 (4.50-5.90) M/uL Hgb 11.5 L (13.0-17.0) g/dL Hct 37.4 L (38.0-50.0) % MCV 83.1 (80.0-98.0) fL MCH 25.6 L (27.0-32.0) pg MCHC 30.7 L (31.0-37.0) g/dL RDW Std Deviation 51.5 (28.0-62.0) fl RDW Coeff of Anita 17 H (11.0-15.0) % Plt Count 158 (150-400) K/uL MPV 11.20 (7.40-12.00) fL Neut % (Auto) 86.3 H (48.0-80.0) % Lymph % (Auto) 8.5 L (16.0-40.0) % Bonner % (Auto) 5.1 (0.0-15.0) % Eos % (Auto) 0.0 (0.0-7.0) % Baso % (Auto) 0.1 (0.0-1.5) % Neut # (Auto) 6.0 H (1.4-5.7) K/uL Lymph # (Auto) 0.6 (0.6-2.4) K/uL Bonner # (Auto) 0.4 (0.0-0.8) K/uL Eos # (Auto) 0.0 (0.0-0.7) K/uL Baso # (Auto) 0.0 (0.0-0.1) K/uL Nucleated RBC % 0.0 /100WBC Nucleated RBCs # 0 K/uL INR D-Dimer, Quantitative 0.49 (0.0-0.50) mg/L FEU ABG pH (7.35-7.45) ABG pCO2 (35-45) mmHG ABG pO2 (75-100) mmHG ABG HCO3 (22-26) mEq/L ABG Total CO2 ABG Base Excess (-2.0-2.0) Sodium 142 (136-148) mmol/L Potassium 4.0 (3.5-5.1) mmol/L Chloride 102 (98-107) mmol/L Carbon Dioxide 23.9 (21.0-32.0) mmol/L BUN 26 H (7.0-18.0) mg/dL Creatinine 1.3 (0.8-1.3) mg/dL Est Cr Clr Drug Dosing 58.73 mL/min Estimated GFR (MDRD) 55.1 ml/min Glucose 126 H (74-106) mg/dL Calcium 6.9 L (8.5-10.1) mg/dL Phosphorus (2.6-4.7) mg/dL Magnesium (1.8-2.4) mg/dL Total Bilirubin 0.8 (0.2-1.0) mg/dL AST 60 H (15-37) IU/L ALT 43 (14-63) IU/L Alkaline Phosphatase 80 (46-116) U/L Troponin I < 0.050 (0.000-0.056) ng/mL Total Protein 7.9 (6.4-8.2) g/dL Albumin 3.0 L (3.4-5.0) g/dL Globulin 4.9 H (2.6-4.0) g/dL Albumin/Globulin Ratio 0.6 L (0.9-1.6) Urine Color Urine Appearance Urine pH (5.0-8.0) Ur Specific [place] (1.001-1.035) Urine Protein (NEGATIVE) mg/dL Urine Glucose (UA) (NEGATIVE) mg/dL Urine Ketones (NEGATIVE) mg/dL Urine Occult Blood (NEGATIVE) Urine Nitrite (NEGATIVE) Urine Bilirubin (NEGATIVE) Urine Urobilinogen (<2.0) EU/dL Ur Leukocyte Esterase (NEGATIVE) Urine RBC (0-2/HPF) Urine WBC (0-5/HPF) Ur Epithelial Cells (NONE-FEW) Urine Bacteria (NEGATIVE) Blood Type Antibody Screen 06/20/20 06/20/20 06/20/20 Range/Units 16:15 17:55 18:35 WBC (4.0-11.0) K/uL RBC (4.50-5.90) M/uL Hgb (13.0-17.0) g/dL Hct (38.0-50.0) % MCV (80.0-98.0) fL MCH (27.0-32.0) pg MCHC (31.0-37.0) g/dL RDW Std Deviation (28.0-62.0) fl RDW Coeff of Anita (11.0-15.0) % Plt Count (150-400) K/uL MPV (7.40-12.00) fL Neut % (Auto) (48.0-80.0) % Lymph % (Auto) (16.0-40.0) % Bonner % (Auto) (0.0-15.0) % Eos % (Auto) (0.0-7.0) % Baso % (Auto) (0.0-1.5) % Neut # (Auto) (1.4-5.7) K/uL Lymph # (Auto) (0.6-2.4) K/uL Bonner # (Auto) (0.0-0.8) K/uL Eos # (Auto) (0.0-0.7) K/uL Baso # (Auto) (0.0-0.1) K/uL Nucleated RBC % /100WBC Nucleated RBCs # K/uL INR 1.28 D-Dimer, Quantitative (0.0-0.50) mg/L FEU ABG pH (7.35-7.45) ABG pCO2 (35-45) mmHG ABG pO2 (75-100) mmHG ABG HCO3 (22-26) mEq/L ABG Total CO2 ABG Base Excess (-2.0-2.0) Sodium (136-148) mmol/L Potassium (3.5-5.1) mmol/L Chloride (98-107) mmol/L Carbon Dioxide (21.0-32.0) mmol/L BUN (7.0-18.0) mg/dL Creatinine (0.8-1.3) mg/dL Est Cr Clr Drug Dosing mL/min Estimated GFR (MDRD) ml/min Glucose (74-106) mg/dL Calcium (8.5-10.1) mg/dL Phosphorus (2.6-4.7) mg/dL Magnesium (1.8-2.4) mg/dL Total Bilirubin (0.2-1.0) mg/dL AST (15-37) IU/L ALT (14-63) IU/L Alkaline Phosphatase (46-116) U/L Troponin I (0.000-0.056) ng/mL Total Protein (6.4-8.2) g/dL Albumin (3.4-5.0) g/dL Globulin (2.6-4.0) g/dL Albumin/Globulin Ratio (0.9-1.6) Urine Color YELLOW Urine Appearance CLEAR Urine pH 6.0 (5.0-8.0) Ur Specific [place] 1.025 (1.001-1.035) Urine Protein 100 H (NEGATIVE) mg/dL Urine Glucose (UA) NEGATIVE (NEGATIVE) mg/dL Urine Ketones TRACE H (NEGATIVE) mg/dL Urine Occult Blood SMALL H (NEGATIVE) Urine Nitrite NEGATIVE (NEGATIVE) Urine Bilirubin NEGATIVE (NEGATIVE) Urine Urobilinogen 0.2 (<2.0) EU/dL Ur Leukocyte Esterase NEGATIVE (NEGATIVE) Urine RBC 2-3 (0-2/HPF) Urine WBC 0-1 (0-5/HPF) Ur Epithelial Cells RARE (NONE-FEW) Urine Bacteria RARE (NEGATIVE) Blood Type A POSITIVE Antibody Screen NEGATIVE 06/21/20 06/21/20 06/21/20 Range/Units 04:35 05:08 05:08 WBC 5.61 (4.0-11.0) K/uL RBC 3.71 L (4.50-5.90) M/uL Hgb 9.3 L (13.0-17.0) g/dL Hct 30.9 L (38.0-50.0) % MCV 83.3 (80.0-98.0) fL MCH 25.1 L (27.0-32.0) pg MCHC 30.1 L (31.0-37.0) g/dL RDW Std Deviation 50.9 (28.0-62.0) fl RDW Coeff of Anita 17 H (11.0-15.0) % Plt Count 146 L (150-400) K/uL MPV 11.00 (7.40-12.00) fL Neut % (Auto) 87.7 H (48.0-80.0) % Lymph % (Auto) 8.9 L (16.0-40.0) % Bonner % (Auto) 3.4 (0.0-15.0) % Eos % (Auto) 0.0 (0.0-7.0) % Baso % (Auto) 0.0 (0.0-1.5) % Neut # (Auto) 4.9 (1.4-5.7) K/uL Lymph # (Auto) 0.5 L (0.6-2.4) K/uL Bonner # (Auto) 0.2 (0.0-0.8) K/uL Eos # (Auto) 0.0 (0.0-0.7) K/uL Baso # (Auto) 0.0 (0.0-0.1) K/uL Nucleated RBC % 0.0 /100WBC Nucleated RBCs # 0 K/uL INR D-Dimer, Quantitative (0.0-0.50) mg/L FEU ABG pH 7.442 (7.35-7.45) ABG pCO2 32 L (35-45) mmHG ABG pO2 70 L (75-100) mmHG ABG HCO3 22 (22-26) mEq/L ABG Total CO2 20.4 ABG Base Excess -1.8 (-2.0-2.0) Sodium 139 (136-148) mmol/L Potassium 4.2 (3.5-5.1) mmol/L Chloride 104 (98-107) mmol/L Carbon Dioxide 25.1 (21.0-32.0) mmol/L BUN 26 H (7.0-18.0) mg/dL Creatinine 1.2 (0.8-1.3) mg/dL Est Cr Clr Drug Dosing 63.62 mL/min Estimated GFR (MDRD) > 60.0 ml/min Glucose 159 H (74-106) mg/dL Calcium 6.2 L (8.5-10.1) mg/dL Phosphorus 3.9 (2.6-4.7) mg/dL Magnesium 2.4 (1.8-2.4) mg/dL Total Bilirubin 0.5 (0.2-1.0) mg/dL AST 43 H (15-37) IU/L ALT 34 (14-63) IU/L Alkaline Phosphatase 65 (46-116) U/L Troponin I (0.000-0.056) ng/mL Total Protein 6.5 (6.4-8.2) g/dL Albumin 2.5 L (3.4-5.0) g/dL Globulin 4.0 (2.6-4.0) g/dL Albumin/Globulin Ratio 0.6 L (0.9-1.6) Urine Color Urine Appearance Urine pH (5.0-8.0) Ur Specific [place] (1.001-1.035) Urine Protein (NEGATIVE) mg/dL Urine Glucose (UA) (NEGATIVE) mg/dL Urine Ketones (NEGATIVE) mg/dL Urine Occult Blood (NEGATIVE) Urine Nitrite (NEGATIVE) Urine Bilirubin (NEGATIVE) Urine Urobilinogen (<2.0) EU/dL Ur Leukocyte Esterase (NEGATIVE) Urine RBC (0-2/HPF) Urine WBC (0-5/HPF) Ur Epithelial Cells (NONE-FEW) Urine Bacteria (NEGATIVE) Blood Type Antibody Screen 06/21/20 Range/Units 05:08 WBC (4.0-11.0) K/uL RBC (4.50-5.90) M/uL Hgb (13.0-17.0) g/dL Hct (38.0-50.0) % MCV (80.0-98.0) fL MCH (27.0-32.0) pg MCHC (31.0-37.0) g/dL RDW Std Deviation (28.0-62.0) fl RDW Coeff of Anita (11.0-15.0) % Plt Count (150-400) K/uL MPV (7.40-12.00) fL Neut % (Auto) (48.0-80.0) % Lymph % (Auto) (16.0-40.0) % Bonner % (Auto) (0.0-15.0) % Eos % (Auto) (0.0-7.0) % Baso % (Auto) (0.0-1.5) % Neut # (Auto) (1.4-5.7) K/uL Lymph # (Auto) (0.6-2.4) K/uL Bonner # (Auto) (0.0-0.8) K/uL Eos # (Auto) (0.0-0.7) K/uL Baso # (Auto) (0.0-0.1) K/uL Nucleated RBC % /100WBC Nucleated RBCs # K/uL INR 1.28 D-Dimer, Quantitative (0.0-0.50) mg/L FEU ABG pH (7.35-7.45) ABG pCO2 (35-45) mmHG ABG pO2 (75-100) mmHG ABG HCO3 (22-26) mEq/L ABG Total CO2 ABG Base Excess (-2.0-2.0) Sodium (136-148) mmol/L Potassium (3.5-5.1) mmol/L Chloride (98-107) mmol/L Carbon Dioxide (21.0-32.0) mmol/L BUN (7.0-18.0) mg/dL Creatinine (0.8-1.3) mg/dL Est Cr Clr Drug Dosing mL/min Estimated GFR (MDRD) ml/min Glucose (74-106) mg/dL Calcium (8.5-10.1) mg/dL Phosphorus (2.6-4.7) mg/dL Magnesium (1.8-2.4) mg/dL Total Bilirubin (0.2-1.0) mg/dL AST (15-37) IU/L ALT (14-63) IU/L Alkaline Phosphatase (46-116) U/L Troponin I (0.000-0.056) ng/mL Total Protein (6.4-8.2) g/dL Albumin (3.4-5.0) g/dL Globulin (2.6-4.0) g/dL Albumin/Globulin Ratio (0.9-1.6) Urine Color Urine Appearance Urine pH (5.0-8.0) Ur Specific [place] (1.001-1.035) Urine Protein (NEGATIVE) mg/dL Urine Glucose (UA) (NEGATIVE) mg/dL Urine Ketones (NEGATIVE) mg/dL Urine Occult Blood (NEGATIVE) Urine Nitrite (NEGATIVE) Urine Bilirubin (NEGATIVE) Urine Urobilinogen (<2.0) EU/dL Ur Leukocyte Esterase (NEGATIVE) Urine RBC (0-2/HPF) Urine WBC (0-5/HPF) Ur Epithelial Cells (NONE-FEW) Urine Bacteria (NEGATIVE) Blood Type Antibody Screen Med Orders - Current: Current Medications Acetaminophen (Tylenol) 650 mg PO Q4H PRN PRN Reason: Pain (Mild 1-3)/fever Albuterol/Ipratropium (Combivent Respimat) 0 gm INH Q6H [facility] Last Admin: 06/21/20 06:10 Dose: 1 puff Documented by: Benzonatate (Tessalon Perles) 100 mg PO TID PRN PRN Reason: Cough Carvedilol (Coreg) 3.125 mg PO BID [facility] Last Admin: 06/20/20 21:29 Dose: Not Given Documented by: Dexamethasone (Dexamethasone) 6 mg PO DAILY [facility] Enoxaparin Sodium (Lovenox) 40 mg SUBCUT Q24H [facility] Ferrous Sulfate (Ferrous Sulfate) 325 mg PO DAILY [facility] Furosemide (Lasix) 40 mg PO DAILY [facility] Pantoprazole Sodium 40 mg/ (Sodium Chloride) 10 mls @ 300 mls/hr IV DAILY [facility] Last Admin: 06/20/20 19:49 Dose: 300 mls/hr Documented by: Remdesivir 100 mg/ Sodium (Chloride) 100 mls @ 100 mls/hr IV Q24H [facility] Stop: 06/24/20 18:59 Ceftriaxone Sodium/Dextrose 1 (gm/ Premix) 50 mls @ 100 mls/hr IV Q24H [facility] Last Admin: 06/20/20 21:16 Dose: 100 mls/hr Documented by: Doxycycline Hyclate 100 mg/ (Sodium Chloride) 100 mls @ 100 mls/hr IV Q12H [facility] Last Admin: 06/20/20 22:00 Dose: 100 mls/hr Documented by: Losartan Potassium (Cozaar) 25 mg PO DAILY [facility] Ondansetron HCl (Zofran) 4 mg IVPUSH Q4H PRN PRN Reason: Nausea Warfarin Sodium (Coumadin Ask) 1 each PO DAILY@1400 [place] Warfarin Sodium (Coumadin) 6 mg PO 06/21/20@1400 [place] Stop: 06/21/20 14:01 Discontinued Medications Calcium Carbonate/Glycine (Tums) 1,000 mg PO ONETIME ONE Stop: 06/21/20 07:19 Dexamethasone (Dexamethasone) 6 mg PO ONETIME ONE Stop: 06/20/20 16:30 Last Admin: 06/20/20 16:42 Dose: 6 mg Documented by: Heparin Sodium (Porcine) (Heparin Sodium) 5,000 units SUBCUT Q8H [place] Last Admin: 06/21/20 02:04 Dose: 5,000 units Documented by: Sodium Chloride (Normal Saline) 1,000 mls @ 999 mls/hr IV STAT ONE Stop: 06/20/20 17:22 Last Admin: 06/20/20 16:42 Dose: 999 mls/hr Documented by: Remdesivir 200 mg/ Sodium (Chloride) 250 mls @ 250 mls/hr IV ONETIME ONE Stop: 06/20/20 18:09 Last Admin: 06/20/20 19:51 Dose: 250 mls/hr Documented by: Ondansetron HCl (Zofran) 4 mg IVPUSH ONETIME ONE Stop: 06/20/20 16:30 Last Admin: 06/20/20 16:43 Dose: 4 mg Documented by: Warfarin Sodium (Coumadin Ask) 1 each PO ONETIME ONE Stop: 06/20/20 17:51 Last Admin: 06/21/20 02:29 Dose: Not Given Documented by: - Exam General: Alert, Oriented, Cooperative, Mild Distress Lungs: Normal Respiratory Effort, Other (rales in bases b/l) Cardiovascular: Regular Rate, Irregular Rhythm GI/Abdominal Exam: Normal Bowel Sounds, Soft, Non-Tender, No Distention Extremities: Normal Inspection, No Pedal Edema Sepsis Event Note - Evaluation Sepsis Screening Result: No Definite Risk - Focused Exam Vital Signs: Vital Signs Temp Temp Pulse Resp BP Pulse Ox 06/21/20 06:45 18 93 L 06/21/20 05:19 20 91 L 06/21/20 04:15 20 94 L 06/21/20 04:00 20 95 06/21/20 03:45 22 H 89 L 06/21/20 03:26 36.7 C 66 22 H 110/45 L 80 L 06/21/20 03:01 36.8 C 66 22 H 110/45 L 80 L 06/21/20 02:01 37.0 C 66 18 101/83 90 L 06/21/20 00:41 36.8 C 60 18 115/60 94 L 06/21/20 00:26 36.4 C 64 19 117/63 93 L - Problem List & Annotations (1) COVID-19 SNOMED Code(s): 888071356 Code(s): U07.1 - COVID-19 Status: Acute Current Visit: Yes (2) Hypoxemia SNOMED Code(s): 417951475 Code(s): R09.02 - HYPOXEMIA Status: Acute Priority: High Current Visit: No (3) History of atrial fibrillation SNOMED Code(s): 225887336 Code(s): Z86.79 - PERSONAL HISTORY OF OTHER DISEASES OF THE CIRCULATORY SYSTEM Status: Acute Priority: Medium Current Visit: No (4) Chronic anticoagulation SNOMED Code(s): 671273580 Code(s): Z79.01 - CAREER SERVICES OFFICER (CURRENT) USE OF ANTICOAGULANTS Status: Chronic Priority: High Current Visit: No (5) History of CHF (congestive heart failure) SNOMED Code(s): 547243038 Code(s): Z86.79 - PERSONAL HISTORY OF OTHER DISEASES OF THE CIRCULATORY SYSTEM Status: Chronic Priority: High Current Visit: No - Problem List Review Problem List Initiated/Reviewed/Updated: Yes - My Orders Last 24 Hours: My Active Orders 06/20/20 Dinner Low Salt [Sodium Restricted Diet] [DIET] Soft Diet [DIET] 06/20/20 17:41 Oxygen Therapy [RC] PRN Up ad Мария [RC] ASDIRECTED VTE/DVT Education [RC] PER UNIT ROUTINE Vital Signs [RC] Q4H Acetaminophen [TylenoL] 650 mg PO Q4H PRN Ondansetron [Zofran] 4 mg IVPUSH Q4H PRN Resuscitation Status Routine 06/20/20 17:42 Antiembolic Devices [RC] PER UNIT ROUTINE Sequential Compression Device [OM.PC] Per Unit Routine 06/20/20 17:43 RT Post Treatment Assessment [RC] Click to Edit RT Pre-Treatment Assessment [RC] Click to Edit 06/20/20 17:44 RT Incentive Spirometry [RC] ASDIRECTED 06/20/20 17:45 Pantoprazole [ProTONIX IV] 40 mg Sodium Chloride 0.9% [Normal Saline] 10 ml IV DAILY 06/20/20 18:00 Albuterol/Ipratropium [Combivent Respimat] See Dose Instructions INH Q6H 06/20/20 18:35 FRESH FROZEN PLASMA [BBK] Routine TYPE AND SCREEN [BBK] Routine 06/20/20 19:10 Transfuse Fresh Frozen Plasma [COMM] Routine 06/20/20 20:00 cefTRIAXone [Rocephin in Dextrose,Iso-Osm 1 GM/50 ML] 1 gm Premix Bag 1 bag IV Q24H 06/20/20 21:00 Doxycycline [Vibramycin] 100 mg Sodium Chloride 0.9% [Normal Saline] 100 ml IV Q12H carvediloL [Coreg] 3.125 mg PO BID 06/21/20 07:19 Intake and Output Strict [RC] ASDIRECTED 06/21/20 08:07 Benzonatate [Tessalon Perles] 100 mg PO TID PRN 06/21/20 09:00 Enoxaparin [Lovenox] 40 mg SUBCUT Q24H Ferrous Sulfate 325 mg PO DAILY Furosemide [Lasix] 40 mg PO DAILY Losartan [Cozaar] 25 mg PO DAILY dexAMETHasone 6 mg PO DAILY 06/21/20 18:00 Remdesivir (Eua) [Remdesivir (EUA)] 100 mg Sodium Chloride 0.9% [Normal Saline] 100 ml IV Q24H 06/22/20 05:11 INR,PT,PROTHROMBIN TIME [COAG] DAILY 06/23/20 05:11 INR,PT,PROTHROMBIN TIME [COAG] DAILY 06/24/20 05:11 INR,PT,PROTHROMBIN TIME [COAG] DAILY 06/25/20 05:11 INR,PT,PROTHROMBIN TIME [COAG] DAILY - Plan Plan:: Assessment and Plan: 1. Acute hypoxic respiratory failure secondary to COVID-19: - Continue supplemental oxygen to maintain O2 sat > 92%, Combivent q6 [place], dexamethasone 6 mg qd and Remdesivir. Patient on Rocephin and doxycycline. Transfused 1 unit of convalescent plasma yesterday and will transfuse additional 1 unit today. - CXR showed LLL infiltrate. - Patient given fact sheet for Remdesivir, risks were explained and patient consented for treatment. - Patient given fact sheet for convalescent plasma EAU, risks were explained and patient consented for treatment. 2. Atrial fibrillation with subtherapeutic INR: - Patient on telemetry. He is on chronic warfarin therapy. Pharmacy consulted. - Will order ECHO and monitor magnesium and potassium levels. 3. Nausea and vomiting: - Zofran prn nausea. Soft diet for now. 4. DVT prophylaxis: - Heparin 5000 units subcut q8h for now until INR closer to therapeutic range. 5. Past medical history of CHF, BPH, cardiomyopathy and GERD: - Continue home medications.
[2020-06-21] MEDS: Dexamethasone 4 MG Tab PO SCH (09:06)
[2020-06-21] MEDS: Ferrous Sulfate 325 MG Tab PO SCH (09:07)
[2020-06-21] MEDS: Losartan 50 MG Tab PO SCH (09:07)
[2020-06-21] MEDS: Carvedilol 3.125 MG Tab PO SCH ×2 (09:08→21:15)
[2020-06-21] MEDS: Furosemide 40 MG Tab PO SCH (09:08)
[2020-06-21] MEDS: Pantoprazole 40 MG in Sodium Chloride 0.9% 10 ML IV SCH (09:09)
[2020-06-21] MEDS: Enoxaparin 40 MG/0.4 ML Syringe SUBCUT SCH (09:09)
[2020-06-21] MEDS: Benzonatate 100 MG Cap PO PRN ×2 (09:09→21:15)
[2020-06-21] MEDS: Doxycycline 100 MG in Sodium Chloride 0.9% 100 ML IV SCH ×2 (10:40→22:27)
[2020-06-21] MEDS ORDERED: Warfarin 2 MG Tab PO SCH ×2 (14:00→14:45)
[2020-06-21] MEDS: REMDESIVIR 100 MG in Sodium Chloride 0.9% 100 ML IV SCH (18:18)
[2020-06-21] MEDS: cefTRIAXone 1 GM in Premix Bag 1 BAG IV SCH (21:14)
[2020-06-21] MEDS: Acetaminophen 325 MG Tab PO PRN (23:13)
[2020-06-22] MEDS: Albuterol/Ipratropium 4 GM Inhalation Spray INH SCH ×5 (05:13→23:51)
[2020-06-22 07:05] LABS: BLOOD UREA NITROGEN,BUN 32 mg/dL (7.0-18.0); CARBON DIOXIDE,CO2 25.7 mmol/L (21.0-32.0); CHLORIDE,CL 103 mmol/L (98-107); GLUCOSE RANDOM 160 mg/dL (74-106); SODIUM,NA 139 mmol/L (136-148)
[2020-06-22] MEDS ORDERED: Calcium Carbonate 500 MG Tab.Chew PO ONE (07:15)
--- NOTE | 2020-06-22 08:07 | PCM.PN ---
- General Info Date of Service: 06/22/20 Subjective Update: Reports shortness of breath and cough improved. No fevers or chills overnight. Tolerating oral diet. - Patient Data Vitals - Most Recent: Last Vital Signs Temp 36.1 C 06/22/20 03:52 Pulse 63 06/22/20 03:52 Resp 20 06/22/20 03:52 BP 138/76 06/22/20 03:52 Pulse Ox 90 L 06/22/20 03:52 Weight - Most Recent: 87.226 kg I&O - Last 24 Hours: Intake & Output 06/21/20 06/22/20 06/22/20 22:59 06:59 14:59 Intake Total 1342 700 Output Total 550 500 Balance 792 200 Lab Results Last 24 Hours: Laboratory Results - last 24 hr 06/20/20 06/22/20 06/22/20 Range/Units 18:35 06:23 06:23 WBC 7.22 (4.0-11.0) K/uL RBC 3.99 L (4.50-5.90) M/uL Hgb 10.1 L (13.0-17.0) g/dL Hct 33.3 L (38.0-50.0) % MCV 83.5 (80.0-98.0) fL MCH 25.3 L (27.0-32.0) pg MCHC 30.3 L (31.0-37.0) g/dL RDW Std Deviation 50.8 (28.0-62.0) fl RDW Coeff of Aniat 17 H (11.0-15.0) % Plt Count 195 (150-400) K/uL MPV 11.90 (7.40-12.00) fL Neut % (Auto) 82.1 H (48.0-80.0) % Lymph % (Auto) 10.2 L (16.0-40.0) % [place] % (Auto) 7.6 (0.0-15.0) % Eos % (Auto) 0.0 (0.0-7.0) % Baso % (Auto) 0.1 (0.0-1.5) % Neut # (Auto) 5.9 H (1.4-5.7) K/uL Lymph # (Auto) 0.7 (0.6-2.4) K/uL [place] # (Auto) 0.6 (0.0-0.8) K/uL Eos # (Auto) 0.0 (0.0-0.7) K/uL Baso # (Auto) 0.0 (0.0-0.1) K/uL Nucleated RBC % 0.0 /100WBC Nucleated RBCs # 0 K/uL INR 1.39 Sodium (136-148) mmol/L Potassium (3.5-5.1) mmol/L Chloride (98-107) mmol/L Carbon Dioxide (21.0-32.0) mmol/L BUN (7.0-18.0) mg/dL Creatinine (0.8-1.3) mg/dL Est Cr Clr Drug Dosing mL/min Estimated GFR (MDRD) ml/min Glucose (74-106) mg/dL POC Glucose (60-110) mg/dL Calcium (8.5-10.1) mg/dL Phosphorus (2.6-4.7) mg/dL Magnesium (1.8-2.4) mg/dL Total Bilirubin (0.2-1.0) mg/dL AST (15-37) IU/L ALT (14-63) IU/L Alkaline Phosphatase (46-116) U/L Total Protein (6.4-8.2) g/dL Albumin (3.4-5.0) g/dL Globulin (2.6-4.0) g/dL Albumin/Globulin Ratio (0.9-1.6) Blood Type A POSITIVE Antibody Screen NEGATIVE 06/22/20 06/22/20 Range/Units 06:23 06:39 WBC (4.0-11.0) K/uL RBC (4.50-5.90) M/uL Hgb (13.0-17.0) g/dL Hct (38.0-50.0) % MCV (80.0-98.0) fL MCH (27.0-32.0) pg MCHC (31.0-37.0) g/dL RDW Std Deviation (28.0-62.0) fl RDW Coeff of Anita (11.0-15.0) % Plt Count (150-400) K/uL MPV (7.40-12.00) fL Neut % (Auto) (48.0-80.0) % Lymph % (Auto) (16.0-40.0) % [place] % (Auto) (0.0-15.0) % Eos % (Auto) (0.0-7.0) % Baso % (Auto) (0.0-1.5) % Neut # (Auto) (1.4-5.7) K/uL Lymph # (Auto) (0.6-2.4) K/uL [place] # (Auto) (0.0-0.8) K/uL Eos # (Auto) (0.0-0.7) K/uL Baso # (Auto) (0.0-0.1) K/uL Nucleated RBC % /100WBC Nucleated RBCs # K/uL INR Sodium 139 (136-148) mmol/L Potassium 4.0 (3.5-5.1) mmol/L Chloride 103 (98-107) mmol/L Carbon Dioxide 25.7 (21.0-32.0) mmol/L BUN 32 H (7.0-18.0) mg/dL Creatinine 1.2 (0.8-1.3) mg/dL Est Cr Clr Drug Dosing 63.62 mL/min Estimated GFR (MDRD) > 60.0 ml/min Glucose 160 H (74-106) mg/dL POC Glucose 181 H (60-110) mg/dL Calcium 6.3 L (8.5-10.1) mg/dL Phosphorus 3.9 (2.6-4.7) mg/dL Magnesium 2.4 (1.8-2.4) mg/dL Total Bilirubin 0.5 (0.2-1.0) mg/dL AST 37 (15-37) IU/L ALT 34 (14-63) IU/L Alkaline Phosphatase 62 (46-116) U/L Total Protein 6.7 (6.4-8.2) g/dL Albumin 2.5 L (3.4-5.0) g/dL Globulin 4.2 H (2.6-4.0) g/dL Albumin/Globulin Ratio 0.6 L (0.9-1.6) Blood Type Antibody Screen Med Orders - Current: Current Medications Acetaminophen (Tylenol) 650 mg PO Q4H PRN PRN Reason: Pain (Mild 1-3)/fever Last Admin: 06/21/20 23:13 Dose: 650 mg Documented by: Albuterol/Ipratropium (Combivent Respimat) 0 gm INH Q6H [facility] Last Admin: 06/22/20 05:13 Dose: 1 puff Documented by: Benzonatate (Tessalon Perles) 100 mg PO TID PRN PRN Reason: Cough Last Admin: 06/21/20 21:15 Dose: 100 mg Documented by: Carvedilol (Coreg) 3.125 mg PO BID [facility] Last Admin: 06/21/20 21:15 Dose: 3.125 mg Documented by: Dexamethasone (Dexamethasone) 6 mg PO DAILY [facility] Last Admin: 06/21/20 09:06 Dose: 6 mg Documented by: Enoxaparin Sodium (Lovenox) 40 mg SUBCUT Q24H [facility] Last Admin: 06/21/20 09:09 Dose: 40 mg Documented by: Ferrous Sulfate (Ferrous Sulfate) 325 mg PO DAILY [facility] Last Admin: 06/21/20 09:07 Dose: 325 mg Documented by: Furosemide (Lasix) 40 mg PO DAILY [facility] Last Admin: 06/21/20 09:08 Dose: 40 mg Documented by: Pantoprazole Sodium 40 mg/ (Sodium Chloride) 10 mls @ 300 mls/hr IV DAILY [facility] Last Admin: 06/21/20 09:09 Dose: 300 mls/hr Documented by: Remdesivir 100 mg/ Sodium (Chloride) 100 mls @ 100 mls/hr IV Q24H [facility] Stop: 06/24/20 18:59 Last Admin: 06/21/20 18:18 Dose: 100 mls/hr Documented by: Ceftriaxone Sodium/Dextrose 1 (gm/ Premix) 50 mls @ 100 mls/hr IV Q24H [facility] Last Admin: 06/21/20 21:14 Dose: 100 mls/hr Documented by: Doxycycline Hyclate 100 mg/ (Sodium Chloride) 100 mls @ 100 mls/hr IV Q12H [facility] Last Admin: 06/21/20 22:27 Dose: 100 mls/hr Documented by: Losartan Potassium (Cozaar) 25 mg PO DAILY [facility] Last Admin: 06/21/20 09:07 Dose: 25 mg Documented by: Ondansetron HCl (Zofran) 4 mg IVPUSH Q4H PRN PRN Reason: Nausea Warfarin Sodium (Coumadin Ask) 1 each PO DAILY@1400 [place] Last Admin: 06/21/20 15:19 Dose: Not Given Documented by: Discontinued Medications Calcium Carbonate/Glycine (Tums) 1,000 mg PO ONETIME ONE Stop: 06/21/20 07:19 Last Admin: 06/21/20 09:06 Dose: 1,000 mg Documented by: Calcium Carbonate/Glycine (Tums) 1,000 mg PO ONETIME ONE Stop: 06/22/20 07:16 Dexamethasone (Dexamethasone) 6 mg PO ONETIME ONE Stop: 06/20/20 16:30 Last Admin: 06/20/20 16:42 Dose: 6 mg Documented by: Heparin Sodium (Porcine) (Heparin Sodium) 5,000 units SUBCUT Q8H [place] Last Admin: 06/21/20 02:04 Dose: 5,000 units Documented by: Sodium Chloride (Normal Saline) 1,000 mls @ 999 mls/hr IV STAT ONE Stop: 06/20/20 17:22 Last Admin: 06/20/20 16:42 Dose: 999 mls/hr Documented by: Remdesivir 200 mg/ Sodium (Chloride) 250 mls @ 250 mls/hr IV ONETIME ONE Stop: 06/20/20 18:09 Last Admin: 06/20/20 19:51 Dose: 250 mls/hr Documented by: Ondansetron HCl (Zofran) 4 mg IVPUSH ONETIME ONE Stop: 06/20/20 16:30 Last Admin: 06/20/20 16:43 Dose: 4 mg Documented by: Warfarin Sodium (Coumadin Ask) 1 each PO ONETIME ONE Stop: 06/20/20 17:51 Last Admin: 06/21/20 02:29 Dose: Not Given Documented by: Warfarin Sodium (Coumadin) 6 mg PO 06/21/20@1445 [place] Stop: 06/21/20 14:46 Last Admin: 06/21/20 15:07 Dose: 6 mg Documented by: - Exam Quality Assessment: Supplemental Oxygen General: Alert, Oriented, Cooperative, No Acute Distress Lungs: Normal Respiratory Effort, Other (mild crackles in bases b/l) Cardiovascular: Regular Rate, Irregular Rhythm GI/Abdominal Exam: Normal Bowel Sounds, Soft, Non-Tender, No Distention Extremities: Normal Inspection, No Pedal Edema Sepsis Event Note - Evaluation Sepsis Screening Result: No Definite Risk - Focused Exam Vital Signs: Vital Signs Temp Pulse Pulse Resp BP BP Pulse Ox 06/22/20 03:52 36.1 C 63 20 138/76 90 L 06/21/20 23:16 36.0 C L 63 20 128/79 92 L 06/21/20 21:15 61 135/64 - Problem List & Annotations (1) COVID-19 SNOMED Code(s): 225690636 Code(s): U07.1 - COVID-19 Status: Acute Current Visit: Yes (2) Hypoxemia SNOMED Code(s): 642871532 Code(s): R09.02 - HYPOXEMIA Status: Acute Priority: High Current Visit: No (3) History of atrial fibrillation SNOMED Code(s): 034747173 Code(s): Z86.79 - PERSONAL HISTORY OF OTHER DISEASES OF THE CIRCULATORY SYSTEM Status: Acute Priority: Medium Current Visit: No (4) Chronic anticoagulation SNOMED Code(s): 932539946 Code(s): Z79.01 - [facility] (CURRENT) USE OF ANTICOAGULANTS Status: Chronic Priority: High Current Visit: No (5) History of CHF (congestive heart failure) SNOMED Code(s): 455849868 Code(s): Z86.79 - PERSONAL HISTORY OF OTHER DISEASES OF THE CIRCULATORY SYSTEM Status: Chronic Priority: High Current Visit: No - Problem List Review Problem List Initiated/Reviewed/Updated: Yes - My Orders Last 24 Hours: My Active Orders 06/21/20 07:19 Intake and Output Strict [RC] ASDIRECTED 06/21/20 08:07 Benzonatate [Tessalon Perles] 100 mg PO TID PRN 06/21/20 09:00 Enoxaparin [Lovenox] 40 mg SUBCUT Q24H Ferrous Sulfate 325 mg PO DAILY Furosemide [Lasix] 40 mg PO DAILY Losartan [Cozaar] 25 mg PO DAILY dexAMETHasone 6 mg PO DAILY 06/21/20 11:43 Transfuse Fresh Frozen Plasma [COMM] Routine 06/21/20 11:52 Echo Comp wo Cont [US] Urgent 06/21/20 18:00 Remdesivir (Eua) [Remdesivir (EUA)] 100 mg Sodium Chloride 0.9% [Normal Saline] 100 ml IV Q24H 06/22/20 Breakfast Fluid Restriction [DIET] 06/23/20 05:11 CBC WITH AUTO DIFF [HEME] AM COMPREHENSIVE METABOLIC PN,CMP [CHEM] AM INR,PT,PROTHROMBIN TIME [COAG] DAILY MAGNESIUM [CHEM] AM 06/24/20 05:11 INR,PT,PROTHROMBIN TIME [COAG] DAILY 06/25/20 05:11 INR,PT,PROTHROMBIN TIME [COAG] DAILY - Plan Plan:: Assessment and Plan: 1. Acute hypoxic respiratory failure secondary to COVID-19: - Patient currently on 7 L NC. Continue Combivent q6 [place], dexamethasone 6 mg qd, Remdesivir, Rocephin and doxycycline. Patient received 2 units of convalescent plasma. - CXR showed LLL infiltrate. - Patient given fact sheet for Remdesivir, risks were explained and patient consented for treatment. - Patient given fact sheet for convalescent plasma EAU, risks were explained and patient consented for treatment. 2. Atrial fibrillation with subtherapeutic INR: - Patient on telemetry. He is on chronic warfarin therapy. Pharmacy consulted. - ECHO pending. 3. Nausea and vomiting: - Zofran prn nausea. 4. DVT prophylaxis: - Heparin 5000 units subcut q8h for now until INR closer to therapeutic range. 5. Past medical history of CHF, BPH, cardiomyopathy and GERD: - Continue home medications.
[2020-06-22] MEDS: Ferrous Sulfate 325 MG Tab PO SCH (08:45)
[2020-06-22] MEDS: Pantoprazole 40 MG in Sodium Chloride 0.9% 10 ML IV SCH (08:45)
[2020-06-22] MEDS: Dexamethasone 4 MG Tab PO SCH (08:45)
[2020-06-22] MEDS: Enoxaparin 40 MG/0.4 ML Syringe SUBCUT SCH (08:46)
[2020-06-22] MEDS: Doxycycline 100 MG in Sodium Chloride 0.9% 100 ML IV SCH ×2 (10:29→22:22)
[2020-06-22] MEDS: Benzonatate 100 MG Cap PO PRN ×2 (10:30→20:35)
[2020-06-22] MEDS: Carvedilol 3.125 MG Tab PO SCH ×2 (12:18→20:34)
[2020-06-22] MEDS: Losartan 50 MG Tab PO SCH (12:20)
[2020-06-22] MEDS: Furosemide 40 MG Tab PO SCH (12:21)
[2020-06-22] MEDS ORDERED: Polyethylene Glycol 3350 Powder 17 GM Packet PO PRN (13:29)
[2020-06-22] MEDS ORDERED: Digoxin 500 MCG/2 ML Amp IVPUSH ONE (13:51)
[2020-06-22] MEDS ORDERED: Warfarin 2 MG Tab PO ONE (14:00)
[2020-06-22] MEDS: Pantoprazole 40 MG Tab.CR PO SCH (18:45)
[2020-06-22] MEDS: REMDESIVIR 100 MG in Sodium Chloride 0.9% 100 ML IV SCH (18:45)
[2020-06-22] MEDS: cefTRIAXone 1 GM in Premix Bag 1 BAG IV SCH (20:37)
[2020-06-22] MEDS: Acetaminophen 325 MG Tab PO PRN (23:45)
[2020-06-23] MEDS: Albuterol/Ipratropium 4 GM Inhalation Spray INH SCH ×3 (06:33→17:31)
[2020-06-23 06:49] LABS: BLOOD UREA NITROGEN,BUN 37 mg/dL (7.0-18.0); CARBON DIOXIDE,CO2 24.1 mmol/L (21.0-32.0); CHLORIDE,CL 105 mmol/L (98-107); GLUCOSE RANDOM 145 mg/dL (74-106); POTASSIUM,K 4.2 mmol/L (3.5-5.1); SODIUM,NA 141 mmol/L (136-148)
[2020-06-23] MEDS ORDERED: Calcium Carbonate 500 MG Tab.Chew PO ONE (07:28)
[2020-06-23] MEDS: Dexamethasone 4 MG Tab PO SCH (09:11)
[2020-06-23] MEDS: Carvedilol 3.125 MG Tab PO SCH ×2 (09:12→21:12)
[2020-06-23] MEDS: Ferrous Sulfate 325 MG Tab PO SCH (09:14)
[2020-06-23] MEDS: Furosemide 40 MG Tab PO SCH (09:14)
[2020-06-23] MEDS: Losartan 50 MG Tab PO SCH (09:14)
[2020-06-23] MEDS: Enoxaparin 40 MG/0.4 ML Syringe SUBCUT SCH (09:14)
[2020-06-23] MEDS: Doxycycline 100 MG in Sodium Chloride 0.9% 100 ML IV SCH ×2 (09:15→21:12)
--- NOTE | 2020-06-23 09:25 | PCM.PN ---
- General Info Date of Service: 06/23/20 Subjective Update: Reports sleeping well overnight and breathing better. Cough is about the same as yesterday. Denies any fevers or chills. Tolerating oral diet. - Patient Data Vitals - Most Recent: Last Vital Signs Temp 36.3 C 06/23/20 04:00 Pulse 69 06/23/20 09:12 Resp 20 06/23/20 04:00 BP 116/66 06/23/20 09:14 Pulse Ox 92 L 06/23/20 04:00 Weight - Most Recent: 87.226 kg I&O - Last 24 Hours: Intake & Output 06/22/20 06/23/20 06/23/20 22:59 06:59 14:59 Intake Total 790 800 Output Total 350 400 Balance 440 400 Lab Results Last 24 Hours: Laboratory Results - last 24 hr 06/23/20 06/23/20 06/23/20 Range/Units 05:40 05:40 05:40 WBC 6.29 (4.0-11.0) K/uL RBC 3.83 L (4.50-5.90) M/uL Hgb 9.7 L (13.0-17.0) g/dL Hct 32.0 L (38.0-50.0) % MCV 83.6 (80.0-98.0) fL MCH 25.3 L (27.0-32.0) pg MCHC 30.3 L (31.0-37.0) g/dL RDW Std Deviation 50.5 (28.0-62.0) fl RDW Coeff of Anita 17 H (11.0-15.0) % Plt Count 175 (150-400) K/uL MPV 11.30 (7.40-12.00) fL Neut % (Auto) 78.5 (48.0-80.0) % Lymph % (Auto) 11.3 L (16.0-40.0) % [place] % (Auto) 10.0 (0.0-15.0) % Eos % (Auto) 0.0 (0.0-7.0) % Baso % (Auto) 0.2 (0.0-1.5) % Neut # (Auto) 4.9 (1.4-5.7) K/uL Lymph # (Auto) 0.7 (0.6-2.4) K/uL [place] # (Auto) 0.6 (0.0-0.8) K/uL Eos # (Auto) 0.0 (0.0-0.7) K/uL Baso # (Auto) 0.0 (0.0-0.1) K/uL Nucleated RBC % 0.3 /100WBC Nucleated RBCs # 0 K/uL INR 1.98 Sodium 141 (136-148) mmol/L Potassium 4.2 (3.5-5.1) mmol/L Chloride 105 (98-107) mmol/L Carbon Dioxide 24.1 (21.0-32.0) mmol/L BUN 37 H (7.0-18.0) mg/dL Creatinine 1.2 (0.8-1.3) mg/dL Est Cr Clr Drug Dosing 63.62 mL/min Estimated GFR (MDRD) > 60.0 ml/min Glucose 145 H (74-106) mg/dL Calcium 6.0 L (8.5-10.1) mg/dL Magnesium 2.4 (1.8-2.4) mg/dL Total Bilirubin 0.4 (0.2-1.0) mg/dL AST 31 (15-37) IU/L ALT 29 (14-63) IU/L Alkaline Phosphatase 57 (46-116) U/L Total Protein 6.1 L (6.4-8.2) g/dL Albumin 2.4 L (3.4-5.0) g/dL Globulin 3.7 (2.6-4.0) g/dL Albumin/Globulin Ratio 0.7 L (0.9-1.6) Med Orders - Current: Current Medications Acetaminophen (Tylenol) 650 mg PO Q4H PRN PRN Reason: Pain (Mild 1-3)/fever Last Admin: 06/22/20 23:45 Dose: 650 mg Documented by: Albuterol/Ipratropium (Combivent Respimat) 0 gm INH Q6H [place] Last Admin: 06/23/20 06:33 Dose: Not Given Documented by: Benzonatate (Tessalon Perles) 100 mg PO TID PRN PRN Reason: Cough Last Admin: 06/22/20 20:35 Dose: 100 mg Documented by: Carvedilol (Coreg) 3.125 mg PO BID [facility] Last Admin: 06/23/20 09:12 Dose: 3.125 mg Documented by: Dexamethasone (Dexamethasone) 6 mg PO DAILY [facility] Last Admin: 06/23/20 09:11 Dose: 6 mg Documented by: Enoxaparin Sodium (Lovenox) 40 mg SUBCUT Q24H [facility] Last Admin: 06/23/20 09:14 Dose: 40 mg Documented by: Ferrous Sulfate (Ferrous Sulfate) 325 mg PO DAILY [facility] Last Admin: 06/23/20 09:14 Dose: 325 mg Documented by: Furosemide (Lasix) 40 mg PO DAILY [facility] Last Admin: 06/23/20 09:14 Dose: 40 mg Documented by: Remdesivir 100 mg/ Sodium (Chloride) 100 mls @ 100 mls/hr IV Q24H [facility] Stop: 06/24/20 18:59 Last Admin: 06/22/20 18:45 Dose: 100 mls/hr Documented by: Ceftriaxone Sodium/Dextrose 1 (gm/ Premix) 50 mls @ 100 mls/hr IV Q24H [facility] Last Admin: 06/22/20 20:37 Dose: 100 mls/hr Documented by: Doxycycline Hyclate 100 mg/ (Sodium Chloride) 100 mls @ 100 mls/hr IV Q12H [facility] Last Admin: 06/23/20 09:15 Dose: 100 mls/hr Documented by: Losartan Potassium (Cozaar) 25 mg PO DAILY [facility] Last Admin: 06/23/20 09:14 Dose: 25 mg Documented by: Ondansetron HCl (Zofran) 4 mg IVPUSH Q4H PRN PRN Reason: Nausea Pantoprazole Sodium (Protonix) 40 mg PO DAILY@1700 [facility] Last Admin: 06/22/20 18:45 Dose: 40 mg Documented by: Polyethylene Glycol (Miralax) 17 gm PO DAILY PRN PRN Reason: Constipation Warfarin Sodium (Coumadin Ask) 1 each PO DAILY@1400 [facility] Last Admin: 06/22/20 14:38 Dose: Not Given Documented by: Discontinued Medications Calcium Carbonate/Glycine (Tums) 1,000 mg PO ONETIME ONE Stop: 06/21/20 07:19 Last Admin: 06/21/20 09:06 Dose: 1,000 mg Documented by: Calcium Carbonate/Glycine (Tums) 1,000 mg PO ONETIME ONE Stop: 06/22/20 07:16 Last Admin: 06/22/20 08:44 Dose: 1,000 mg Documented by: Calcium Carbonate/Glycine (Tums) 1,000 mg PO ONETIME ONE Stop: 06/23/20 07:29 Last Admin: 06/23/20 09:12 Dose: 1,000 mg Documented by: Dexamethasone (Dexamethasone) 6 mg PO ONETIME ONE Stop: 06/20/20 16:30 Last Admin: 06/20/20 16:42 Dose: 6 mg Documented by: Digoxin (Lanoxin) 250 mcg IVPUSH ONETIME ONE Stop: 06/22/20 13:52 Last Admin: 06/22/20 17:23 Dose: Not Given Documented by: Heparin Sodium (Porcine) (Heparin Sodium) 5,000 units SUBCUT Q8H [facility] Last Admin: 06/21/20 02:04 Dose: 5,000 units Documented by: Sodium Chloride (Normal Saline) 1,000 mls @ 999 mls/hr IV STAT ONE Stop: 06/20/20 17:22 Last Admin: 06/20/20 16:42 Dose: 999 mls/hr Documented by: Pantoprazole Sodium 40 mg/ (Sodium Chloride) 10 mls @ 300 mls/hr IV DAILY [facility] Last Admin: 06/22/20 08:45 Dose: 300 mls/hr Documented by: Remdesivir 200 mg/ Sodium (Chloride) 250 mls @ 250 mls/hr IV ONETIME ONE Stop: 06/20/20 18:09 Last Admin: 06/20/20 19:51 Dose: 250 mls/hr Documented by: Doxycycline Hyclate 100 mg/ (Sodium Chloride) 100 mls @ 100 mls/hr IV Q12H [facility] Last Admin: 06/22/20 10:29 Dose: 100 mls/hr Documented by: Ondansetron HCl (Zofran) 4 mg IVPUSH ONETIME ONE Stop: 06/20/20 16:30 Last Admin: 06/20/20 16:43 Dose: 4 mg Documented by: Warfarin Sodium (Coumadin Ask) 1 each PO ONETIME ONE Stop: 06/20/20 17:51 Last Admin: 06/21/20 02:29 Dose: Not Given Documented by: Warfarin Sodium (Coumadin) 6 mg PO 06/21/20@1445 [facility] Stop: 06/21/20 14:46 Last Admin: 06/21/20 15:07 Dose: 6 mg Documented by: Warfarin Sodium (Coumadin) 6 mg PO DAILY@1400 ONE Stop: 06/22/20 14:01 Last Admin: 06/22/20 14:37 Dose: 6 mg Documented by: - Exam General: Alert, Oriented, Cooperative, No Acute Distress Lungs: Clear to Auscultation, Normal Respiratory Effort Cardiovascular: Regular Rate, Regular Rhythm GI/Abdominal Exam: Normal Bowel Sounds, Soft, Non-Tender, No Distention Extremities: Normal Inspection, No Pedal Edema Sepsis Event Note - Evaluation Sepsis Screening Result: No Definite Risk - Focused Exam Vital Signs: Vital Signs Temp Pulse Pulse Resp BP BP Pulse Ox 06/23/20 09:14 116/66 06/23/20 09:12 69 115/66 06/23/20 04:00 36.3 C 58 L 20 136/71 92 L 06/22/20 23:46 36.0 C L 72 20 127/61 91 L - Problem List & Annotations (1) COVID-19 SNOMED Code(s): 504968690 Code(s): U07.1 - COVID-19 Status: Acute Current Visit: Yes (2) Hypoxemia SNOMED Code(s): 073342633 Code(s): R09.02 - HYPOXEMIA Status: Acute Priority: High Current Visit: No (3) History of atrial fibrillation SNOMED Code(s): 541623163 Code(s): Z86.79 - PERSONAL HISTORY OF OTHER DISEASES OF THE CIRCULATORY SYS TEM Status: Acute Priority: Medium Current Visit: No (4) Chronic anticoagulation SNOMED Code(s): 698903079 Code(s): Z79.01 - [facility] (CURRENT) USE OF ANTICOAGULANTS Status: Chronic Priority: High Current Visit: No (5) History of CHF (congestive heart failure) SNOMED Code(s): 078938081 Code(s): Z86.79 - PERSONAL HISTORY OF OTHER DISEASES OF THE CIRCULATORY SYSTEM Status: Chronic Priority: High Current Visit: No - Problem List Review Problem List Initiated/Reviewed/Updated: Yes - My Orders Last 24 Hours: My Active Orders 06/22/20 Lunch Heart Healthy Diet [DIET] 06/22/20 13:29 polyethylene glycoL 3350 [MiraLAX] 17 gm PO DAILY PRN 06/22/20 21:00 Doxycycline [Vibramycin] 100 mg Sodium Chloride 0.9% [Normal Saline] 100 ml IV Q12H 06/24/20 05:11 INR,PT,PROTHROMBIN TIME [COAG] DAILY 06/25/20 05:11 INR,PT,PROTHROMBIN TIME [COAG] DAILY - Plan Plan:: Assessment and Plan: 1. Acute hypoxic respiratory failure secondary to COVID-19: - Currently on 6 L NC. Will continue Combivent q6 [place], dexamethasone 6 mg qd, Remdesivir, Rocephin and doxycycline. Patient received 2 units of convalescent plasma. - CXR showed LLL infiltrate. - Patient given fact sheet for Remdesivir, risks were explained and patient consented for treatment. - Patient given fact sheet for convalescent plasma EAU, risks were explained and patient consented for treatment. 2. Atrial fibrillation with subtherapeutic INR: - Patient on telemetry. He is on chronic warfarin therapy. Pharmacy consulted. 3. DVT prophylaxis: - Patient on warfarin. 4. Past medical history of CHF, BPH, cardiomyopathy and GERD: - Continue home medications.
[2020-06-23] MEDS ORDERED: Warfarin 2 MG Tab PO ONE (14:30)
[2020-06-23] MEDS: Pantoprazole 40 MG Tab.CR PO SCH (18:36)
[2020-06-23] MEDS: REMDESIVIR 100 MG in Sodium Chloride 0.9% 100 ML IV SCH (18:53)
[2020-06-23] MEDS: cefTRIAXone 1 GM in Premix Bag 1 BAG IV SCH (19:50)
[2020-06-23] MEDS: Acetaminophen 325 MG Tab PO PRN (19:53)
[2020-06-23] MEDS: Benzonatate 100 MG Cap PO PRN (19:53)
[2020-06-24] MEDS: Albuterol/Ipratropium 4 GM Inhalation Spray INH SCH ×4 (00:08→18:42)
[2020-06-24 06:56] LABS: BLOOD UREA NITROGEN,BUN 37 mg/dL (7.0-18.0); CARBON DIOXIDE,CO2 25.1 mmol/L (21.0-32.0); CHLORIDE,CL 105 mmol/L (98-107); GLUCOSE RANDOM 122 mg/dL (74-106); POTASSIUM,K 3.9 mmol/L (3.5-5.1); SODIUM,NA 141 mmol/L (136-148)
[2020-06-24] MEDS: Furosemide 40 MG Tab PO SCH ×2 (09:03→10:50)
[2020-06-24] MEDS: Dexamethasone 4 MG Tab PO SCH (09:03)
[2020-06-24] MEDS: Ferrous Sulfate 325 MG Tab PO SCH (09:04)
[2020-06-24] MEDS: Doxycycline 100 MG in Sodium Chloride 0.9% 100 ML IV SCH ×2 (09:12→20:40)
[2020-06-24] MEDS: Losartan 50 MG Tab PO SCH (10:50)
[2020-06-24] MEDS: Carvedilol 3.125 MG Tab PO SCH ×2 (10:50→20:39)
[2020-06-24] MEDS ORDERED: Warfarin 2 MG Tab PO ONE (14:00)
--- NOTE | 2020-06-24 14:43 | PCM.PN ---
- General Info Date of Service: 06/24/20 Admission Dx/Problem (Free Text): Admission Diagnosis/Problem Admission Diagnosis/Problem Respiratory infection Subjective Update: Reports sleeping well overnight and breathing better. Cough is about the same as yesterday. Denies any fevers or chills. Tolerating oral diet. - Review of Systems General: Reports: Weakness. Denies: Fever, Fatigue, Malaise Pulmonary: Reports: Shortness of Breath. Denies: Pleuritic Chest Pain Cardiovascular: Reports: Dyspnea on Exertion. Denies: Chest Pain, Palpitations Gastrointestinal: Denies: Abdominal Pain, Constipation, Decreased Appetite Genitourinary: Denies: Dysuria, Frequency, Burning Musculoskeletal: Denies: Neck Pain, Shoulder Pain, Arm Pain - Patient Data Vitals - Most Recent: Last Vital Signs Temp 36.2 C 06/24/20 10:59 Pulse 65 06/24/20 10:59 Resp 20 06/24/20 10:59 BP 135/71 06/24/20 10:59 Pulse Ox 93 L 06/24/20 10:59 Weight - Most Recent: 87.226 kg I&O - Last 24 Hours: Intake & Output 06/23/20 06/24/20 06/24/20 22:59 06:59 14:59 Intake Total 980 850 Output Total 860 150 Balance 120 700 Lab Results Last 24 Hours: Laboratory Results - last 24 hr 06/24/20 06/24/20 06/24/20 Range/Units 06:15 06:15 06:15 WBC 6.18 (4.0-11.0) K/uL RBC 3.79 L (4.50-5.90) M/uL Hgb 9.7 L (13.0-17.0) g/dL Hct 31.4 L (38.0-50.0) % MCV 82.8 (80.0-98.0) fL MCH 25.6 L (27.0-32.0) pg MCHC 30.9 L (31.0-37.0) g/dL RDW Std Deviation 49.4 (28.0-62.0) fl RDW Coeff of Anita 16 H (11.0-15.0) % Plt Count 174 (150-400) K/uL MPV 10.80 (7.40-12.00) fL Neut % (Auto) 72.6 (48.0-80.0) % Lymph % (Auto) 16.5 (16.0-40.0) % [place] % (Auto) 10.7 (0.0-15.0) % Eos % (Auto) 0.0 (0.0-7.0) % Baso % (Auto) 0.2 (0.0-1.5) % Neut # (Auto) 4.5 (1.4-5.7) K/uL Lymph # (Auto) 1.0 (0.6-2.4) K/uL [place] # (Auto) 0.7 (0.0-0.8) K/uL Eos # (Auto) 0.0 (0.0-0.7) K/uL Baso # (Auto) 0.0 (0.0-0.1) K/uL Nucleated RBC % 0.4 /100WBC Nucleated RBCs # 0 K/uL INR 2.76 Sodium 141 (136-148) mmol/L Potassium 3.9 (3.5-5.1) mmol/L Chloride 105 (98-107) mmol/L Carbon Dioxide 25.1 (21.0-32.0) mmol/L BUN 37 H (7.0-18.0) mg/dL Creatinine 1.2 (0.8-1.3) mg/dL Est Cr Clr Drug Dosing 63.62 mL/min Estimated GFR (MDRD) > 60.0 ml/min Glucose 122 H (74-106) mg/dL Calcium 5.8 L (8.5-10.1) mg/dL Magnesium 2.0 (1.8-2.4) mg/dL Total Bilirubin 0.4 (0.2-1.0) mg/dL AST 87 H (15-37) IU/L ALT 86 H (14-63) IU/L Alkaline Phosphatase 61 (46-116) U/L Total Protein 6.1 L (6.4-8.2) g/dL Albumin 2.4 L (3.4-5.0) g/dL Globulin 3.7 (2.6-4.0) g/dL Albumin/Globulin Ratio 0.7 L (0.9-1.6) Med Orders - Current: Current Medications Acetaminophen (Tylenol) 650 mg PO Q4H PRN PRN Reason: Pain (Mild 1-3)/fever Last Admin: 06/23/20 19:53 Dose: 650 mg Documented by: Albuterol/Ipratropium (Combivent Respimat) 0 gm INH Q6H [facility] Last Admin: 06/24/20 11:06 Dose: 1 puff Documented by: Benzonatate (Tessalon Perles) 100 mg PO TID PRN PRN Reason: Cough Last Admin: 06/23/20 19:53 Dose: 100 mg Documented by: Carvedilol (Coreg) 3.125 mg PO BID [facility] Last Admin: 06/24/20 10:50 Dose: 3.125 mg Documented by: Dexamethasone (Dexamethasone) 6 mg PO DAILY [facility] Last Admin: 06/24/20 09:03 Dose: 6 mg Documented by: Ferrous Sulfate (Ferrous Sulfate) 325 mg PO DAILY [facility] Last Admin: 06/24/20 09:04 Dose: 325 mg Documented by: Furosemide (Lasix) 40 mg PO DAILY [facility] Last Admin: 06/24/20 10:50 Dose: Not Given Documented by: Remdesivir 100 mg/ Sodium (Chloride) 100 mls @ 100 mls/hr IV Q24H [facility] Stop: 06/24/20 18:59 Last Admin: 06/23/20 18:53 Dose: 100 mls/hr Documented by: Ceftriaxone Sodium/Dextrose 1 (gm/ Premix) 50 mls @ 100 mls/hr IV Q24H [facility] Last Admin: 06/23/20 19:50 Dose: 100 mls/hr Documented by: Doxycycline Hyclate 100 mg/ (Sodium Chloride) 100 mls @ 100 mls/hr IV Q12H [facility] Last Admin: 06/24/20 09:12 Dose: 100 mls/hr Documented by: Losartan Potassium (Cozaar) 25 mg PO DAILY [facility] Last Admin: 06/24/20 10:50 Dose: Not Given Documented by: Ondansetron HCl (Zofran) 4 mg IVPUSH Q4H PRN PRN Reason: Nausea Pantoprazole Sodium (Protonix) 40 mg PO DAILY@1700 [facility] Last Admin: 06/23/20 18:36 Dose: 40 mg Documented by: Polyethylene Glycol (Miralax) 17 gm PO DAILY PRN PRN Reason: Constipation Warfarin Sodium (Coumadin Ask) 1 each PO DAILY@1400 [facility] Last Admin: 06/23/20 15:00 Dose: Not Given Documented by: Discontinued Medications Calcium Carbonate/Glycine (Tums) 1,000 mg PO ONETIME ONE Stop: 06/21/20 07:19 Last Admin: 06/21/20 09:06 Dose: 1,000 mg Documented by: Calcium Carbonate/Glycine (Tums) 1,000 mg PO ONETIME ONE Stop: 06/22/20 07:16 Last Admin: 06/22/20 08:44 Dose: 1,000 mg Documented by: Calcium Carbonate/Glycine (Tums) 1,000 mg PO ONETIME ONE Stop: 06/23/20 07:29 Last Admin: 06/23/20 09:12 Dose: 1,000 mg Documented by: Dexamethasone (Dexamethasone) 6 mg PO ONETIME ONE Stop: 06/20/20 16:30 Last Admin: 06/20/20 16:42 Dose: 6 mg Documented by: Digoxin (Lanoxin) 250 mcg IVPUSH ONETIME ONE Stop: 06/22/20 13:52 Last Admin: 06/22/20 17:23 Dose: Not Given Documented by: Enoxaparin Sodium (Lovenox) 40 mg SUBCUT Q24H [facility] Last Admin: 06/23/20 09:14 Dose: 40 mg Documented by: Heparin Sodium (Porcine) (Heparin Sodium) 5,000 units SUBCUT Q8H [facility] Last Admin: 06/21/20 02:04 Dose: 5,000 units Documented by: Sodium Chloride (Normal Saline) 1,000 mls @ 999 mls/hr IV STAT ONE Stop: 06/20/20 17:22 Last Admin: 06/20/20 16:42 Dose: 999 mls/hr Documented by: Pantoprazole Sodium 40 mg/ (Sodium Chloride) 10 mls @ 300 mls/hr IV DAILY [facility] Last Admin: 06/22/20 08:45 Dose: 300 mls/hr Documented by: Remdesivir 200 mg/ Sodium (Chloride) 250 mls @ 250 mls/hr IV ONETIME ONE Stop: 06/20/20 18:09 Last Admin: 06/20/20 19:51 Dose: 250 mls/hr Documented by: Doxycycline Hyclate 100 mg/ (Sodium Chloride) 100 mls @ 100 mls/hr IV Q12H [facility] Last Admin: 06/22/20 10:29 Dose: 100 mls/hr Documented by: Ondansetron HCl (Zofran) 4 mg IVPUSH ONETIME ONE Stop: 06/20/20 16:30 Last Admin: 06/20/20 16:43 Dose: 4 mg Documented by: Warfarin Sodium (Coumadin Ask) 1 each PO ONETIME ONE Stop: 06/20/20 17:51 Last Admin: 06/21/20 02:29 Dose: Not Given Documented by: Warfarin Sodium (Coumadin) 6 mg PO 06/21/20@1445 [place] Stop: 06/21/20 14:46 Last Admin: 06/21/20 15:07 Dose: 6 mg Documented by: Warfarin Sodium (Coumadin) 6 mg PO DAILY@1400 [facility] Stop: 06/22/20 14:01 Last Admin: 06/22/20 14:37 Dose: 6 mg Documented by: Warfarin Sodium (Coumadin) 4 mg PO DAILY@1430 [facility] Stop: 06/23/20 14:31 Last Admin: 06/23/20 15:00 Dose: 4 mg Documented by: Warfarin Sodium (Coumadin) 2 mg PO DAILY@1400 [facility] Stop: 06/24/20 14:01 - Exam Quality Assessment: Supplemental Oxygen General: Alert, Oriented Neck: Supple Lungs: Clear to Auscultation, Normal Respiratory Effort Cardiovascular: Regular Rate, Regular Rhythm, No Murmurs Sepsis Event Note - Evaluation Sepsis Screening Result: No Definite Risk - Focused Exam Vital Signs: Vital Signs Temp Pulse Pulse Resp BP BP Pulse Ox 06/24/20 10:59 36.2 C 65 20 135/71 93 L 06/24/20 10:50 62 90/58 L 06/24/20 08:00 35.8 C L 85 20 90/58 L 87 L 06/24/20 04:00 36.4 C 59 L 20 142/69 H 90 L - Problem List & Annotations (1) COVID-19 SNOMED Code(s): 512282944 Code(s): U07.1 - COVID-19 Status: Acute Current Visit: Yes (2) Dehydration SNOMED Code(s): 81342646 Code(s): E86.0 - DEHYDRATION Status: Acute Current Visit: Yes (3) Hypoxia SNOMED Code(s): 387557133 Code(s): R09.02 - HYPOXEMIA Status: Acute Current Visit: Yes (4) History of atrial fibrillation SNOMED Code(s): 592548697 Code(s): Z86.79 - PERSONAL HISTORY OF OTHER DISEASES OF THE CIRCULATORY SYSTEM Status: Acute Priority: Medium Current Visit: No (5) Pneumonia SNOMED Code(s): 951645075 Code(s): J18.9 - PNEUMONIA, UNSPECIFIED ORGANISM Status: Acute Priority: High Current Visit: No Qualifiers: Pneumonia type: due to unspecified organism Lung location: unspecified part of lung (6) S/P total knee arthroplasty SNOMED Code(s): 6654720231041, 182582984, 5323944687749 Code(s): Z96.659 - PRESENCE OF UNSPECIFIED ARTIFICIAL KNEE JOINT Status: Acute Priority: High Current Visit: No Qualifiers: Laterality: right Qualified Code(s): Z96.651 - Presence of right artificial knee joint Annotation/Comment:: POD #1 (7) Chronic anticoagulation SNOMED Code(s): 931484401 Code(s): Z79.01 - [employer] (CURRENT) USE OF ANTICOAGULANTS Status: Chronic Priority: High Current Visit: No (8) History of CHF (congestive heart failure) SNOMED Code(s): 942829100 Code(s): Z86.79 - PERSONAL HISTORY OF OTHER DISEASES OF THE CIRCULATORY SYSTEM Status: Chronic Priority: High Current Visit: No - Problem List Review Problem List Initiated/Reviewed/Updated: Yes - Plan Plan:: Assessment and Plan: 1. Acute hypoxic respiratory failure secondary to COVID-19: - Currently on 6 L NC. Will continue Combivent q6 [place], dexamethasone 6 mg qd, Remdesivir, Rocephin and doxycycline. Patient received 2 units of convalescent plasma. - CXR showed LLL infiltrate. - Patient given fact sheet for Remdesivir, risks were explained and patient co nsented for treatment. - Patient given fact sheet for convalescent plasma EAU, risks were explained and patient consented for treatment. 2. Atrial fibrillation with subtherapeutic INR: - Patient on telemetry. He is on chronic warfarin therapy. Pharmacy consulted. 3. DVT prophylaxis: - Patient on warfarin. 4. Past medical history of CHF, BPH, cardiomyopathy and GERD: - Continue home medications.
[2020-06-24] MEDS: Pantoprazole 40 MG Tab.CR PO SCH (17:55)
[2020-06-24] MEDS: REMDESIVIR 100 MG in Sodium Chloride 0.9% 100 ML IV SCH (18:11)
[2020-06-24] MEDS: cefTRIAXone 1 GM in Premix Bag 1 BAG IV SCH (19:49)
[2020-06-25] MEDS: Albuterol/Ipratropium 4 GM Inhalation Spray INH SCH ×4 (00:10→17:35)
[2020-06-25 06:18] LABS: BLOOD UREA NITROGEN,BUN 33 mg/dL (7.0-18.0); CHLORIDE,CL 107 mmol/L (98-107); GLUCOSE RANDOM 112 mg/dL (74-106); SODIUM,NA 141 mmol/L (136-148)
[2020-06-25] MEDS ORDERED: Calcium Gluconate 10% 1 GM/10 ML SDV IVPUSH ONE (07:43)
[2020-06-25] MEDS: Dexamethasone 4 MG Tab PO SCH (08:27)
[2020-06-25] MEDS: Carvedilol 3.125 MG Tab PO SCH ×2 (08:27→20:07)
[2020-06-25] MEDS: Ferrous Sulfate 325 MG Tab PO SCH (08:28)
[2020-06-25] MEDS: Furosemide 40 MG Tab PO SCH (08:28)
[2020-06-25] MEDS: Losartan 50 MG Tab PO SCH (08:29)
[2020-06-25] MEDS ORDERED: Calcium Gluconate 2 GM in Sodium Chloride 0.9% 100 ML IV SCH ×2 (08:30→11:30)
[2020-06-25] MEDS: Doxycycline 100 MG in Sodium Chloride 0.9% 100 ML IV SCH ×2 (08:31→20:54)
--- NOTE | 2020-06-25 08:43 | PCM.PN ---
<Clay Lazaro M - Last Filed: 06/25/20 11:45> - General Info Date of Service: 06/25/20 Subjective Update: Patient currently on 12 L HFNC. Denies SOB or cough at bedside this AM. Tolerating oral diet and having bowel movements. - Patient Data Vitals - Most Recent: Last Vital Signs Temp 36.9 C 06/25/20 08:35 Pulse 68 06/25/20 08:35 Resp 22 H 06/25/20 08:35 BP 111/75 06/25/20 08:35 Pulse Ox 95 06/25/20 08:35 Weight - Most Recent: 87.226 kg I&O - Last 24 Hours: Intake & Output 06/24/20 06/25/20 06/25/20 22:59 06:59 14:59 Intake Total 910 850 Output Total 300 450 Balance 610 400 Lab Results Last 24 Hours: Laboratory Results - last 24 hr 06/25/20 06/25/20 06/25/20 Range/Units 05:35 05:35 05:35 WBC 7.34 (4.0-11.0) K/uL RBC 3.82 L (4.50-5.90) M/uL Hgb 9.8 L (13.0-17.0) g/dL Hct 31.6 L (38.0-50.0) % MCV 82.7 (80.0-98.0) fL MCH 25.7 L (27.0-32.0) pg MCHC 31.0 (31.0-37.0) g/dL RDW Std Deviation 50.0 (28.0-62.0) fl RDW Coeff of Anita 17 H (11.0-15.0) % Plt Count 156 (150-400) K/uL MPV 10.80 (7.40-12.00) fL Add Manual Diff YES Neutrophils % (Manual) 80 (48.0-80.0) % Band Neutrophils % 1 % Lymphocytes % (Manual) 14 L (16.0-40.0) % Monocytes % (Manual) 4 (0.0-15.0) % Eosinophils % (Manual) 1 (0.0-7.0) % Nucleated RBC % 0.5 /100WBC Absolute Seg Neuts 5.9 H (1.4-5.7) Band Neutrophils # 0.1 Lymphocytes # (Manual) 1.0 (0.6-2.4) Monocytes # (Manual) 0.3 (0.0-0.8) Eosinophils # (Manual) 0.1 (0.0-0.7) Nucleated RBCs # 0 K/uL INR 3.35 Sodium 141 (136-148) mmol/L Potassium 4.0 (3.5-5.1) mmol/L Chloride 107 (98-107) mmol/L Carbon Dioxide 26.0 (21.0-32.0) mmol/L BUN 33 H (7.0-18.0) mg/dL Creatinine 1.2 (0.8-1.3) mg/dL Est Cr Clr Drug Dosing 63.62 mL/min Estimated GFR (MDRD) > 60.0 ml/min Glucose 112 H (74-106) mg/dL Calcium 5.5 L (8.5-10.1) mg/dL Phosphorus 4.7 (2.6-4.7) mg/dL Magnesium 1.9 (1.8-2.4) mg/dL Total Bilirubin 0.4 (0.2-1.0) mg/dL AST 57 H (15-37) IU/L ALT 78 H (14-63) IU/L Alkaline Phosphatase 62 (46-116) U/L Total Protein 5.9 L (6.4-8.2) g/dL Albumin 2.3 L (3.4-5.0) g/dL Globulin 3.6 (2.6-4.0) g/dL Albumin/Globulin Ratio 0.6 L (0.9-1.6) Med Orders - Current: Current Medications Acetaminophen (Tylenol) 650 mg PO Q4H PRN PRN Reason: Pain (Mild 1-3)/fever Last Admin: 06/23/20 19:53 Dose: 650 mg Documented by: Albuterol/Ipratropium (Combivent Respimat) 0 gm INH Q6H [facility] Last Admin: 06/25/20 06:28 Dose: Not Given Documented by: Benzonatate (Tessalon Perles) 100 mg PO TID PRN PRN Reason: Cough Last Admin: 06/23/20 19:53 Dose: 100 mg Documented by: Carvedilol (Coreg) 3.125 mg PO BID [facility] Last Admin: 06/25/20 08:27 Dose: 3.125 mg Documented by: Dexamethasone (Dexamethasone) 6 mg PO DAILY [facility] Last Admin: 06/25/20 08:27 Dose: 6 mg Documented by: Ferrous Sulfate (Ferrous Sulfate) 325 mg PO DAILY [facility] Last Admin: 06/25/20 08:28 Dose: 325 mg Documented by: Furosemide (Lasix) 40 mg PO DAILY [facility] Last Admin: 06/25/20 08:28 Dose: 40 mg Documented by: Ceftriaxone Sodium/Dextrose 1 (gm/ Premix) 50 mls @ 100 mls/hr IV Q24H [facility] Last Admin: 06/24/20 19:49 Dose: 100 mls/hr Documented by: Doxycycline Hyclate 100 mg/ (Sodium Chloride) 100 mls @ 100 mls/hr IV Q12H [facility] Last Admin: 06/25/20 08:31 Dose: 100 mls/hr Documented by: Calcium Gluconate 2 gm/ Sodium (Chloride) 120 mls @ 120 mls/hr IV ONETIME [facility] Stop: 06/25/20 09:29 Losartan Potassium (Cozaar) 25 mg PO DAILY [facility] Last Admin: 06/25/20 08:29 Dose: 25 mg Documented by: Ondansetron HCl (Zofran) 4 mg IVPUSH Q4H PRN PRN Reason: Nausea Pantoprazole Sodium (Protonix) 40 mg PO DAILY@1700 [facility] Last Admin: 06/24/20 17:55 Dose: 40 mg Documented by: Polyethylene Glycol (Miralax) 17 gm PO DAILY PRN PRN Reason: Constipation Warfarin Sodium (Coumadin Ask) 1 each PO DAILY@1400 [facility] Last Admin: 06/24/20 15:30 Dose: Not Given Documented by: Discontinued Medications Calcium Carbonate/Glycine (Tums) 1,000 mg PO ONETIME ONE Stop: 06/21/20 07:19 Last Admin: 06/21/20 09:06 Dose: 1,000 mg Documented by: Calcium Carbonate/Glycine (Tums) 1,000 mg PO ONETIME ONE Stop: 06/22/20 07:16 Last Admin: 06/22/20 08:44 Dose: 1,000 mg Documented by: Calcium Carbonate/Glycine (Tums) 1,000 mg PO ONETIME ONE Stop: 06/23/20 07:29 Last Admin: 06/23/20 09:12 Dose: 1,000 mg Documented by: Dexamethasone (Dexamethasone) 6 mg PO ONETIME ONE Stop: 06/20/20 16:30 Last Admin: 06/20/20 16:42 Dose: 6 mg Documented by: Digoxin (Lanoxin) 250 mcg IVPUSH ONETIME ONE Stop: 06/22/20 13:52 Last Admin: 06/22/20 17:23 Dose: Not Given Documented by: Enoxaparin Sodium (Lovenox) 40 mg SUBCUT Q24H [facility] Last Admin: 06/23/20 09:14 Dose: 40 mg Documented by: Heparin Sodium (Porcine) (Heparin Sodium) 5,000 units SUBCUT Q8H [facility] Last Admin: 06/21/20 02:04 Dose: 5,000 units Documented by: Sodium Chloride (Normal Saline) 1,000 mls @ 999 mls/hr IV STAT ONE Stop: 06/20/20 17:22 Last Admin: 06/20/20 16:42 Dose: 999 mls/hr Documented by: Pantoprazole Sodium 40 mg/ (Sodium Chloride) 10 mls @ 300 mls/hr IV DAILY [facility] Last Admin: 06/22/20 08:45 Dose: 300 mls/hr Documented by: Remdesivir 200 mg/ Sodium (Chloride) 250 mls @ 250 mls/hr IV ONETIME ONE Stop: 06/20/20 18:09 Last Admin: 06/20/20 19:51 Dose: 250 mls/hr Documented by: Remdesivir 100 mg/ Sodium (Chloride) 100 mls @ 100 mls/hr IV Q24H [place] Stop: 06/24/20 18:59 Last Admin: 06/24/20 18:11 Dose: 100 mls/hr Documented by: Doxycycline Hyclate 100 mg/ (Sodium Chloride) 100 mls @ 100 mls/hr IV Q12H [facility] Last Admin: 06/22/20 10:29 Dose: 100 mls/hr Documented by: Ondansetron HCl (Zofran) 4 mg IVPUSH ONETIME ONE Stop: 06/20/20 16:30 Last Admin: 06/20/20 16:43 Dose: 4 mg Documented by: Warfarin Sodium (Coumadin Ask) 1 each PO ONETIME ONE Stop: 06/20/20 17:51 Last Admin: 06/21/20 02:29 Dose: Not Given Documented by: Warfarin Sodium (Coumadin) 6 mg PO 06/21/20@1445 [place] Stop: 06/21/20 14:46 Last Admin: 06/21/20 15:07 Dose: 6 mg Documented by: Warfarin Sodium (Coumadin) 6 mg PO DAILY@1400 ONE Stop: 06/22/20 14:01 Last Admin: 06/22/20 14:37 Dose: 6 mg Documented by: Warfarin Sodium (Coumadin) 4 mg PO DAILY@1430 [facility] Stop: 06/23/20 14:31 Last Admin: 06/23/20 15:00 Dose: 4 mg Documented by: Warfarin Sodium (Coumadin) 2 mg PO DAILY@1400 ONE Stop: 06/24/20 14:01 Last Admin: 06/24/20 15:30 Dose: 2 mg Documented by: - Exam General: Alert, Oriented, Cooperative Lungs: Normal Respiratory Effort, Other (rales in bases b/l) Cardiovascular: Regular Rate, Regular Rhythm GI/Abdominal Exam: Normal Bowel Sounds, Soft, Non-Tender, No Distention Extremities: Normal Inspection, No Pedal Edema Sepsis Event Note - Evaluation Sepsis Screening Result: No Definite Risk - Focused Exam Vital Signs: Vital Signs Temp Pulse Pulse Resp BP BP Pulse Ox 06/25/20 08:35 36.9 C 68 22 H 111/75 95 06/25/20 08:29 111/75 06/25/20 08:27 86 111/75 06/25/20 06:00 20 92 L 06/25/20 04:55 18 92 L 06/25/20 03:00 36.4 C 76 18 109/69 93 L 06/25/20 01:33 24 H 94 L 06/25/20 00:00 24 H 92 L 06/24/20 23:12 36.2 C 72 20 138/73 90 L - Problem List & Annotations (1) COVID-19 SNOMED Code(s): 974915613 Code(s): U07.1 - COVID-19 Status: Acute (2) Hypoxemia SNOMED Code(s): 320581970 Code(s): R09.02 - HYPOXEMIA Status: Acute Priority: High (3) History of atrial fibrillation SNOMED Code(s): 348291026 Code(s): Z86.79 - PERSONAL HISTORY OF OTHER DISEASES OF THE CIRCULATORY SYSTEM Status: Acute Priority: Medium (4) Chronic anticoagulation SNOMED Code(s): 091004736 Code(s): Z79.01 - USP (CURRENT) USE OF ANTICOAGULANTS Status: Chronic Priority: High (5) History of CHF (congestive heart failure) SNOMED Code(s): 940654217 Code(s): Z86.79 - PERSONAL HISTORY OF OTHER DISEASES OF THE CIRCULATORY SYSTEM Status: Chronic Priority: High - Problem List Review Problem List Initiated/Reviewed/Updated: Yes - Plan Plan:: Assessment and Plan: 1. Acute hypoxic respiratory failure secondary to COVID-19: - Patient now requiring 12 L HFNC. Will transfer patient to ICU for closer monitoring and start on BiPAP. Continue Combivent q6 [place], dexamethasone 6 mg qd, Rocephin and doxycycline. Patient completed 5-day course of Remdesivir. Patient received 2 units of convalescent plasma. - CXR showed LLL infiltrate. - Patient given fact sheet for Remdesivir, risks were explained and patient consented for treatment. - Patient given fact sheet for convalescent plasma EAU, risks were explained and patient consented for treatment. 2. Atrial fibrillation: - Patient on telemetry. Patient on chronic warfarin therapy and pharmacy consulted for dosing. 3. Hypocalcemia: - Will give IV calcium gluconate 2 g. 4. DVT prophylaxis: - Patient on warfarin. 5. Past medical history of CHF, BPH, cardiomyopathy and GERD: - Continue home medications. <Chad Lynne - Last Filed: 07/02/20 13:14> - Patient Data Vitals - Most Recent: Last Vital Signs Temp 36.4 C 07/01/20 11:50 Pulse 83 07/01/20 11:50 Resp 18 07/01/20 11:50 BP 115/70 07/01/20 11:50 Pulse Ox 93 L 07/01/20 11:50 I&O - Last 24 Hours: Intake & Output 07/01/20 07/02/20 07/02/20 22:59 06:59 14:59 Intake Total 1000 Balance 1000 Med Orders - Current: Current Medications Discontinued Medications Acetaminophen (Tylenol) 650 mg PO Q4H PRN PRN Reason: Pain (Mild 1-3)/fever Last Admin: 06/30/20 20:03 Dose: 650 mg Documented by: Albuterol/Ipratropium (Combivent Respimat) 0 gm INH Q6H [facility] Last Admin: 07/01/20 11:33 Dose: 1 puff Documented by: Benzonatate (Tessalon Perles) 100 mg PO TID PRN PRN Reason: Cough Last Admin: 06/30/20 20:03 Dose: 100 mg Documented by: Calcium Carbonate/Glycine (Tums) 1,000 mg PO ONETIME ONE Stop: 06/21/20 07:19 Last Admin: 06/21/20 09:06 Dose: 1,000 mg Documented by: Calcium Carbonate/Glycine (Tums) 1,000 mg PO ONETIME ONE Stop: 06/22/20 07:16 Last Admin: 06/22/20 08:44 Dose: 1,000 mg Documented by: Calcium Carbonate/Glycine (Tums) 1,000 mg PO ONETIME ONE Stop: 06/23/20 07:29 Last Admin: 06/23/20 09:12 Dose: 1,000 mg Documented by: Calcium Carbonate/Glycine (Tums) 1,000 mg PO ONETIME ONE Stop: 06/30/20 09:01 Last Admin: 06/30/20 09:28 Dose: 1,000 mg Documented by: Calcium Gluconate (Calcium Gluconate) 2 gm IV ONETIME ONE Stop: 06/27/20 09:31 Last Admin: 06/27/20 10:09 Dose: Not Given Documented by: Carvedilol (Coreg) 3.125 mg PO BID [facility] Last Admin: 07/01/20 08:26 Dose: 3.125 mg Documented by: Dexamethasone (Dexamethasone) 6 mg PO ONETIME ONE Stop: 06/20/20 16:30 Last Admin: 06/20/20 16:42 Dose: 6 mg Documented by: Dexamethasone (Dexamethasone) 6 mg PO DAILY [facility] Last Admin: 06/30/20 09:27 Dose: 6 mg Documented by: Digoxin (Lanoxin) 250 mcg IVPUSH ONETIME ONE Stop: 06/22/20 13:52 Last Admin: 06/22/20 17:23 Dose: Not Given Documented by: Enoxaparin Sodium (Lovenox) 40 mg SUBCUT Q24H [facility] Last Admin: 06/23/20 09:14 Dose: 40 mg Documented by: Ferrous Sulfate (Ferrous Sulfate) 325 mg PO DAILY [facility] Last Admin: 07/01/20 08:26 Dose: 325 mg Documented by: Furosemide (Lasix) 40 mg PO DAILY [facility] Last Admin: 06/27/20 09:52 Dose: Not Given Documented by: Furosemide (Lasix) 20 mg IVPUSH NOW ONE Stop: 06/25/20 10:23 Last Admin: 06/25/20 11:01 Dose: 20 mg Documented by: Heparin Sodium (Porcine) (Heparin Sodium) 5,000 units SUBCUT Q8H [facility] Last Admin: 06/21/20 02:04 Dose: 5,000 units Documented by: Sodium Chloride (Normal Saline) 1,000 mls @ 999 mls/hr IV STAT ONE Stop: 06/20/20 17:22 Last Admin: 06/20/20 16:42 Dose: 999 mls/hr Documented by: Pantoprazole Sodium 40 mg/ (Sodium Chloride) 10 mls @ 300 mls/hr IV DAILY [facility] Last Admin: 06/22/20 08:45 Dose: 300 mls/hr Documented by: Remdesivir 200 mg/ Sodium (Chloride) 250 mls @ 250 mls/hr IV ONETIME ONE Stop: 06/20/20 18:09 Last Admin: 06/20/20 19:51 Dose: 250 mls/hr Documented by: Remdesivir 100 mg/ Sodium (Chloride) 100 mls @ 100 mls/hr IV Q24H [facility] Stop: 06/24/20 18:59 Last Admin: 06/24/20 18:11 Dose: 100 mls/hr Documented by: Ceftriaxone Sodium/Dextrose 1 (gm/ Premix) 50 mls @ 100 mls/hr IV Q24H [facility] Last Admin: 06/29/20 20:40 Dose: 100 mls/hr Documented by: Doxycycline Hyclate 100 mg/ (Sodium Chloride) 100 mls @ 100 mls/hr IV Q12H [facility] Last Admin: 06/22/20 10:29 Dose: 100 mls/hr Documented by: Doxycycline Hyclate 100 mg/ (Sodium Chloride) 100 mls @ 100 mls/hr IV Q12H [facility] Last Admin: 06/29/20 21:34 Dose: 100 mls/hr Documented by: Calcium Gluconate 2 gm/ Sodium (Chloride) 120 mls @ 120 mls/hr IV ONETIME [facility] Stop: 06/25/20 12:29 Last Admin: 06/25/20 09:30 Dose: 120 mls/hr Documented by: Calcium Gluconate 2 gm/ Sodium (Chloride) 120 mls @ 60 mls/hr IV ONETIME ONE Stop: 06/26/20 09:44 Last Admin: 06/26/20 08:45 Dose: 60 mls/hr Documented by: Calcium Gluconate 2 gm/ Sodium (Chloride) 120 mls @ 60 mls/hr IV ONETIME ONE Stop: 06/27/20 11:59 Last Admin: 06/27/20 10:37 Dose: 60 mls/hr Documented by: Calcium Gluconate 2 gm/ Sodium (Chloride) 120 mls @ 60 mls/hr IV ONETIME ONE Stop: 06/28/20 13:44 Last Admin: 06/28/20 11:57 Dose: 60 mls/hr Documented by: Calcium Gluconate 2 gm/ Sodium (Chloride) 120 mls @ 60 mls/hr IV ONETIME ONE Stop: 06/29/20 12:59 Last Admin: 06/29/20 11:24 Dose: 60 mls/hr Documented by: Losartan Potassium (Cozaar) 25 mg PO DAILY [facility] Last Admin: 06/26/20 08:50 Dose: 25 mg Documented by: Magnesium Oxide (Magnesium Oxide) 400 mg PO ONETIME ONE Stop: 06/26/20 09:47 Last Admin: 06/26/20 10:30 Dose: 400 mg Documented by: Ondansetron HCl (Zofran) 4 mg IVPUSH ONETIME ONE Stop: 06/20/20 16:30 Last Admin: 06/20/20 16:43 Dose: 4 mg Documented by: Ondansetron HCl (Zofran) 4 mg IVPUSH Q4H PRN PRN Reason: Nausea Pantoprazole Sodium (Protonix) 40 mg PO DAILY@1700 [facility] Last Admin: 06/30/20 17:15 Dose: 40 mg Documented by: Polyethylene Glycol (Miralax) 17 gm PO DAILY PRN PRN Reason: Constipation Potassium Chloride (Klor-Con M20) 40 meq PO ONETIME ONE Stop: 06/26/20 07:25 Last Admin: 06/26/20 08:44 Dose: 40 meq Documented by: Warfarin Sodium (Coumadin Ask) 1 each PO ONETIME ONE Stop: 06/20/20 17:51 Last Admin: 06/21/20 02:29 Dose: Not Given Documented by: Warfarin Sodium (Coumadin Ask) 1 each PO DAILY@1400 [place] Last Admin: 07/01/20 15:36 Dose: Not Given Documented by: Warfarin Sodium (Coumadin) 6 mg PO 06/21/20@1445 [place] Stop: 06/21/20 14:46 Last Admin: 06/21/20 15:07 Dose: 6 mg Documented by: Warfarin Sodium (Coumadin) 6 mg PO DAILY@1400 ONE Stop: 06/22/20 14:01 Last Admin: 06/22/20 14:37 Dose: 6 mg Documented by: Warfarin Sodium (Coumadin) 4 mg PO DAILY@1430 ONE Stop: 06/23/20 14:31 Last Admin: 06/23/20 15:00 Dose: 4 mg Documented by: Warfarin Sodium (Coumadin) 2 mg PO DAILY@1400 ONE Stop: 06/24/20 14:01 Last Admin: 06/24/20 15:30 Dose: 2 mg Documented by: Warfarin Sodium (Coumadin) 2 mg PO DAILY@1400 ONE Stop: 06/26/20 14:01 Last Admin: 06/26/20 17:53 Dose: Not Given Documented by: Warfarin Sodium (Coumadin) 2 mg PO NOW ONE Stop: 06/26/20 15:31 Last Admin: 06/26/20 15:31 Dose: 2 mg Documented by: Warfarin Sodium (Coumadin) 4 mg PO ONETIME ONE Stop: 06/30/20 14:01 Last Admin: 06/30/20 14:23 Dose: 4 mg Documented by: Warfarin Sodium (Coumadin) 4 mg PO ONETIME ONE Stop: 07/01/20 15:01 Last Admin: 07/01/20 15:36 Dose: 4 mg Documented by: - Problem List & Annotations (1) COVID-19 SNOMED Code(s): 452363044 Code(s): U07.1 - COVID-19 Status: Acute (2) Dehydration SNOMED Code(s): 75866367 Code(s): E86.0 - DEHYDRATION Status: Acute (3) Hypoxia SNOMED Code(s): 143676290 Code(s): R09.02 - HYPOXEMIA Status: Acute (4) History of atrial fibrillation SNOMED Code(s): 492554546 Code(s): Z86.79 - PERSONAL HISTORY OF OTHER DISEASES OF THE CIRCULATORY SYSTEM Status: Acute Priority: Medium (5) Pneumonia SNOMED Code(s): 056824496 Code(s): J18.9 - PNEUMONIA, UNSPECIFIED ORGANISM Status: Acute Priority: High Qualifiers: Pneumonia type: due to unspecified organism Lung location: unspecified part of lung (6) S/P total knee arthroplasty SNOMED Code(s): 8706385461313, 045041108, 9103672901423 Code(s): Z96.659 - PRESENCE OF UNSPECIFIED ARTIFICIAL KNEE JOINT Status: Acute Priority: High Qualifiers: Laterality: right Qualified Code(s): Z96.651 - Presence of right artificial knee joint Annotation/Comment:: POD #1 (7) Chronic anticoagulation SNOMED Code(s): 017131361 Code(s): Z79.01 - USP (CURRENT) USE OF ANTICOAGULANTS Status: Chronic Priority: High (8) History of CHF (congestive heart failure) SNOMED Code(s): 794687562 Code(s): Z86.79 - PERSONAL HISTORY OF OTHER DISEASES OF THE CIRCULATORY SYSTEM Status: Chronic Priority: High - Plan Plan:: I have seen and evaluated the patient and agree with the residents note unless specified in my note
[2020-06-25] MEDS ORDERED: Furosemide 20 MG/2 ML VIAL IVPUSH ONE (10:22)
--- NOTE | 2020-06-25 13:03 | ECHO ---
EXAM DATE: 06/20/20 PATIENT'S AGE: 69 The ECHO report has been scanned into [employer] and can be seen in this patient's EMR (Electronic Medical Record) under the REPORTS section. The report has also been scanned into PACS. VINCENT
[2020-06-25] MEDS: Pantoprazole 40 MG Tab.CR PO SCH (18:23)
--- NOTE | 2020-06-25 18:34 | PN ---
THC Physician - Brief Progress IrfmUNHJDOBBD80/09/2020 18:32[facility] Sharath rodrigues, [place] - MWN (AMARISN) - [facility] VIRGENRubenDate of Service 06/25/2020 18:32HPI/Events o f Note eICU Admission [id number] female being treated for COVID-19 with increasing oxygen requir ements. Was on heated high flow nasal cannula with progressive hypoxemia requiring BiPAP.On camera, the patient is awake, laying in bed and appears to be comfortable on BiPAPReviewedVitalsEMR notesLabs ImagingAvailable microMedicationseICU impressionsAcute hypoxemic respiratory failureCOVID-19Atrial fi brillationHistory of CHFeICU recommendationsBiPAP support as needed for work of breathing and/or to m aintain a saturation of greater than 92%Proning as tolerated is highly recommendedCompletion of cours e of Decadron and remdesivirBMP and LFTs while on remdesivirCovid inflammatory marker trendCompletion of CAP courseVTE prophylaxis noted with therapeutic INR on Coumadin for atrial fibrillationGlycemic control per protocol, blood sugar target between 140 and 180Thank you for allowing us to particpate i n the care of your patient.Interventions Major-Hypoxemia - evaluation and management, Infection - jf luation and management, Respiratory failure - evaluation and management
--- NOTE | 2020-06-25 18:36 | PN ---
THC Physician - Brief Progress [id number]/09/2020 18:35[facility] Sharath rodrigues, [place] - MWN (AMARISN) - [facility] VIRGENRubenDate of Service 06/25/2020 18:35HPI/Events o f Note eICU Admission [id number] female being treated for COVID-19 with increasing oxygen requir ements. Was on heated high flow nasal cannula with progressive hypoxemia requiring BiPAP.On camera, the patient is awake, laying in bed and appears to be comfortable on BiPAPReviewedVitalsEMR notesLabs ImagingAvailable microMedicationseICU impressionsAcute hypoxemic respiratory failureCOVID-19Atrial fi brillationHistory of CHFeICU recommendationsBiPAP support as needed for work of breathing and/or to m aintain a saturation of greater than 92%Proning as tolerated is highly recommendedCompletion of cours e of Decadron and remdesivirBMP and LFTs while on remdesivirCovid inflammatory marker trendCompletion of CAP courseVTE prophylaxis noted with therapeutic INR on Coumadin for atrial fibrillationGlycemic control per protocol, blood sugar target between 140 and 180Thank you for allowing us to particpate i n the care of your patient.Interventions Major-Hypoxemia - evaluation and management, Infection - jf luation and management, Respiratory failure - evaluation and management
[2020-06-25] MEDS: cefTRIAXone 1 GM in Premix Bag 1 BAG IV SCH (20:06)
[2020-06-26] MEDS: Albuterol/Ipratropium 4 GM Inhalation Spray INH SCH ×4 (00:10→18:07)
[2020-06-26 07:00] LABS: BLOOD UREA NITROGEN,BUN 30 mg/dL (7.0-18.0); CARBON DIOXIDE,CO2 26.1 mmol/L (21.0-32.0); CHLORIDE,CL 102 mmol/L (98-107); GLUCOSE RANDOM 137 mg/dL (74-106); POTASSIUM,K 3.6 mmol/L (3.5-5.1); SODIUM,NA 139 mmol/L (136-148)
[2020-06-26] MEDS ORDERED: Potassium Chloride 20 MEQ Tab.ER PO ONE (07:24)
[2020-06-26] MEDS ORDERED: Calcium Gluconate 10% 1 GM/10 ML SDV IVPUSH ONE (07:24)
[2020-06-26] MEDS ORDERED: Calcium Gluconate 2 GM in Sodium Chloride 0.9% 100 ML IV ONE (07:45)
--- NOTE | 2020-06-26 08:23 | PCM.PN ---
<Clay Lazaro - Last Filed: 06/26/20 10:47> - General Info Date of Service: 06/26/20 Subjective Update: Reports shortness of breath feels a bit better than yesterday. Tolerating oral diet. Denies fevers, chills, nausea, vomiting or diarrhea. - Patient Data Vitals - Most Recent: Last Vital Signs Temp 36.8 C 06/26/20 08:19 Pulse 66 06/26/20 06:00 Resp 16 06/26/20 08:19 BP 104/53 L 06/26/20 08:19 Pulse Ox 93 L 06/26/20 08:19 Weight - Most Recent: 87.226 kg I&O - Last 24 Hours: Intake & Output 06/25/20 06/26/20 06/26/20 22:59 06:59 14:59 Intake Total 630 650 Output Total 1500 450 Balance -870 200 Lab Results Last 24 Hours: Laboratory Results - last 24 hr 06/26/20 06/26/20 06/26/20 Range/Units 05:53 05:53 05:53 WBC 7.98 (4.0-11.0) K/uL RBC 3.99 L (4.50-5.90) M/uL Hgb 10.0 L (13.0-17.0) g/dL Hct 32.6 L (38.0-50.0) % MCV 81.7 (80.0-98.0) fL MCH 25.1 L (27.0-32.0) pg MCHC 30.7 L (31.0-37.0) g/dL RDW Std Deviation 50.1 (28.0-62.0) fl RDW Coeff of Anita 16 H (11.0-15.0) % Plt Count 175 (150-400) K/uL MPV 11.90 (7.40-12.00) fL Add Manual Diff YES Neutrophils % (Manual) 71 (48.0-80.0) % Band Neutrophils % 2 % Lymphocytes % (Manual) 20 (16.0-40.0) % Monocytes % (Manual) 7 (0.0-15.0) % Nucleated RBC % 0.0 /100WBC Absolute Seg Neuts 5.7 (1.4-5.7) Band Neutrophils # 0.2 Lymphocytes # (Manual) 1.6 (0.6-2.4) Monocytes # (Manual) 0.6 (0.0-0.8) Nucleated RBCs # 0 K/uL INR 3.39 Sodium 139 (136-148) mmol/L Potassium 3.6 (3.5-5.1) mmol/L Chloride 102 (98-107) mmol/L Carbon Dioxide 26.1 (21.0-32.0) mmol/L BUN 30 H (7.0-18.0) mg/dL Creatinine 1.2 (0.8-1.3) mg/dL Est Cr Clr Drug Dosing 63.62 mL/min Estimated GFR (MDRD) > 60.0 ml/min Glucose 137 H (74-106) mg/dL Calcium 5.7 L (8.5-10.1) mg/dL Phosphorus 5.3 H (2.6-4.7) mg/dL Magnesium 1.9 (1.8-2.4) mg/dL Total Bilirubin 0.5 (0.2-1.0) mg/dL AST 34 (15-37) IU/L ALT 60 (14-63) IU/L Alkaline Phosphatase 61 (46-116) U/L Total Protein 6.0 L (6.4-8.2) g/dL Albumin 2.3 L (3.4-5.0) g/dL Globulin 3.7 (2.6-4.0) g/dL Albumin/Globulin Ratio 0.6 L (0.9-1.6) Med Orders - Current: Current Medications Acetaminophen (Tylenol) 650 mg PO Q4H PRN PRN Reason: Pain (Mild 1-3)/fever Last Admin: 06/23/20 19:53 Dose: 650 mg Documented by: Albuterol/Ipratropium (Combivent Respimat) 0 gm INH Q6H [facility] Last Admin: 06/26/20 06:03 Dose: 1 puff Documented by: Benzonatate (Tessalon Perles) 100 mg PO TID PRN PRN Reason: Cough Last Admin: 06/23/20 19:53 Dose: 100 mg Documented by: Carvedilol (Coreg) 3.125 mg PO BID [facility] Last Admin: 06/25/20 20:07 Dose: 3.125 mg Documented by: Dexamethasone (Dexamethasone) 6 mg PO DAILY [facility] Last Admin: 06/25/20 08:27 Dose: 6 mg Documented by: Ferrous Sulfate (Ferrous Sulfate) 325 mg PO DAILY [facility] Last Admin: 06/25/20 08:28 Dose: 325 mg Documented by: Furosemide (Lasix) 40 mg PO DAILY [facility] Last Admin: 06/25/20 08:28 Dose: 40 mg Documented by: Ceftriaxone Sodium/Dextrose 1 (gm/ Premix) 50 mls @ 100 mls/hr IV Q24H [facility] Last Admin: 06/25/20 20:06 Dose: 100 mls/hr Documented by: Doxycycline Hyclate 100 mg/ (Sodium Chloride) 100 mls @ 100 mls/hr IV Q12H [facility] Last Admin: 06/25/20 20:54 Dose: 100 mls/hr Documented by: Calcium Gluconate 2 gm/ Sodium (Chloride) 120 mls @ 60 mls/hr IV ONETIME ONE Stop: 06/26/20 09:44 Losartan Potassium (Cozaar) 25 mg PO DAILY [facility] Last Admin: 06/25/20 08:29 Dose: 25 mg Documented by: Ondansetron HCl (Zofran) 4 mg IVPUSH Q4H PRN PRN Reason: Nausea Pantoprazole Sodium (Protonix) 40 mg PO DAILY@1700 [facility] Last Admin: 06/25/20 18:23 Dose: 40 mg Documented by: Polyethylene Glycol (Miralax) 17 gm PO DAILY PRN PRN Reason: Constipation Warfarin Sodium (Coumadin Ask) 1 each PO DAILY@1400 [facility] Last Admin: 06/25/20 21:32 Dose: Not Given Documented by: Discontinued Medications Calcium Carbonate/Glycine (Tums) 1,000 mg PO ONETIME ONE Stop: 06/21/20 07:19 Last Admin: 06/21/20 09:06 Dose: 1,000 mg Documented by: Calcium Carbonate/Glycine (Tums) 1,000 mg PO ONETIME ONE Stop: 06/22/20 07:16 Last Admin: 06/22/20 08:44 Dose: 1,000 mg Documented by: Calcium Carbonate/Glycine (Tums) 1,000 mg PO ONETIME ONE Stop: 06/23/20 07:29 Last Admin: 06/23/20 09:12 Dose: 1,000 mg Documented by: Dexamethasone (Dexamethasone) 6 mg PO ONETIME ONE Stop: 06/20/20 16:30 Last Admin: 06/20/20 16:42 Dose: 6 mg Documented by: Digoxin (Lanoxin) 250 mcg IVPUSH ONETIME ONE Stop: 06/22/20 13:52 Last Admin: 06/22/20 17:23 Dose: Not Given Documented by: Enoxaparin Sodium (Lovenox) 40 mg SUBCUT Q24H [place] Last Admin: 06/23/20 09:14 Dose: 40 mg Documented by: Furosemide (Lasix) 20 mg IVPUSH NOW ONE Stop: 06/25/20 10:23 Last Admin: 06/25/20 11:01 Dose: 20 mg Documented by: Heparin Sodium (Porcine) (Heparin Sodium) 5,000 units SUBCUT Q8H [facility] Last Admin: 06/21/20 02:04 Dose: 5,000 units Documented by: Sodium Chloride (Normal Saline) 1,000 mls @ 999 mls/hr IV STAT ONE Stop: 06/20/20 17:22 Last Admin: 06/20/20 16:42 Dose: 999 mls/hr Documented by: Pantoprazole Sodium 40 mg/ (Sodium Chloride) 10 mls @ 300 mls/hr IV DAILY [facility] Last Admin: 06/22/20 08:45 Dose: 300 mls/hr Documented by: Remdesivir 200 mg/ Sodium (Chloride) 250 mls @ 250 mls/hr IV ONETIME ONE Stop: 06/20/20 18:09 Last Admin: 06/20/20 19:51 Dose: 250 mls/hr Documented by: Remdesivir 100 mg/ Sodium (Chloride) 100 mls @ 100 mls/hr IV Q24H [place] Stop: 06/24/20 18:59 Last Admin: 06/24/20 18:11 Dose: 100 mls/hr Documented by: Doxycycline Hyclate 100 mg/ (Sodium Chloride) 100 mls @ 100 mls/hr IV Q12H [facility] Last Admin: 06/22/20 10:29 Dose: 100 mls/hr Documented by: Calcium Gluconate 2 gm/ Sodium (Chloride) 120 mls @ 120 mls/hr IV ONETIME [place] Stop: 06/25/20 12:29 Last Admin: 06/25/20 09:30 Dose: 120 mls/hr Documented by: Ondansetron HCl (Zofran) 4 mg IVPUSH ONETIME ONE Stop: 06/20/20 16:30 Last Admin: 06/20/20 16:43 Dose: 4 mg Documented by: Potassium Chloride (Klor-Con M20) 40 meq PO ONETIME ONE Stop: 06/26/20 07:25 Warfarin Sodium (Coumadin Ask) 1 each PO ONETIME ONE Stop: 06/20/20 17:51 Last Admin: 06/21/20 02:29 Dose: Not Given Documented by: Warfarin Sodium (Coumadin) 6 mg PO 06/21/20@1445 [place] Stop: 06/21/20 14:46 Last Admin: 06/21/20 15:07 Dose: 6 mg Documented by: Warfarin Sodium (Coumadin) 6 mg PO DAILY@1400 ONE Stop: 06/22/20 14:01 Last Admin: 06/22/20 14:37 Dose: 6 mg Documented by: Warfarin Sodium (Coumadin) 4 mg PO DAILY@1430 ONE Stop: 06/23/20 14:31 Last Admin: 06/23/20 15:00 Dose: 4 mg Documented by: Warfarin Sodium (Coumadin) 2 mg PO DAILY@1400 ONE Stop: 06/24/20 14:01 Last Admin: 06/24/20 15:30 Dose: 2 mg Documented by: - Exam General: Alert, Oriented, Cooperative, No Acute Distress Lungs: Clear to Auscultation, Normal Respiratory Effort Cardiovascular: Regular Rate, Regular Rhythm GI/Abdominal Exam: Normal Bowel Sounds, Soft, Non-Tender, No Distention Extremities: Normal Inspection, No Pedal Edema Sepsis Event Note - Evaluation Sepsis Screening Result: No Definite Risk - Focused Exam Vital Signs: Vital Signs Temp Pulse Resp BP Pulse Ox 06/26/20 08:19 36.8 C 16 104/53 L 93 L 06/26/20 06:00 66 19 92/47 L 93 L 06/26/20 03:00 62 17 88/50 L 95 06/26/20 02:00 63 16 97/56 L 89 L 06/26/20 01:00 63 17 108/68 97 06/26/20 00:00 60 16 118/61 96 06/25/20 23:00 56 L 14 99/55 L 96 06/25/20 22:00 72 22 H 130/61 95 06/25/20 21:00 68 17 110/64 97 - Problem List & Annotations (1) COVID-19 SNOMED Code(s): 112951625 Code(s): U07.1 - COVID-19 Status: Acute (2) Hypoxemia SNOMED Code(s): 477105435 Code(s): R09.02 - HYPOXEMIA Status: Acute Priority: High (3) History of atrial fibrillation SNOMED Code(s): 506827405 Code(s): Z86.79 - PERSONAL HISTORY OF OTHER DISEASES OF THE CIRCULATORY SYSTEM Status: Acute Priority: Medium (4) Chronic anticoagulation SNOMED Code(s): 523181891 Code(s): Z79.01 - [employer] (CURRENT) USE OF ANTICOAGULANTS Status: Chronic Priority: High (5) History of CHF (congestive heart failure) SNOMED Code(s): 075802937 Code(s): Z86.79 - PERSONAL HISTORY OF OTHER DISEASES OF THE CIRCULATORY SYSTEM Status: Chronic Priority: High - Problem List Review Problem List Initiated/Reviewed/Updated: Yes - My Orders Last 24 Hours: My Active Orders 06/26/20 07:45 Calcium Gluconate 2 gm Sodium Chloride 0.9% [Normal Saline] 100 ml IV ONETIME - Plan Plan:: Assessment and Plan: 1. Acute hypoxic respiratory failure secondary to COVID-19: - Patient was on BiPAP for majority of day yesterday. He was on 10 L HFNC overnight. Will continue BiPAP intermittently for a few hours today. Continue Combivent q6 [place], dexamethasone 6 mg qd, Rocephin and doxycycline. Patient completed 5-day course of Remdesivir. Patient received 2 units of convalescent plasma. - CXR showed LLL infiltrate. - Patient given fact sheet for Remdesivir, risks were explained and patient consented for treatment. - Patient given fact sheet for convalescent plasma EAU, risks were explained and patient consented for treatment. 2. Atrial fibrillation: - Patient on telemetry. Patient on chronic warfarin therapy and pharmacy consulted for dosing. 3. Hypocalcemia: - Will give additional IV calcium gluconate 2 g today. 4. DVT prophylaxis: - Patient on warfarin. 5. Past medical history of CHF, BPH, cardiomyopathy and GERD: - Continue home medications. <Chad Lynne - Last Filed: 07/03/20 17:50> - Patient Data Vitals - Most Recent: Last Vital Signs Temp 36.4 C 07/01/20 11:50 Pulse 83 07/01/20 11:50 Resp 18 07/01/20 11:50 BP 115/70 07/01/20 11:50 Pulse Ox 93 L 07/01/20 11:50 I&O - Last 24 Hours: Intake & Output 07/01/20 07/02/20 07/02/20 22:59 06:59 14:59 Intake Total 1000 Balance 1000 Med Orders - Current: Current Medications Discontinued Medications Acetaminophen (Tylenol) 650 mg PO Q4H PRN PRN Reason: Pain (Mild 1-3)/fever Last Admin: 06/30/20 20:03 Dose: 650 mg Documented by: Albuterol/Ipratropium (Combivent Respimat) 0 gm INH Q6H [facility] Last Admin: 07/01/20 11:33 Dose: 1 puff Documented by: Benzonatate (Tessalon Perles) 100 mg PO TID PRN PRN Reason: Cough Last Admin: 06/30/20 20:03 Dose: 100 mg Documented by: Calcium Carbonate/Glycine (Tums) 1,000 mg PO ONETIME ONE Stop: 06/21/20 07:19 Last Admin: 06/21/20 09:06 Dose: 1,000 mg Documented by: Calcium Carbonate/Glycine (Tums) 1,000 mg PO ONETIME ONE Stop: 06/22/20 07:16 Last Admin: 06/22/20 08:44 Dose: 1,000 mg Documented by: Calcium Carbonate/Glycine (Tums) 1,000 mg PO ONETIME ONE Stop: 06/23/20 07:29 Last Admin: 06/23/20 09:12 Dose: 1,000 mg Documented by: Calcium Carbonate/Glycine (Tums) 1,000 mg PO ONETIME ONE Stop: 06/30/20 09:01 Last Admin: 06/30/20 09:28 Dose: 1,000 mg Documented by: Calcium Gluconate (Calcium Gluconate) 2 gm IV ONETIME ONE Stop: 06/27/20 09:31 Last Admin: 06/27/20 10:09 Dose: Not Given Documented by: Carvedilol (Coreg) 3.125 mg PO BID [facility] Last Admin: 07/01/20 08:26 Dose: 3.125 mg Documented by: Dexamethasone (Dexamethasone) 6 mg PO ONETIME ONE Stop: 06/20/20 16:30 Last Admin: 06/20/20 16:42 Dose: 6 mg Documented by: Dexamethasone (Dexamethasone) 6 mg PO DAILY [facility] Last Admin: 06/30/20 09:27 Dose: 6 mg Documented by: Digoxin (Lanoxin) 250 mcg IVPUSH ONETIME ONE Stop: 06/22/20 13:52 Last Admin: 06/22/20 17:23 Dose: Not Given Documented by: Enoxaparin Sodium (Lovenox) 40 mg SUBCUT Q24H [facility] Last Admin: 06/23/20 09:14 Dose: 40 mg Documented by: Ferrous Sulfate (Ferrous Sulfate) 325 mg PO DAILY [facility] Last Admin: 07/01/20 08:26 Dose: 325 mg Documented by: Furosemide (Lasix) 40 mg PO DAILY [facility] Last Admin: 06/27/20 09:52 Dose: Not Given Documented by: Furosemide (Lasix) 20 mg IVPUSH NOW ONE Stop: 06/25/20 10:23 Last Admin: 06/25/20 11:01 Dose: 20 mg Documented by: Heparin Sodium (Porcine) (Heparin Sodium) 5,000 units SUBCUT Q8H [facility] Last Admin: 06/21/20 02:04 Dose: 5,000 units Documented by: Sodium Chloride (Normal Saline) 1,000 mls @ 999 mls/hr IV STAT ONE Stop: 06/20/20 17:22 Last Admin: 06/20/20 16:42 Dose: 999 mls/hr Documented by: Pantoprazole Sodium 40 mg/ (Sodium Chloride) 10 mls @ 300 mls/hr IV DAILY [facility] Last Admin: 06/22/20 08:45 Dose: 300 mls/hr Documented by: Remdesivir 200 mg/ Sodium (Chloride) 250 mls @ 250 mls/hr IV ONETIME ONE Stop: 06/20/20 18:09 Last Admin: 06/20/20 19:51 Dose: 250 mls/hr Documented by: Remdesivir 100 mg/ Sodium (Chloride) 100 mls @ 100 mls/hr IV Q24H [facility] Stop: 06/24/20 18:59 Last Admin: 06/24/20 18:11 Dose: 100 mls/hr Documented by: Ceftriaxone Sodium/Dextrose 1 (gm/ Premix) 50 mls @ 100 mls/hr IV Q24H [facility] Last Admin: 06/29/20 20:40 Dose: 100 mls/hr Documented by: Doxycycline Hyclate 100 mg/ (Sodium Chloride) 100 mls @ 100 mls/hr IV Q12H [facility] Last Admin: 06/22/20 10:29 Dose: 100 mls/hr Documented by: Doxycycline Hyclate 100 mg/ (Sodium Chloride) 100 mls @ 100 mls/hr IV Q12H [facility] Last Admin: 06/29/20 21:34 Dose: 100 mls/hr Documented by: Calcium Gluconate 2 gm/ Sodium (Chloride) 120 mls @ 120 mls/hr IV ONETIME [place] Stop: 06/25/20 12:29 Last Admin: 06/25/20 09:30 Dose: 120 mls/hr Documented by: Calcium Gluconate 2 gm/ Sodium (Chloride) 120 mls @ 60 mls/hr IV ONETIME ONE Stop: 06/26/20 09:44 Last Admin: 06/26/20 08:45 Dose: 60 mls/hr Documented by: Calcium Gluconate 2 gm/ Sodium (Chloride) 120 mls @ 60 mls/hr IV ONETIME ONE Stop: 06/27/20 11:59 Last Admin: 06/27/20 10:37 Dose: 60 mls/hr Documented by: Calcium Gluconate 2 gm/ Sodium (Chloride) 120 mls @ 60 mls/hr IV ONETIME ONE Stop: 06/28/20 13:44 Last Admin: 06/28/20 11:57 Dose: 60 mls/hr Documented by: Calcium Gluconate 2 gm/ Sodium (Chloride) 120 mls @ 60 mls/hr IV ONETIME ONE Stop: 06/29/20 12:59 Last Admin: 06/29/20 11:24 Dose: 60 mls/hr Documented by: Losartan Potassium (Cozaar) 25 mg PO DAILY [facility] Last Admin: 06/26/20 08:50 Dose: 25 mg Documented by: Magnesium Oxide (Magnesium Oxide) 400 mg PO ONETIME ONE Stop: 06/26/20 09:47 Last Admin: 06/26/20 10:30 Dose: 400 mg Documented by: Ondansetron HCl (Zofran) 4 mg IVPUSH ONETIME ONE Stop: 06/20/20 16:30 Last Admin: 06/20/20 16:43 Dose: 4 mg Documented by: Ondansetron HCl (Zofran) 4 mg IVPUSH Q4H PRN PRN Reason: Nausea Pantoprazole Sodium (Protonix) 40 mg PO DAILY@1700 [facility] Last Admin: 06/30/20 17:15 Dose: 40 mg Documented by: Polyethylene Glycol (Miralax) 17 gm PO DAILY PRN PRN Reason: Constipation Potassium Chloride (Klor-Con M20) 40 meq PO ONETIME ONE Stop: 06/26/20 07:25 Last Admin: 06/26/20 08:44 Dose: 40 meq Documented by: Warfarin Sodium (Coumadin Ask) 1 each PO ONETIME ONE Stop: 06/20/20 17:51 Last Admin: 06/21/20 02:29 Dose: Not Given Documented by: Warfarin Sodium (Coumadin Ask) 1 each PO DAILY@1400 [facility] Last Admin: 07/01/20 15:36 Dose: Not Given Documented by: Warfarin Sodium (Coumadin) 6 mg PO 06/21/20@1445 [facility] Stop: 06/21/20 14:46 Last Admin: 06/21/20 15:07 Dose: 6 mg Documented by: Warfarin Sodium (Coumadin) 6 mg PO DAILY@1400 ONE Stop: 06/22/20 14:01 Last Admin: 06/22/20 14:37 Dose: 6 mg Documented by: Warfarin Sodium (Coumadin) 4 mg PO DAILY@1430 ONE Stop: 06/23/20 14:31 Last Admin: 06/23/20 15:00 Dose: 4 mg Documented by: Warfarin Sodium (Coumadin) 2 mg PO DAILY@1400 ONE Stop: 06/24/20 14:01 Last Admin: 06/24/20 15:30 Dose: 2 mg Documented by: Warfarin Sodium (Coumadin) 2 mg PO DAILY@1400 ONE Stop: 06/26/20 14:01 Last Admin: 06/26/20 17:53 Dose: Not Given Documented by: Warfarin Sodium (Coumadin) 2 mg PO NOW ONE Stop: 06/26/20 15:31 Last Admin: 06/26/20 15:31 Dose: 2 mg Documented by: Warfarin Sodium (Coumadin) 4 mg PO ONETIME ONE Stop: 06/30/20 14:01 Last Admin: 06/30/20 14:23 Dose: 4 mg Documented by: Warfarin Sodium (Coumadin) 4 mg PO ONETIME ONE Stop: 11/15/20 15:01 Last Admin: 07/01/20 15:36 Dose: 4 mg Documented by: - Problem List & Annotations (1) COVID-19 SNOMED Code(s): 453125350 Code(s): U07.1 - COVID-19 Status: Acute (2) Dehydration SNOMED Code(s): 94157315 Code(s): E86.0 - DEHYDRATION Status: Acute (3) Hypoxia SNOMED Code(s): 786387769 Code(s): R09.02 - HYPOXEMIA Status: Acute (4) History of atrial fibrillation SNOMED Code(s): 056660478 Code(s): Z86.79 - PERSONAL HISTORY OF OTHER DISEASES OF THE CIRCULATORY SYSTEM Status: Acute Priority: Medium (5) Pneumonia SNOMED Code(s): 892856711 Code(s): J18.9 - PNEUMONIA, UNSPECIFIED ORGANISM Status: Acute Priority: High Qualifiers: Pneumonia type: due to unspecified organism Lung location: unspecified part of lung (6) S/P total knee arthroplasty SNOMED Code(s): 8614652804990, 383387890, 7113424718870 Code(s): Z96.659 - PRESENCE OF UNSPECIFIED ARTIFICIAL KNEE JOINT Status: Acute Priority: High Qualifiers: Laterality: right Qualified Code(s): Z96.651 - Presence of right artificial knee joint Annotation/Comment:: POD #1 (7) Chronic anticoagulation SNOMED Code(s): 350995851 Code(s): Z79.01 - [facility] (CURRENT) USE OF ANTICOAGULANTS Status: Chronic Priority: High (8) History of CHF (congestive heart failure) SNOMED Code(s): 237304039 Code(s): Z86.79 - PERSONAL HISTORY OF OTHER DISEASES OF THE CIRCULATORY SYSTEM Status: Chronic Priority: High - Plan Plan:: I have seen and evaluated the patient and agree with the residents note unless specified in my note I have seen and evaluated the patient and agree with the residents note unless specified in my note
[2020-06-26] MEDS: Losartan 50 MG Tab PO SCH (08:50)
[2020-06-26] MEDS: Carvedilol 3.125 MG Tab PO SCH ×2 (08:50→20:14)
[2020-06-26] MEDS: Dexamethasone 4 MG Tab PO SCH (08:52)
[2020-06-26] MEDS: Furosemide 40 MG Tab PO SCH (08:53)
[2020-06-26] MEDS: Ferrous Sulfate 325 MG Tab PO SCH (08:53)
[2020-06-26] MEDS ORDERED: Magnesium Oxide 400 MG Tab PO ONE (09:46)
[2020-06-26] MEDS: Doxycycline 100 MG in Sodium Chloride 0.9% 100 ML IV SCH ×2 (10:00→20:17)
[2020-06-26] MEDS ORDERED: Warfarin 2 MG Tab PO ONE ×2 (14:00→15:30)
[2020-06-26] MEDS: Pantoprazole 40 MG Tab.CR PO SCH (17:52)
[2020-06-26] MEDS: cefTRIAXone 1 GM in Premix Bag 1 BAG IV SCH (19:26)
[2020-06-27] MEDS: Albuterol/Ipratropium 4 GM Inhalation Spray INH SCH ×5 (00:13→23:17)
[2020-06-27 06:13] LABS: BLOOD UREA NITROGEN,BUN 28 mg/dL (7.0-18.0); CARBON DIOXIDE,CO2 27.6 mmol/L (21.0-32.0); CHLORIDE,CL 104 mmol/L (98-107); GLUCOSE RANDOM 140 mg/dL (74-106); POTASSIUM,K 4.1 mmol/L (3.5-5.1); SODIUM,NA 138 mmol/L (136-148)
--- NOTE | 2020-06-27 08:03 | PCM.PN ---
<Clay Lazaro M - Last Filed: 06/27/20 11:13> - General Info Date of Service: 06/27/20 Subjective Update: Patient on 8L HFNC this AM. Was on BiPAP for a few hours intermittently yesterday. Tolerating oral diet and having bowel movements. Reports coughing less yesterday. - Patient Data Vitals - Most Recent: Last Vital Signs Temp 37.0 C 06/27/20 00:15 Pulse 56 L 06/27/20 07:15 Resp 16 06/27/20 07:15 BP 91/50 L 06/27/20 07:15 Pulse Ox 94 L 06/27/20 07:15 Weight - Most Recent: 87.226 kg I&O - Last 24 Hours: Intake & Output 06/26/20 06/27/20 06/27/20 22:59 06:59 14:59 Intake Total 800 700 Output Total 1150 600 Balance -350 100 Lab Results Last 24 Hours: Laboratory Results - last 24 hr 06/27/20 06/27/20 06/27/20 Range/Units 05:25 05:25 05:25 WBC 7.57 (4.0-11.0) K/uL RBC 4.00 L (4.50-5.90) M/uL Hgb 10.1 L (13.0-17.0) g/dL Hct 32.9 L (38.0-50.0) % MCV 82.3 (80.0-98.0) fL MCH 25.3 L (27.0-32.0) pg MCHC 30.7 L (31.0-37.0) g/dL RDW Std Deviation 49.9 (28.0-62.0) fl RDW Coeff of Anita 16 H (11.0-15.0) % Plt Count 148 L (150-400) K/uL MPV 12.10 H (7.40-12.00) fL Neut % (Auto) 74.7 (48.0-80.0) % Lymph % (Auto) 13.7 L (16.0-40.0) % Tillman % (Auto) 11.0 (0.0-15.0) % Eos % (Auto) 0.5 (0.0-7.0) % Baso % (Auto) 0.1 (0.0-1.5) % Neut # (Auto) 5.7 (1.4-5.7) K/uL Lymph # (Auto) 1.0 (0.6-2.4) K/uL Tillman # (Auto) 0.8 (0.0-0.8) K/uL Eos # (Auto) 0.0 (0.0-0.7) K/uL Baso # (Auto) 0.0 (0.0-0.1) K/uL Nucleated RBC % 0.0 /100WBC Nucleated RBCs # 0 K/uL INR 3.74 Sodium 138 (136-148) mmol/L Potassium 4.1 (3.5-5.1) mmol/L Chloride 104 (98-107) mmol/L Carbon Dioxide 27.6 (21.0-32.0) mmol/L BUN 28 H (7.0-18.0) mg/dL Creatinine 1.1 (0.8-1.3) mg/dL Est Cr Clr Drug Dosing 69.41 mL/min Estimated GFR (MDRD) > 60.0 ml/min Glucose 140 H (74-106) mg/dL Calcium 6.0 L (8.5-10.1) mg/dL Phosphorus 4.3 (2.6-4.7) mg/dL Magnesium 2.0 (1.8-2.4) mg/dL Total Bilirubin 0.4 (0.2-1.0) mg/dL AST 26 (15-37) IU/L ALT 50 (14-63) IU/L Alkaline Phosphatase 58 (46-116) U/L Total Protein 5.8 L (6.4-8.2) g/dL Albumin 2.1 L (3.4-5.0) g/dL Globulin 3.7 (2.6-4.0) g/dL Albumin/Globulin Ratio 0.6 L (0.9-1.6) Med Orders - Current: Current Medications Acetaminophen (Tylenol) 650 mg PO Q4H PRN PRN Reason: Pain (Mild 1-3)/fever Last Admin: 06/23/20 19:53 Dose: 650 mg Documented by: Albuterol/Ipratropium (Combivent Respimat) 0 gm INH Q6H [place] Last Admin: 06/27/20 06:05 Dose: 1 puff Documented by: Benzonatate (Tessalon Perles) 100 mg PO TID PRN PRN Reason: Cough Last Admin: 06/23/20 19:53 Dose: 100 mg Documented by: Carvedilol (Coreg) 3.125 mg PO BID [facility] Last Admin: 06/26/20 20:14 Dose: 3.125 mg Documented by: Dexamethasone (Dexamethasone) 6 mg PO DAILY [facility] Last Admin: 06/26/20 08:52 Dose: 6 mg Documented by: Ferrous Sulfate (Ferrous Sulfate) 325 mg PO DAILY [facility] Last Admin: 06/26/20 08:53 Dose: 325 mg Documented by: Furosemide (Lasix) 40 mg PO DAILY [facility] Last Admin: 06/26/20 08:53 Dose: 40 mg Documented by: Ceftriaxone Sodium/Dextrose 1 (gm/ Premix) 50 mls @ 100 mls/hr IV Q24H [facility] Last Admin: 06/26/20 19:26 Dose: 100 mls/hr Documented by: Doxycycline Hyclate 100 mg/ (Sodium Chloride) 100 mls @ 100 mls/hr IV Q12H [facility] Last Admin: 06/26/20 20:17 Dose: 100 mls/hr Documented by: Ondansetron HCl (Zofran) 4 mg IVPUSH Q4H PRN PRN Reason: Nausea Pantoprazole Sodium (Protonix) 40 mg PO DAILY@1700 [facility] Last Admin: 06/26/20 17:52 Dose: 40 mg Documented by: Polyethylene Glycol (Miralax) 17 gm PO DAILY PRN PRN Reason: Constipation Warfarin Sodium (Coumadin Ask) 1 each PO DAILY@1400 [facility] Last Admin: 06/26/20 17:54 Dose: Not Given Documented by: Discontinued Medications Calcium Carbonate/Glycine (Tums) 1,000 mg PO ONETIME ONE Stop: 06/21/20 07:19 Last Admin: 06/21/20 09:06 Dose: 1,000 mg Documented by: Calcium Carbonate/Glycine (Tums) 1,000 mg PO ONETIME ONE Stop: 06/22/20 07:16 Last Admin: 06/22/20 08:44 Dose: 1,000 mg Documented by: Calcium Carbonate/Glycine (Tums) 1,000 mg PO ONETIME ONE Stop: 06/23/20 07:29 Last Admin: 06/23/20 09:12 Dose: 1,000 mg Documented by: Dexamethasone (Dexamethasone) 6 mg PO ONETIME ONE Stop: 06/20/20 16:30 Last Admin: 06/20/20 16:42 Dose: 6 mg Documented by: Digoxin (Lanoxin) 250 mcg IVPUSH ONETIME ONE Stop: 06/22/20 13:52 Last Admin: 06/22/20 17:23 Dose: Not Given Documented by: Enoxaparin Sodium (Lovenox) 40 mg SUBCUT Q24H [facility] Last Admin: 06/23/20 09:14 Dose: 40 mg Documented by: Furosemide (Lasix) 20 mg IVPUSH NOW ONE Stop: 06/25/20 10:23 Last Admin: 06/25/20 11:01 Dose: 20 mg Documented by: Heparin Sodium (Porcine) (Heparin Sodium) 5,000 units SUBCUT Q8H [facility] Last Admin: 06/21/20 02:04 Dose: 5,000 units Documented by: Sodium Chloride (Normal Saline) 1,000 mls @ 999 mls/hr IV STAT ONE Stop: 06/20/20 17:22 Last Admin: 06/20/20 16:42 Dose: 999 mls/hr Documented by: Pantoprazole Sodium 40 mg/ (Sodium Chloride) 10 mls @ 300 mls/hr IV DAILY [facility] Last Admin: 06/22/20 08:45 Dose: 300 mls/hr Documented by: Remdesivir 200 mg/ Sodium (Chloride) 250 mls @ 250 mls/hr IV ONETIME ONE Stop: 06/20/20 18:09 Last Admin: 06/20/20 19:51 Dose: 250 mls/hr Documented by: Remdesivir 100 mg/ Sodium (Chloride) 100 mls @ 100 mls/hr IV Q24H [place] Stop: 06/24/20 18:59 Last Admin: 06/24/20 18:11 Dose: 100 mls/hr Documented by: Doxycycline Hyclate 100 mg/ (Sodium Chloride) 100 mls @ 100 mls/hr IV Q12H [facility] Last Admin: 06/22/20 10:29 Dose: 100 mls/hr Documented by: Calcium Gluconate 2 gm/ Sodium (Chloride) 120 mls @ 120 mls/hr IV ONETIME [facility] Stop: 06/25/20 12:29 Last Admin: 06/25/20 09:30 Dose: 120 mls/hr Documented by: Calcium Gluconate 2 gm/ Sodium (Chloride) 120 mls @ 60 mls/hr IV ONETIME ONE Stop: 06/26/20 09:44 Last Admin: 06/26/20 08:45 Dose: 60 mls/hr Documented by: Losartan Potassium (Cozaar) 25 mg PO DAILY [facility] Last Admin: 06/26/20 08:50 Dose: 25 mg Documented by: Magnesium Oxide (Magnesium Oxide) 400 mg PO ONETIME ONE Stop: 06/26/20 09:47 Last Admin: 06/26/20 10:30 Dose: 400 mg Documented by: Ondansetron HCl (Zofran) 4 mg IVPUSH ONETIME ONE Stop: 06/20/20 16:30 Last Admin: 06/20/20 16:43 Dose: 4 mg Documented by: Potassium Chloride (Klor-Con M20) 40 meq PO ONETIME ONE Stop: 06/26/20 07:25 Last Admin: 06/26/20 08:44 Dose: 40 meq Documented by: Warfarin Sodium (Coumadin Ask) 1 each PO ONETIME ONE Stop: 06/20/20 17:51 Last Admin: 06/21/20 02:29 Dose: Not Given Documented by: Warfarin Sodium (Coumadin) 6 mg PO 06/21/20@1445 [facility] Stop: 06/21/20 14:46 Last Admin: 06/21/20 15:07 Dose: 6 mg Documented by: Warfarin Sodium (Coumadin) 6 mg PO DAILY@1400 ONE Stop: 06/22/20 14:01 Last Admin: 06/22/20 14:37 Dose: 6 mg Documented by: Warfarin Sodium (Coumadin) 4 mg PO DAILY@1430 ONE Stop: 06/23/20 14:31 Last Admin: 06/23/20 15:00 Dose: 4 mg Documented by: Warfarin Sodium (Coumadin) 2 mg PO DAILY@1400 ONE Stop: 06/24/20 14:01 Last Admin: 06/24/20 15:30 Dose: 2 mg Documented by: Warfarin Sodium (Coumadin) 2 mg PO DAILY@1400 ONE Stop: 06/26/20 14:01 Last Admin: 06/26/20 17:53 Dose: Not Given Documented by: Warfarin Sodium (Coumadin) 2 mg PO NOW ONE Stop: 06/26/20 15:31 Last Admin: 06/26/20 15:31 Dose: 2 mg Documented by: - Exam General: Alert, Oriented, Cooperative, No Acute Distress Lungs: Normal Respiratory Effort, Other (quiet breath sounds in bases b/l) Cardiovascular: Regular Rate, Regular Rhythm GI/Abdominal Exam: Normal Bowel Sounds, Soft, Non-Tender, No Distention Extremities: Normal Inspection, No Pedal Edema Sepsis Event Note - Evaluation Sepsis Screening Result: No Definite Risk - Focused Exam Vital Signs: Vital Signs Temp Pulse Pulse Resp BP BP Pulse Ox 06/27/20 07:15 56 L 16 91/50 L 94 L 06/27/20 06:00 56 L 20 103/59 L 92 L 06/27/20 05:13 57 L 15 95/56 L 92 L 06/27/20 04:13 56 L 12 89/50 L 97 06/27/20 03:13 77 19 99/51 L 89 L 06/27/20 02:13 55 L 19 95/47 L 92 L 06/27/20 01:13 65 17 100/52 L 91 L 06/27/20 00:15 37.0 C 72 19 98/55 L 98 06/26/20 23:15 62 15 102/54 L 96 06/26/20 22:38 63 15 101/55 L 98 06/26/20 21:14 36.8 C 65 17 105/62 96 06/26/20 20:14 73 74 22 H 108/59 L 108/59 L 98 - Problem List & Annotations (1) COVID-19 SNOMED Code(s): 867771768 Code(s): U07.1 - COVID-19 Status: Acute (2) Hypoxemia SNOMED Code(s): 391535259 Code(s): R09.02 - HYPOXEMIA Status: Acute Priority: High (3) History of atrial fibrillation SNOMED Code(s): 989756457 Code(s): Z86.79 - PERSONAL HISTORY OF OTHER DISEASES OF THE CIRCULATORY SYSTEM Status: Acute Priority: Medium (4) Chronic anticoagulation SNOMED Code(s): 674293111 Code(s): Z79.01 - [employer]ER (CURRENT) USE OF ANTICOAGULANTS Status: Chronic Priority: High (5) History of CHF (congestive heart failure) SNOMED Code(s): 118155315 Code(s): Z86.79 - PERSONAL HISTORY OF OTHER DISEASES OF THE CIRCULATORY SYSTEM Status: Chronic Priority: High - Problem List Review Problem List Initiated/Reviewed/Updated: Yes - Plan Plan:: Assessment and Plan: 1. Acute hypoxic respiratory failure secondary to COVID-19: - Currently on 8L HFNC. Will continue BiPAP intermittently for a few hours today. Will continue Combivent q6 [place], dexamethasone 6 mg qd, Rocephin and doxycycline. - Patient completed 5-day course of Remdesivir. Patient received 2 units of convalescent plasma. - CXR on admission showed LLL infiltrate. - Patient given fact sheet for Remdesivir, risks were explained and patient consented for treatment. - Patient given fact sheet for convalescent plasma EAU, risks were explained and patient consented for treatment. 2. Atrial fibrillation: - Patient on telemetry. Pharmacy consulted for warfarin dosing. 3. Hypotension: - Will hold losartan and lasix. Continue coreg. 4. Hypocalcemia: - Will give additional IV calcium gluconate 2 g today. 5. DVT prophylaxis: - Patient on warfarin. 6. Past medical history of CHF, BPH, cardiomyopathy and GERD: - Continue home medications. <Chad Lynne - Last Filed: 07/02/20 12:43> - General Info Subjective Update: I have seen and evaluated the patient and agree with the residents note unless specified in my note - Patient Data Vitals - Most Recent: Last Vital Signs Temp 36.4 C 07/01/20 11:50 Pulse 83 07/01/20 11:50 Resp 18 07/01/20 11:50 BP 115/70 07/01/20 11:50 Pulse Ox 93 L 07/01/20 11:50 I&O - Last 24 Hours: Intake & Output 07/01/20 07/02/20 07/02/20 22:59 06:59 14:59 Intake Total 1000 Balance 1000 Med Orders - Current: Current Medications Discontinued Medications Acetaminophen (Tylenol) 650 mg PO Q4H PRN PRN Reason: Pain (Mild 1-3)/fever Last Admin: 06/30/20 20:03 Dose: 650 mg Documented by: Albuterol/Ipratropium (Combivent Respimat) 0 gm INH Q6H [place] Last Admin: 07/01/20 11:33 Dose: 1 puff Documented by: Benzonatate (Tessalon Perles) 100 mg PO TID PRN PRN Reason: Cough Last Admin: 06/30/20 20:03 Dose: 100 mg Documented by: Calcium Carbonate/Glycine (Tums) 1,000 mg PO ONETIME ONE Stop: 06/21/20 07:19 Last Admin: 06/21/20 09:06 Dose: 1,000 mg Documented by: Calcium Carbonate/Glycine (Tums) 1,000 mg PO ONETIME ONE Stop: 06/22/20 07:16 Last Admin: 06/22/20 08:44 Dose: 1,000 mg Documented by: Calcium Carbonate/Glycine (Tums) 1,000 mg PO ONETIME ONE Stop: 06/23/20 07:29 Last Admin: 06/23/20 09:12 Dose: 1,000 mg Documented by: Calcium Carbonate/Glycine (Tums) 1,000 mg PO ONETIME ONE Stop: 06/30/20 09:01 Last Admin: 06/30/20 09:28 Dose: 1,000 mg Documented by: Calcium Gluconate (Calcium Gluconate) 2 gm IV ONETIME ONE Stop: 06/27/20 09:31 Last Admin: 06/27/20 10:09 Dose: Not Given Documented by: Carvedilol (Coreg) 3.125 mg PO BID [facility] Last Admin: 07/01/20 08:26 Dose: 3.125 mg Documented by: Dexamethasone (Dexamethasone) 6 mg PO ONETIME ONE Stop: 06/20/20 16:30 Last Admin: 06/20/20 16:42 Dose: 6 mg Documented by: Dexamethasone (Dexamethasone) 6 mg PO DAILY [facility] Last Admin: 06/30/20 09:27 Dose: 6 mg Documented by: Digoxin (Lanoxin) 250 mcg IVPUSH ONETIME ONE Stop: 06/22/20 13:52 Last Admin: 06/22/20 17:23 Dose: Not Given Documented by: Enoxaparin Sodium (Lovenox) 40 mg SUBCUT Q24H [facility] Last Admin: 06/23/20 09:14 Dose: 40 mg Documented by: Ferrous Sulfate (Ferrous Sulfate) 325 mg PO DAILY [facility] Last Admin: 07/01/20 08:26 Dose: 325 mg Documented by: Furosemide (Lasix) 40 mg PO DAILY [facility] Last Admin: 06/27/20 09:52 Dose: Not Given Documented by: Furosemide (Lasix) 20 mg IVPUSH NOW ONE Stop: 06/25/20 10:23 Last Admin: 06/25/20 11:01 Dose: 20 mg Documented by: Heparin Sodium (Porcine) (Heparin Sodium) 5,000 units SUBCUT Q8H [facility] Last Admin: 06/21/20 02:04 Dose: 5,000 units Documented by: Sodium Chloride (Normal Saline) 1,000 mls @ 999 mls/hr IV STAT ONE Stop: 06/20/20 17:22 Last Admin: 06/20/20 16:42 Dose: 999 mls/hr Documented by: Pantoprazole Sodium 40 mg/ (Sodium Chloride) 10 mls @ 300 mls/hr IV DAILY [facility] Last Admin: 06/22/20 08:45 Dose: 300 mls/hr Documented by: Remdesivir 200 mg/ Sodium (Chloride) 250 mls @ 250 mls/hr IV ONETIME ONE Stop: 06/20/20 18:09 Last Admin: 06/20/20 19:51 Dose: 250 mls/hr Documented by: Remdesivir 100 mg/ Sodium (Chloride) 100 mls @ 100 mls/hr IV Q24H [facility] Stop: 06/24/20 18:59 Last Admin: 06/24/20 18:11 Dose: 100 mls/hr Documented by: Ceftriaxone Sodium/Dextrose 1 (gm/ Premix) 50 mls @ 100 mls/hr IV Q24H [facility] Last Admin: 06/29/20 20:40 Dose: 100 mls/hr Documented by: Doxycycline Hyclate 100 mg/ (Sodium Chloride) 100 mls @ 100 mls/hr IV Q12H [facility] Last Admin: 06/22/20 10:29 Dose: 100 mls/hr Documented by: Doxycycline Hyclate 100 mg/ (Sodium Chloride) 100 mls @ 100 mls/hr IV Q12H [facility] Last Admin: 06/29/20 21:34 Dose: 100 mls/hr Documented by: Calcium Gluconate 2 gm/ Sodium (Chloride) 120 mls @ 120 mls/hr IV ONETIME [facility] Stop: 06/25/20 12:29 Last Admin: 06/25/20 09:30 Dose: 120 mls/hr Documented by: Calcium Gluconate 2 gm/ Sodium (Chloride) 120 mls @ 60 mls/hr IV ONETIME ONE Stop: 06/26/20 09:44 Last Admin: 06/26/20 08:45 Dose: 60 mls/hr Documented by: Calcium Gluconate 2 gm/ Sodium (Chloride) 120 mls @ 60 mls/hr IV ONETIME ONE Stop: 06/27/20 11:59 Last Admin: 06/27/20 10:37 Dose: 60 mls/hr Documented by: Calcium Gluconate 2 gm/ Sodium (Chloride) 120 mls @ 60 mls/hr IV ONETIME ONE Stop: 06/28/20 13:44 Last Admin: 06/28/20 11:57 Dose: 60 mls/hr Documented by: Calcium Gluconate 2 gm/ Sodium (Chloride) 120 mls @ 60 mls/hr IV ONETIME ONE Stop: 06/29/20 12:59 Last Admin: 06/29/20 11:24 Dose: 60 mls/hr Documented by: Losartan Potassium (Cozaar) 25 mg PO DAILY [facility] Last Admin: 06/26/20 08:50 Dose: 25 mg Documented by: Magnesium Oxide (Magnesium Oxide) 400 mg PO ONETIME ONE Stop: 06/26/20 09:47 Last Admin: 06/26/20 10:30 Dose: 400 mg Documented by: Ondansetron HCl (Zofran) 4 mg IVPUSH ONETIME ONE Stop: 06/20/20 16:30 Last Admin: 06/20/20 16:43 Dose: 4 mg Documented by: Ondansetron HCl (Zofran) 4 mg IVPUSH Q4H PRN PRN Reason: Nausea Pantoprazole Sodium (Protonix) 40 mg PO DAILY@1700 [facility] Last Admin: 06/30/20 17:15 Dose: 40 mg Documented by: Polyethylene Glycol (Miralax) 17 gm PO DAILY PRN PRN Reason: Constipation Potassium Chloride (Klor-Con M20) 40 meq PO ONETIME ONE Stop: 06/26/20 07:25 Last Admin: 06/26/20 08:44 Dose: 40 meq Documented by: Warfarin Sodium (Coumadin Ask) 1 each PO ONETIME ONE Stop: 06/20/20 17:51 Last Admin: 06/21/20 02:29 Dose: Not Given Documented by: Warfarin Sodium (Coumadin Ask) 1 each PO DAILY@1400 [facility] Last Admin: 07/01/20 15:36 Dose: Not Given Documented by: Warfarin Sodium (Coumadin) 6 mg PO 06/21/20@1445 [place] Stop: 06/21/20 14:46 Last Admin: 06/21/20 15:07 Dose: 6 mg Documented by: Warfarin Sodium (Coumadin) 6 mg PO DAILY@1400 ONE Stop: 06/22/20 14:01 Last Admin: 06/22/20 14:37 Dose: 6 mg Documented by: Warfarin Sodium (Coumadin) 4 mg PO DAILY@1430 ONE Stop: 06/23/20 14:31 Last Admin: 06/23/20 15:00 Dose: 4 mg Documented by: Warfarin Sodium (Coumadin) 2 mg PO DAILY@1400 ONE Stop: 06/24/20 14:01 Last Admin: 06/24/20 15:30 Dose: 2 mg Documented by: Warfarin Sodium (Coumadin) 2 mg PO DAILY@1400 ONE Stop: 06/26/20 14:01 Last Admin: 06/26/20 17:53 Dose: Not Given Documented by: Warfarin Sodium (Coumadin) 2 mg PO NOW ONE Stop: 06/26/20 15:31 Last Admin: 06/26/20 15:31 Dose: 2 mg Documented by: Warfarin Sodium (Coumadin) 4 mg PO ONETIME ONE Stop: 06/30/20 14:01 Last Admin: 06/30/20 14:23 Dose: 4 mg Documented by: Warfarin Sodium (Coumadin) 4 mg PO ONETIME ONE Stop: 07/01/20 15:01 Last Admin: 07/01/20 15:36 Dose: 4 mg Documented by: - Problem List & Annotations (1) COVID-19 SNOMED Code(s): 841600660 Code(s): U07.1 - COVID-19 Status: Acute (2) Dehydration SNOMED Code(s): 68786786 Code(s): E86.0 - DEHYDRATION Status: Acute (3) Hypoxia SNOMED Code(s): 285555676 Code(s): R09.02 - HYPOXEMIA Status: Acute (4) History of atrial fibrillation SNOMED Code(s): 166115748 Code(s): Z86.79 - PERSONAL HISTORY OF OTHER DISEASES OF THE CIRCULATORY SYSTEM Status: Acute Priority: Medium (5) Pneumonia SNOMED Code(s): 001658486 Code(s): J18.9 - PNEUMONIA, UNSPECIFIED ORGANISM Status: Acute Priority: High Qualifiers: Pneumonia type: due to unspecified organism Lung location: unspecified part of lung (6) S/P total knee arthroplasty SNOMED Code(s): 8387924422443, 494011130, 8146985774933 Code(s): Z96.659 - PRESENCE OF UNSPECIFIED ARTIFICIAL KNEE JOINT Status: Acute Priority: High Qualifiers: Laterality: right Qualified Code(s): Z96.651 - Presence of right artificial knee joint Annotation/Comment:: POD #1 (7) Chronic anticoagulation SNOMED Code(s): 968386447 Code(s): Z79.01 - [employer]ER (CURRENT) USE OF ANTICOAGULANTS Status: Chronic Priority: High (8) History of CHF (congestive heart failure) SNOMED Code(s): 891896635 Code(s): Z86.79 - PERSONAL HISTORY OF OTHER DISEASES OF THE CIRCULATORY SYSTEM Status: Chronic Priority: High
[2020-06-27] MEDS: Carvedilol 3.125 MG Tab PO SCH ×2 (08:51→20:21)
[2020-06-27] MEDS: Dexamethasone 4 MG Tab PO SCH (08:51)
[2020-06-27] MEDS: Ferrous Sulfate 325 MG Tab PO SCH (08:51)
[2020-06-27] MEDS: Doxycycline 100 MG in Sodium Chloride 0.9% 100 ML IV SCH ×2 (08:58→20:20)
[2020-06-27] MEDS ORDERED: Calcium Gluconate 10% 1 GM/10 ML SDV IV ONE (09:30)
[2020-06-27] MEDS: Furosemide 40 MG Tab PO SCH (09:52)
[2020-06-27] MEDS ORDERED: Calcium Gluconate 2 GM in Sodium Chloride 0.9% 100 ML IV ONE (10:00)
[2020-06-27] MEDS: Pantoprazole 40 MG Tab.CR PO SCH (18:00)
[2020-06-27] MEDS: cefTRIAXone 1 GM in Premix Bag 1 BAG IV SCH (19:32)
[2020-06-28] MEDS: Albuterol/Ipratropium 4 GM Inhalation Spray INH SCH ×4 (05:48→23:41)
[2020-06-28 06:10] LABS: BLOOD UREA NITROGEN,BUN 25 mg/dL (7.0-18.0); CARBON DIOXIDE,CO2 26.2 mmol/L (21.0-32.0); CHLORIDE,CL 103 mmol/L (98-107); GLUCOSE RANDOM 125 mg/dL (74-106); POTASSIUM,K 4.2 mmol/L (3.5-5.1); SODIUM,NA 137 mmol/L (136-148)
--- NOTE | 2020-06-28 08:12 | PCM.PN ---
- General Info Date of Service: 06/28/20 Subjective Update: Reports breathing and cough better. Denies fevers or chills overnight. Tolerating oral diet and having bowel movements. Reports using BiPAP for a short amount of time yesterday. - Patient Data Vitals - Most Recent: Last Vital Signs Temp 36.8 C 06/28/20 08:00 Pulse 74 06/27/20 20:21 Resp 14 06/28/20 08:00 BP 124/76 06/28/20 08:00 Pulse Ox 92 L 06/28/20 08:00 Weight - Most Recent: 87.226 kg I&O - Last 24 Hours: Intake & Output 06/27/20 06/28/20 06/28/20 22:59 06:59 14:59 Intake Total 800 1100 Output Total 550 650 Balance 250 450 Lab Results Last 24 Hours: Laboratory Results - last 24 hr 06/28/20 06/28/20 06/28/20 Range/Units 05:30 05:30 05:30 WBC 8.05 (4.0-11.0) K/uL RBC 3.94 L (4.50-5.90) M/uL Hgb 10.1 L (13.0-17.0) g/dL Hct 32.3 L (38.0-50.0) % MCV 82.0 (80.0-98.0) fL MCH 25.6 L (27.0-32.0) pg MCHC 31.3 (31.0-37.0) g/dL RDW Std Deviation 49.4 (28.0-62.0) fl RDW Coeff of Anita 16 H (11.0-15.0) % Plt Count 149 L (150-400) K/uL MPV 11.40 (7.40-12.00) fL Add Manual Diff YES Neutrophils % (Manual) 75 (48.0-80.0) % Band Neutrophils % 5 % Lymphocytes % (Manual) 12 L (16.0-40.0) % Monocytes % (Manual) 6 (0.0-15.0) % Eosinophils % (Manual) 2 (0.0-7.0) % Nucleated RBC % 0.4 /100WBC Absolute Seg Neuts 6.0 H (1.4-5.7) Band Neutrophils # 0.4 Lymphocytes # (Manual) 1.0 (0.6-2.4) Monocytes # (Manual) 0.5 (0.0-0.8) Eosinophils # (Manual) 0.2 (0.0-0.7) Nucleated RBCs # 0 K/uL INR 4.07 Sodium 137 (136-148) mmol/L Potassium 4.2 (3.5-5.1) mmol/L Chloride 103 (98-107) mmol/L Carbon Dioxide 26.2 (21.0-32.0) mmol/L BUN 25 H (7.0-18.0) mg/dL Creatinine 1.0 (0.8-1.3) mg/dL Est Cr Clr Drug Dosing 76.35 mL/min Estimated GFR (MDRD) > 60.0 ml/min Glucose 125 H (74-106) mg/dL Calcium 6.1 L (8.5-10.1) mg/dL Phosphorus 4.3 (2.6-4.7) mg/dL Magnesium 2.0 (1.8-2.4) mg/dL Total Bilirubin 0.4 (0.2-1.0) mg/dL AST 22 (15-37) IU/L ALT 41 (14-63) IU/L Alkaline Phosphatase 55 (46-116) U/L Total Protein 5.8 L (6.4-8.2) g/dL Albumin 2.1 L (3.4-5.0) g/dL Globulin 3.7 (2.6-4.0) g/dL Albumin/Globulin Ratio 0.6 L (0.9-1.6) Med Orders - Current: Current Medications Acetaminophen (Tylenol) 650 mg PO Q4H PRN PRN Reason: Pain (Mild 1-3)/fever Last Admin: 06/23/20 19:53 Dose: 650 mg Documented by: Albuterol/Ipratropium (Combivent Respimat) 0 gm INH Q6H [facility] Last Admin: 06/28/20 05:48 Dose: 1 puff Documented by: Benzonatate (Tessalon Perles) 100 mg PO TID PRN PRN Reason: Cough Last Admin: 06/23/20 19:53 Dose: 100 mg Documented by: Carvedilol (Coreg) 3.125 mg PO BID [facility] Last Admin: 06/27/20 20:21 Dose: 3.125 mg Documented by: Dexamethasone (Dexamethasone) 6 mg PO DAILY [facility] Last Admin: 06/27/20 08:51 Dose: 6 mg Documented by: Ferrous Sulfate (Ferrous Sulfate) 325 mg PO DAILY [facility] Last Admin: 06/27/20 08:51 Dose: 325 mg Documented by: Ceftriaxone Sodium/Dextrose 1 (gm/ Premix) 50 mls @ 100 mls/hr IV Q24H [facility] Last Admin: 06/27/20 19:32 Dose: 100 mls/hr Documented by: Doxycycline Hyclate 100 mg/ (Sodium Chloride) 100 mls @ 100 mls/hr IV Q12H [facility] Last Admin: 06/27/20 20:20 Dose: 100 mls/hr Documented by: Ondansetron HCl (Zofran) 4 mg IVPUSH Q4H PRN PRN Reason: Nausea Pantoprazole Sodium (Protonix) 40 mg PO DAILY@1700 [facility] Last Admin: 06/27/20 18:00 Dose: 40 mg Documented by: Polyethylene Glycol (Miralax) 17 gm PO DAILY PRN PRN Reason: Constipation Warfarin Sodium (Coumadin Ask) 1 each PO DAILY@1400 [facility] Last Admin: 06/27/20 14:47 Dose: Not Given Documented by: Discontinued Medications Calcium Carbonate/Glycine (Tums) 1,000 mg PO ONETIME ONE Stop: 06/21/20 07:19 Last Admin: 06/21/20 09:06 Dose: 1,000 mg Documented by: Calcium Carbonate/Glycine (Tums) 1,000 mg PO ONETIME ONE Stop: 06/22/20 07:16 Last Admin: 06/22/20 08:44 Dose: 1,000 mg Documented by: Calcium Carbonate/Glycine (Tums) 1,000 mg PO ONETIME ONE Stop: 06/23/20 07:29 Last Admin: 06/23/20 09:12 Dose: 1,000 mg Documented by: Calcium Gluconate (Calcium Gluconate) 2 gm IV ONETIME ONE Stop: 06/27/20 09:31 Last Admin: 06/27/20 10:09 Dose: Not Given Documented by: Dexamethasone (Dexamethasone) 6 mg PO ONETIME ONE Stop: 06/20/20 16:30 Last Admin: 06/20/20 16:42 Dose: 6 mg Documented by: Digoxin (Lanoxin) 250 mcg IVPUSH ONETIME ONE Stop: 06/22/20 13:52 Last Admin: 06/22/20 17:23 Dose: Not Given Documented by: Enoxaparin Sodium (Lovenox) 40 mg SUBCUT Q24H [facility] Last Admin: 06/23/20 09:14 Dose: 40 mg Documented by: Furosemide (Lasix) 40 mg PO DAILY [facility] Last Admin: 06/27/20 09:52 Dose: Not Given Documented by: Furosemide (Lasix) 20 mg IVPUSH NOW ONE Stop: 06/25/20 10:23 Last Admin: 06/25/20 11:01 Dose: 20 mg Documented by: Heparin Sodium (Porcine) (Heparin Sodium) 5,000 units SUBCUT Q8H [facility] Last Admin: 06/21/20 02:04 Dose: 5,000 units Documented by: Sodium Chloride (Normal Saline) 1,000 mls @ 999 mls/hr IV STAT ONE Stop: 06/20/20 17:22 Last Admin: 06/20/20 16:42 Dose: 999 mls/hr Documented by: Pantoprazole Sodium 40 mg/ (Sodium Chloride) 10 mls @ 300 mls/hr IV DAILY [facility] Last Admin: 06/22/20 08:45 Dose: 300 mls/hr Documented by: Remdesivir 200 mg/ Sodium (Chloride) 250 mls @ 250 mls/hr IV ONETIME ONE Stop: 06/20/20 18:09 Last Admin: 06/20/20 19:51 Dose: 250 mls/hr Documented by: Remdesivir 100 mg/ Sodium (Chloride) 100 mls @ 100 mls/hr IV Q24H [facility] Stop: 06/24/20 18:59 Last Admin: 06/24/20 18:11 Dose: 100 mls/hr Documented by: Doxycycline Hyclate 100 mg/ (Sodium Chloride) 100 mls @ 100 mls/hr IV Q12H [facility] Last Admin: 06/22/20 10:29 Dose: 100 mls/hr Documented by: Calcium Gluconate 2 gm/ Sodium (Chloride) 120 mls @ 120 mls/hr IV ONETIME [facility] Stop: 06/25/20 12:29 Last Admin: 06/25/20 09:30 Dose: 120 mls/hr Documented by: Calcium Gluconate 2 gm/ Sodium (Chloride) 120 mls @ 60 mls/hr IV ONETIME ONE Stop: 06/26/20 09:44 Last Admin: 06/26/20 08:45 Dose: 60 mls/hr Documented by: Calcium Gluconate 2 gm/ Sodium (Chloride) 120 mls @ 60 mls/hr IV ONETIME ONE Stop: 06/27/20 11:59 Last Admin: 06/27/20 10:37 Dose: 60 mls/hr Documented by: Losartan Potassium (Cozaar) 25 mg PO DAILY [facility] Last Admin: 06/26/20 08:50 Dose: 25 mg Documented by: Magnesium Oxide (Magnesium Oxide) 400 mg PO ONETIME ONE Stop: 06/26/20 09:47 Last Admin: 06/26/20 10:30 Dose: 400 mg Documented by: Ondansetron HCl (Zofran) 4 mg IVPUSH ONETIME ONE Stop: 06/20/20 16:30 Last Admin: 06/20/20 16:43 Dose: 4 mg Documented by: Potassium Chloride (Klor-Con M20) 40 meq PO ONETIME ONE Stop: 06/26/20 07:25 Last Admin: 06/26/20 08:44 Dose: 40 meq Documented by: Warfarin Sodium (Coumadin Ask) 1 each PO ONETIME ONE Stop: 06/20/20 17:51 Last Admin: 06/21/20 02:29 Dose: Not Given Documented by: Warfarin Sodium (Coumadin) 6 mg PO 06/21/20@1445 [facility] Stop: 06/21/20 14:46 Last Admin: 06/21/20 15:07 Dose: 6 mg Documented by: Warfarin Sodium (Coumadin) 6 mg PO DAILY@1400 ONE Stop: 06/22/20 14:01 Last Admin: 06/22/20 14:37 Dose: 6 mg Documented by: Warfarin Sodium (Coumadin) 4 mg PO DAILY@1430 ONE Stop: 06/23/20 14:31 Last Admin: 06/23/20 15:00 Dose: 4 mg Documented by: Warfarin Sodium (Coumadin) 2 mg PO DAILY@1400 ONE Stop: 06/24/20 14:01 Last Admin: 06/24/20 15:30 Dose: 2 mg Documented by: Warfarin Sodium (Coumadin) 2 mg PO DAILY@1400 ONE Stop: 06/26/20 14:01 Last Admin: 06/26/20 17:53 Dose: Not Given Documented by: Warfarin Sodium (Coumadin) 2 mg PO NOW ONE Stop: 06/26/20 15:31 Last Admin: 06/26/20 15:31 Dose: 2 mg Documented by: - Exam General: Alert, Oriented, Cooperative, No Acute Distress Lungs: Clear to Auscultation, Normal Respiratory Effort Cardiovascular: Regular Rate, Regular Rhythm GI/Abdominal Exam: Normal Bowel Sounds, Soft, Non-Tender, No Distention Extremities: Normal Inspection, No Pedal Edema Sepsis Event Note - Evaluation Sepsis Screening Result: No Definite Risk - Focused Exam Vital Signs: Vital Signs Temp Pulse Resp BP BP Pulse Ox 06/28/20 08:00 36.8 C 14 124/76 92 L 06/28/20 07:00 16 106/60 96 06/28/20 06:00 43 H 112/63 96 06/28/20 05:00 16 119/67 97 06/28/20 04:00 37.0 C 14 107/54 L 91 L 06/28/20 03:00 15 112/63 96 06/28/20 02:00 16 113/63 90 L 06/28/20 01:00 20 112/59 L 91 L 06/28/20 00:00 17 108/69 96 06/27/20 23:00 36.9 C 14 117/70 95 06/27/20 22:00 12 110/63 95 06/27/20 21:00 18 115/73 96 06/27/20 20:21 74 107/56 L - Problem List & Annotations (1) COVID-19 SNOMED Code(s): 763419103 Code(s): U07.1 - COVID-19 Status: Acute Current Visit: Yes (2) Hypoxemia SNOMED Code(s): 691052853 Code(s): R09.02 - HYPOXEMIA Status: Acute Priority: High Current Visit: No (3) History of atrial fibrillation SNOMED Code(s): 341875280 Code(s): Z86.79 - PERSONAL HISTORY OF OTHER DISEASES OF THE CIRCULATORY SYSTEM Status: Acute Priority: Medium Current Visit: No (4) Chronic anticoagulation SNOMED Code(s): 534085350 Code(s): Z79.01 - SKILLED NURSING (CURRENT) USE OF ANTICOAGULANTS Status: Chronic Priority: High Current Visit: No (5) History of CHF (congestive heart failure) SNOMED Code(s): 856436513 Code(s): Z86.79 - PERSONAL HISTORY OF OTHER DISEASES OF THE CIRCULATORY SYSTEM Status: Chronic Priority: High Current Visit: No - Problem List Review Problem List Initiated/Reviewed/Updated: Yes - Plan Plan:: Assessment and Plan: 1. Acute hypoxic respiratory failure secondary to COVID-19: - Patient on 6L HFNC this AM. Per nursing, did not use BiPAP for very long yesterday and was HFNC 4-6 L. Will downgrade to general medical floor today. Discontinue mane catheter. Will continue Combivent q6 [place], dexamethasone 6 mg qd, Rocephin and doxycycline. - Patient completed 5-day course of Remdesivir. Patient received 2 units of convalescent plasma. - CXR on admission showed LLL infiltrate. - Patient given fact sheet for Remdesivir, risks were explained and patient consented for treatment. - Patient given fact sheet for convalescent plasma EAU, risks were explained and patient consented for treatment. 2. Atrial fibrillation: - Patient on telemetry. Pharmacy consulted for warfarin dosing. INR is supratherapeutic at this time. 3. Hypotension, improved: - Losartan and lasix held. Continue coreg. 4. Hypocalcemia, improving: - Given 2 g IV calcium gluconate today. 5. DVT prophylaxis: - Patient on warfarin. 6. Past medical history of CHF, BPH, cardiomyopathy and GERD: - Continue home medications.
[2020-06-28] MEDS: Carvedilol 3.125 MG Tab PO SCH ×2 (08:33→20:07)
[2020-06-28] MEDS: Dexamethasone 4 MG Tab PO SCH (08:34)
[2020-06-28] MEDS: Ferrous Sulfate 325 MG Tab PO SCH (08:35)
[2020-06-28] MEDS: Doxycycline 100 MG in Sodium Chloride 0.9% 100 ML IV SCH ×2 (08:36→20:06)
[2020-06-28] MEDS ORDERED: Calcium Gluconate 10% 1 GM/10 ML SDV IVPUSH ONE (11:23)
[2020-06-28] MEDS ORDERED: Calcium Gluconate 2 GM in Sodium Chloride 0.9% 100 ML IV ONE (11:45)
[2020-06-28] MEDS: Pantoprazole 40 MG Tab.CR PO SCH (17:51)
[2020-06-28] MEDS: Benzonatate 100 MG Cap PO PRN (20:05)
[2020-06-28] MEDS: cefTRIAXone 1 GM in Premix Bag 1 BAG IV SCH (20:05)
[2020-06-29] MEDS: Albuterol/Ipratropium 4 GM Inhalation Spray INH SCH ×4 (03:58→17:49)
[2020-06-29 06:23] LABS: BLOOD UREA NITROGEN,BUN 24 mg/dL (7.0-18.0); CARBON DIOXIDE,CO2 28.1 mmol/L (21.0-32.0); CHLORIDE,CL 103 mmol/L (98-107); GLUCOSE RANDOM 132 mg/dL (74-106); POTASSIUM,K 4.2 mmol/L (3.5-5.1); SODIUM,NA 137 mmol/L (136-148)
[2020-06-29] MEDS: Carvedilol 3.125 MG Tab PO SCH ×2 (08:20→20:54)
[2020-06-29] MEDS: Dexamethasone 4 MG Tab PO SCH (08:22)
[2020-06-29] MEDS: Ferrous Sulfate 325 MG Tab PO SCH (08:22)
[2020-06-29] MEDS: Doxycycline 100 MG in Sodium Chloride 0.9% 100 ML IV SCH ×2 (08:24→21:34)
--- NOTE | 2020-06-29 08:26 | PCM.PN ---
- General Info Date of Service: 06/29/20 Subjective Update: Reports feeling well this AM. Feels less short of breath and reports not having much cough. Did not use BiPAP yesterday. - Patient Data Vitals - Most Recent: Last Vital Signs Temp 36.2 C 06/29/20 03:52 Pulse 65 06/29/20 08:20 Resp 20 06/29/20 03:52 BP 130/86 06/29/20 08:20 Pulse Ox 90 L 06/29/20 03:52 Weight - Most Recent: 87.226 kg I&O - Last 24 Hours: Intake & Output 06/28/20 06/29/20 06/29/20 22:59 06:59 14:59 Intake Total 940 500 Output Total 720 850 Balance 220 -350 Lab Results Last 24 Hours: Laboratory Results - last 24 hr 06/29/20 06/29/20 06/29/20 Range/Units 05:50 05:50 05:50 WBC 6.85 (4.0-11.0) K/uL RBC 4.07 L (4.50-5.90) M/uL Hgb 10.4 L (13.0-17.0) g/dL Hct 33.3 L (38.0-50.0) % MCV 81.8 (80.0-98.0) fL MCH 25.6 L (27.0-32.0) pg MCHC 31.2 (31.0-37.0) g/dL RDW Std Deviation 48.8 (28.0-62.0) fl RDW Coeff of Anita 16 H (11.0-15.0) % Plt Count 174 (150-400) K/uL MPV 12.30 H (7.40-12.00) fL Add Manual Diff YES Neutrophils % (Manual) 73 (48.0-80.0) % Band Neutrophils % 3 % Lymphocytes % (Manual) 16 (16.0-40.0) % Atypical Lymphs % 8 Nucleated RBC % 0.0 /100WBC Absolute Seg Neuts 5.0 (1.4-5.7) Band Neutrophils # 0.2 Lymphocytes # (Manual) 1.1 (0.6-2.4) Nucleated RBCs # 0 K/uL INR 3.11 Sodium 137 (136-148) mmol/L Potassium 4.2 (3.5-5.1) mmol/L Chloride 103 (98-107) mmol/L Carbon Dioxide 28.1 (21.0-32.0) mmol/L BUN 24 H (7.0-18.0) mg/dL Creatinine 1.1 (0.8-1.3) mg/dL Est Cr Clr Drug Dosing 69.41 mL/min Estimated GFR (MDRD) > 60.0 ml/min Glucose 132 H (74-106) mg/dL Calcium 6.7 L (8.5-10.1) mg/dL Phosphorus 4.3 (2.6-4.7) mg/dL Magnesium 2.0 (1.8-2.4) mg/dL Total Bilirubin 0.5 (0.2-1.0) mg/dL AST 18 (15-37) IU/L ALT 39 (14-63) IU/L Alkaline Phosphatase 53 (46-116) U/L Total Protein 6.1 L (6.4-8.2) g/dL Albumin 2.2 L (3.4-5.0) g/dL Globulin 3.9 (2.6-4.0) g/dL Albumin/Globulin Ratio 0.6 L (0.9-1.6) Med Orders - Current: Current Medications Acetaminophen (Tylenol) 650 mg PO Q4H PRN PRN Reason: Pain (Mild 1-3)/fever Last Admin: 06/23/20 19:53 Dose: 650 mg Documented by: Albuterol/Ipratropium (Combivent Respimat) 0 gm INH Q6H [facility] Last Admin: 06/29/20 05:53 Dose: 1 puff Documented by: Benzonatate (Tessalon Perles) 100 mg PO TID PRN PRN Reason: Cough Last Admin: 06/28/20 20:05 Dose: 100 mg Documented by: Carvedilol (Coreg) 3.125 mg PO BID [facility] Last Admin: 06/29/20 08:20 Dose: 3.125 mg Documented by: Dexamethasone (Dexamethasone) 6 mg PO DAILY [facility] Last Admin: 06/29/20 08:22 Dose: 6 mg Documented by: Ferrous Sulfate (Ferrous Sulfate) 325 mg PO DAILY [facility] Last Admin: 06/29/20 08:22 Dose: 325 mg Documented by: Ceftriaxone Sodium/Dextrose 1 (gm/ Premix) 50 mls @ 100 mls/hr IV Q24H [facility] Last Admin: 06/28/20 20:05 Dose: 100 mls/hr Documented by: Doxycycline Hyclate 100 mg/ (Sodium Chloride) 100 mls @ 100 mls/hr IV Q12H [facility] Last Admin: 06/29/20 08:24 Dose: 100 mls/hr Documented by: Ondansetron HCl (Zofran) 4 mg IVPUSH Q4H PRN PRN Reason: Nausea Pantoprazole Sodium (Protonix) 40 mg PO DAILY@1700 [facility] Last Admin: 06/28/20 17:51 Dose: 40 mg Documented by: Polyethylene Glycol (Miralax) 17 gm PO DAILY PRN PRN Reason: Constipation Warfarin Sodium (Coumadin Ask) 1 each PO DAILY@1400 [facility] Last Admin: 06/28/20 15:40 Dose: Not Given Documented by: Discontinued Medications Calcium Carbonate/Glycine (Tums) 1,000 mg PO ONETIME ONE Stop: 06/21/20 07:19 Last Admin: 06/21/20 09:06 Dose: 1,000 mg Documented by: Calcium Carbonate/Glycine (Tums) 1,000 mg PO ONETIME ONE Stop: 06/22/20 07:16 Last Admin: 06/22/20 08:44 Dose: 1,000 mg Documented by: Calcium Carbonate/Glycine (Tums) 1,000 mg PO ONETIME ONE Stop: 06/23/20 07:29 Last Admin: 06/23/20 09:12 Dose: 1,000 mg Documented by: Calcium Gluconate (Calcium Gluconate) 2 gm IV ONETIME ONE Stop: 06/27/20 09:31 Last Admin: 06/27/20 10:09 Dose: Not Given Documented by: Dexamethasone (Dexamethasone) 6 mg PO ONETIME ONE Stop: 06/20/20 16:30 Last Admin: 06/20/20 16:42 Dose: 6 mg Documented by: Digoxin (Lanoxin) 250 mcg IVPUSH ONETIME ONE Stop: 06/22/20 13:52 Last Admin: 06/22/20 17:23 Dose: Not Given Documented by: Enoxaparin Sodium (Lovenox) 40 mg SUBCUT Q24H [facility] Last Admin: 06/23/20 09:14 Dose: 40 mg Documented by: Furosemide (Lasix) 40 mg PO DAILY [facility] Last Admin: 06/27/20 09:52 Dose: Not Given Documented by: Furosemide (Lasix) 20 mg IVPUSH NOW ONE Stop: 06/25/20 10:23 Last Admin: 06/25/20 11:01 Dose: 20 mg Documented by: Heparin Sodium (Porcine) (Heparin Sodium) 5,000 units SUBCUT Q8H [place] Last Admin: 06/21/20 02:04 Dose: 5,000 units Documented by: Sodium Chloride (Normal Saline) 1,000 mls @ 999 mls/hr IV STAT ONE Stop: 06/20/20 17:22 Last Admin: 06/20/20 16:42 Dose: 999 mls/hr Documented by: Pantoprazole Sodium 40 mg/ (Sodium Chloride) 10 mls @ 300 mls/hr IV DAILY [place] Last Admin: 06/22/20 08:45 Dose: 300 mls/hr Documented by: Remdesivir 200 mg/ Sodium (Chloride) 250 mls @ 250 mls/hr IV ONETIME ONE Stop: 06/20/20 18:09 Last Admin: 06/20/20 19:51 Dose: 250 mls/hr Documented by: Remdesivir 100 mg/ Sodium (Chloride) 100 mls @ 100 mls/hr IV Q24H [place] Stop: 06/24/20 18:59 Last Admin: 06/24/20 18:11 Dose: 100 mls/hr Documented by: Doxycycline Hyclate 100 mg/ (Sodium Chloride) 100 mls @ 100 mls/hr IV Q12H [facility] Last Admin: 06/22/20 10:29 Dose: 100 mls/hr Documented by: Calcium Gluconate 2 gm/ Sodium (Chloride) 120 mls @ 120 mls/hr IV ONETIME [place] Stop: 06/25/20 12:29 Last Admin: 06/25/20 09:30 Dose: 120 mls/hr Documented by: Calcium Gluconate 2 gm/ Sodium (Chloride) 120 mls @ 60 mls/hr IV ONETIME ONE Stop: 06/26/20 09:44 Last Admin: 06/26/20 08:45 Dose: 60 mls/hr Documented by: Calcium Gluconate 2 gm/ Sodium (Chloride) 120 mls @ 60 mls/hr IV ONETIME ONE Stop: 06/27/20 11:59 Last Admin: 06/27/20 10:37 Dose: 60 mls/hr Documented by: Calcium Gluconate 2 gm/ Sodium (Chloride) 120 mls @ 60 mls/hr IV ONETIME ONE Stop: 06/28/20 13:44 Last Admin: 06/28/20 11:57 Dose: 60 mls/hr Documented by: Losartan Potassium (Cozaar) 25 mg PO DAILY [facility] Last Admin: 06/26/20 08:50 Dose: 25 mg Documented by: Magnesium Oxide (Magnesium Oxide) 400 mg PO ONETIME ONE Stop: 06/26/20 09:47 Last Admin: 06/26/20 10:30 Dose: 400 mg Documented by: Ondansetron HCl (Zofran) 4 mg IVPUSH ONETIME ONE Stop: 06/20/20 16:30 Last Admin: 06/20/20 16:43 Dose: 4 mg Documented by: Potassium Chloride (Klor-Con M20) 40 meq PO ONETIME ONE Stop: 06/26/20 07:25 Last Admin: 06/26/20 08:44 Dose: 40 meq Documented by: Warfarin Sodium (Coumadin Ask) 1 each PO ONETIME ONE Stop: 06/20/20 17:51 Last Admin: 06/21/20 02:29 Dose: Not Given Documented by: Warfarin Sodium (Coumadin) 6 mg PO 06/21/20@1445 [facility] Stop: 06/21/20 14:46 Last Admin: 06/21/20 15:07 Dose: 6 mg Documented by: Warfarin Sodium (Coumadin) 6 mg PO DAILY@1400 ONE Stop: 06/22/20 14:01 Last Admin: 06/22/20 14:37 Dose: 6 mg Documented by: Warfarin Sodium (Coumadin) 4 mg PO DAILY@1430 ONE Stop: 06/23/20 14:31 Last Admin: 06/23/20 15:00 Dose: 4 mg Documented by: Warfarin Sodium (Coumadin) 2 mg PO DAILY@1400 ONE Stop: 06/24/20 14:01 Last Admin: 06/24/20 15:30 Dose: 2 mg Documented by: Warfarin Sodium (Coumadin) 2 mg PO DAILY@1400 ONE Stop: 06/26/20 14:01 Last Admin: 06/26/20 17:53 Dose: Not Given Documented by: Warfarin Sodium (Coumadin) 2 mg PO NOW ONE Stop: 06/26/20 15:31 Last Admin: 06/26/20 15:31 Dose: 2 mg Documented by: - Exam General: Alert, Oriented, Cooperative, No Acute Distress Lungs: Clear to Auscultation, Normal Respiratory Effort Cardiovascular: Regular Rate, Irregular Rhythm GI/Abdominal Exam: Normal Bowel Sounds, Soft, Non-Tender, No Distention Extremities: Normal Inspection, No Pedal Edema Sepsis Event Note - Evaluation Sepsis Screening Result: No Definite Risk - Focused Exam Vital Signs: Vital Signs Temp Pulse Pulse Resp BP BP Pulse Ox 06/29/20 08:20 65 130/86 06/29/20 03:52 36.2 C 52 L 20 137/78 90 L 06/28/20 23:40 36.5 C 68 20 133/83 95 - Problem List & Annotations (1) COVID-19 SNOMED Code(s): 854187932 Code(s): U07.1 - COVID-19 Status: Acute Current Visit: Yes (2) Hypoxemia SNOMED Code(s): 114277862 Code(s): R09.02 - HYPOXEMIA Status: Acute Priority: High Current Visit: No (3) History of atrial fibrillation SNOMED Code(s): 276977177 Code(s): Z86.79 - PERSONAL HISTORY OF OTHER DISEASES OF THE CIRCULATORY SYSTEM Status: Acute Priority: Medium Current Visit: No (4) Chronic anticoagulation SNOMED Code(s): 138018900 Code(s): Z79.01 - GAS METER READER (CURRENT) USE OF ANTICOAGULANTS Status: Chronic Priority: High Current Visit: No (5) History of CHF (congestive heart failure) SNOMED Code(s): 040097391 Code(s): Z86.79 - PERSONAL HISTORY OF OTHER DISEASES OF THE CIRCULATORY SYSTEM Status: Chronic Priority: High Current Visit: No - Problem List Review Problem List Initiated/Reviewed/Updated: Yes - Plan Plan:: Assessment and Plan: 1. Acute hypoxic respiratory failure secondary to COVID-19: - Patient on 4 L NC this AM. Continue to wean supplemental oxygen as tolerated. Continue Combivent q6 [place], dexamethasone 6 mg qd (day 9), Rocephin and doxycycline (day 10). - Patient completed 5-day course of Remdesivir. Patient received 2 units of convalescent plasma. - CXR on admission showed LLL infiltrate. - Patient given fact sheet for Remdesivir, risks were explained and patient consented for treatment. - Patient given fact sheet for convalescent plasma EAU, risks were explained and patient consented for treatment. 2. Atrial fibrillation: - Patient had brief episode of a-fib with RVR this morning but has now converted back to sinus rhythm. - Patient on telemetry. Pharmacy consulted for warfarin dosing. INR is supratherapeutic at this time. 3. Hypotension, improved: - Losartan and lasix held. Continue coreg. 4. Hypocalcemia, improved: - Will give IV calcium gluconate 2 g today. 5. DVT prophylaxis: - Patient on warfarin. 6. Past medical history of CHF, BPH, cardiomyopathy and GERD: - Continue home medications.
[2020-06-29] MEDS ORDERED: Calcium Gluconate 10% 1 GM/10 ML SDV IV ONE (10:21)
[2020-06-29] MEDS ORDERED: Calcium Gluconate 2 GM in Sodium Chloride 0.9% 100 ML IV ONE (11:00)
[2020-06-29] MEDS: Pantoprazole 40 MG Tab.CR PO SCH (17:48)
[2020-06-29] MEDS: cefTRIAXone 1 GM in Premix Bag 1 BAG IV SCH (20:40)
[2020-06-30] MEDS: Albuterol/Ipratropium 4 GM Inhalation Spray INH SCH ×4 (00:41→17:43)
[2020-06-30 06:45] LABS: BLOOD UREA NITROGEN,BUN 27 mg/dL (7.0-18.0); CARBON DIOXIDE,CO2 26.5 mmol/L (21.0-32.0); CHLORIDE,CL 103 mmol/L (98-107); GLUCOSE RANDOM 103 mg/dL (74-106); SODIUM,NA 137 mmol/L (136-148)
[2020-06-30] MEDS ORDERED: Calcium Carbonate 500 MG Tab.Chew PO ONE (09:00)
[2020-06-30] MEDS: Carvedilol 3.125 MG Tab PO SCH ×2 (09:27→20:00)
[2020-06-30] MEDS: Dexamethasone 4 MG Tab PO SCH (09:27)
[2020-06-30] MEDS: Ferrous Sulfate 325 MG Tab PO SCH (09:27)
--- NOTE | 2020-06-30 09:41 | PCM.PN ---
- General Info Date of Service: 06/30/20 Subjective Update: No complaints at bedside this AM. Reports eating well, urinating and having bowel movements. - Patient Data Vitals - Most Recent: Last Vital Signs Temp 36.4 C 06/30/20 09:00 Pulse 79 06/30/20 09:27 Resp 18 06/30/20 09:00 BP 125/65 06/30/20 09:27 Pulse Ox 92 L 06/30/20 09:00 Weight - Most Recent: 87.226 kg I&O - Last 24 Hours: Intake & Output 06/29/20 06/30/20 06/30/20 22:59 06:59 14:59 Intake Total 900 900 Output Total 690 700 Balance 210 200 Lab Results Last 24 Hours: Laboratory Results - last 24 hr 06/30/20 06/30/20 06/30/20 Range/Units 06:00 06:00 06:00 WBC 9.11 (4.0-11.0) K/uL RBC 4.02 L (4.50-5.90) M/uL Hgb 10.3 L (13.0-17.0) g/dL Hct 33.0 L (38.0-50.0) % MCV 82.1 (80.0-98.0) fL MCH 25.6 L (27.0-32.0) pg MCHC 31.2 (31.0-37.0) g/dL RDW Std Deviation 49.1 (28.0-62.0) fl RDW Coeff of Anita 16 H (11.0-15.0) % Plt Count 168 (150-400) K/uL MPV 12.20 H (7.40-12.00) fL Add Manual Diff YES Neutrophils % (Manual) 84 H (48.0-80.0) % Lymphocytes % (Manual) 10 L (16.0-40.0) % Monocytes % (Manual) 5 (0.0-15.0) % Metamyelocytes % 1 % Nucleated RBC % 0.0 /100WBC Absolute Seg Neuts 7.7 H (1.4-5.7) Lymphocytes # (Manual) 0.9 (0.6-2.4) Monocytes # (Manual) 0.5 (0.0-0.8) Absolute Metamyelocyte 0.1 Nucleated RBCs # 0 K/uL INR 2.41 Sodium 137 (136-148) mmol/L Potassium 4.0 (3.5-5.1) mmol/L Chloride 103 (98-107) mmol/L Carbon Dioxide 26.5 (21.0-32.0) mmol/L BUN 27 H (7.0-18.0) mg/dL Creatinine 1.0 (0.8-1.3) mg/dL Est Cr Clr Drug Dosing 76.35 mL/min Estimated GFR (MDRD) > 60.0 ml/min Glucose 103 (74-106) mg/dL Calcium 6.8 L (8.5-10.1) mg/dL Phosphorus 4.2 (2.6-4.7) mg/dL Magnesium 2.0 (1.8-2.4) mg/dL Total Bilirubin 0.4 (0.2-1.0) mg/dL AST 18 (15-37) IU/L ALT 34 (14-63) IU/L Alkaline Phosphatase 50 (46-116) U/L Total Protein 5.9 L (6.4-8.2) g/dL Albumin 2.2 L (3.4-5.0) g/dL Globulin 3.7 (2.6-4.0) g/dL Albumin/Globulin Ratio 0.6 L (0.9-1.6) Med Orders - Current: Current Medications Acetaminophen (Tylenol) 650 mg PO Q4H PRN PRN Reason: Pain (Mild 1-3)/fever Last Admin: 06/23/20 19:53 Dose: 650 mg Documented by: Albuterol/Ipratropium (Combivent Respimat) 0 gm INH Q6H [facility] Last Admin: 06/30/20 06:06 Dose: 1 puff Documented by: Benzonatate (Tessalon Perles) 100 mg PO TID PRN PRN Reason: Cough Last Admin: 06/28/20 20:05 Dose: 100 mg Documented by: Carvedilol (Coreg) 3.125 mg PO BID [facility] Last Admin: 06/30/20 09:27 Dose: 3.125 mg Documented by: Dexamethasone (Dexamethasone) 6 mg PO DAILY [facility] Last Admin: 06/30/20 09:27 Dose: 6 mg Documented by: Ferrous Sulfate (Ferrous Sulfate) 325 mg PO DAILY [facility] Last Admin: 06/30/20 09:27 Dose: 325 mg Documented by: Ondansetron HCl (Zofran) 4 mg IVPUSH Q4H PRN PRN Reason: Nausea Pantoprazole Sodium (Protonix) 40 mg PO DAILY@1700 [facility] Last Admin: 06/29/20 17:48 Dose: 40 mg Documented by: Polyethylene Glycol (Miralax) 17 gm PO DAILY PRN PRN Reason: Constipation Warfarin Sodium (Coumadin Ask) 1 each PO DAILY@1400 [facility] Last Admin: 06/29/20 15:36 Dose: Not Given Documented by: Discontinued Medications Calcium Carbonate/Glycine (Tums) 1,000 mg PO ONETIME ONE Stop: 06/21/20 07:19 Last Admin: 06/21/20 09:06 Dose: 1,000 mg Documented by: Calcium Carbonate/Glycine (Tums) 1,000 mg PO ONETIME ONE Stop: 06/22/20 07:16 Last Admin: 06/22/20 08:44 Dose: 1,000 mg Documented by: Calcium Carbonate/Glycine (Tums) 1,000 mg PO ONETIME ONE Stop: 06/23/20 07:29 Last Admin: 06/23/20 09:12 Dose: 1,000 mg Documented by: Calcium Carbonate/Glycine (Tums) 1,000 mg PO ONETIME ONE Stop: 06/30/20 09:01 Last Admin: 06/30/20 09:28 Dose: 1,000 mg Documented by: Calcium Gluconate (Calcium Gluconate) 2 gm IV ONETIME ONE Stop: 06/27/20 09:31 Last Admin: 06/27/20 10:09 Dose: Not Given Documented by: Dexamethasone (Dexamethasone) 6 mg PO ONETIME ONE Stop: 06/20/20 16:30 Last Admin: 06/20/20 16:42 Dose: 6 mg Documented by: Digoxin (Lanoxin) 250 mcg IVPUSH ONETIME ONE Stop: 06/22/20 13:52 Last Admin: 06/22/20 17:23 Dose: Not Given Documented by: Enoxaparin Sodium (Lovenox) 40 mg SUBCUT Q24H [facility] Last Admin: 06/23/20 09:14 Dose: 40 mg Documented by: Furosemide (Lasix) 40 mg PO DAILY [facility] Last Admin: 06/27/20 09:52 Dose: Not Given Documented by: Furosemide (Lasix) 20 mg IVPUSH NOW ONE Stop: 06/25/20 10:23 Last Admin: 06/25/20 11:01 Dose: 20 mg Documented by: Heparin Sodium (Porcine) (Heparin Sodium) 5,000 units SUBCUT Q8H [facility] Last Admin: 06/21/20 02:04 Dose: 5,000 units Documented by: Sodium Chloride (Normal Saline) 1,000 mls @ 999 mls/hr IV STAT ONE Stop: 06/20/20 17:22 Last Admin: 06/20/20 16:42 Dose: 999 mls/hr Documented by: Pantoprazole Sodium 40 mg/ (Sodium Chloride) 10 mls @ 300 mls/hr IV DAILY [facility] Last Admin: 06/22/20 08:45 Dose: 300 mls/hr Documented by: Remdesivir 200 mg/ Sodium (Chloride) 250 mls @ 250 mls/hr IV ONETIME ONE Stop: 06/20/20 18:09 Last Admin: 06/20/20 19:51 Dose: 250 mls/hr Documented by: Remdesivir 100 mg/ Sodium (Chloride) 100 mls @ 100 mls/hr IV Q24H [facility] Stop: 06/24/20 18:59 Last Admin: 06/24/20 18:11 Dose: 100 mls/hr Documented by: Ceftriaxone Sodium/Dextrose 1 (gm/ Premix) 50 mls @ 100 mls/hr IV Q24H [facility] Last Admin: 06/29/20 20:40 Dose: 100 mls/hr Documented by: Doxycycline Hyclate 100 mg/ (Sodium Chloride) 100 mls @ 100 mls/hr IV Q12H [facility] Last Admin: 06/22/20 10:29 Dose: 100 mls/hr Documented by: Doxycycline Hyclate 100 mg/ (Sodium Chloride) 100 mls @ 100 mls/hr IV Q12H [facility] Last Admin: 06/29/20 21:34 Dose: 100 mls/hr Documented by: Calcium Gluconate 2 gm/ Sodium (Chloride) 120 mls @ 120 mls/hr IV ONETIME [facility] Stop: 06/25/20 12:29 Last Admin: 06/25/20 09:30 Dose: 120 mls/hr Documented by: Calcium Gluconate 2 gm/ Sodium (Chloride) 120 mls @ 60 mls/hr IV ONETIME ONE Stop: 06/26/20 09:44 Last Admin: 06/26/20 08:45 Dose: 60 mls/hr Documented by: Calcium Gluconate 2 gm/ Sodium (Chloride) 120 mls @ 60 mls/hr IV ONETIME ONE Stop: 06/27/20 11:59 Last Admin: 06/27/20 10:37 Dose: 60 mls/hr Documented by: Calcium Gluconate 2 gm/ Sodium (Chloride) 120 mls @ 60 mls/hr IV ONETIME ONE Stop: 06/28/20 13:44 Last Admin: 06/28/20 11:57 Dose: 60 mls/hr Documented by: Calcium Gluconate 2 gm/ Sodium (Chloride) 120 mls @ 60 mls/hr IV ONETIME ONE Stop: 06/29/20 12:59 Last Admin: 06/29/20 11:24 Dose: 60 mls/hr Documented by: Losartan Potassium (Cozaar) 25 mg PO DAILY [facility] Last Admin: 06/26/20 08:50 Dose: 25 mg Documented by: Magnesium Oxide (Magnesium Oxide) 400 mg PO ONETIME ONE Stop: 06/26/20 09:47 Last Admin: 06/26/20 10:30 Dose: 400 mg Documented by: Ondansetron HCl (Zofran) 4 mg IVPUSH ONETIME ONE Stop: 06/20/20 16:30 Last Admin: 06/20/20 16:43 Dose: 4 mg Documented by: Potassium Chloride (Klor-Con M20) 40 meq PO ONETIME ONE Stop: 06/26/20 07:25 Last Admin: 06/26/20 08:44 Dose: 40 meq Documented by: Warfarin Sodium (Coumadin Ask) 1 each PO ONETIME ONE Stop: 06/20/20 17:51 Last Admin: 06/21/20 02:29 Dose: Not Given Documented by: Warfarin Sodium (Coumadin) 6 mg PO 06/21/20@1445 [place] Stop: 06/21/20 14:46 Last Admin: 06/21/20 15:07 Dose: 6 mg Documented by: Warfarin Sodium (Coumadin) 6 mg PO DAILY@1400 ONE Stop: 06/22/20 14:01 Last Admin: 06/22/20 14:37 Dose: 6 mg Documented by: Warfarin Sodium (Coumadin) 4 mg PO DAILY@1430 ONE Stop: 06/23/20 14:31 Last Admin: 06/23/20 15:00 Dose: 4 mg Documented by: Warfarin Sodium (Coumadin) 2 mg PO DAILY@1400 ONE Stop: 06/24/20 14:01 Last Admin: 06/24/20 15:30 Dose: 2 mg Documented by: Warfarin Sodium (Coumadin) 2 mg PO DAILY@1400 ONE Stop: 06/26/20 14:01 Last Admin: 06/26/20 17:53 Dose: Not Given Documented by: Warfarin Sodium (Coumadin) 2 mg PO NOW ONE Stop: 06/26/20 15:31 Last Admin: 06/26/20 15:31 Dose: 2 mg Documented by: - Exam General: Alert, Oriented, Cooperative, No Acute Distress Lungs: Clear to Auscultation, Normal Respiratory Effort Cardiovascular: Regular Rate, Regular Rhythm GI/Abdominal Exam: Normal Bowel Sounds, Soft, Non-Tender, No Distention Extremities: Normal Inspection, No Pedal Edema Sepsis Event Note - Evaluation Sepsis Screening Result: No Definite Risk - Focused Exam Vital Signs: Vital Signs Temp Pulse Pulse Resp BP BP Pulse Ox 06/30/20 09:27 79 125/65 06/30/20 09:00 36.4 C 75 18 125/65 92 L 06/30/20 04:29 36.1 C 80 18 118/71 93 L 06/30/20 00:42 36.1 C 67 19 123/64 94 L - Problem List & Annotations (1) COVID-19 SNOMED Code(s): 083541999 Code(s): U07.1 - COVID-19 Status: Acute Current Visit: Yes (2) Hypoxemia SNOMED Code(s): 881844263 Code(s): R09.02 - HYPOXEMIA Status: Acute Priority: High Current Visit: No (3) History of atrial fibrillation SNOMED Code(s): 506592510 Code(s): Z86.79 - PERSONAL HISTORY OF OTHER DISEASES OF THE CIRCULATORY SYSTEM Status: Acute Priority: Medium Current Visit: No (4) Chronic anticoagulation SNOMED Code(s): 924459251 Code(s): Z79.01 - SKILLED NURSING (CURRENT) USE OF ANTICOAGULANTS Status: Chronic Priority: High Current Visit: No (5) History of CHF (congestive heart failure) SNOMED Code(s): 852961670 Code(s): Z86.79 - PERSONAL HISTORY OF OTHER DISEASES OF THE CIRCULATORY SYSTEM Status: Chronic Priority: High Current Visit: No - Problem List Review Problem List Initiated/Reviewed/Updated: Yes - My Orders Last 24 Hours: My Active Orders 07/01/20 05:11 CBC WITH AUTO DIFF [HEME] AM COMPREHENSIVE METABOLIC PN,CMP [CHEM] AM INR,PT,PROTHROMBIN TIME [COAG] DAILY MAGNESIUM [CHEM] AM PHOSPHORUS [CHEM] AM 07/02/20 05:11 INR,PT,PROTHROMBIN TIME [COAG] DAILY 07/03/20 05:11 INR,PT,PROTHROMBIN TIME [COAG] DAILY 07/04/20 05:11 INR,PT,PROTHROMBIN TIME [COAG] DAILY 07/05/20 05:11 INR,PT,PROTHROMBIN TIME [COAG] DAILY - Plan Plan:: Assessment and Plan: 1. Acute hypoxic respiratory failure secondary to COVID-19: - Patient remains on 4L NC. Continue to wean oxygen as tolerated today. Continue Combivent q6 [place] and dexamethasone 6 mg qd (day 10 today). Will discontinue Rocephin and doxycycline as 10-day course now complete. - Patient completed 5-day course of Remdesivir. Patient received 2 units of convalescent plasma. - CXR on admission showed LLL infiltrate. - Patient given fact sheet for Remdesivir, risks were explained and patient consented for treatment. - Patient given fact sheet for convalescent plasma EAU, risks were explained and patient consented for treatment. 2. Atrial fibrillation: - Patient on telemetry. Pharmacy consulted for warfarin dosing. 3. Hypotension, improved: - Losartan and lasix held. Continue coreg. 4. Hypocalcemia, improved: - Will give PO calcium carbonate 1 g today. 5. DVT prophylaxis: - Patient on warfarin. 6. Past medical history of CHF, BPH, cardiomyopathy and GERD: - Continue home medications.
[2020-06-30] MEDS ORDERED: Warfarin 2 MG Tab PO ONE (14:00)
[2020-06-30] MEDS: Pantoprazole 40 MG Tab.CR PO SCH (17:15)
[2020-06-30] MEDS: Acetaminophen 325 MG Tab PO PRN (20:03)
[2020-06-30] MEDS: Benzonatate 100 MG Cap PO PRN (20:03)
[2020-07-01] MEDS: Albuterol/Ipratropium 4 GM Inhalation Spray INH SCH ×3 (00:15→11:33)
[2020-07-01 06:51] LABS: BLOOD UREA NITROGEN,BUN 24 mg/dL (7.0-18.0); CHLORIDE,CL 103 mmol/L (98-107); GLUCOSE RANDOM 120 mg/dL (74-106); POTASSIUM,K 4.1 mmol/L (3.5-5.1); SODIUM,NA 139 mmol/L (136-148)
[2020-07-01] MEDS: Ferrous Sulfate 325 MG Tab PO SCH (08:26)
[2020-07-01] MEDS: Carvedilol 3.125 MG Tab PO SCH (08:26)
[2020-07-01] MEDS ORDERED: Warfarin 2 MG Tab PO ONE (15:00)
--- NOTE | 2020-07-01 19:00 | PCM.DCSUM1 ---
<Judy Cole - Last Filed: 07/01/20 19:59> Discharge Summary - Hospital Course Brief History: Patient is a 69-year-old male who presents to the emergency room with complaints of decreased appetite, nausea, fatigue and dehydration over the past 1 week. He was seen in our emergency room on 06/15/2020 and had a positive COVID-19 screening. During his ER visit he states he felt improved and preferred to be discharged to home rather than admission. He states when he returned home he tried to eat and drink although he "cannot make myself". He has. Patient denies any fever, chills, headache, change in vision, syncope or near syncope. Denies any chest pain, back pain, shortness of breath or cough. Denies any abdominal pain, nausea, vomiting, diarrhea, constipation or dysuria. Has not noted any blood in urine or stool. Patient has been eating and drinking appropriately. Diagnosis: Stroke: No - Discharge Data Discharge Date: 07/01/20 Discharge Disposition: Home, Self-Care 01 Condition: Fair - Referral to Home Health Primary Care Physician: PCP None - Patient Summary/Data Consults: Consultations 06/28/20 09:57 PT Evaluation and Treatment [CONS] Routine Hospital Course: Pt was treated for Acute hypoxic respiratory failure secondary to COVID-19. He was admitted to med/surg. Patient remained on telemetry. Was provided continuous supplemental oxygen to maintain O2 sat > 92%. Was appropriately weaned prior to discharge and sent home with home oxygen and Combivent q6 [place]. During his admission was treated with dexamethasone, Remdesivir and convalescent plasma. For his h/o Atrial fibrillation with subtherapeutic INR we continue pt on warfarin therapy continued dosing per pharmacy with telemetry monitoring. His blood pressures were soft therefore we had held his lisinopril and losartan. For his Past medical history of CHF, BPH, cardiomyopathy and GERD we continued his home medications. - Patient Instructions Diet: Usual Diet as Tolerated Activity: As Tolerated Notify Provider of: Fever, Increased Pain, Nausea and/or Vomiting Other/Special Instructions: please return to hospital if you develop worsening of shortness of breath, cough, fever, chills, chest pain, confusion. - Discharge Plan *PRESCRIPTION DRUG MONITORING PROGRAM REVIEWED*: Not Applicable *COPY OF PRESCRIPTION DRUG MONITORING REPORT IN PATIENT DEE: Not Applicable Prescriptions/Med Rec: Albuterol/Ipratropium [Combivent Respimat] 1 inh INH Q6H 30 Days #1 inhaler Home Medications: Home Meds Carvedilol [Coreg] 3.125 mg PO BID #60 tablet 08/27/17 [Rx] Furosemide [Lasix] 40 mg PO DAILY #30 tablet 08/27/17 [Rx] Ascorbic Acid [Vitamin C] 250 mg PO DAILY PRN 12/08/17 [History] Losartan [Cozaar] 25 mg PO DAILY 12/08/17 [History] Warfarin Sodium [Coumadin] 4 mg PO DAILY 12/08/17 [History] Acetaminophen/oxyCODONE [Percocet 325-5 MG] 1 - 2 tab PO Q4H PRN #60 tablet 11/10/18 [Rx] Celecoxib [CeleBREX] 200 mg PO DAILY #30 cap 11/10/18 [Rx] Calcium Carbonate [Calcium] 1 tab PO DAILY 06/15/20 [History] Ferrous Sulfate [Iron] 1 tab PO DAILY 06/15/20 [History] Albuterol/Ipratropium [Combivent Respimat] 1 inh INH Q6H 30 Days #1 inhaler 07/01/20 [Rx] Oxygen Therapy Mode: Nasal Cannula Patient Handouts: COVID-19 Frequently Asked Questions, COVID-19, Albuterol; Ipratropium inhalation aerosol Referrals: Neptali Ramirez MD [Ordering Only Provider] - 07/09/20 11:00 am - Discharge Summary/Plan Comment DC Time >30 min.: No - Patient Data Vitals - Most Recent: Last Vital Signs Temp 97.5 F 07/01/20 11:50 Pulse 83 07/01/20 11:50 Resp 18 07/01/20 11:50 BP 115/70 07/01/20 11:50 Pulse Ox 93 L 07/01/20 11:50 Weight - Most Recent: 87.226 kg I&O - Last 24 hours: Intake & Output 07/01/20 07/01/20 07/01/20 06:59 14:59 22:59 Intake Total 300 1000 Output Total 700 Balance -400 1000 Lab Results - Last 24 hrs: Laboratory Results - last 24 hr 07/01/20 07/01/20 07/01/20 Range/Units 05:50 05:50 05:50 WBC 9.29 (4.0-11.0) K/uL RBC 3.93 L (4.50-5.90) M/uL Hgb 9.9 L (13.0-17.0) g/dL Hct 32.3 L (38.0-50.0) % MCV 82.2 (80.0-98.0) fL MCH 25.2 L (27.0-32.0) pg MCHC 30.7 L (31.0-37.0) g/dL RDW Std Deviation 50.0 (28.0-62.0) fl RDW Coeff of Anita 16 H (11.0-15.0) % Plt Count 148 L (150-400) K/uL MPV 12.00 (7.40-12.00) fL Add Manual Diff YES Neutrophils % (Manual) 80 (48.0-80.0) % Band Neutrophils % 1 % Lymphocytes % (Manual) 10 L (16.0-40.0) % Atypical Lymphs % 0 Monocytes % (Manual) 8 (0.0-15.0) % Metamyelocytes % 1 % Nucleated RBC % 0.0 /100WBC Absolute Seg Neuts 7.4 H (1.4-5.7) Band Neutrophils # 0.1 Lymphocytes # (Manual) 0.9 (0.6-2.4) Monocytes # (Manual) 0.7 (0.0-0.8) Absolute Metamyelocyte 0.1 Nucleated RBCs # 0 K/uL INR 2.20 Sodium 139 (136-148) mmol/L Potassium 4.1 (3.5-5.1) mmol/L Chloride 103 (98-107) mmol/L Carbon Dioxide 28.0 (21.0-32.0) mmol/L BUN 24 H (7.0-18.0) mg/dL Creatinine 1.0 (0.8-1.3) mg/dL Est Cr Clr Drug Dosing 76.35 mL/min Estimated GFR (MDRD) > 60.0 ml/min Glucose 120 H (74-106) mg/dL Calcium 6.6 L (8.5-10.1) mg/dL Phosphorus 3.9 (2.6-4.7) mg/dL Magnesium 2.1 (1.8-2.4) mg/dL Total Bilirubin 0.5 (0.2-1.0) mg/dL AST 19 (15-37) IU/L ALT 44 (14-63) IU/L Alkaline Phosphatase 52 (46-116) U/L Total Protein 5.9 L (6.4-8.2) g/dL Albumin 2.2 L (3.4-5.0) g/dL Globulin 3.7 (2.6-4.0) g/dL Albumin/Globulin Ratio 0.6 L (0.9-1.6) Med Orders - Current: Current Medications Discontinued Medications Acetaminophen (Tylenol) 650 mg PO Q4H PRN PRN Reason: Pain (Mild 1-3)/fever Last Admin: 06/30/20 20:03 Dose: 650 mg Documented by: Albuterol/Ipratropium (Combivent Respimat) 0 gm INH Q6H [facility] Last Admin: 07/01/20 11:33 Dose: 1 puff Documented by: Benzonatate (Tessalon Perles) 100 mg PO TID PRN PRN Reason: Cough Last Admin: 06/30/20 20:03 Dose: 100 mg Documented by: Calcium Carbonate/Glycine (Tums) 1,000 mg PO ONETIME ONE Stop: 06/21/20 07:19 Last Admin: 06/21/20 09:06 Dose: 1,000 mg Documented by: Calcium Carbonate/Glycine (Tums) 1,000 mg PO ONETIME ONE Stop: 06/22/20 07:16 Last Admin: 06/22/20 08:44 Dose: 1,000 mg Documented by: Calcium Carbonate/Glycine (Tums) 1,000 mg PO ONETIME ONE Stop: 06/23/20 07:29 Last Admin: 06/23/20 09:12 Dose: 1,000 mg Documented by: Calcium Carbonate/Glycine (Tums) 1,000 mg PO ONETIME ONE Stop: 06/30/20 09:01 Last Admin: 06/30/20 09:28 Dose: 1,000 mg Documented by: Calcium Gluconate (Calcium Gluconate) 2 gm IV ONETIME ONE Stop: 06/27/20 09:31 Last Admin: 06/27/20 10:09 Dose: Not Given Documented by: Carvedilol (Coreg) 3.125 mg PO BID [facility] Last Admin: 07/01/20 08:26 Dose: 3.125 mg Documented by: Dexamethasone (Dexamethasone) 6 mg PO ONETIME ONE Stop: 06/20/20 16:30 Last Admin: 06/20/20 16:42 Dose: 6 mg Documented by: Dexamethasone (Dexamethasone) 6 mg PO DAILY [facility] Last Admin: 06/30/20 09:27 Dose: 6 mg Documented by: Digoxin (Lanoxin) 250 mcg IVPUSH ONETIME ONE Stop: 06/22/20 13:52 Last Admin: 06/22/20 17:23 Dose: Not Given Documented by: Enoxaparin Sodium (Lovenox) 40 mg SUBCUT Q24H [facility] Last Admin: 06/23/20 09:14 Dose: 40 mg Documented by: Ferrous Sulfate (Ferrous Sulfate) 325 mg PO DAILY [facility] Last Admin: 07/01/20 08:26 Dose: 325 mg Documented by: Furosemide (Lasix) 40 mg PO DAILY [facility] Last Admin: 06/27/20 09:52 Dose: Not Given Documented by: Furosemide (Lasix) 20 mg IVPUSH NOW ONE Stop: 06/25/20 10:23 Last Admin: 06/25/20 11:01 Dose: 20 mg Documented by: Heparin Sodium (Porcine) (Heparin Sodium) 5,000 units SUBCUT Q8H [facility] Last Admin: 06/21/20 02:04 Dose: 5,000 units Documented by: Sodium Chloride (Normal Saline) 1,000 mls @ 999 mls/hr IV STAT ONE Stop: 06/20/20 17:22 Last Admin: 06/20/20 16:42 Dose: 999 mls/hr Documented by: Pantoprazole Sodium 40 mg/ (Sodium Chloride) 10 mls @ 300 mls/hr IV DAILY [facility] Last Admin: 06/22/20 08:45 Dose: 300 mls/hr Documented by: Remdesivir 200 mg/ Sodium (Chloride) 250 mls @ 250 mls/hr IV ONETIME ONE Stop: 06/20/20 18:09 Last Admin: 06/20/20 19:51 Dose: 250 mls/hr Documented by: Remdesivir 100 mg/ Sodium (Chloride) 100 mls @ 100 mls/hr IV Q24H [facility] Stop: 06/24/20 18:59 Last Admin: 06/24/20 18:11 Dose: 100 mls/hr Documented by: Ceftriaxone Sodium/Dextrose 1 (gm/ Premix) 50 mls @ 100 mls/hr IV Q24H [facility] Last Admin: 06/29/20 20:40 Dose: 100 mls/hr Documented by: Doxycycline Hyclate 100 mg/ (Sodium Chloride) 100 mls @ 100 mls/hr IV Q12H [facility] Last Admin: 06/22/20 10:29 Dose: 100 mls/hr Documented by: Doxycycline Hyclate 100 mg/ (Sodium Chloride) 100 mls @ 100 mls/hr IV Q12H [facility] Last Admin: 06/29/20 21:34 Dose: 100 mls/hr Documented by: Calcium Gluconate 2 gm/ Sodium (Chloride) 120 mls @ 120 mls/hr IV ONETIME [place] Stop: 06/25/20 12:29 Last Admin: 06/25/20 09:30 Dose: 120 mls/hr Documented by: Calcium Gluconate 2 gm/ Sodium (Chloride) 120 mls @ 60 mls/hr IV ONETIME ONE Stop: 06/26/20 09:44 Last Admin: 06/26/20 08:45 Dose: 60 mls/hr Documented by: Calcium Gluconate 2 gm/ Sodium (Chloride) 120 mls @ 60 mls/hr IV ONETIME ONE Stop: 06/27/20 11:59 Last Admin: 06/27/20 10:37 Dose: 60 mls/hr Documented by: Calcium Gluconate 2 gm/ Sodium (Chloride) 120 mls @ 60 mls/hr IV ONETIME ONE Stop: 06/28/20 13:44 Last Admin: 06/28/20 11:57 Dose: 60 mls/hr Documented by: Calcium Gluconate 2 gm/ Sodium (Chloride) 120 mls @ 60 mls/hr IV ONETIME ONE Stop: 06/29/20 12:59 Last Admin: 06/29/20 11:24 Dose: 60 mls/hr Documented by: Losartan Potassium (Cozaar) 25 mg PO DAILY [facility] Last Admin: 06/26/20 08:50 Dose: 25 mg Documented by: Magnesium Oxide (Magnesium Oxide) 400 mg PO ONETIME ONE Stop: 06/26/20 09:47 Last Admin: 06/26/20 10:30 Dose: 400 mg Documented by: Ondansetron HCl (Zofran) 4 mg IVPUSH ONETIME ONE Stop: 06/20/20 16:30 Last Admin: 06/20/20 16:43 Dose: 4 mg Documented by: Ondansetron HCl (Zofran) 4 mg IVPUSH Q4H PRN PRN Reason: Nausea Pantoprazole Sodium (Protonix) 40 mg PO DAILY@1700 [facility] Last Admin: 06/30/20 17:15 Dose: 40 mg Documented by: Polyethylene Glycol (Miralax) 17 gm PO DAILY PRN PRN Reason: Constipation Potassium Chloride (Klor-Con M20) 40 meq PO ONETIME ONE Stop: 06/26/20 07:25 Last Admin: 06/26/20 08:44 Dose: 40 meq Documented by: Warfarin Sodium (Coumadin Ask) 1 each PO ONETIME ONE Stop: 06/20/20 17:51 Last Admin: 06/21/20 02:29 Dose: Not Given Documented by: Warfarin Sodium (Coumadin Ask) 1 each PO DAILY@1400 [facility] Last Admin: 07/01/20 15:36 Dose: Not Given Documented by: Warfarin Sodium (Coumadin) 6 mg PO 06/21/20@1445 [facility] Stop: 06/21/20 14:46 Last Admin: 06/21/20 15:07 Dose: 6 mg Documented by: Warfarin Sodium (Coumadin) 6 mg PO DAILY@1400 ONE Stop: 06/22/20 14:01 Last Admin: 06/22/20 14:37 Dose: 6 mg Documented by: Warfarin Sodium (Coumadin) 4 mg PO DAILY@1430 ONE Stop: 06/23/20 14:31 Last Admin: 06/23/20 15:00 Dose: 4 mg Documented by: Warfarin Sodium (Coumadin) 2 mg PO DAILY@1400 ONE Stop: 06/24/20 14:01 Last Admin: 06/24/20 15:30 Dose: 2 mg Documented by: Warfarin Sodium (Coumadin) 2 mg PO DAILY@1400 ONE Stop: 06/26/20 14:01 Last Admin: 06/26/20 17:53 Dose: Not Given Documented by: Warfarin Sodium (Coumadin) 2 mg PO NOW ONE Stop: 06/26/20 15:31 Last Admin: 06/26/20 15:31 Dose: 2 mg Documented by: Warfarin Sodium (Coumadin) 4 mg PO ONETIME ONE Stop: 06/30/20 14:01 Last Admin: 06/30/20 14:23 Dose: 4 mg Documented by: Warfarin Sodium (Coumadin) 4 mg PO ONETIME ONE Stop: 07/01/20 15:01 Last Admin: 07/01/20 15:36 Dose: 4 mg Documented by: <Mariusz Rogers - Last Filed: 07/06/20 19:32> Discharge Summary - Referral to Home Health Primary Care Physician: PCP None - Patient Summary/Data Consults: Consultations 06/28/20 09:57 PT Evaluation and Treatment [CONS] Routine - Patient Data Vitals - Most Recent: Last Vital Signs Temp 36.4 C 07/01/20 11:50 Pulse 83 07/01/20 11:50 Resp 18 07/01/20 11:50 BP 115/70 07/01/20 11:50 Pulse Ox 93 L 07/01/20 11:50 Med Orders - Current: Current Medications Discontinued Medications Acetaminophen (Tylenol) 650 mg PO Q4H PRN PRN Reason: Pain (Mild 1-3)/fever Last Admin: 06/30/20 20:03 Dose: 650 mg Documented by: Albuterol/Ipratropium (Combivent Respimat) 0 gm INH Q6H [place] Last Admin: 07/01/20 11:33 Dose: 1 puff Documented by: Benzonatate (Tessalon Perles) 100 mg PO TID PRN PRN Reason: Cough Last Admin: 06/30/20 20:03 Dose: 100 mg Documented by: Calcium Carbonate/Glycine (Tums) 1,000 mg PO ONETIME ONE Stop: 06/21/20 07:19 Last Admin: 06/21/20 09:06 Dose: 1,000 mg Documented by: Calcium Carbonate/Glycine (Tums) 1,000 mg PO ONETIME ONE Stop: 06/22/20 07:16 Last Admin: 06/22/20 08:44 Dose: 1,000 mg Documented by: Calcium Carbonate/Glycine (Tums) 1,000 mg PO ONETIME ONE Stop: 06/23/20 07:29 Last Admin: 06/23/20 09:12 Dose: 1,000 mg Documented by: Calcium Carbonate/Glycine (Tums) 1,000 mg PO ONETIME ONE Stop: 06/30/20 09:01 Last Admin: 06/30/20 09:28 Dose: 1,000 mg Documented by: Calcium Gluconate (Calcium Gluconate) 2 gm IV ONETIME ONE Stop: 06/27/20 09:31 Last Admin: 06/27/20 10:09 Dose: Not Given Documented by: Carvedilol (Coreg) 3.125 mg PO BID [facility] Last Admin: 07/01/20 08:26 Dose: 3.125 mg Documented by: Dexamethasone (Dexamethasone) 6 mg PO ONETIME ONE Stop: 06/20/20 16:30 Last Admin: 06/20/20 16:42 Dose: 6 mg Documented by: Dexamethasone (Dexamethasone) 6 mg PO DAILY [facility] Last Admin: 06/30/20 09:27 Dose: 6 mg Documented by: Digoxin (Lanoxin) 250 mcg IVPUSH ONETIME ONE Stop: 06/22/20 13:52 Last Admin: 06/22/20 17:23 Dose: Not Given Documented by: Enoxaparin Sodium (Lovenox) 40 mg SUBCUT Q24H [facility] Last Admin: 06/23/20 09:14 Dose: 40 mg Documented by: Ferrous Sulfate (Ferrous Sulfate) 325 mg PO DAILY [facility] Last Admin: 07/01/20 08:26 Dose: 325 mg Documented by: Furosemide (Lasix) 40 mg PO DAILY [facility] Last Admin: 06/27/20 09:52 Dose: Not Given Documented by: Furosemide (Lasix) 20 mg IVPUSH NOW ONE Stop: 06/25/20 10:23 Last Admin: 06/25/20 11:01 Dose: 20 mg Documented by: Heparin Sodium (Porcine) (Heparin Sodium) 5,000 units SUBCUT Q8H [facility] Last Admin: 06/21/20 02:04 Dose: 5,000 units Documented by: Sodium Chloride (Normal Saline) 1,000 mls @ 999 mls/hr IV STAT ONE Stop: 06/20/20 17:22 Last Admin: 06/20/20 16:42 Dose: 999 mls/hr Documented by: Pantoprazole Sodium 40 mg/ (Sodium Chloride) 10 mls @ 300 mls/hr IV DAILY [facility] Last Admin: 06/22/20 08:45 Dose: 300 mls/hr Documented by: Remdesivir 200 mg/ Sodium (Chloride) 250 mls @ 250 mls/hr IV ONETIME ONE Stop: 06/20/20 18:09 Last Admin: 06/20/20 19:51 Dose: 250 mls/hr Documented by: Remdesivir 100 mg/ Sodium (Chloride) 100 mls @ 100 mls/hr IV Q24H [facility] Stop: 06/24/20 18:59 Last Admin: 06/24/20 18:11 Dose: 100 mls/hr Documented by: Ceftriaxone Sodium/Dextrose 1 (gm/ Premix) 50 mls @ 100 mls/hr IV Q24H [facility] Last Admin: 06/29/20 20:40 Dose: 100 mls/hr Documented by: Doxycycline Hyclate 100 mg/ (Sodium Chloride) 100 mls @ 100 mls/hr IV Q12H [facility] Last Admin: 06/22/20 10:29 Dose: 100 mls/hr Documented by: Doxycycline Hyclate 100 mg/ (Sodium Chloride) 100 mls @ 100 mls/hr IV Q12H [facility] Last Admin: 06/29/20 21:34 Dose: 100 mls/hr Documented by: Calcium Gluconate 2 gm/ Sodium (Chloride) 120 mls @ 120 mls/hr IV ONETIME [facility] Stop: 06/25/20 12:29 Last Admin: 06/25/20 09:30 Dose: 120 mls/hr Documented by: Calcium Gluconate 2 gm/ Sodium (Chloride) 120 mls @ 60 mls/hr IV ONETIME ONE Stop: 06/26/20 09:44 Last Admin: 06/26/20 08:45 Dose: 60 mls/hr Documented by: Calcium Gluconate 2 gm/ Sodium (Chloride) 120 mls @ 60 mls/hr IV ONETIME ONE Stop: 06/27/20 11:59 Last Admin: 06/27/20 10:37 Dose: 60 mls/hr Documented by: Calcium Gluconate 2 gm/ Sodium (Chloride) 120 mls @ 60 mls/hr IV ONETIME ONE Stop: 06/28/20 13:44 Last Admin: 06/28/20 11:57 Dose: 60 mls/hr Documented by: Calcium Gluconate 2 gm/ Sodium (Chloride) 120 mls @ 60 mls/hr IV ONETIME ONE Stop: 06/29/20 12:59 Last Admin: 06/29/20 11:24 Dose: 60 mls/hr Documented by: Losartan Potassium (Cozaar) 25 mg PO DAILY [facility] Last Admin: 06/26/20 08:50 Dose: 25 mg Documented by: Magnesium Oxide (Magnesium Oxide) 400 mg PO ONETIME ONE Stop: 06/26/20 09:47 Last Admin: 06/26/20 10:30 Dose: 400 mg Documented by: Ondansetron HCl (Zofran) 4 mg IVPUSH ONETIME ONE Stop: 06/20/20 16:30 Last Admin: 06/20/20 16:43 Dose: 4 mg Documented by: Ondansetron HCl (Zofran) 4 mg IVPUSH Q4H PRN PRN Reason: Nausea Pantoprazole Sodium (Protonix) 40 mg PO DAILY@1700 [facility] Last Admin: 06/30/20 17:15 Dose: 40 mg Documented by: Polyethylene Glycol (Miralax) 17 gm PO DAILY PRN PRN Reason: Constipation Potassium Chloride (Klor-Con M20) 40 meq PO ONETIME ONE Stop: 06/26/20 07:25 Last Admin: 06/26/20 08:44 Dose: 40 meq Documented by: Warfarin Sodium (Coumadin Ask) 1 each PO ONETIME ONE Stop: 06/20/20 17:51 Last Admin: 06/21/20 02:29 Dose: Not Given Documented by: Warfarin Sodium (Coumadin Ask) 1 each PO DAILY@1400 [facility] Last Admin: 07/01/20 15:36 Dose: Not Given Documented by: Warfarin Sodium (Coumadin) 6 mg PO 06/21/20@1445 [facility] Stop: 06/21/20 14:46 Last Admin: 06/21/20 15:07 Dose: 6 mg Documented by: Warfarin Sodium (Coumadin) 6 mg PO DAILY@1400 ONE Stop: 06/22/20 14:01 Last Admin: 06/22/20 14:37 Dose: 6 mg Documented by: Warfarin Sodium (Coumadin) 4 mg PO DAILY@1430 ONE Stop: 06/23/20 14:31 Last Admin: 06/23/20 15:00 Dose: 4 mg Documented by: Warfarin Sodium (Coumadin) 2 mg PO DAILY@1400 ONE Stop: 06/24/20 14:01 Last Admin: 06/24/20 15:30 Dose: 2 mg Documented by: Warfarin Sodium (Coumadin) 2 mg PO DAILY@1400 ONE Stop: 06/26/20 14:01 Last Admin: 06/26/20 17:53 Dose: Not Given Documented by: Warfarin Sodium (Coumadin) 2 mg PO NOW ONE Stop: 06/26/20 15:31 Last Admin: 06/26/20 15:31 Dose: 2 mg Documented by: Warfarin Sodium (Coumadin) 4 mg PO ONETIME ONE Stop: 06/30/20 14:01 Last Admin: 06/30/20 14:23 Dose: 4 mg Documented by: Warfarin Sodium (Coumadin) 4 mg PO ONETIME ONE Stop: 07/01/20 15:01 Last Admin: 07/01/20 15:36 Dose: 4 mg Documented by: - Free Text/Narrative Note: I have seen and evaluated the patient. I have discussed findings and treatment plan with resident. I agree with the assessment and plan in the following note.
== END 2020-07-01 16:00 | disposition home or self-care (01) | DRG 177 ==
LOC: MW.ED 16:07 → UNDOADMIN 17:10 → MW.MS 17:10 → MW.ICU 17:13 → MW.MS 06-25 12:32 → UNDOADMIN 06-25 12:32 → MW.ICU 06-25 12:32 → MW.MS 06-28 08:00 → MW.ICU 06-28 14:58 → UNDODISIN 07-01 16:00
PROVIDERS: ADMIT Internal Medicine; ATTEND Internal Medicine
PROC: XW033E5 Introduction of Remdesivir Anti-infective into Peripheral Vein, Percutaneous Approach, New Technology Group 5 (ICD-10-PCS; principal; 2020-06-27)
PROC: XW13325 Transfusion of Convalescent Plasma (Nonautologous) into Peripheral Vein, Percutaneous Approach, New Technology Group 5 (ICD-10-PCS; 2020-06-27)
PROC: 5A0945A Assistance with Respiratory Ventilation, 24-96 Consecutive Hours, High Flow/Velocity Cannula (ICD-10-PCS; 2020-06-27)
DX: U07.1 COVID-19 (principal); J96.01 Acute respiratory failure with hypoxia; I42.9 Cardiomyopathy, unspecified; R09.02 Hypoxemia; E86.0 Dehydration; H54.7 Unspecified visual loss; I48.91 Unspecified atrial fibrillation; I50.9 Heart failure, unspecified; N40.0 Benign prostatic hyperplasia without lower urinary tract symptoms; I11.0 Hypertensive heart disease with heart failure; E83.51 Hypocalcemia; K21.9 Gastro-esophageal reflux disease without esophagitis; H91.90 Unspecified hearing loss, unspecified ear; N32.81 Overactive bladder; D64.9 Anemia, unspecified; Z96.659 Presence of unspecified artificial knee joint; Z79.01 Long term (current) use of anticoagulants; Z79.899 Other long term (current) drug therapy; Z86.79 Personal history of other diseases of the circulatory system
CPT/HCPCS: 36415; 71045; 80053; 84484; 85025; 85379; 85610; 93005; 96374; 99285; J2405; J7030; J8540; 36430; 36600; 81001; 82803; 82962; 83735; 84100; 86850; 86900; 86901; 93306; 94640; 94660; 97161-GP; 99222; 99232; 99238; 99283; A9270-GY; C9113; J0610; J0696; J1644; J1650; J1940; J3490; J7050; P9017

== ENCOUNTER 2020-11-17 19:46 | Emergency (ER) | payer MEDICARE, BC ==
[2020-11-17] MEDS ORDERED: Morphine 4 MG/ML Syringe ONE (19:57)
--- NOTE | 2020-11-17 20:11 | EDM.PDOC ---
ED HPI GENERAL MEDICAL PROBLEM - General Chief Complaint: Trauma Stated Complaint: TRAUMA Time Seen by Provider: 11/17/20 20:02 - History of Present Illness INITIAL COMMENTS - FREE TEXT/NARRATIVE: CHIEF COMPLAINT(S): Accidental fall HISTORY OF PRESENT ILLNESS: This is a 70-year-old man who presents to the emergency department as a trauma alert via walk-in triage with a chief complaint of fall. The patient was triaged as a trauma alert secondary to fall on anticoagulation. The patient states that he was walking and tripped over a tree stump causing him to fall onto his left side. The patient states that he is experiencing 9 out of 10 pain that began when he fell. He states the pain is located left-sided chest and abdomen and describes the pain as sharp. He states that there no radiation. He states that the pain is not relieved by 3 tablets of aspirin 324 mg and the pain is exacerbated by any touching or movement. He denies any head injury or loss of consciousness. He denies any preceding chest pain or shortness of breath. He currently denies any shortness of breath. He denies any fevers or chills. He does not recall his last INR. He denies any back pain, neck pain, bowel incontinence, urinary incontinence, hip pain. He states that he was ambulatory after he fell. He denies any extremity pain. REVIEW OF SYSTEMS: Constitutional: Denies fever, chills. Eyes: Denies eye pain Ears, Nose, Mouth, & Throat: Denies earache Cardiovascular: Positive for left-sided chest pain Respiratory: Denies shortness of breath Gastrointestinal: Positive for left-sided abdominal pain. Denies Nausea, vomiting, diarrhea, hematochezia. Genitourinary: Denies hematuria, urinary incontinence Skin:Denies a rash Neurological: Denies blurred vision, numbness, tingling, weakness, head injury, loss of consciousness Psychiatric: Denies depression PAST MEDICAL HISTORY: As per history of present illness and as reviewed below otherwise noncontributory. SURGICAL HISTORY: As per history of present illness and as reviewed below otherwise noncontributory. SOCIAL HISTORY: As per history of present illness and as reviewed below otherwise noncontributory. FAMILY HISTORY: As per history of present illness and as reviewed below otherwise noncontributory. EXAMINATION OF ORGAN SYSTEMS/BODY AREAS: VITALS: D GENERAL: The patient is well-nourished, well-developed, in no acute distress. Sitting on the side of the stretcher. HEAD, EARS, EYES, NOSE THROAT: Normocephalic, atraumatic. PERRL. EOM are intact. There was no facial bone tenderness. Ears were clear, no hemotympanum. Oropharynx is clear. No missing or chipped teeth. Neck was supple and nontender. RESPIRATORY: No tachypnea. Equal breath sounds are heard bilaterally. Lungs clear to auscultation. CARDIOVASCULAR: Regular rate and rhythm. Heart sounds were normal. There is no S3, S4, murmur, rub. There is no chest wall tenderness. No crepitus. Radial and dorsalis pedis pulses were palpable and equal bilaterally. There is left lower rib tenderness to palpation without any obvious deformity. ABDOMEN: The abdomen was soft, distended with midline hernia which is easily reducible. There is tenderness to palpation along the left upper abdomen. There was no guarding or rebound tenderness. Bowel sounds were present throughout the abdomen and normal. Pelvis was stable and not tender to rock. SPINE: There is no cervical, thoracic or lumbar spine tenderness. Appropriate rectal tone. EXTREMITIES: Extremity examination revealed no deformity, localized swelling, contusions, or other abnormality. Patient is moving all 4 extremities equally. Distal pulses palpable in bilaterally. NEUROLOGICAL: Alert and oriented. On neurological examination Randy Coma Scale was 15. Facies were symmetrical. Strength was good in all extremities. SKIN: Appropriately warm to touch. No rashes, or pallor.. MEDICAL DECISION MAKING AND COURSE IN THE ED WITH INTERPRETATION/REVIEW OF DIAGNOSTIC STUDIES: This is a 70-year-old man who presents to emergency [facility] as a trauma alert. Immediately upon entering the resuscitation bay ATLS protocol was followed, the patient is disrobed, and placed on continuous cardiac monitoring as well as pulse oximetry. Patient tells me their name displaying a patent airway, breath sounds are equal bilaterally, and patient has palpable pulses in all 4 extremities. The patient does not have any gross deformities, and does not have any gross deficit. Upon exposure no further lesions are seen. Palpation of the cervical, thoracic, and lumbar spine reveals no tenderness. IV access is obtained, and trauma labs are sent. The patient was mildly tachycardic with normal blood pressure therefore we did provide the patient with 1 L of warmed IV normal saline. Given the chest pain and the abdominal pain and the patient's history of warfarin use we will obtain CT thorax and CT abdomen pelvis with contrast. Given the tachycardia I did perform a bedside fast examination. Will obtain labs. We will provide the patient with 4 mg of IV morphine. FAST exam is negative With this initial workup completed the patient is suitable for transfer to CT. Time: 2029 Twelve-lead EKG interpreted by myself. Normal sinus rhythm at a rate of 84beats per minute. Left axis. VA interval is 227 ms. QRS duration is [address] segments are normal without elevations or depressions. There are T wave inversions in leads III Q wave in lead III, aVF. Hypertrophy not noted. No changes demonstrated from prior EKG dated November 28, 2019. Interpretation: Sinus rhythm with prolonged VA Laboratory: CBC reveals a hemoglobin of 12.5 otherwise unremarkable. INR is 2.45, PTT is 33.0. CMP reveals elevated BUN at 22 and creatinine of 1.5. Hyperglycemia at 126, hypocalcemia at 6.5 otherwise unremarkable. The radiological images were viewed by myself along with reading the report from the radiologist. CT thorax with contrast does not reveal any acute findings in the chest. No acute fracture. Dilation of the ascending thoracic aorta up to [address] abdomen pelvis with contrast does not reveal any acute intra-abdominal pathology. There is an old fracture involving the left 10th posterior lateral rib. Age indeterminate possible old fracture involving the left posterior lateral 11th rib. Old united fracture of the right L3 transverse process. Borderline moderate sized fat-containing periumbilical ventral wall and right inguinal hernias. Moderate prostate enlargement. In regards to the patient's dilation of the ascending thoracic aorta to 4 cm I did discuss this with the patient. He states that he is aware of this and follows up for this outpatient. The patient continue to remain stable. I did discuss the results with the patient. I did discuss at this time that the pain he is experiencing is likely secondary to soft tissue pain. He is to use Tylenol for pain relief but should avoid from aspirin in the doses he was taking. He is to use ice to the 20 minutes 4 times a day. He is to return for any new or worsening symptoms. He should follow-up with his primary care physician within 1 week. DISPOSITION: The patient was discharged home in stable condition. The patient will follow up with primary care physician in 1 CONDITION: Good PROCEDURES: None FINAL IMPRESSION(S)/DIAGNOSES: 1. Acute mechanical fall 2. Acute left-sided chest wall tenderness pain 3. Acute left-sided abdominal wall pain Carlos Dutton M.D. L lateral abdominal area Pain Score (Numeric/FACES): 10 - Related Data Allergies Allergy/AdvReac Type Severity Reaction Status Date / Time No Known Allergies Allergy Verified 11/17/20 21:31 Home Meds: Home Meds Carvedilol [Coreg] 3.125 mg PO BID #60 tablet 08/27/17 [Rx] Furosemide [Lasix] 40 mg PO DAILY #30 tablet 08/27/17 [Rx] Ascorbic Acid [Vitamin C] 250 mg PO DAILY PRN 12/08/17 [History] Losartan [Cozaar] 25 mg PO DAILY 12/08/17 [History] Warfarin Sodium [Coumadin] 4 mg PO DAILY 12/08/17 [History] Acetaminophen/oxyCODONE [Percocet 325-5 MG] 1 - 2 tab PO Q4H PRN #60 tablet 11/10/18 [Rx] Celecoxib [CeleBREX] 200 mg PO DAILY #30 cap 11/10/18 [Rx] Calcium Carbonate [Calcium] 1 tab PO DAILY 06/15/20 [History] Ferrous Sulfate [Iron] 1 tab PO DAILY 06/15/20 [History] Albuterol/Ipratropium [Combivent Respimat] 1 inh INH Q6H 30 Days #1 inhaler 07/01/20 [Rx] Past Medical History HEENT History: Reports: Hard of Hearing, Other (See Below) Other HEENT History: wears glasses, has upper and lower dentures Cardiovascular History: Reports: Afib, Arrhythmia, Cardiomyopathy Respiratory History: Reports: None Gastrointestinal History: Reports: GERD Genitourinary History: Reports: BPH Other Genitourinary History: overactive bladder Musculoskeletal History: Reports: None Neurological History: Reports: None Psychiatric History: Reports: None Endocrine/Metabolic History: Reports: None Hematologic History: Reports: Anemia, Anticoagulation Therapy, Blood Transfusion(s) Other Hematologic History: he had 2 blood transfusions as a baby (premature) Immunologic History: Reports: None Oncologic (Cancer) History: Reports: None Dermatologic History: Reports: None - Infectious Disease History Infectious Disease History: Reports: Chicken Pox - Past Surgical History Head Surgeries/Procedures: Reports: None Musculoskeletal Surgical History: Reports: Knee Replacement Social & Family History - Family History Family Medical History: No Pertinent Family History - Caffeine Use Caffeine Use: Reports: Coffee Review of Systems - Review of Systems Review Of Systems: See Below ED EXAM, GENERAL - Physical Exam Exam: See Below Course - Vital Signs Last Recorded V/S: Last Vital Signs Temp 36.2 C 11/17/20 19:49 Pulse 103 H 11/17/20 19:49 Resp 16 11/17/20 19:49 BP 141/76 H 11/17/20 19:49 Pulse Ox 94 L 11/17/20 19:49 - Orders/Labs/Meds Orders: Active Orders 24 hr Category Date Time Status Cardiac Monitoring [RC] . DIRECTED Care 11/17/20 20:01 Active EKG Documentation Completion [RC] STAT Care 11/17/20 20:01 Active Pulse Oximetry [RC] ASDIRECTED Care 11/17/20 20:01 Active Sodium Chloride 0.9% [Normal Saline] 1,000 ml Med 11/17/20 20:15 Active IV ASDIRECTED Medication Orders Sodium Chloride (Normal Saline) 1,000 mls @ 999 mls/hr IV ASDIRECTED [place] Last Admin: 11/17/20 20:22 Dose: 999 mls/hr Documented by: CROW Labs: Laboratory Tests 11/17/20 11/17/20 11/17/20 Range/Units 19:50 19:50 19:50 WBC 10.53 (4.0-11.0) K/uL RBC 4.95 (4.50-5.90) M/uL Hgb 12.5 L (13.0-17.0) g/dL Hct 39.9 (38.0-50.0) % MCV 80.6 (80.0-98.0) fL MCH 25.3 L (27.0-32.0) pg MCHC 31.3 (31.0-37.0) g/dL RDW Std Deviation 47.2 (28.0-62.0) fl RDW Coeff of Anita 16 H (11.0-15.0) % Plt Count 206 (150-400) K/uL Neut % (Auto) 68.3 (48.0-80.0) % Lymph % (Auto) 21.0 (16.0-40.0) % [place] % (Auto) 7.4 (0.0-15.0) % Eos % (Auto) 2.7 (0.0-7.0) % Baso % (Auto) 0.6 (0.0-1.5) % Neut # (Auto) 7.2 H (1.4-5.7) K/uL Lymph # (Auto) 2.2 (0.6-2.4) K/uL [place] # (Auto) 0.8 (0.0-0.8) K/uL Eos # (Auto) 0.3 (0.0-0.7) K/uL Baso # (Auto) 0.1 (0.0-0.1) K/uL Nucleated RBC % 0.8 /100WBC Nucleated RBCs # 0 K/uL INR 2.45 APTT 33.0 H (18.6-31.3) SEC Sodium 138 (136-148) mmol/L Potassium 3.8 (3.5-5.1) mmol/L Chloride 98 (98-107) mmol/L Carbon Dioxide 28.2 (21.0-32.0) mmol/L BUN 22 H (7.0-18.0) mg/dL Creatinine 1.5 H (0.8-1.3) mg/dL Est Cr Clr Drug Dosing TNP Estimated GFR (MDRD) 46.5 ml/min Glucose 126 H (74-106) mg/dL Calcium 6.5 L (8.5-10.1) mg/dL Magnesium 2.1 (1.8-2.4) mg/dL Total Bilirubin 0.5 (0.2-1.0) mg/dL AST 20 (15-37) IU/L ALT 27 (14-63) IU/L Alkaline Phosphatase 85 (46-116) U/L Total Protein 8.1 (6.4-8.2) g/dL Albumin 3.8 (3.4-5.0) g/dL Globulin 4.3 H (2.6-4.0) g/dL Albumin/Globulin Ratio 0.9 (0.9-1.6) Meds: Medications Generic Name Dose Route Start Last Admin Trade Name Freq PRN Reason Stop Dose Admin Sodium Chloride 1,000 mls @ 999 mls/hr 11/17/20 20:15 11/17/20 20:22 Normal Saline IV 999 mls/hr ASDIRECTED [place] Administration Discontinued Medications Generic Name Dose Route Start Last Admin Trade Name Vielka PRN Reason Stop Dose Admin Iopamidol 100 ml 11/17/20 20:25 11/17/20 20:25 Iopamidol 755 Mg/Ml 500 Ml Multipack Bottle IVPUSH 11/17/20 20:26 100 ml ONETIME STA Administration Morphine Sulfate Confirm 11/17/20 19:57 11/17/20 20:24 Morphine 4 Mg/Ml Syringe Administered 11/17/20 19:58 Not Given Dose 4 mg .ROUTE .STK-MED ONE Morphine Sulfate 4 mg 11/17/20 20:22 11/17/20 20:23 Morphine 4 Mg/Ml Syringe IVPUSH 11/17/20 20:23 4 mg ONETIME ONE Administration Departure - Departure Time of Disposition: 21:32 Disposition: Home, Self-Care 01 Condition: Fair Clinical Impression: Chest wall contusion, Abdominal wall contusion, Aortic aneurysm - Discharge Information *PRESCRIPTION DRUG MONITORING PROGRAM REVIEWED*: No *COPY OF PRESCRIPTION DRUG MONITORING REPORT IN PATIENT DEE: No Instructions: Contusion, [id number], Thoracic Aortic Aneurysm, Rib Contusion Referrals: Neptali Ramirez MD [Primary Care Provider] - Forms: ED Department Discharge Additional Instructions: You evaluate today on an emergent basis. At this time there was no evidence of abdominal injury. Or chest injury. Your CT did show a thoracic aortic aneurysm which measured 4 cm which you stated is known. I do recommend you continue follow-up for this. In regards to pain management for your left-sided abdominal and chest pain please use Tylenol 500 to 1000 mg every 6 hours for the next 2 days and then use as needed after that. I would like you to refrain from using aspirin, ibuprofen, Aleve or any NSAID. Please ice the area 20 minutes 4 times a day. Please use the incentive spirometer as described. If you have any new or worsening symptoms please return to the emergency department. [facility] [address] [place] [id number] [facility] [address] [place] [id number] The patient is informed of any results of their evaluation and diagnostic workup and all questions are answered. They are given discharge instructions and return precautions. The patient is stable for discharge. The patient states they understand and agree with the plan and that they will return if their symptoms get worse or if they have any new concerns. The following information is given to patients seen in the emergency department who are being discharged to home. This information is to outline your options fo r follow-up care. We provide all patients seen in our emergency department with a follow-up referral. The need for follow-up, as well as the timing and circumstances, are variable depending upon the specifics of your emergency department visit. If you don't have a primary care physician on staff, we will provide you with a referral. We always advise you to contact your personal physician following an emergency department visit to inform them of the circumstance of the visit and for follow-up with them and/or the need for any referrals to a consulting specialist. The emergency department will also refer you to a specialist when appropriate. This referral assures that you have the opportunity for follow-up care with a specialist. All of these measure are taken in an effort to provide you with optimal care, which includes your follow-up. Under all circumstances we always encourage you to contact your private physician who remains a resource for coordinating your care. When calling for follow-up care, please make the office aware that this follow-up is from your recent emergency room visit. If for any reason you are refused follow-up, please contact the [facility] Emergency Department at and asked to speak to the emergency department charge nurse. Sepsis Event Note (ED) - Focused Exam Vital Signs: Vital Signs Temp Pulse Resp BP Pulse Ox 11/17/20 19:49 36.2 C 103 H 16 141/76 H 94 L - My Orders Last 24 Hours: My Active Orders 11/17/20 20:01 Cardiac Monitoring [RC] . DIRECTED EKG Documentation Completion [RC] STAT Pulse Oximetry [RC] ASDIRECTED 11/17/20 20:15 Sodium Chloride 0.9% [Normal Saline] 1,000 ml IV ASDIRECTED - Assessment/Plan Last 24 Hours: My Active Orders 11/17/20 20:01 Cardiac Monitoring [RC] . DIRECTED EKG Documentation Completion [RC] STAT Pulse Oximetry [RC] ASDIRECTED 11/17/20 20:15 Sodium Chloride 0.9% [Normal Saline] 1,000 ml IV ASDIRECTED
[2020-11-17] MEDS ORDERED: Sodium Chloride 0.9% 1,000 ML IV SCH (20:15)
[2020-11-17 20:18] LABS: BLOOD UREA NITROGEN,BUN 22 mg/dL (7.0-18.0); CARBON DIOXIDE,CO2 28.2 mmol/L (21.0-32.0); CHLORIDE,CL 98 mmol/L (98-107); GLUCOSE RANDOM 126 mg/dL (74-106); POTASSIUM,K 3.8 mmol/L (3.5-5.1); SODIUM,NA 138 mmol/L (136-148)
[2020-11-17] MEDS ORDERED: Morphine 4 MG/ML Syringe IVPUSH ONE (20:22)
[2020-11-17] MEDS ORDERED: Iopamidol 755 MG/ML 500 ML Multipack Bottle IVPUSH STA (20:25)
--- NOTE | 2020-11-17 20:42 | CT ---
Indication: Fall, left-sided pain, on blood thinners. Technique: CT of the chest with 100 cc Isovue 370 IV contrast. Coronal and sagittal reconstructions. Comparison: None available. Findings: Mild cardiomegaly. Mild dilation of the ascending thoracic aorta measuring 4.0 cm in AP dimension. Coronary artery and aortic vascular calcifications. Normal caliber central pulmonary arteries. No large or central pulmonary embolism. No pericardial effusion. No thoracic lymphadenopathy. There is motion artifact throughout the lungs. No focal consolidation, pleural effusion, or pneumothorax. Mild bibasilar atelectasis. No pulmonary nodules identified. No central endobronchial lesion. The thyroid gland is normal in appearance. Splenule. Partially visualized right renal cyst. The visualized upper abdomen is otherwise unremarkable. Degenerative changes of the spine. Hemangioma in the T4 vertebral body. Old left posterior rib fracture. No acute fracture identified. Impression: 1. No acute findings in the chest. No acute fracture identified. 2. Mild cardiomegaly. 3. Mild dilation of the ascending thoracic aorta to 4.0 cm. Please note that all CT scans at this facility use dose modulation, iterative reconstruction, and/or weight-based dosing when appropriate to reduce radiation dose to as low as reasonably achievable. Dictated by Ele Alexander MD @ Nov 17 2020 8:30PM Signed by Dr. Ele Alexander @ Nov 17 2020 8:41PM
--- NOTE | 2020-11-17 21:00 | CT ---
INDICATION: Left-sided pain. Fall. On blood thinners. TECHNIQUE: CT of the abdomen and pelvis performed after IV injection of 100 mL of Isovue-370. FINDINGS: Patchy mosaic pattern and ground-glass opacity in the lower lungs likely related combination of atelectasis and inflammatory opacity. Moderate right greater than left degenerative arthritis both hips. Moderate degenerative and hypertrophic changes in the spine. Sagittal reconstructed images are incomplete with only 22 images received. Motion artifact. Old fracture involving the left 10th rib. Fracture deformity involving the left posterior lateral 11th rib is of indeterminate age but probably old. Old ununited fracture involving right L3 transverse process. Moderate diffuse fatty infiltration of liver. Ascending thoracic aorta mildly dilated at 4 cm. Small to moderate-sized cysts in the right kidney. No posttraumatic abnormalities involving the abdominal or pelvic organs. Moderate-sized right inguinal hernia containing only fat measuring up to 3-4 cm. Moderate prostatic enlargement. Moderate size periumbilical anterior pelvic wall hernia containing only fat measures 4.2 cm. Moderate amount of stool in the right colon. Appendix is normal. Remainder negative. IMPRESSION: 1. Old fracture involving the left 10th posterior lateral rib. Age indeterminate possibly old fracture involving the left posterior lateral 11th rib. Old ununited fracture right L3 transverse process 2. No acute posttraumatic abnormalities in the abdomen or pelvis. 3. Borderline moderate-sized fat containing periumbilical ventral pelvic wall and right inguinal hernias. 4. Patchy mosaic pattern and ground-glass opacity in the lower lungs likely related combination of atelectasis and inflammatory opacity. 5. Moderate prostatic enlargement. Other findings as above. Please note that all CT scans at this facility use dose modulation, iterative reconstruction, and/or weight-based dosing when appropriate to reduce radiation dose to as low as reasonably achievable. Dictated by Kaan Luz MD @ Nov 17 2020 8:51PM Signed by Dr. Kana Luz @ Nov 17 2020 8:59PM
== END 2020-11-17 21:50 | disposition home or self-care (01) ==
LOC: MW.ED 19:46
DX: S30.1XXA Contusion of abdominal wall, initial encounter (principal); S20.212A Contusion of left front wall of thorax, initial encounter; I71.9 Aortic aneurysm of unspecified site, without rupture; I48.91 Unspecified atrial fibrillation; Z79.899 Other long term (current) drug therapy; Z79.01 Long term (current) use of anticoagulants; W18.09XA Striking against other object with subsequent fall, initial encounter
CPT/HCPCS: 36415; 71260; 74177; 80053; 83735; 85025; 85610; 85730; 93005; 96374; 99284; J2270; J7030; Q9967; 93010; 99283

== ENCOUNTER 2022-07-09 07:56 | Day surgery (SDC) | payer MEDICARE, BC ==
[~2022-07-09 07:56] MED LIST changes: +Bupivacaine 0.5% 30 ML SDV ONE; -Famotidine 20 MG/2 ML SDV IVPUSH SCH; +Lactated Ringers 1,000 ML IV SCH; +Pregabalin 75 MG Cap PO SCH; -Ropivacaine 49.25 ML, Ketorolac 30 MG, EPINEPHrine 0.5 MG, cloNIDine 80 MCG in Sodium C... INJECT SCH; -Scopolamine 1.5 MG Transdermal Patch TRDERM SCH; -Tranexamic Acid 2,000 MG in Sodium Chloride 0.9% 100 ML IV SCH; -oxyCODONE 5 MG Tab PO PRN
[2022-07-09] MEDS ORDERED: Ropivacaine 0.5% 5 MG/ML 30 ML SDV ONE (08:16)
[2022-07-09] MEDS ORDERED: Rocuronium Bromide 50 MG/5 ML Syringe ONE (08:27)
[2022-07-09] MEDS ORDERED: Sugammadex Sodium 200 MG/2 ML VIAL ONE (08:27)
[2022-07-09] MEDS ORDERED: Lidocaine 2% 5 ML SDV ONE (08:27)
[2022-07-09] MEDS ORDERED: Propofol 200 MG/20 ML SDV ONE (08:27)
[2022-07-09] MEDS ORDERED: fentaNYL 100 MCG/2 ML SDV ONE (08:27)
[2022-07-09] MEDS ORDERED: Dexamethasone 4 MG/ML 5 ML MDV ONE (08:27)
[2022-07-09] MEDS ORDERED: ceFAZolin 2 GM Vial ONE (08:27)
[2022-07-09] MEDS ORDERED: Ondansetron 4 MG/2 ML SDV ONE (08:27)
[2022-07-09] MEDS ORDERED: Water For Injection, Sterile 20 ML ONE ×2 (10:09)
[2022-07-09] MEDS ORDERED: ePHEDrine 50 MG/ML SDV ONE (10:09)
== END 2022-07-09 13:10 | disposition home or self-care (01) ==
LOC: MW.SDS 07:56
PROVIDERS: ATTEND Surgery
DX: K42.0 Umbilical hernia with obstruction, without gangrene (principal); I42.9 Cardiomyopathy, unspecified; I48.91 Unspecified atrial fibrillation; M19.90 Unspecified osteoarthritis, unspecified site; Z79.899 Other long term (current) drug therapy; Z98.890 Other specified postprocedural states; Z79.01 Long term (current) use of anticoagulants; Z96.651 Presence of right artificial knee joint
CPT/HCPCS: 49587; A9270; J0131; J0690; J1100; J2405; J2704; J2795; J3010; J3490; J7120

== ENCOUNTER 2022-11-29 21:33 | Emergency (ER) | payer MEDICARE, BC ==
[2022-11-29 23:18] LABS: CORONAVIRUS COVID-19 NAA POSITIVE (NEGATIVE); INFLUENZA A NAA NEGATIVE (NEGATIVE); INFLUENZA B NAA NEGATIVE (NEGATIVE); RESPIRATORY SYNCYTIAL VIR NAA NEGATIVE (NEGATIVE)
== END 2022-11-29 23:39 | disposition home or self-care (01) ==
LOC: MW.ED 21:33
DX: U07.1 COVID-19 (principal); Z79.01 Long term (current) use of anticoagulants; Z79.899 Other long term (current) drug therapy
CPT/HCPCS: 0241U; 71046; 99283; 99284

== ENCOUNTER 2023-06-20 16:45 | Emergency (ER) | payer MEDICARE, BC ==
[2023-06-20 17:32] LABS: CORONAVIRUS COVID-19 NAA NEGATIVE (NEGATIVE); INFLUENZA A NAA NEGATIVE (NEGATIVE); INFLUENZA B NAA NEGATIVE (NEGATIVE)
== END 2023-06-20 18:51 | disposition home or self-care (01) ==
LOC: MW.ED 16:45
DX: R05.1 Acute cough (principal); Z20.822 Contact with and (suspected) exposure to COVID-19
CPT/HCPCS: 0240U; 99283; 99282

== ENCOUNTER 2023-08-03 14:40 | Emergency (ER) | payer MEDICARE, BC ==
[2023-08-03 16:02] LABS: BASOPHILS ABSOLUTE AUTO 0.05 K/uL (0.00-0.20); BASOPHILS PERCENT AUTO 0.8 % (0.0-1.0); EOSINOPHILS ABSOLUTE AUTO 0.11 K/uL (0.00-0.45); EOSINOPHILS PERCENT AUTO 1.8 % (0.0-6.0); HEMATOCRIT 32.6 % (42.0-52.0); IMMATURE GRAN ABSOLUTE AUTO 0.03 K/uL (0.00-0.05); IMMATURE GRAN PERCENT AUTO 0.5 % (0.0-0.4); LYMPHOCYTES ABSOLUTE AUTO 0.89 K/uL (1.00-4.80); LYMPHOCYTES PERCENT AUTO 14.6 % (24.0-44.0); MEAN CORPUSCULAR HGB CONC 30.7 g/dL (32.0-36.0); MEAN CORPUSCULAR VOLUME 75.1 fL (83.0-99.0); MEAN PLATELET VOLUME 11.5 fL (9.4-12.4); MONOCYTES ABSOLUTE AUTO 0.72 K/uL (0.00-0.80); MONOCYTES PERCENT AUTO 11.8 % (0.0-8.0); NEUTROPHILS PERCENT AUTO 70.5 % (41.0-71.0); PLATELET COUNT,PLT 203 K/uL (150-400); RED BLOOD CELL COUNT 4.34 M/uL (4.52-5.90)
[2023-08-03 16:22] LABS: PTT,PARTIAL THROMBOPLSTIN TIME 54.5 SEC (23.9-30.7)
[2023-08-03 16:22] LABS: CORONAVIRUS COVID-19 NAA NEGATIVE (NEGATIVE); INFLUENZA A NAA NEGATIVE (NEGATIVE); INFLUENZA B NAA NEGATIVE (NEGATIVE)
[2023-08-03 16:26] LABS: INR 7.3 (0.86-1.11)
[2023-08-03 16:29] LABS: A/G RATIO 0.8 (0.9-1.6); ALBUMIN 2.8 g/dL (3.4-5.0); BILIRUBIN TOTAL 1.1 mg/dL (0.2-1.0); CALCIUM 5.7 mg/dL (8.5-10.1); CARBON DIOXIDE,CO2 26.5 mmol/L (21.0-32.0); CREATININE 1.6 mg/dL (0.8-1.3); EST CRCL DRUG DOSING (CG) 45.76 mL/min; MAGNESIUM 2.4 mg/dL (1.8-2.4); POTASSIUM,K 5.2 mmol/L (3.5-5.1); PROTEIN TOTAL,TP 6.4 g/dL (6.4-8.2)
[2023-08-03] MEDS ORDERED: Furosemide 40 MG/4 ML VIAL IVPUSH ONE (16:59)
== END 2023-08-03 18:58 ==
LOC: MW.ED 14:40
DX: I50.9 Heart failure, unspecified (principal); Z79.01 Long term (current) use of anticoagulants; Z79.899 Other long term (current) drug therapy; Z20.822 Contact with and (suspected) exposure to COVID-19
CPT/HCPCS: 0240U; 36415; 71045; 80053; 83735; 83880; 84484; 85025; 85610; 85730; 93005; 96374; 99285; J1940; 93010

== ENCOUNTER 2024-09-06 12:33 | Observation (INO) | payer MEDICARE, BC ==
[2024-09-06] MEDS ORDERED: Sodium Chloride 0.9% 2.5 ML Syringe FLUSH PRN (13:34)
[2024-09-06] MEDS ORDERED: Sodium Chloride 0.9% 10 ML Syringe FLUSH PRN (13:34)
[2024-09-06 14:28] LABS: BASOPHILS ABSOLUTE AUTO 0.07 K/uL (0.00-0.20); BASOPHILS PERCENT AUTO 0.9 % (0.0-1.0); EOSINOPHILS ABSOLUTE AUTO 0.12 K/uL (0.00-0.45); EOSINOPHILS PERCENT AUTO 1.5 % (0.0-6.0); HEMATOCRIT 33.9 % (42.0-52.0); HEMOGLOBIN 11.1 g/dL (14.0-18.0); IMMATURE GRAN ABSOLUTE AUTO 0.02 K/uL (0.00-0.05); IMMATURE GRAN PERCENT AUTO 0.3 % (0.0-0.4); LYMPHOCYTES ABSOLUTE AUTO 1.27 K/uL (1.00-4.80); LYMPHOCYTES PERCENT AUTO 16.4 % (24.0-44.0); MEAN CORPUSCULAR HEMOGLOBIN 27.6 pg (28.0-32.0); MEAN CORPUSCULAR HGB CONC 32.7 g/dL (32.0-36.0); MEAN CORPUSCULAR VOLUME 84.3 fL (83.0-99.0); MEAN PLATELET VOLUME 12.6 fL (9.4-12.4); MONOCYTES ABSOLUTE AUTO 0.68 K/uL (0.00-0.80); MONOCYTES PERCENT AUTO 8.8 % (0.0-8.0); NEUTROPHILS ABSOLUTE AUTO 5.59 K/uL (1.80-7.70); NEUTROPHILS PERCENT AUTO 72.1 % (41.0-71.0); PLATELET COUNT,PLT 192 K/uL (150-400); RED BLOOD CELL COUNT 4.02 M/uL (4.52-5.90); WHITE BLOOD CELL COUNT,WBC 7.75 K/uL (3.9-11.3)
[2024-09-06 14:41] LABS: INR 1.47 (0.86-1.11)
[2024-09-06 14:54] LABS: A/G RATIO 0.9 (0.9-1.6); ALANINE AMINOTRANSFERASE,ALT 87 IU/L (14-63); ALBUMIN 3.3 g/dL (3.4-5.0); ALKALINE PHOSPHATASE 206 U/L (46-116); ASPARTATE AMNIOTRANSFERASE,AST 59 IU/L (15-37); BLOOD UREA NITROGEN,BUN 26 mg/dL (7.0-18.0); CALCIUM 7.5 mg/dL (8.5-10.1); CARBON DIOXIDE,CO2 21.6 mmol/L (21.0-32.0); CHLORIDE,CL 105 mmol/L (98-107); CREATININE 1.5 mg/dL (0.8-1.3); GLUCOSE RANDOM 117 mg/dL (74-106); LIPASE 21 U/L (16-77); POTASSIUM,K 4.2 mmol/L (3.5-5.1); PRO B-TYPE NATRIUR PEPT,BNPPRO 28489 pg/mL (0-125); PROTEIN TOTAL,TP 7.1 g/dL (6.4-8.2); SODIUM,NA 139 mmol/L (136-148)
[2024-09-06 14:55] LABS: ESTIMATED GFR 49 mL/min (>60)
[2024-09-06] MEDS: Furosemide 20 MG/2 ML VIAL IVPUSH ONE (18:21)
[2024-09-06] MEDS ORDERED: Albuterol/Ipratropium 3.0-0.5 MG/3 ML Neb Soln NEB PRN (18:34)
[2024-09-06] MEDS ORDERED: Sennosides/Docusate Sodium 50-8.6 MG Tab PO PRN (18:34)
[2024-09-06] MEDS ORDERED: Acetaminophen 325 MG Tab PO PRN (18:34)
[2024-09-06 21:57] LABS: CORONAVIRUS COVID-19 NAA NEGATIVE (NEGATIVE); INFLUENZA A NAA NEGATIVE (NEGATIVE); INFLUENZA B NAA NEGATIVE (NEGATIVE)
[2024-09-07] MEDS: Ondansetron 4 MG Tab.DIS PO PRN (00:01)
[2024-09-07] MEDS: Melatonin 3 MG Tab PO PRN (00:01)
[2024-09-07 06:04] LABS: BASOPHILS ABSOLUTE AUTO 0.05 K/uL (0.00-0.20); BASOPHILS PERCENT AUTO 0.7 % (0.0-1.0); EOSINOPHILS ABSOLUTE AUTO 0.08 K/uL (0.00-0.45); EOSINOPHILS PERCENT AUTO 1.1 % (0.0-6.0); HEMATOCRIT 34.5 % (42.0-52.0); HEMOGLOBIN 11.2 g/dL (14.0-18.0); IMMATURE GRAN ABSOLUTE AUTO 0.03 K/uL (0.00-0.05); IMMATURE GRAN PERCENT AUTO 0.4 % (0.0-0.4); LYMPHOCYTES ABSOLUTE AUTO 1.37 K/uL (1.00-4.80); LYMPHOCYTES PERCENT AUTO 18.2 % (24.0-44.0); MEAN CORPUSCULAR HEMOGLOBIN 27.1 pg (28.0-32.0); MEAN CORPUSCULAR HGB CONC 32.5 g/dL (32.0-36.0); MEAN CORPUSCULAR VOLUME 83.5 fL (83.0-99.0); MEAN PLATELET VOLUME 13.6 fL (9.4-12.4); MONOCYTES ABSOLUTE AUTO 0.64 K/uL (0.00-0.80); MONOCYTES PERCENT AUTO 8.5 % (0.0-8.0); NEUTROPHILS ABSOLUTE AUTO 5.34 K/uL (1.80-7.70); NEUTROPHILS PERCENT AUTO 71.1 % (41.0-71.0); PLATELET COUNT,PLT 115 K/uL (150-400); RED BLOOD CELL COUNT 4.13 M/uL (4.52-5.90); WHITE BLOOD CELL COUNT,WBC 7.51 K/uL (3.9-11.3)
[2024-09-07 06:31] LABS: A/G RATIO 0.9 (0.9-1.6); ALBUMIN 3.3 g/dL (3.4-5.0); BILIRUBIN TOTAL 1.1 mg/dL (0.2-1.0); CALCIUM 7.4 mg/dL (8.5-10.1); CARBON DIOXIDE,CO2 20.1 mmol/L (21.0-32.0); CREATININE 1.6 mg/dL (0.8-1.3); EST CRCL DRUG DOSING (CG) 43.72 mL/min; POTASSIUM,K 4.2 mmol/L (3.5-5.1); PROTEIN TOTAL,TP 6.9 g/dL (6.4-8.2)
[2024-09-07] MEDS: Furosemide 40 MG/4 ML VIAL IVPUSH SCH (10:40)
[2024-09-07] MEDS: Pantoprazole 40 MG Tab.CR PO SCH (10:40)
[2024-09-07 14:27] LABS: INR 1.49 (0.86-1.11)
[2024-09-07] MEDS: Empagliflozin 10 MG Tab PO SCH (14:41)
[2024-09-07] MEDS: Warfarin 2.5 MG Tab PO SCH (14:42)
[2024-09-07] MEDS: Amiodarone 200 MG Tab PO SCH (14:42)
[2024-09-07] MEDS: Warfarin Sliding Scale PO SCH (14:43)
[2024-09-07] MEDS: atorvaSTATin 20 MG Tab PO SCH (22:08)
[2024-09-07] MEDS: VALSARTAN PO SCH (22:34)
[2024-09-07] MEDS: SACUBITRIL PO SCH (22:34)
[2024-09-08 06:35] LABS: BASOPHILS ABSOLUTE AUTO 0.06 K/uL (0.00-0.20); BASOPHILS PERCENT AUTO 0.6 % (0.0-1.0); EOSINOPHILS ABSOLUTE AUTO 0.13 K/uL (0.00-0.45); EOSINOPHILS PERCENT AUTO 1.4 % (0.0-6.0); HEMATOCRIT 35.2 % (42.0-52.0); HEMOGLOBIN 11.4 g/dL (14.0-18.0); IMMATURE GRAN ABSOLUTE AUTO 0.04 K/uL (0.00-0.05); IMMATURE GRAN PERCENT AUTO 0.4 % (0.0-0.4); LYMPHOCYTES ABSOLUTE AUTO 1.41 K/uL (1.00-4.80); LYMPHOCYTES PERCENT AUTO 15.2 % (24.0-44.0); MEAN CORPUSCULAR HEMOGLOBIN 27.4 pg (28.0-32.0); MEAN CORPUSCULAR HGB CONC 32.4 g/dL (32.0-36.0); MEAN CORPUSCULAR VOLUME 84.6 fL (83.0-99.0); MEAN PLATELET VOLUME 12.3 fL (9.4-12.4); MONOCYTES ABSOLUTE AUTO 0.97 K/uL (0.00-0.80); MONOCYTES PERCENT AUTO 10.5 % (0.0-8.0); NEUTROPHILS ABSOLUTE AUTO 6.64 K/uL (1.80-7.70); NEUTROPHILS PERCENT AUTO 71.9 % (41.0-71.0); NRBC ABSOLUTE 0.03 K/uL (0.00-0.02); NRBC PERCENT 0.3 /100WBC (0.0-0.2); PLATELET COUNT,PLT 240 K/uL (150-400); RED BLOOD CELL COUNT 4.16 M/uL (4.52-5.90); WHITE BLOOD CELL COUNT,WBC 9.25 K/uL (3.9-11.3)
[2024-09-08 06:56] LABS: INR 1.62 (0.86-1.11)
[2024-09-08 07:05] LABS: ALBUMIN 3.3 g/dL (3.4-5.0); BILIRUBIN TOTAL 1.3 mg/dL (0.2-1.0); CALCIUM 7.4 mg/dL (8.5-10.1); CARBON DIOXIDE,CO2 27.2 mmol/L (21.0-32.0); CREATININE 1.8 mg/dL (0.8-1.3); EST CRCL DRUG DOSING (CG) 38.87 mL/min; POTASSIUM,K 4.3 mmol/L (3.5-5.1); PROTEIN TOTAL,TP 7.2 g/dL (6.4-8.2)
[2024-09-08 07:06] LABS: A/G RATIO 0.9 (0.9-1.6)
[2024-09-08] MEDS: Polyethylene Glycol 3350 Powder 17 GM Packet PO PRN (08:34)
[2024-09-08] MEDS: WARFARIN PO SCH (15:56)
== END 2024-09-08 17:33 | disposition home or self-care (01) ==
LOC: MW.ED 12:33 → MW.MS 17:59
PROVIDERS: ADMIT Internal Medicine; ATTEND Internal Medicine
DX: I11.0 Hypertensive heart disease with heart failure (principal); I50.9 Heart failure, unspecified; E11.9 Type 2 diabetes mellitus without complications; I48.91 Unspecified atrial fibrillation; Z79.01 Long term (current) use of anticoagulants; Z79.899 Other long term (current) drug therapy
CPT/HCPCS: 0240U; 36415; 71045; 80053; 83690; 83880; 84484; 85025; 85610; 87428; 93005; 93306; 96374; 97161; 99285; A9270; J1940; 96376; 99284; G0378

== ENCOUNTER 2024-09-15 15:55 | Emergency (ER) | payer MEDICARE, BC ==
[2024-09-15 16:45] LABS: BASOPHILS ABSOLUTE AUTO 0.06 K/uL (0.00-0.20); BASOPHILS PERCENT AUTO 0.8 % (0.0-1.0); EOSINOPHILS ABSOLUTE AUTO 0.14 K/uL (0.00-0.45); EOSINOPHILS PERCENT AUTO 1.9 % (0.0-6.0); HEMATOCRIT 34.8 % (42.0-52.0); HEMOGLOBIN 11.2 g/dL (14.0-18.0); IMMATURE GRAN ABSOLUTE AUTO 0.02 K/uL (0.00-0.05); IMMATURE GRAN PERCENT AUTO 0.3 % (0.0-0.4); LYMPHOCYTES ABSOLUTE AUTO 1.18 K/uL (1.00-4.80); LYMPHOCYTES PERCENT AUTO 15.7 % (24.0-44.0); MEAN CORPUSCULAR HEMOGLOBIN 26.7 pg (28.0-32.0); MEAN CORPUSCULAR HGB CONC 32.2 g/dL (32.0-36.0); MEAN CORPUSCULAR VOLUME 83.1 fL (83.0-99.0); MEAN PLATELET VOLUME 11.8 fL (9.4-12.4); MONOCYTES ABSOLUTE AUTO 0.93 K/uL (0.00-0.80); MONOCYTES PERCENT AUTO 12.4 % (0.0-8.0); NEUTROPHILS PERCENT AUTO 68.9 % (41.0-71.0); NRBC ABSOLUTE 0.05 K/uL (0.00-0.02); NRBC PERCENT 0.7 /100WBC (0.0-0.2); PLATELET COUNT,PLT 253 K/uL (150-400); RED BLOOD CELL COUNT 4.19 M/uL (4.52-5.90); WHITE BLOOD CELL COUNT,WBC 7.53 K/uL (3.9-11.3)
[2024-09-15 16:51] LABS: PH,VENOUS 7.33 (7.31-7.41)
[2024-09-15 16:59] LABS: INR 3.85 (0.86-1.11)
[2024-09-15] MEDS: Lactated Ringers 250 ML IV SCH ×2 (17:09→18:39)
[2024-09-15 17:28] LABS: A/G RATIO 0.8 (0.9-1.6); ALBUMIN 2.9 g/dL (3.4-5.0); BILIRUBIN TOTAL 1.3 mg/dL (0.2-1.0); CALCIUM 6.7 mg/dL (8.5-10.1); CARBON DIOXIDE,CO2 22.6 mmol/L (21.0-32.0); EST CRCL DRUG DOSING (CG) 33.88 mL/min; POTASSIUM,K 4.9 mmol/L (3.5-5.1); PROTEIN TOTAL,TP 6.7 g/dL (6.4-8.2)
[2024-09-15] MEDS: Calcium Gluconate 10% 1 GM/10 ML SDV IV STA (19:52)
[2024-09-15] MEDS: Midodrine 5 MG Tab PO STA (20:37)
== END 2024-09-15 23:10 ==
LOC: MW.ED 15:55
DX: J96.01 Acute respiratory failure with hypoxia (principal); I50.84 End stage heart failure; I50.20 Unspecified systolic (congestive) heart failure; I25.10 Atherosclerotic heart disease of native coronary artery without angina pectoris; I48.91 Unspecified atrial fibrillation; Z96.651 Presence of right artificial knee joint; Z79.01 Long term (current) use of anticoagulants; Z79.899 Other long term (current) drug therapy; Z75.8 Other problems related to medical facilities and other health care
CPT/HCPCS: 36415; 71045; 80053; 82803; 83735; 83880; 84484; 85025; 85610; 93005; 96361; 96374; 99285; A9270; J0612; J7120